=== PATIENT | female | born 1960 | race Caucasian/White ===

== ENCOUNTER 2020-07-27 07:37 | Outpatient (REF) | payer OTHER, MEDICAID, SELFPAY ==
[2020-07-27 08:50] LABS: MANUAL DIFF FLAG NO
[2020-07-27 08:51] LABS: Basophils Percent Auto 0.8 % (0-2); Eosinophils Absolute Auto 0.1 X10*3/uL (0.0-0.4); Eosinophils Percent Auto 1.8 % (0-4); Hematocrit 42.6 % (37-47); Hemoglobin 14.7 g/dl (12.0-16.0); Lymphocytes Absolute Auto 1.8 X10*3/uL (1.2-4.9); Lymphocytes Percent Auto 47.3 % (20-40); Mean Corpuscular HGB Conc 34.5 g/dl (31.0-35.0); Mean Corpuscular Hemoglobin 31.5 pg (27.0-33.0); Mean Corpuscular Volume 91.4 fL (80-98); Mean Platelet Volume 10.4 fL (9.4-12.3); Monocytes Absolute Auto 0.3 X10*3/uL (0.1-1.2); Monocytes Percent Auto 7.8 % (2-11); Neutrophils Absolute Auto 1.6 X10*3/uL (2.0-8.3); Neutrophils Percent Auto 42.3 % (45-73); Platelet Count 195 X10*3/uL (160-400); Red Blood Count 4.66 X10*6/uL (4.20-5.50); Red Cell Distribution Width 11.6 % (11.0-16.0); White Blood Count 3.9 X10*3/uL (4.8-10.8)
[2020-07-27 08:59] LABS: Estimated Average Glucose 105 mg/dL; Hemoglobin A1c % 5.3 %
[2020-07-27 09:18] LABS: Alanine Aminotransferase 17 U/L (0-31); Albumin Level 4.3 g/dL (3.5-5.0); Alkaline Phosphatase 66 U/L (39-117); Anion Gap 14 (12-20); Aspartate Amino Transferase 16 U/L (5-31); Bilirubin Total 1.5 mg/dL (0.0-1.0); Blood Urea Nitrogen 12 mg/dL (9-16); Calcium 9.1 mg/dL (8.4-10.2); Carbon Dioxide 25 mmol/L (22-29); Chloride 107 mmol/L (96-108); Cholesterol 147 mg/dL; Estimated Glomerular Filt Rate > 60; Glucose Fasting 101 mg/dL (60-99); HDL Cholesterol 67 mg/dL; LDL Cholesterol Calculated 61 mg/dl; Potassium 4.2 mmol/l (3.3-5.1); Sodium 142 mmol/L (135-145); Total Protein 6.7 g/dL (6.5-8.0); Triglycerides 97 mg/dL
[2020-07-27 09:21] LABS: Glucose Urine UA NEG (NEG); Leukocyte Esterase Urine NEG (NEG); Nitrite Urine NEG (NEG); Specific Gravity - Urine 1.015 (1.005-1.025); Urine Blood NEG (NEG); Urine Ketones NEG (NEG); Urine Protein NEG (NEG-TRACE)
[2020-07-27 09:23] LABS: Color Urine YELLOW
[2020-07-27 09:24] LABS: Appearance Urine HAZY
[2020-07-27 09:41] LABS: TSH reflex Free T4 2.38 mIU/mL (0.32-4.0)
== END 2020-07-27 07:38 | disposition home or self-care (01) ==
LOC: HO.LAB 07:37
PROVIDERS: PCP Internal Medicine; Visit Provider Internal Medicine
DX: E78.5 Hyperlipidemia, unspecified (principal); I10 Essential (primary) hypertension; R73.01 Impaired fasting glucose; I48.0 Paroxysmal atrial fibrillation; I49.5 Sick sinus syndrome; J30.9 Allergic rhinitis, unspecified; E66.3 Overweight
CPT/HCPCS: 36415; 80053; 80061; 81003; 83036; 84443; 85025

== ENCOUNTER → 2020-08-01 14:37 | Outpatient (BNVA) | payer MEDICARE, MEDICAID, SELFPAY | PROVIDERS: PCP Internal Medicine; Referring Provider Internal Medicine; Visit Provider Internal Medicine | DX: Z45.018 Encounter for adjustment and management of other part of cardiac pacemaker (principal); I48.0 Paroxysmal atrial fibrillation; I49.5 Sick sinus syndrome; Z51.81 Encounter for therapeutic drug level monitoring; Z79.899 Other long term (current) drug therapy; Z79.01 Long term (current) use of anticoagulants | CPT/HCPCS: 93005; 99212 ==

== ENCOUNTER → 2020-08-09 10:01 | Outpatient (BNVA) | payer MEDICARE, MEDICAID, SELFPAY | PROVIDERS: PCP Internal Medicine; Visit Provider Surgery | DX: R21 Rash and other nonspecific skin eruption (principal); Z80.3 Family history of malignant neoplasm of breast; Z80.41 Family history of malignant neoplasm of ovary; Z80.0 Family history of malignant neoplasm of digestive organs; Z91.89 Other specified personal risk factors, not elsewhere classified | CPT/HCPCS: 99212 ==

== ENCOUNTER 2020-08-21 19:08 | Emergency (ER) | payer MEDICARE, MEDICAID, SELFPAY ==
[2020-08-21 19:49] VITALS: BP 145/77; PULSE 68; RESP 16; TEMP 37.1; O2SAT 100; BMI 26.9
--- NOTE | 2020-08-21 20:12 | ED_ITS ---
HPI - Skin/Abscess/Foreign Bdy General Chief complaint: Skin/Abscess/Foreign Body Stated complaint: ?insect bite on neck Time Seen by Provider: 08/21/20 20:10 History of Present Illness HPI narrative: Patient complains of inflamed red area on the right side of her neck, mildly uncomfortable, no fever no chills no difficulty breathing or swallowing Related Data Home Medications Medication Instructions Recorded Confirmed apixaban 5 mg tablet 5 mg PO BID 08/01/20 08/09/20 ascorbate calcium (vitamin C) 500 500 mg PO DAILY 08/01/20 08/09/20 mg tablet atorvastatin 10 mg tablet 10 mg PO DAILY 08/01/20 08/09/20 flaxseed oil 1,000 mg capsule 1,000 mg PO DAILY 08/01/20 08/09/20 flecainide 50 mg tablet 50 mg PO Q12H 08/01/20 08/09/20 fluticasone propionate 50 1 spray INTRANASAL DAILY 08/01/20 08/09/20 mcg/actuation nasal spray,suspension menthol 0.44 %-zinc oxide 20.6 % 1 appl TOPICAL QID PRN 08/01/20 08/09/20 topical ointment metoprolol succinate 25 mg 25 mg PO DAILY 08/01/20 08/09/20 tablet,extended release 24 hr omega-3 fatty acids 1,000 mg 1,000 mg PO DAILY 08/01/20 08/09/20 capsule tizanidine 4 mg tablet 4 mg PO Q8H PRN 08/01/20 08/09/20 Previous Rx's Medication Instructions Recorded cephalexin [Keflex] 500 mg PO QID 7 Days #28 cap 08/21/20 doxycycline hyclate 100 mg PO BID 7 Days #14 cap 08/21/20 mupirocin 1 appl TOPICAL TID 5 Days #15 g 08/21/20 Allergies Allergy/AdvReac Type Severity Reaction Status Date / Time codeine [CODEINE] Allergy Unknown JITTERY Verified 08/09/20 10:08 Sulfa (Sulfonamide Allergy Unknown RASH,HIVES, Verified 08/09/20 10:08 Antibiotics) rash [SULFA (SULFONAMIDE ANTIBIOTICS)] Review of Systems Review of Systems: Positive for red mildly painful area on right side of neck Review of systems no fever no chills no dizziness no weakness no difficulty breathing nose difficulty swallowing no sore throat, no other red or painful areas on the body no other rashes, no numbness tingling or weakness PMFSH Past Medical History Source: nursing notes reviewed Medical History (Updated 08/21/20 @ 20:25 by LONNIE Graham) Allergic rhinitis At high risk for breast cancer Benign essential hypertension 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 Family history of breast cancer Impaired fasting glucose Normally functioning cardiac pacemaker present Overweight (BMI 25.0-29.9) PAF (paroxysmal atrial fibrillation) Pure hypercholesterolemia Sick sinus syndrome Surgical History History of pacemaker History of tonsillectomy Family History Family History Father Hypertension Diabetes Arthritis Colon cancer Iron deficiency Mother Hypertension Maternal Grandmother Arthritis Diabetes Blockage of coronary artery of heart Maternal Grandfather Arthritis Paternal Grandfather Arthritis Pancreatic cancer Social History Social History Alcohol intake: never Smoking Status: Former smoker Smoked in Last 30 Days: No Use of substances other than those prescribed or required for medical reasons: No Advance Directives: No Advance Directives Information Provided: No Physical Exam Vital Signs: Vital Signs: Last Vital Signs Temp 98.7 F 08/21/20 19:49 Pulse 68 08/21/20 19:49 Resp 16 08/21/20 19:49 BP 145/77 H 08/21/20 19:49 Pulse Ox 100 08/21/20 19:49 Body Mass Index 26.9 General appearance is no acute distress comfortable relax and cooperative exam head is normocephalic atraumatic, The pharynx is normal with no redness or swelling, no impairment of breathing or swallowing The neck is supple There is a 1.5cm x 1.5 cm round indurated area of redness that is very mildly tender, it is mobile on the right side of the neck, there is no surrounding erythema, there is no fluctuance or discharge there is no opening or wound Respiratory is no acute distress, lung sounds are clear to auscultation, full and symmetrical Stream it ease is no rashes, full range of motion x4 neuro was no focal deficit Course Course Course Narrative: Patient with small indurated area on right side of the neck with no abscess nothing to drain no systemic symptoms no fever is treated for cellulitis Discharge Plan Discharge Clinical Impression: Cellulitis Qualifiers: Site of cellulitis: neck Qualified Code(s): L03.221 - Cellulitis of neck Patient Disposition: Home, Self-Care Additional Instructions: We are treating for a skin infection of the neck Follow with primary doctor or return to ER if no improvement in 2-3 days for recheck Return to ER any time for spreading redness, worse pain and swelling, fever, difficulty breathing or swallowing, any worse condition or any concerns Prescriptions: New cephalexin [Keflex] 500 mg capsule 500 mg PO QID 7 Days Qty: 28 RF: 0 doxycycline hyclate 100 mg capsule 100 mg PO BID 7 Days Qty: 14 RF: 0 mupirocin 2 % ointment 1 appl topical TID 5 Days Qty: 15 RF: 0 No Action fluticasone propionate 50 mcg/actuation spray,suspension 1 spray intranasal DAILY RF: 0 flecainide 50 mg tablet 50 mg PO Q12H RF: 0 Eliquis 5 mg tablet 5 mg PO BID RF: 0 ascorbate calcium (vitamin C) 500 mg tablet 500 mg PO DAILY RF: 0 flaxseed oil 1,000 mg capsule 1,000 mg PO DAILY RF: 0 Calmoseptine 0.44-20.6 % ointment 1 appl topical QID PRNRF: 0 atorvastatin 10 mg tablet 10 mg PO DAILY RF: 0 omega-3 fatty acids [Fish Oil Concentrate] 1,000 mg capsule 1,000 mg PO DAILY RF: 0 metoprolol succinate 25 mg tablet extended release 24 hr 25 mg PO DAILY RF: 0 tizanidine 4 mg tablet 4 mg PO Q8H PRNRF: 0 Interventions: ED Discharge Assessment Last Done: 08/21/20 20:43 Discharge Date/Time: 08/21/20 20:46
[2020-08-21] MEDS: cephALEXin 500 MG CAPSULE PO (20:41)
== END 2020-08-21 20:46 | disposition home or self-care (01) ==
PROVIDERS: Emergency Provider Internal Medicine; PCP Internal Medicine
DX: L03.221 Cellulitis of neck (principal); Z87.891 Personal history of nicotine dependence; Z79.01 Long term (current) use of anticoagulants; Z79.899 Other long term (current) drug therapy
CPT/HCPCS: 99283; 99284

== ENCOUNTER 2020-08-26 15:02 | Outpatient (REF) | payer MEDICARE, SELFPAY ==
--- NOTE | ~2020-08-26 | US_ITS ---
EXAMINATION: US BREAST, right CLINICAL INFORMATION: Follow up complex cyst COMPARISON: October 13, 2019 and studies dating back to March 02, 2016 MAMMOGRAPHY: Previous mammogram dated August 21, 2019 was reviewed on a diagnostic monitor. TECHNIQUE: High-resolution grayscale sonography of the breasts was performed by a technologist with a high-frequency linear transducer following a standardized protocol. All 4 quadrants were examined. The retroareolar region was examined. FINDINGS: On the images submitted for review, there is again noted to be a complex cyst without change at the 9:00 position measuring approximately 5 x 4 x 6 mm in size. It has smooth miles and no internal vascularity. US/US breast LT complete IMPRESSION: Stable appearance of right breast complex cyst 9:00 position. ASSESSMENT: Right breast: BI-RADS 2, benign. RECOMMENDATIONS: Continue mammographic screening. This patient?s information was entered in to a reminder system with a target due date for their next mammogram.
--- NOTE | ~2020-08-26 | US_ITS ---
EXAMINATION: US BREAST, left CLINICAL INFORMATION: Right breast cystic lesion, left breast screening. COMPARISON: Ultrasound studies dating back to March 02, 2016 MAMMOGRAPHY: Previous mammogram dated August 21, 2019 was reviewed on a nondiagnostic monitor. TECHNIQUE: High-resolution grayscale sonography of the breasts was performed by a technologist with a high-frequency linear transducer following a standardized protocol. All 4 quadrants examined. The retroareolar region was examined. FINDINGS: On the images submitted for review, no suspicious mass, area of architectural distortion, complex cyst or other sonographically suspicious lesion is identified in the left breast. US/US breast RT complete IMPRESSION: No sonographic evidence of malignancy in the left breast. ASSESSMENT: Left breast: BI-RADS 1 - negative. RECOMMENDATIONS: Continue mammographic screening. This patient?s information was entered in to a reminder system with a target due date for their next mammogram.
== END 2020-08-26 15:03 | disposition home or self-care (01) ==
LOC: HO.MAMMO 15:02
PROVIDERS: PCP Internal Medicine; Visit Provider Internal Medicine
DX: N60.01 Solitary cyst of right breast (principal); Z80.3 Family history of malignant neoplasm of breast
CPT/HCPCS: 76641

== ENCOUNTER 2020-08-30 10:05 | Outpatient (REF) | payer MEDICARE, MEDICAID, SELFPAY ==
--- NOTE | ~2020-08-30 | MM_ITS ---
EXAMINATION: MM SCREENING DIGITAL BREAST TOMOSYNTHESIS, BILATERAL CLINICAL INFORMATION: Screening. Asymptomatic. The lifetime risk of breast cancer based on the Tyrer-Cuzick Model is 13%. COMPARISON: Mammography: 08/21/2019, 07/25/2018, 07/23/2017; targeted right breast ultrasound 07/25/2018, 01/23/2019, 07/29/2019, 10/13/2019, and bilateral breast ultrasound 08/26/2020. TECHNIQUE: Digital breast tomosynthesis is performed in both the craniocaudal and mediolateral oblique views along with computer-aided detection (CAD). Synthesized 2D images are generated from the tomosynthesis. FINDINGS: There are scattered areas of fibroglandular density (ACR BI-RADS breast composition Category b). Parenchymal pattern is similar to prior studies. There is no significant mass or architectural abnormality or abnormal calcifications. Circumscribed nodule mid outer right breast is slightly decreased from prior study. There is stable right retroareolar duct ectasia. The axilla and skin contours are unremarkable. MM/MM tomosynthesis screening BI IMPRESSION: No significant changes from prior exams. ASSESSMENT: BI-RADS 2: Benign RECOMMENDATION: Routine annual mammography screening. This patient's information was entered into a reminder system with a target due date for their next mammogram.
== END 2020-08-30 10:06 | disposition home or self-care (01) ==
LOC: HO.MAMMO 10:05
PROVIDERS: PCP Internal Medicine; Visit Provider Internal Medicine
DX: Z12.31 Encounter for screening mammogram for malignant neoplasm of breast (principal)
CPT/HCPCS: 77063; 77067

== ENCOUNTER 2020-11-25 06:50 | Outpatient (REF) | payer MEDICARE, MEDICAID, SELFPAY ==
[2020-11-25 07:46] LABS: MANUAL DIFF FLAG NO
[2020-11-25 07:50] LABS: Basophils Percent Auto 0.7 % (0-2); Eosinophils Absolute Auto 0.1 X10*3/uL (0.0-0.4); Eosinophils Percent Auto 1.7 % (0-4); Hematocrit 43.8 % (37-47); Hemoglobin 15.1 g/dl (12.0-16.0); Imm Gran Abs Auto 0.01 X10*3/uL (0.00-0.03); Imm Gran Pct Auto 0.2 % (0.0-0.4); Lymphocytes Absolute Auto 2.2 X10*3/uL (1.2-4.9); Lymphocytes Percent Auto 51.6 % (20-40); Mean Corpuscular HGB Conc 34.5 g/dl (31.0-35.0); Mean Corpuscular Hemoglobin 31.7 pg (27.0-33.0); Mean Corpuscular Volume 91.8 fL (80-98); Mean Platelet Volume 10.4 fL (9.4-12.3); Monocytes Absolute Auto 0.3 X10*3/uL (0.1-1.2); Monocytes Percent Auto 7.4 % (2-11); Neutrophils Absolute Auto 1.6 X10*3/uL (2.0-8.3); Neutrophils Percent Auto 38.4 % (45-73); Platelet Count 174 X10*3/uL (160-400); Red Blood Count 4.77 X10*6/uL (4.20-5.50); Red Cell Distribution Width 11.8 % (11.0-16.0); White Blood Count 4.2 X10*3/uL (4.8-10.8)
[2020-11-25 08:20] LABS: Alanine Aminotransferase 17 U/L (0-31); Albumin Level 4.5 g/dL (3.5-5.0); Alkaline Phosphatase 69 U/L (39-117); Anion Gap 12 (12-20); Aspartate Amino Transferase 14 U/L (5-31); Bilirubin Total 1.3 mg/dL (0.0-1.0); Blood Urea Nitrogen 15 mg/dL (9-16); Calcium 9.5 mg/dL (8.4-10.2); Carbon Dioxide 27 mmol/L (22-29); Chloride 107 mmol/L (96-108); Cholesterol 161 mg/dL; Estimated Glomerular Filt Rate > 60; Glucose Fasting 92 mg/dL (60-99); HDL Cholesterol 68 mg/dL; LDL Cholesterol Calculated 73 mg/dl; Potassium 3.8 mmol/L (3.3-5.1); Sodium 142 mmol/L (135-145); Triglycerides 101 mg/dL
[2020-11-25 08:30] LABS: Glucose Urine UA NEG (NEG); Leukocyte Esterase Urine NEG (NEG); Nitrite Urine NEG (NEG); Urine Blood 1+ (NEG); Urine Ketones NEG (NEG); Urine Protein NEG (NEG-TRACE)
[2020-11-25 08:32] LABS: Color Urine YELLOW
[2020-11-25 08:33] LABS: Appearance Urine CLEAR
[2020-11-25 08:42] LABS: TSH reflex Free T4 3.47 uIU/mL (0.32-4.0)
[2020-11-25 08:55] LABS: Squamous Epithelial Cell Urine 1+ /LPF; WBC Urine 0-2 /HPF (0-4)
== END 2020-11-25 06:51 | disposition home or self-care (01) ==
LOC: HO.LAB 06:50
PROVIDERS: Visit Provider Internal Medicine
DX: I10 Essential (primary) hypertension (principal); J30.9 Allergic rhinitis, unspecified; R73.01 Impaired fasting glucose; E78.00 Pure hypercholesterolemia, unspecified; E66.3 Overweight; I48.0 Paroxysmal atrial fibrillation; I49.5 Sick sinus syndrome
CPT/HCPCS: 36415; 80053; 80061; 81001; 84443; 85025

== ENCOUNTER → 2021-02-01 14:18 | Outpatient (BNVA) | payer MEDICARE, MEDICAID, SELFPAY | PROVIDERS: PCP Internal Medicine; Referring Provider Internal Medicine; Visit Provider Internal Medicine | DX: I48.0 Paroxysmal atrial fibrillation (principal); I49.5 Sick sinus syndrome; Z51.81 Encounter for therapeutic drug level monitoring; Z79.899 Other long term (current) drug therapy; Z95.0 Presence of cardiac pacemaker | CPT/HCPCS: 93005; 99212 ==

== ENCOUNTER → 2021-03-15 09:51 | Outpatient (BNVA) | payer MEDICARE, MEDICAID, SELFPAY | PROVIDERS: PCP Internal Medicine; Referring Provider Internal Medicine; Visit Provider Surgery | DX: N60.02 Solitary cyst of left breast (principal); N60.01 Solitary cyst of right breast; I48.0 Paroxysmal atrial fibrillation; I10 Essential (primary) hypertension; E78.00 Pure hypercholesterolemia, unspecified; Z80.3 Family history of malignant neoplasm of breast; Z80.41 Family history of malignant neoplasm of ovary; Z87.891 Personal history of nicotine dependence; Z95.0 Presence of cardiac pacemaker | CPT/HCPCS: 99212 ==

== ENCOUNTER 2021-05-25 08:07 | Outpatient (REF) | payer MEDICARE, MEDICAID, SELFPAY ==
[2021-05-25 08:40] LABS: Eosinophils Absolute Auto 0.1 X10*3/uL (0.0-0.4); Eosinophils Percent Auto 2.2 % (0-4); Hematocrit 40.1 % (37.0-47.0); Imm Gran Abs Auto 0.01 X10*3/uL (0.00-0.03); Imm Gran Pct Auto 0.3 % (0.0-0.4); Lymphocytes Absolute Auto 1.4 X10*3/uL (1.2-4.9); Lymphocytes Percent Auto 45.7 % (20-40); MANUAL DIFF FLAG NO; Mean Corpuscular HGB Conc 34.9 g/dl (31.0-35.0); Mean Corpuscular Hemoglobin 31.8 pg (27.0-33.0); Mean Corpuscular Volume 91.1 fL (80.0-98.0); Monocytes Absolute Auto 0.3 X10*3/uL (0.1-1.2); Monocytes Percent Auto 8.6 % (2-11); Neutrophils Absolute Auto 1.33 x10*3/uL (2.0-8.3); Neutrophils Percent Auto 42.2 % (45-73); Platelet Count 171 X10*3/uL (160-400); Red Cell Distribution Width 11.8 % (11.0-16.0); White Blood Count 3.2 X10*3/uL (4.8-10.8)
[2021-05-25 09:22] LABS: Alanine Aminotransferase 18 U/L (0-31); Albumin Level 4.1 g/dL (3.5-5.0); Alkaline Phosphatase 60 U/L (39-117); Anion Gap 10 (12-20); Aspartate Amino Transferase 17 U/L (5-31); Bilirubin Total 2.5 mg/dL (0.0-1.0); Blood Urea Nitrogen 13 mg/dL (9-16); Calcium 9.1 mg/dL (8.4-10.2); Carbon Dioxide 27 mmol/L (22-29); Chloride 107 mmol/L (96-108); Cholesterol 138 mg/dL; Estimated Glomerular Filt Rate > 60; Glucose Fasting 104 mg/dL (60-99); HDL Cholesterol 61 mg/dL; LDL Cholesterol Calculated 61 mg/dl; Potassium 3.9 mmol/L (3.3-5.1); Sodium 140 mmol/L (135-145); Total Protein 6.3 g/dL (6.5-8.0); Triglycerides 82 mg/dL
[2021-05-25 09:27] LABS: Appearance Urine CLEAR; Color Urine YELLOW; Glucose Urine UA NEG (NEG); Leukocyte Esterase Urine NEG (NEG); Nitrite Urine NEG (NEG); PH 6.5 (5.0-8.0); Specific Gravity - Urine <= 1.005 (1.005-1.025); Urine Blood NEG (NEG); Urine Ketones NEG (NEG); Urine Protein NEG (NEG-TRACE)
[2021-05-25 09:42] LABS: TSH reflex Free T4 2.34 uIU/mL (0.32-4.0); Vitamin D 25-OH Total 42.5 ng/mL (>30)
== END 2021-05-25 08:08 | disposition home or self-care (01) ==
LOC: HO.LAB 08:07
PROVIDERS: Visit Provider Internal Medicine
DX: I10 Essential (primary) hypertension (principal); E55.9 Vitamin D deficiency, unspecified; E78.00 Pure hypercholesterolemia, unspecified
CPT/HCPCS: 36415; 80053; 80061; 81003; 82306; 84443; 85025

== ENCOUNTER 2021-07-24 07:41 | Outpatient (REF) | payer MEDICARE, MEDICAID, SELFPAY | END 2021-07-24 07:42 | disposition home or self-care (01) | LOC: HO.LAB 07:41 | PROVIDERS: PCP Internal Medicine; Visit Provider Internal Medicine | DX: Z13.89 Encounter for screening for other disorder (principal) ==

== ENCOUNTER 2021-07-24 08:56 | Outpatient (REF) | payer MEDICARE, MEDICAID, SELFPAY ==
[2021-07-24 09:29] LABS: MANUAL DIFF FLAG NO
[2021-07-24 10:03] LABS: Eosinophils Percent Auto 1.3 % (0-4); Hematocrit 41.8 % (37.0-47.0); Hemoglobin 14.4 g/dl (12.0-16.0); Imm Gran Abs Auto 0.01 X10*3/uL (0.00-0.03); Imm Gran Pct Auto 0.3 % (0.0-0.4); Lymphocytes Absolute Auto 1.3 X10*3/uL (1.2-4.9); Lymphocytes Percent Auto 42.4 % (20-40); Mean Corpuscular HGB Conc 34.4 g/dl (31.0-35.0); Mean Corpuscular Hemoglobin 31.7 pg (27.0-33.0); Mean Corpuscular Volume 92.1 fL (80.0-98.0); Mean Platelet Volume 10.3 fL (9.4-12.3); Monocytes Absolute Auto 0.3 X10*3/uL (0.1-1.2); Monocytes Percent Auto 8.4 % (2-11); Neutrophils Absolute Auto 1.4 x10*3/uL (2.0-8.3); Neutrophils Percent Auto 46.6 % (45-73); Platelet Count 166 X10*3/uL (160-400); Red Blood Count 4.54 X10*6/uL (4.20-5.50); Red Cell Distribution Width 11.9 % (11.0-16.0); White Blood Count 3.1 X10*3/uL (4.8-10.8)
[2021-07-24 10:36] LABS: Appearance Urine CLEAR; Color Urine STRAW; Glucose Urine UA NEG (NEG); Leukocyte Esterase Urine NEG (NEG); Nitrite Urine NEG (NEG); Specific Gravity - Urine <= 1.005 (1.005-1.025); Urine Blood NEG (NEG); Urine Ketones NEG (NEG); Urine Protein NEG (NEG-TRACE)
[2021-07-24 10:42] LABS: Alanine Aminotransferase 18 U/L (0-31); Albumin Level 4.2 g/dL (3.5-5.0); Alkaline Phosphatase 62 U/L (39-117); Anion Gap 9 (12-20); Aspartate Amino Transferase 14 U/L (5-31); Bilirubin Total 1.9 mg/dL (0.0-1.0); Blood Urea Nitrogen 15 mg/dL (9-16); Calcium 9.5 mg/dL (8.4-10.2); Carbon Dioxide 31 mmol/L (22-29); Chloride 107 mmol/L (96-108); Cholesterol 150 mg/dL; Estimated Glomerular Filt Rate > 60; Glucose Fasting 101 mg/dL (60-99); HDL Cholesterol 65 mg/dL; LDL Cholesterol Calculated 68 mg/dl; Potassium 4.5 mmol/L (3.3-5.1); Sodium 142 mmol/L (135-145); Total Protein 6.8 g/dL (6.5-8.0); Triglycerides 88 mg/dL
[2021-07-24 11:05] LABS: TSH reflex Free T4 1.71 uIU/mL (0.32-4.0); Vitamin D 25-OH Total 45.9 ng/mL (>30)
== END 2021-07-24 08:57 | disposition home or self-care (01) ==
LOC: HO.LAB 08:56
PROVIDERS: PCP Internal Medicine; Visit Provider Internal Medicine
DX: E78.00 Pure hypercholesterolemia, unspecified (principal); E55.9 Vitamin D deficiency, unspecified; I10 Essential (primary) hypertension
CPT/HCPCS: 36415; 80053; 80061; 81003; 82306; 84443; 85025

== ENCOUNTER → 2021-07-31 12:56 | Outpatient (BNVA) | payer MEDICARE, MEDICAID, SELFPAY | PROVIDERS: PCP Internal Medicine; Referring Provider Internal Medicine; Visit Provider Internal Medicine | DX: Z45.018 Encounter for adjustment and management of other part of cardiac pacemaker (principal); I48.0 Paroxysmal atrial fibrillation; I49.5 Sick sinus syndrome; Z51.81 Encounter for therapeutic drug level monitoring; Z79.899 Other long term (current) drug therapy | CPT/HCPCS: 93005; 99212 ==

== ENCOUNTER 2021-08-30 11:04 | Outpatient (REF) | payer MEDICARE, MEDICAID, SELFPAY ==
--- NOTE | ~2021-08-30 | XR_ITS ---
EXAMINATION: XR HAND, LEFT CLINICAL INFORMATION: Left hand and fourth finger pain COMPARISON: None TECHNIQUE: PA, lateral, and oblique views of the left hand. FINDINGS: Bone alignment is normal. No fracture or dislocation is seen there is mild arthritis at the DIP joint of the second and third fingers. Joint spaces are otherwise normal. Soft tissues are normal. XR/XR hand LT min 3V IMPRESSION: Mild degenerative changes.
== END 2021-08-30 11:05 | disposition home or self-care (01) ==
LOC: HO.XRAY 11:04
PROVIDERS: PCP Internal Medicine; Visit Provider Internal Medicine
DX: M79.645 Pain in left finger(s) (principal)
CPT/HCPCS: 73130

== ENCOUNTER 2021-09-04 13:19 | Outpatient (REF) | payer MEDICARE, MEDICAID, SELFPAY ==
--- NOTE | ~2021-09-04 | MM_ITS ---
EXAMINATION: MM SCREENING DIGITAL BREAST TOMOSYNTHESIS, BILATERAL CLINICAL INFORMATION: Screening. Asymptomatic. The lifetime risk of breast cancer based on the Tyrer-Cuzick Model is 12%. COMPARISON: Mammography: 08/30/2020, 08/21/2019, 07/25/2018 TECHNIQUE: Digital breast tomosynthesis is performed in both the craniocaudal and mediolateral oblique views along with computer-aided detection (CAD). Synthesized 2D images are generated from the tomosynthesis. FINDINGS: There are scattered areas of fibroglandular density (ACR BI-RADS breast composition Category b). Parenchymal pattern is similar to prior exams. There is no interval mass or architectural abnormality or abnormal calcifications. There is stable right retroareolar duct ectasia and a small circumscribed nodule again seen right breast upper outer quadrant mid depth. The skin contours are smooth. Pacemaker generator partially overlies the posterior left axilla. No significant change. MM/MM tomosynthesis screening BI IMPRESSION: No mammographic evidence of malignancy. ASSESSMENT: BI-RADS 2: Benign RECOMMENDATION: Routine annual mammography screening. This patient's information was entered into a reminder system with a target due date for their next mammogram.
== END 2021-09-04 13:20 | disposition home or self-care (01) ==
LOC: HO.MAMMO 13:19
PROVIDERS: Visit Provider Obstetrics & Gynecology
DX: Z12.31 Encounter for screening mammogram for malignant neoplasm of breast (principal)
CPT/HCPCS: 77063; 77067

== ENCOUNTER → 2021-09-06 09:53 | Outpatient (BNVA) | payer MEDICARE, MEDICAID, SELFPAY | PROVIDERS: PCP Internal Medicine; Referring Provider Internal Medicine; Visit Provider Surgery | DX: Z91.89 Other specified personal risk factors, not elsewhere classified (principal); Z80.3 Family history of malignant neoplasm of breast | CPT/HCPCS: 99212 ==

== ENCOUNTER 2021-10-18 14:02 | Emergency (ER) | payer MEDICARE, MEDICAID, SELFPAY ==
--- NOTE | 2021-10-18 | ECG_ITS ---
Test Reason : SOB Blood Pressure : / mmHG Vent. Rate : 070 BPM Atrial Rate : 070 BPM P-R Int : 218 ms QRS Dur : 090 ms QT Int : 378 ms P-R-T Axes : 022 027 019 degrees QTc Int : 408 ms Atrial-paced rhythm with prolonged AV conduction Abnormal ECG When compared with ECG of 25-OCT-2015 06:58, Electronic atrial pacemaker has replaced Sinus rhythm Vent. rate has increased BY 24 BPM Referred By: Generic ED Physician Electronically Signed By:KATIE OMALLEY
--- NOTE | ~2021-10-18 | XR_ITS ---
EXAMINATION: XR CHEST CLINICAL INFORMATION: Shortness of breath. COMPARISON: 08/07/2017 chest radiographs. TECHNIQUE: 2 views of the chest were obtained. FINDINGS: Support devices: Left-sided pacemaker device appears in good position. The lungs are clear. There are no pleural effusions. The heart and mediastinal structures are unremarkable. XR/XR chest 2V IMPRESSION: No acute cardiopulmonary process.
[2021-10-18 14:09] VITALS: BP 183/92; PULSE 93; RESP 18; TEMP 36.6; O2SAT 99; BMI 26.1
[2021-10-18 14:34] LABS: MANUAL DIFF FLAG NO
[2021-10-18 14:35] LABS: Basophils Percent Auto 0.7 % (0-2); Eosinophils Percent Auto 0.5 % (0-4); Hematocrit 42.3 % (37.0-47.0); Hemoglobin 14.3 g/dl (12.0-16.0); Imm Gran Abs Auto 0.01 X10*3/uL (0.00-0.03); Imm Gran Pct Auto 0.2 % (0.0-0.4); Lymphocytes Absolute Auto 1.5 X10*3/uL (1.2-4.9); Lymphocytes Percent Auto 35.4 % (20-40); Mean Corpuscular HGB Conc 33.8 g/dl (31.0-35.0); Mean Corpuscular Hemoglobin 30.8 pg (27.0-33.0); Mean Corpuscular Volume 91.2 fL (80.0-98.0); Monocytes Absolute Auto 0.3 X10*3/uL (0.1-1.2); Monocytes Percent Auto 7.3 % (2-11); Neutrophils Absolute Auto 2.3 x10*3/uL (2.0-8.3); Neutrophils Percent Auto 55.9 % (45-73); Platelet Count 174 X10*3/uL (160-400); Red Blood Count 4.64 X10*6/uL (4.20-5.50); Red Cell Distribution Width 11.7 % (11.0-16.0); White Blood Count 4.1 X10*3/uL (4.8-10.8)
[2021-10-18 14:57] LABS: Alanine Aminotransferase 19 U/L (0-31); Albumin Level 4.2 g/dL (3.5-5.0); Alkaline Phosphatase 65 U/L (39-117); Anion Gap 8 (12-20); Aspartate Amino Transferase 17 U/L (5-31); Bilirubin Total 2.3 mg/dL (0.0-1.0); Blood Urea Nitrogen 13 mg/dL (9-16); Calcium 9.6 mg/dL (8.4-10.2); Carbon Dioxide 31 mmol/L (22-29); Chloride 103 mmol/L (96-108); Creatinine Clr Calc Pharmacy 52.2; Estimated Glomerular Filt Rate 52; Glucose Random 115 mg/dL (60-115); Potassium 4.4 mmol/L (3.3-5.1); Sodium 138 mmol/L (135-145); Total Protein 6.7 g/dL (6.5-8.0)
[2021-10-18 15:00] LABS: Troponin-I High Sensitivity < 3.5 ng/L (<3.5-17.0)
[2021-10-18 16:23] VITALS: BP 150/79; PULSE 63; RESP 14; O2SAT 99
--- NOTE | 2021-10-18 16:31 | ED_ITS ---
HPI - General Adult General Chief complaint: General Medical Stated complaint: stroke? fatigue, weak, has pacemaker Time Seen by Provider: 10/18/21 16:31 Source: patient Mode of arrival: ambulatory Limitations: no limitations History of Present Illness HPI narrative: Patient is 60 years old with history of paroxysmal atrial fibrillation sick sinus syndrome status post pacemaker placed in 2017 on Eliquis, hypertension with increased anxiety and depression under increased stress lately her brother and [id number] were fighting last night today she woke up felt nonspecific dizzy denies any chest pain or palpitation dizziness got better at this time denies any complain patient denies any shortness of breath Related Data Home Medications Medication Instructions Recorded Confirmed ascorbate calcium (vitamin C) 500 500 mg PO DAILY 08/01/20 09/06/21 mg tablet flaxseed oil 1,000 mg capsule 1,000 mg PO DAILY 08/01/20 09/06/21 fluticasone propionate 50 1 spray INTRANASAL DAILY 08/01/20 09/06/21 mcg/actuation nasal spray,suspension menthol 0.44 %-zinc oxide 20.6 % 1 appl TOPICAL QID PRN 08/01/20 09/06/21 topical ointment (Calmoseptine) omega-3 fatty acids 1,000 mg 1,000 mg PO DAILY 08/01/20 09/06/21 capsule (Fish Oil Concentrate) Previous Rx's Medication Instructions Recorded mupirocin 2 % topical ointment 1 appl TOPICAL TID 5 Days #15 g 08/21/20 atorvastatin 10 mg tablet 10 mg PO DAILY #90 tab 12/22/20 flecainide 100 mg tablet 100 mg PO Q12H #180 tab 02/01/21 calcium carbonate 600 mg-vitamin 1 tab PO DAILY 90 Days #90 tab 02/20/21 D3 5 mcg (200 unit) tablet apixaban 5 mg tablet (Eliquis) 5 mg PO BID 90 Days #180 tab 07/28/21 metoprolol succinate 50 mg 50 mg PO DAILY #90 tab 07/31/21 tablet,extended release 24 hr (Toprol XL) tizanidine 4 mg tablet 4 mg PO Q8H PRN #270 tab 09/04/21 nystatin 100,000 unit/gram topical 1 appl TOPICAL BID #15 g 09/06/21 cream lorazepam 0.5 mg tablet (Ativan) 0.5 mg PO BEDTIME PRN #7 tab 10/18/21 Allergies Allergy/AdvReac Type Severity Reaction Status Date / Time codeine [CODEINE] Allergy Unknown JITTERY Verified 09/06/21 10:08 Sulfa (Sulfonamide Allergy Unknown RASH,HIVES, Verified 09/06/21 10:08 Antibiotics) rash [SULFA (SULFONAMIDE ANTIBIOTICS)] Review of Systems Review of Systems: Yes all other systems are reviewed and are negative [facility] Past Medical History Medical History Allergic rhinitis At high risk for breast cancer 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 essential hypertension 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 Family history of breast cancer Impaired fasting glucose Normally functioning cardiac pacemaker present Overweight (BMI 25.0-29.9) PAF (paroxysmal atrial fibrillation) Pure hypercholesterolemia Sick sinus syndrome Surgical History History of pacemaker History of tonsillectomy Family History Family History Father Hypertension Diabetes Arthritis Colon cancer Iron deficiency Mother Hypertension Maternal Grandmother Arthritis Diabetes Blockage of coronary artery of heart Maternal Grandfather Arthritis Paternal Grandfather Arthritis Pancreatic cancer Social History Social History Housing: House Alcohol intake: never Patient Tobacco Use Status: Former Tobacco user Second Hand Smoke Exposure: Yes Advance Directives: No Advance Directives Information Provided: Yes service: No Current occupational status: disabled Physical Exam ED Vital Signs: Vital Signs - 24 hr 10/18/21 14:09 10/18/21 16:23 10/18/21 17:23 Temperature 97.8 F Pulse Rate 93 63 66 Respiratory Rate 18 14 Blood Pressure 183/92 H 150/79 H 128/68 Pulse Oximetry 99 99 10/18/21 17:24 10/18/21 17:26 Temperature Pulse Rate 68 65 Respiratory Rate Blood Pressure 153/79 H 147/73 H Pulse Oximetry BMI result Body Mass Index 26.1 Appearance: Alert. Oriented X3. No acute distress. Eyes: PERRLA, No Nystagmus ENT: Pharynx normal. Oral Mucosa moist Neck: Normal inspection. Neck supple. CVS: Normal heart rate and rhythm. Pulses normal. Respiratory: No respiratory distress. Equal air entry bilateral, no wheezing/rales/rhonchi Abdomen: Soft and nontender. Bowel sounds are present, no mass palpable, no CVA tenderness Skin: Skin warm and dry. Normal skin color. Normal skin turgor. Extremities:1+ L lower extremity edema. No calf tenderness Neuro: Oriented X 3. No motor deficit. No sensory deficit.No cerebellar signs , cranial nerves II-XII intact Medical Decision Making MDM Narrative Medical decision making narrative: Patient with nonspecific symptoms with increased anxiety secondary to stress at home normal orthostatics while labs are stable vitals are stable. Patient has normal orthostatics will give her Ativan to relax at home for sleep and anxiety Lab Data Result diagrams: 10/18/21 14:29 10/18/21 14:29 Labs: Lab Results 10/18/21 10/18/21 10/18/21 Range/Units 14:29 14:29 14:29 WBC 4.1 L (4.8-10.8) X10*3/uL RBC 4.64 (4.20-5.50) X10*6/uL Hgb 14.3 (12.0-16.0) g/dl Hct 42.3 (37.0-47.0) % MCV 91.2 (80.0-98.0) fL MCH 30.8 (27.0-33.0) pg MCHC 33.8 (31.0-35.0) g/dl RDW 11.7 (11.0-16.0) % Plt Count 174 (160-400) X10*3/uL MPV 10.0 (9.4-12.3) fL Immature Gran % (Auto) 0.2 (0.0-0.4) % Neut % (Auto) 55.9 (45-73) % Lymph % (Auto) 35.4 (20-40) % [place] % (Auto) 7.3 (2-11) % Eos % (Auto) 0.5 (0-4) % Baso % (Auto) 0.7 (0-2) % Lymph # (Auto) 1.5 (1.2-4.9) X10*3/uL [place] # (Auto) 0.3 (0.1-1.2) X10*3/uL Eos # (Auto) 0.0 (0.0-0.4) X10*3/uL Baso # (Auto) 0.0 (0.0-0.2) X10*3/uL Abs Immat Gran (auto) 0.01 (0.00-0.03) X10*3/uL Absolute Neuts (auto) 2.3 (2.0-8.3) x10*3/uL Absolute Nucleated RBC 0.000 (0.0-0.012) X10*3/uL Nucleated RBC % (auto) 0.0 (0.0-0.2) /100WBC Sodium 138 (135-145) mmol/L Potassium 4.4 (3.3-5.1) mmol/L Chloride 103 (96-108) mmol/L Carbon Dioxide 31 H (22-29) mmol/L Anion Gap 8 L (12-20) BUN 13 (9-16) mg/dL Creatinine 1.08 (0.5-1.4) mg/dL Estim Creat Clear Calc 52.2 Estimated GFR 52 Random Glucose 115 (60-115) mg/dL Calcium 9.6 (8.4-10.2) mg/dL Total Bilirubin 2.3 H (0.0-1.0) mg/dL AST 17 (5-31) U/L ALT 19 (0-31) U/L Alkaline Phosphatase 65 (39-117) U/L Troponin I High Sens < 3.5 (<3.5-17.0) ng/L Total Protein 6.7 (6.5-8.0) g/dL Albumin 4.2 (3.5-5.0) g/dL ECG Data Interpretation: Pacemaker beats ventricular rate 70 beats per minute no acute STT wave changes no acute ischemia Discharge Plan Discharge Clinical Impression: Anxiety Patient Disposition: Home, Self-Care Instructions: Anxiety (ED) Additional Instructions: Rest at home Take medication for anxiety/sleep and the nighttime as needed Follow with PCP Prescriptions: New lorazepam [Ativan] 0.5 mg tablet 0.5 mg PO BEDTIME PRN (Reason: sleep) Qty: 7 0RF No Action atorvastatin 10 mg tablet 10 mg PO DAILY Qty: 90 3RF tizanidine 4 mg tablet 4 mg PO Q8H PRN (Reason: muscle spasticity) Qty: 270 2RF mupirocin 2 % ointment 1 appl topical TID 5 Days Qty: 15 0RF fluticasone propionate 50 mcg/actuation spray,suspension 1 spray intranasal DAILY 0RF Rx Instructions: administer into each nostril ascorbate calcium (vitamin C) 500 mg tablet 500 mg PO DAILY 0RF flaxseed oil 1,000 mg capsule 1,000 mg PO DAILY 0RF Rx Instructions: administer with a meal Calmoseptine 0.44-20.6 % ointment 1 appl topical QID PRN0RF omega-3 fatty acids [Fish Oil Concentrate] 1,000 mg capsule 1,000 mg PO DAILY 0RF calcium carbonate-vitamin D3 600 mg(1,500mg) -200 unit tablet 1 tab PO DAILY 90 Days Qty: 90 3RF Eliquis 5 mg tablet 5 mg PO BID 90 Days Qty: 180 3RF flecainide 100 mg tablet 100 mg PO Q12H Qty: 180 4RF nystatin 100,000 unit/gram cream 1 appl topical BID Qty: 15 0RF metoprolol succinate [Toprol XL] 50 mg tablet extended release 24 hr 50 mg PO DAILY Qty: 90 3RF
[2021-10-18 17:23] VITALS: BP 128/68; PULSE 66
[2021-10-18 17:24] VITALS: BP 153/79; PULSE 68
[2021-10-18 17:26] VITALS: BP 147/73; PULSE 65
== END 2021-10-18 17:43 | disposition home or self-care (01) ==
PROVIDERS: Emergency Provider Internal Medicine; PCP Internal Medicine
DX: F41.9 Anxiety disorder, unspecified (principal); I48.0 Paroxysmal atrial fibrillation; I10 Essential (primary) hypertension; E78.00 Pure hypercholesterolemia, unspecified; F32.A Depression, unspecified; Z95.0 Presence of cardiac pacemaker; Z79.01 Long term (current) use of anticoagulants; Z79.02 Long term (current) use of antithrombotics/antiplatelets; R60.0 Localized edema; Z72.89 Other problems related to lifestyle; Z63.79 Other stressful life events affecting family and household
CPT/HCPCS: 36415; 71046; 80053; 84484; 85025; 93005; 99283; 99284

== ENCOUNTER 2021-10-23 08:11 | Outpatient (REF) | payer MEDICARE, MEDICAID, SELFPAY ==
[2021-10-23 08:27] LABS: MANUAL DIFF FLAG NO
[2021-10-23 08:55] LABS: Eosinophils Absolute Auto 0.1 X10*3/uL (0.0-0.4); Eosinophils Percent Auto 1.3 % (0-4); Hemoglobin 14.9 g/dl (12.0-16.0); Imm Gran Abs Auto 0.01 X10*3/uL (0.00-0.03); Imm Gran Pct Auto 0.3 % (0.0-0.4); Lymphocytes Absolute Auto 1.9 X10*3/uL (1.2-4.9); Lymphocytes Percent Auto 47.7 % (20-40); Mean Corpuscular HGB Conc 34.7 g/dl (31.0-35.0); Mean Corpuscular Hemoglobin 31.8 pg (27.0-33.0); Mean Corpuscular Volume 91.9 fL (80.0-98.0); Mean Platelet Volume 10.5 fL (9.4-12.3); Monocytes Absolute Auto 0.3 X10*3/uL (0.1-1.2); Monocytes Percent Auto 7.9 % (2-11); Neutrophils Absolute Auto 1.7 x10*3/uL (2.0-8.3); Neutrophils Percent Auto 41.8 % (45-73); Platelet Count 155 X10*3/uL (160-400); Red Blood Count 4.68 X10*6/uL (4.20-5.50); Red Cell Distribution Width 11.9 % (11.0-16.0); White Blood Count 3.9 X10*3/uL (4.8-10.8)
[2021-10-23 09:07] LABS: Appearance Urine CLEAR; Color Urine YELLOW; Glucose Urine UA NEG (NEG); Leukocyte Esterase Urine NEG (NEG); Nitrite Urine NEG (NEG); PH 6.5 (5.0-8.0); UACC Culture Trigger NO; Urine Blood 2+ (NEG); Urine Ketones NEG (NEG); Urine Protein NEG (NEG-TRACE)
[2021-10-23 09:10] LABS: Estimated Average Glucose 105 mg/dL; Hemoglobin A1c % 5.3 %
[2021-10-23 09:23] LABS: Alanine Aminotransferase 16 U/L (0-31); Albumin Level 4.2 g/dL (3.5-5.0); Alkaline Phosphatase 63 U/L (39-117); Anion Gap 9 (12-20); Aspartate Amino Transferase 14 U/L (5-31); Bilirubin Total 2.1 mg/dL (0.0-1.0); Blood Urea Nitrogen 14 mg/dL (9-16); Calcium 9.8 mg/dL (8.4-10.2); Carbon Dioxide 30 mmol/L (22-29); Chloride 104 mmol/L (96-108); Cholesterol 143 mg/dL; Estimated Glomerular Filt Rate > 60; Glucose Fasting 99 mg/dL (60-99); HDL Cholesterol 68 mg/dL; LDL Cholesterol Calculated 60 mg/dl; Potassium 4.1 mmol/L (3.3-5.1); Sodium 139 mmol/L (135-145); Total Protein 6.7 g/dL (6.5-8.0); Triglycerides 78 mg/dL
[2021-10-23 09:31] LABS: Squamous Epithelial Cell Urine 1+ /LPF; WBC Urine 0 /HPF (0-4)
[2021-10-23 09:32] LABS: Renal Epithelial Cells Urine 1+ /LPF
[2021-10-23 09:42] LABS: TSH reflex Free T4 3.22 uIU/mL (0.32-4.0); Vitamin D 25-OH Total 46.2 ng/mL (>30)
== END 2021-10-23 08:12 | disposition home or self-care (01) ==
LOC: HO.LAB 08:11
PROVIDERS: PCP Internal Medicine; Visit Provider Internal Medicine
DX: I10 Essential (primary) hypertension (principal); R73.01 Impaired fasting glucose; E78.00 Pure hypercholesterolemia, unspecified; E55.9 Vitamin D deficiency, unspecified
CPT/HCPCS: 36415; 80053; 80061; 81001; 81003; 82306; 83036; 84443; 85025

== ENCOUNTER 2021-10-29 09:31 | Emergency (ER) | payer MEDICARE, MEDICAID, SELFPAY ==
--- NOTE | ~2021-10-29 | CT_ITS ---
EXAMINATION: CT ABDOMEN AND PELVIS WITHOUT AND WITH CONTRAST CLINICAL INFORMATION: black stools, rectal bleeding, on eliquis COMPARISON: 03/19/2008 CT scan TECHNIQUE: Multidetector volumetric imaging was performed from the superior aspect of the liver through the pubic symphysis initially before contrast and then following administration of 100 mL Omnipaque 300 intravenous contrast. Sagittal and coronal reformatted images were obtained on the technologist workstation. Arterial phase and delayed phase imaging performed postcontrast. This CT examination was performed using dose optimization techniques as appropriate, variously including the following: *Automated exposure control *Adjustment of mA and/or kV according to patient size (this includes techniques or standardized protocols for targeted exams where dose is matched to indication/reason for exam; i.e. extremities or head) *Use of iterative reconstruction technique DLP: 1307 mGy-cm FINDINGS: LUNG BASES: Minimal dependent atelectasis. Pacemaker leads partially seen LIVER, GALLBLADDER, AND BILIARY TREE: The liver is normal in size, shape, and attenuation. No focal hepatic lesion or biliary ductal dilatation is present. The gallbladder is unremarkable with no evidence of radiopaque gallstones, gallbladder wall thickening, or obvious pericholecystic inflammatory changes. PANCREAS: Unremarkable. SPLEEN: Unremarkable. ADRENAL GLANDS: Unremarkable. KIDNEYS AND URETERS: The kidneys are normal in size, shape, and attenuation. No hydronephrosis or hydroureter. Nonobstructing 1.2 cm calcification in the lower pole collecting system on the left. No perinephric stranding. BLADDER: Unremarkable. GASTROINTESTINAL TRACT: Stool seen throughout colon to the rectum. I do not appreciate any significant diverticular disease. Rectum is relatively decompressed. There is no evidence for active GI bleed on the arterial phase imaging nor is there any pooling of contrast on later phases. The sigmoid colon is redundant but otherwise unremarkable. Normal-appearing retrocecal appendix. Visualized small bowel unremarkable ABDOMINAL WALL: No significant hernia is appreciated. LYMPHOVASCULAR STRUCTURES: No lymphadenopathy. The aorta is unremarkable. Incidental left pelvic varicosities and left gonadal vein reflux noted. PELVIC VISCERA: Unremarkable. OSSEOUS STRUCTURES: Degenerative changes in the lower lumbar spine more so at L5/S1 CT/CT gi bleed abd pel wo/w con IMPRESSION: No evidence for active GI bleed. No pooling of contrast on later delayed phases imaging. No acute abnormality seen with chronic appearing changes as described above
[2021-10-29 09:57] VITALS: BP 142/78; PULSE 66; RESP 16; TEMP 36.6; O2SAT 99; BMI 26.2
[2021-10-29 11:11] LABS: Basophils Percent Auto 0.9 % (0-2); Eosinophils Absolute Auto 0.1 X10*3/uL (0.0-0.4); Eosinophils Percent Auto 1.2 % (0-4); Hematocrit 43.6 % (37.0-47.0); Imm Gran Abs Auto 0.01 X10*3/uL (0.00-0.03); Imm Gran Pct Auto 0.2 % (0.0-0.4); Lymphocytes Absolute Auto 1.4 X10*3/uL (1.2-4.9); Lymphocytes Percent Auto 33.7 % (20-40); MANUAL DIFF FLAG NO; Mean Corpuscular HGB Conc 34.4 g/dl (31.0-35.0); Mean Corpuscular Hemoglobin 31.3 pg (27.0-33.0); Mean Platelet Volume 10.3 fL (9.4-12.3); Monocytes Absolute Auto 0.4 X10*3/uL (0.1-1.2); Neutrophils Absolute Auto 2.3 x10*3/uL (2.0-8.3); Platelet Count 158 X10*3/uL (160-400); Red Blood Count 4.79 X10*6/uL (4.20-5.50); Red Cell Distribution Width 11.7 % (11.0-16.0); White Blood Count 4.2 X10*3/uL (4.8-10.8)
--- NOTE | 2021-10-29 11:22 | ED_ITS ---
HPI - General Adult General Chief complaint: General Medical Stated complaint: Rectal bleed Time Seen by Provider: 10/29/21 10:02 Source: patient Mode of arrival: ambulatory Limitations: no limitations History of Present Illness HPI narrative: Patient presents emergency room for evaluation of 1 week of black stools, hard and formed, intermittent constipation, and dark red blood on sanitary napkin. She reports history of constipation but denies ever having issues with bleeding. She is on anticoagulation with Eliquis. Denies any other sources of bleeding. Denies dizziness/lightheadedness, falls, vision changes, chest pain, palpitations, shortness of breath, dyspnea on exertion, nausea, vomiting, abdominal pain, generalized weakness. Related Data Home Medications Medication Instructions Recorded Confirmed ascorbate calcium (vitamin C) 500 500 mg PO DAILY 08/01/20 10/27/21 mg tablet flaxseed oil 1,000 mg capsule 1,000 mg PO DAILY 08/01/20 10/27/21 fluticasone propionate 50 1 spray INTRANASAL DAILY 08/01/20 10/27/21 mcg/actuation nasal spray,suspension menthol 0.44 %-zinc oxide 20.6 % 1 appl TOPICAL QID PRN 08/01/20 10/27/21 topical ointment (Calmoseptine) omega-3 fatty acids 1,000 mg 1,000 mg PO DAILY 08/01/20 10/27/21 capsule (Fish Oil Concentrate) Previous Rx's Medication Instructions Recorded mupirocin 2 % topical ointment 1 appl TOPICAL TID 5 Days #15 g 08/21/20 atorvastatin 10 mg tablet 10 mg PO DAILY #90 tab 12/22/20 flecainide 100 mg tablet 100 mg PO Q12H #180 tab 02/01/21 calcium carbonate 600 mg-vitamin 1 tab PO DAILY 90 Days #90 tab 02/20/21 D3 5 mcg (200 unit) tablet apixaban 5 mg tablet (Eliquis) 5 mg PO BID 90 Days #180 tab 07/28/21 metoprolol succinate 50 mg 50 mg PO DAILY #90 tab 07/31/21 tablet,extended release 24 hr (Toprol XL) tizanidine 4 mg tablet 4 mg PO Q8H PRN #270 tab 09/04/21 nystatin 100,000 unit/gram topical 1 appl TOPICAL BID #15 g 09/06/21 cream lorazepam 0.5 mg tablet (Ativan) 0.5 mg PO BEDTIME PRN #7 tab 10/18/21 Allergies Allergy/AdvReac Type Severity Reaction Status Date / Time codeine [CODEINE] Allergy Unknown JITTERY Verified 10/27/21 14:44 Sulfa (Sulfonamide Allergy Unknown RASH,HIVES, Verified 10/27/21 14:44 Antibiotics) rash [SULFA (SULFONAMIDE ANTIBIOTICS)] Review of Systems Review of Systems: Constitutional : No Weight loss, No Fever, No Chills ENT/Mouth :? No sore throat, No Rhinorrhea Eyes: No Swelling, No Redness Cardiovascular : No Chest Pain, No SOB, No Edema Respiratory : No Cough, No Sputum, No Wheezing Gastrointestinal : No Nausea, no Vomiting, no Diarrhea, no abdominal pain, positive Hematochezia, positive Melena Genitourinary : No Dysuria, No Urinary Frequency, No Hematuria, No Urgency? Musculoskeletal : No joint pain, No Myalgias, No Joint Swelling Skin : No Skin Lesions, No rash Neuro : No Weakness, No Numbness, No Dizziness, No Headache Psych : No Anxiety/Panic, No Depression Heme/Lymph: No Bruising, No Lymphadenopathy Endocrine : No Polyuria, No Polydipsia Yes all other systems are reviewed and are negative [facility] Past Medical History Attestation statement: The following information was validated with the patient. 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 Family history of breast cancer Impaired fasting glucose Normally functioning cardiac pacemaker present Overweight (BMI 25.0-29.9) PAF (paroxysmal atrial fibrillation) Pure hypercholesterolemia Sick sinus syndrome Surgical History History of pacemaker History of tonsillectomy Family History Family History Father Hypertension Diabetes Arthritis Colon cancer Iron deficiency Mother Hypertension Maternal Grandmother Arthritis Diabetes Blockage of coronary artery of heart Maternal Grandfather Arthritis Paternal Grandfather Arthritis Pancreatic cancer Social History Social History Housing: House Alcohol intake: never Patient Tobacco Use Status: Former Tobacco user Second Hand Smoke Exposure: Yes Use of substances other than those prescribed or required for medical reasons: No Advance Directives: No Advance Directives Information Provided: No service: No Current occupational status: disabled Cognitive needs: No Hearing needs: No Vision needs: Yes (wear glasses) Physical Exam ED Vital Signs: Vital Signs - 24 hr 10/29/21 09:57 10/29/21 13:13 Temperature 97.8 F 98.1 F Pulse Rate 66 63 Respiratory Rate 16 16 Blood Pressure 142/78 H 135/73 Pulse Oximetry 99 98 BMI result Body Mass Index 26.2 Vital signs have been reviewed and appeared to be correct. Blood pressure mildly elevated 142/78 Heart rate normal.? Respiration rate normal. Temperature normal.? Oxygen saturation normal. Appearance: Alert.?Oriented to person, place and time. No acute distress.?Normal affect. Eyes: Pupils equal, round and reactive to light.? ENT: Pharynx normal.?? Neck: Normal inspection.? Neck supple.?? CVS: Heart sounds normal. Normal heart rate and rhythm.? Pulses normal.?? Respiratory: No respiratory distress.? Lung sounds clear to auscultation bilaterally?? Abdomen: Soft and non-tender. Normoactive bowel sounds. No pulsatile mass. 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 Normal skin color.? Extremities: No lower extremity edema.? Neuro: Moves all extremities spontaneously. Sensation intact bilaterally. CN II- XII intact. No focal neuro deficits. Ambulates with normal steady gait. Course Course Course Narrative: Patient is a 60-year-old female with a past medical history of osteoarthritis, paroxysmal atrial fibrillation, sick sinus syndrome, status post pacemaker implantation in 2017, on long-term anticoagulation with Eliquis, impaired fasti ng glucose, hypertension, hypercholesterolemia. She presents emergency department for evaluation of black stools and dark red blood per rectum which is occurring even during moments without straining for bowel movements. On physical exam there is no hemorrhoids or fissures to appreciate, no active bleeding, unable to obtain specimen for occult stool testing during digital rectal exam. She is overall well appearing, hemodynamically stable. However she is on anticoagulation appropriate obtain CBC to exclude anemia, CMP to evaluate for abnormal electrolytes are normal renal function, CT of the abdomen with GI bleeding protocol. She reports that she had a colonoscopy 6 years ago which was normal. Disposition pending results. Reevaluation(s) Reevaluation #1: CBC overall unremarkable mild leukopenia WBC 4.8, H&H stable, CMP overall unremarkable. Urinalysis unremarkable for signs of infection or microscopic hematuria. No active bleeding while in the emergency department, and no anemia. Patient is well-appearing, no apparent distress, hemodynamically stable. CT ABD/pelvis reveals no evidence for active GI bleed no acute abnormalities, normal appendix, no significant diverticular disease. Reviewed these findings with patient she is requesting to be discharged at this time follow-up with primary care provider outpatient. Spoke with ED Attending Dr. Rogers, we both agree with this plan of care for discharge home, with outpatient follow-up with PCP in 1-3 days. Discussed possibility of internal hemorrhoids that may be causing bleeding secondary to straining with constipation. She states that she does have medication at home for constipation but is not always consistent with them. Discussed reasons to return back to emergency department. Time: 13:41 Medical Decision Making Medical Records Medical records reviewed: Yes I reviewed the patient's medical records. Lab Data Lab results reviewed: Yes I reviewed the patient's lab results. Result diagrams: 10/29/21 11:07 10/29/21 11:07 Labs: Lab Results 10/29/21 10/29/21 10/29/21 Range/Units 11:07 11:07 11:07 WBC 4.2 L (4.8-10.8) X10*3/uL RBC 4.79 (4.20-5.50) X10*6/uL Hgb 15.0 (12.0-16.0) g/dl Hct 43.6 (37.0-47.0) % MCV 91.0 (80.0-98.0) fL MCH 31.3 (27.0-33.0) pg MCHC 34.4 (31.0-35.0) g/dl RDW 11.7 (11.0-16.0) % Plt Count 158 L (160-400) X10*3/uL MPV 10.3 (9.4-12.3) fL Immature Gran % (Auto) 0.2 (0.0-0.4) % Neut % (Auto) 55.0 (45-73) % Lymph % (Auto) 33.7 (20-40) % Summers % (Auto) 9.0 (2-11) % Eos % (Auto) 1.2 (0-4) % Baso % (Auto) 0.9 (0-2) % Lymph # (Auto) 1.4 (1.2-4.9) X10*3/uL Summers # (Auto) 0.4 (0.1-1.2) X10*3/uL Eos # (Auto) 0.1 (0.0-0.4) X10*3/uL Baso # (Auto) 0.0 (0.0-0.2) X10*3/uL Abs Immat Gran (auto) 0.01 (0.00-0.03) X10*3/uL Absolute Neuts (auto) 2.3 (2.0-8.3) x10*3/uL Absolute Nucleated RBC 0.000 (0.0-0.012) X10*3/uL Nucleated RBC % (auto) 0.0 (0.0-0.2) /100WBC Sodium 143 (135-145) mmol/L Potassium 4.4 (3.3-5.1) mmol/L Chloride 106 (96-108) mmol/L Carbon Dioxide 30 H (22-29) mmol/L Anion Gap 11 L (12-20) BUN 15 (9-16) mg/dL Creatinine 0.73 (0.5-1.4) mg/dL Estim Creat Clear Calc 71.5 Estimated GFR > 60 Random Glucose 104 (60-115) mg/dL Calcium 10.3 H (8.4-10.2) mg/dL Magnesium 2.4 (1.6-2.6) mg/dL Total Bilirubin 2.5 H (0.0-1.0) mg/dL AST 18 (5-31) U/L ALT 18 (0-31) U/L Alkaline Phosphatase 68 (39-117) U/L Total Protein 7.1 (6.5-8.0) g/dL Albumin 4.5 (3.5-5.0) g/dL Urine Color Urine Appearance Urine pH (5.0-8.0) Ur Specific [place] (1.005-1.025) Urine Protein (NEG-TRACE) MG/DL Urine Glucose (UA) (NEG) MG/DL Urine Ketones (NEG) MG/DL Urine Blood (NEG) Urine Nitrite (NEG) Ur Leukocyte Esterase (NEG) COVID-19 ([place]) Negative (Negative) COVID-19 Clin Com See Note 10/29/21 Range/Units 12:36 WBC (4.8-10.8) X10*3/uL RBC (4.20-5.50) X10*6/uL Hgb (12.0-16.0) g/dl Hct (37.0-47.0) % MCV (80.0-98.0) fL MCH (27.0-33.0) pg MCHC (31.0-35.0) g/dl RDW (11.0-16.0) % Plt Count (160-400) X10*3/uL MPV (9.4-12.3) fL Immature Gran % (Auto) (0.0-0.4) % Neut % (Auto) (45-73) % Lymph % (Auto) (20-40) % Summers % (Auto) (2-11) % Eos % (Auto) (0-4) % Baso % (Auto) (0-2) % Lymph # (Auto) (1.2-4.9) X10*3/uL [place] # (Auto) (0.1-1.2) X10*3/uL Eos # (Auto) (0.0-0.4) X10*3/uL Baso # (Auto) (0.0-0.2) X10*3/uL Abs Immat Gran (auto) (0.00-0.03) X10*3/uL Absolute Neuts (auto) (2.0-8.3) x10*3/uL Absolute Nucleated RBC (0.0-0.012) X10*3/uL Nucleated RBC % (auto) (0.0-0.2) /100WBC Sodium (135-145) mmol/L Potassium (3.3-5.1) mmol/L Chloride (96-108) mmol/L Carbon Dioxide (22-29) mmol/L Anion Gap (12-20) BUN (9-16) mg/dL Creatinine (0.5-1.4) mg/dL Estim Creat Clear Calc Estimated GFR Random Glucose (60-115) mg/dL Calcium (8.4-10.2) mg/dL Magnesium (1.6-2.6) mg/dL Total Bilirubin (0.0-1.0) mg/dL AST (5-31) U/L ALT (0-31) U/L Alkaline Phosphatase (39-117) U/L Total Protein (6.5-8.0) g/dL Albumin (3.5-5.0) g/dL Urine Color YELLOW Urine Appearance CLEAR Urine pH 7.0 (5.0-8.0) Ur Specific [place] <= 1.005 (1.005-1.025) Urine Protein NEG (NEG-TRACE) MG/DL Urine Glucose (UA) NEG (NEG) MG/DL Urine Ketones NEG (NEG) MG/DL Urine Blood NEG (NEG) Urine Nitrite NEG (NEG) Ur Leukocyte Esterase NEG (NEG) COVID-19 ([facility]) (Negative) COVID-19 Clin Com Discharge Plan Discharge Clinical Impression: Bleeding per rectum Patient Disposition: Home, Self-Care Instructions: Rectal Bleeding (ED) Additional Instructions: Please contact your primary care provider to schedule follow-up visit within 1-3 days. You may return to the emergency department with any new or worsening symptoms or concerns Prescriptions: No Action atorvastatin 10 mg tablet 10 mg PO DAILY Qty: 90 3RF tizanidine 4 mg tablet 4 mg PO Q8H PRN (Reason: muscle spasticity) Qty: 270 2RF mupirocin 2 % ointment 1 appl topical TID 5 Days Qty: 15 0RF lorazepam [Ativan] 0.5 mg tablet 0.5 mg PO BEDTIME PRN (Reason: sleep) Qty: 7 0RF fluticasone propionate 50 mcg/actuation spray,suspension 1 spray intranasal DAILY 0RF Rx Instructions: administer into each nostril ascorbate calcium (vitamin C) 500 mg tablet 500 mg PO DAILY 0RF flaxseed oil 1,000 mg capsule 1,000 mg PO DAILY 0RF Rx Instructions: administer with a meal Calmoseptine 0.44-20.6 % ointment 1 appl topical QID PRN0RF omega-3 fatty acids [Fish Oil Concentrate] 1,000 mg capsule 1,000 mg PO DAILY 0RF calcium carbonate-vitamin D3 600 mg(1,500mg) -200 unit tablet 1 tab PO DAILY 90 Days Qty: 90 3RF Eliquis 5 mg tablet 5 mg PO BID 90 Days Qty: 180 3RF flecainide 100 mg tablet 100 mg PO Q12H Qty: 180 4RF nystatin 100,000 unit/gram cream 1 appl topical BID Qty: 15 0RF metoprolol succinate [Toprol XL] 50 mg tablet extended release 24 hr 50 mg PO DAILY Qty: 90 3RF Referrals: Rudy Buckley MD [Primary Care Provider] - 3 days Interventions: ED Discharge Assessment Last Done: 10/29/21 14:14 Discharge Date/Time: 10/29/21 14:15
[2021-10-29 11:31] LABS: COVID-19 Test Negative (Negative); IDNOW Serial# 16C4AD1C
[2021-10-29 11:39] LABS: Alanine Aminotransferase 18 U/L (0-31); Albumin Level 4.5 g/dL (3.5-5.0); Alkaline Phosphatase 68 U/L (39-117); Anion Gap 11 (12-20); Aspartate Amino Transferase 18 U/L (5-31); Bilirubin Total 2.5 mg/dL (0.0-1.0); Blood Urea Nitrogen 15 mg/dL (9-16); Calcium 10.3 mg/dL (8.4-10.2); Carbon Dioxide 30 mmol/L (22-29); Chloride 106 mmol/L (96-108); Creatinine Clr Calc Pharmacy 71.5; Estimated Glomerular Filt Rate > 60; Glucose Random 104 mg/dL (60-115); Magnesium 2.4 mg/dL (1.6-2.6); Potassium 4.4 mmol/L (3.3-5.1); Sodium 143 mmol/L (135-145); Total Protein 7.1 g/dL (6.5-8.0)
[2021-10-29] MEDS: iohexoL 350 MG/ML 100 ML INFUS..BTL IV (12:13)
[2021-10-29 12:48] LABS: Appearance Urine CLEAR; Color Urine YELLOW; Glucose Urine UA NEG (NEG); Leukocyte Esterase Urine NEG (NEG); Nitrite Urine NEG (NEG); Specific Gravity - Urine <= 1.005 (1.005-1.025); Urine Blood NEG (NEG); Urine Ketones NEG (NEG); Urine Protein NEG (NEG-TRACE)
[2021-10-29 13:13] VITALS: BP 135/73; PULSE 63; RESP 16; TEMP 36.7; O2SAT 98
--- NOTE | 2021-10-29 13:26 | PC.NURSE ---
pt has been resting quietly. no distress, no grimace. steady on feet to BR and CT. skin pWD. abd is soft non tender. moist mm.
== END 2021-10-29 14:15 | disposition home or self-care (01) ==
PROVIDERS: Nurse Practitioner Family; Emergency Provider Emergency Medicine; PCP Internal Medicine
DX: K62.5 Hemorrhage of anus and rectum (principal); K59.00 Constipation, unspecified; Z87.891 Personal history of nicotine dependence; Z79.899 Other long term (current) drug therapy; Z20.822 Contact with and (suspected) exposure to COVID-19
CPT/HCPCS: 74178; 80053; 81003; 83735; 85025; 87635; 99284; Q9967

== ENCOUNTER → 2021-12-28 13:29 | Outpatient (BNVA) | payer MEDICARE, MEDICAID, SELFPAY | PROVIDERS: PCP Internal Medicine; Referring Provider Internal Medicine; Visit Provider Nurse Practitioner | DX: Z01.818 Encounter for other preprocedural examination (principal); Z80.0 Family history of malignant neoplasm of digestive organs | CPT/HCPCS: 99202 ==

== ENCOUNTER 2022-03-16 07:09 | Outpatient (REF) | payer MEDICARE, MEDICAID, SELFPAY ==
[2022-03-16 07:26] LABS: MANUAL DIFF FLAG NO
[2022-03-16 07:33] LABS: Basophils Absolute Auto 0.1 X10*3/uL (0.0-0.2); Basophils Percent Auto 1.1 % (0-2); Eosinophils Absolute Auto 0.1 X10*3/uL (0.0-0.4); Eosinophils Percent Auto 1.6 % (0-4); Hemoglobin 14.4 g/dl (12.0-16.0); Imm Gran Abs Auto 0.01 X10*3/uL (0.00-0.03); Imm Gran Pct Auto 0.2 % (0.0-0.4); Lymphocytes Absolute Auto 2.3 X10*3/uL (1.2-4.9); Lymphocytes Percent Auto 52.5 % (20-40); Mean Corpuscular HGB Conc 34.3 g/dl (31.0-35.0); Mean Corpuscular Hemoglobin 31.3 pg (27.0-33.0); Mean Corpuscular Volume 91.3 fL (80.0-98.0); Mean Platelet Volume 10.1 fL (9.4-12.3); Monocytes Absolute Auto 0.3 X10*3/uL (0.1-1.2); Monocytes Percent Auto 7.4 % (2-11); Neutrophils Absolute Auto 1.7 x10*3/uL (2.0-8.3); Neutrophils Percent Auto 37.2 % (45-73); Platelet Count 167 X10*3/uL (160-400); Red Cell Distribution Width 11.9 % (11.0-16.0); White Blood Count 4.4 X10*3/uL (4.8-10.8)
[2022-03-16 07:48] LABS: Estimated Average Glucose 103 mg/dL; Hemoglobin A1c % 5.2 %
[2022-03-16 08:07] LABS: Alanine Aminotransferase 14 U/L (0-31); Albumin Level 4.1 g/dL (3.5-5.0); Alkaline Phosphatase 64 U/L (39-117); Anion Gap 16 (12-20); Aspartate Amino Transferase 15 U/L (5-31); Blood Urea Nitrogen 17 mg/dL (9-16); Calcium 9.2 mg/dL (8.4-10.2); Carbon Dioxide 22 mmol/L (22-29); Chloride 108 mmol/L (96-108); Cholesterol 155 mg/dL; Estimated Glomerular Filt Rate > 60; Glucose Fasting 92 mg/dL (60-99); HDL Cholesterol 66 mg/dL; LDL Cholesterol Calculated 68 mg/dl; Potassium 3.9 mmol/L (3.3-5.1); Sodium 142 mmol/L (135-145); Total Protein 6.5 g/dL (6.5-8.0); Triglycerides 106 mg/dL
[2022-03-16 08:20] LABS: Appearance Urine Clear; Color Urine Yellow; Glucose Urine UA Negative (Negative); Leukocyte Esterase Urine Trace (Negative); Nitrite Urine Negative (Negative); PH 6.5 (5.0-8.0); Specific Gravity - Urine 1.015 (1.005-1.025); Urine Blood Negative (Negative); Urine Ketones Negative (Negative); Urine Protein Negative (Neg-Trace)
[2022-03-16 08:26] LABS: Bacteria Urine None Seen (None Seen); Hyaline Casts Urine 0-2 /LPF (0-2); Squamous Epithelial Cell Urine 0-2 /HPF (0-2); WBC Urine 0-5 /HPF (0-5)
[2022-03-16 08:27] LABS: TSH reflex Free T4 1.91 uIU/mL (0.32-4.0); Vitamin D 25-OH Total 46.7 ng/mL (>30)
== END 2022-03-16 07:10 | disposition home or self-care (01) ==
LOC: HO.LAB 07:09
PROVIDERS: PCP Internal Medicine; Visit Provider Internal Medicine
DX: R73.01 Impaired fasting glucose (principal); E55.9 Vitamin D deficiency, unspecified; I10 Essential (primary) hypertension; E78.00 Pure hypercholesterolemia, unspecified
CPT/HCPCS: 36415; 80053; 80061; 81001; 82306; 83036; 84443; 85025

== ENCOUNTER → 2022-04-02 13:41 | Outpatient (BNVA) | payer MEDICARE, MEDICAID, SELFPAY | PROVIDERS: PCP Internal Medicine; Referring Provider Internal Medicine; Visit Provider Internal Medicine | DX: I48.0 Paroxysmal atrial fibrillation (principal); Z79.01 Long term (current) use of anticoagulants; Z45.018 Encounter for adjustment and management of other part of cardiac pacemaker | CPT/HCPCS: 93005; 93280; 99212 ==

== ENCOUNTER → 2022-04-04 13:30 | Outpatient (BNVA) | payer MEDICARE, MEDICAID, SELFPAY | PROVIDERS: PCP Internal Medicine; Visit Provider Surgery | DX: Z91.89 Other specified personal risk factors, not elsewhere classified (principal) | CPT/HCPCS: 99212 ==

== ENCOUNTER 2022-04-26 15:44 | Emergency (ER) | payer MEDICARE, MEDICAID, SELFPAY ==
--- NOTE | ~2022-04-26 | XR_ITS ---
EXAMINATION: XR CHEST CLINICAL INFORMATION: Shortness of breath COMPARISON: 04/26/2022 TECHNIQUE: Frontal view of the chest was obtained. FINDINGS: Left-sided pacemaker lead tips overlie the right atrium and right ventricle. The lungs are clear with no focal consolidation. Redemonstrated linear atelectasis versus scarring in the left base. No evidence of pneumothorax, pulmonary edema, or pleural effusions. The cardiomediastinal silhouette is unremarkable. No acute osseous findings. XR/XR chest 1V IMPRESSION: No acute cardiopulmonary findings.
--- NOTE | ~2022-04-26 | XR_ITS ---
EXAMINATION: XR CHEST CLINICAL INFORMATION: Palpitations COMPARISON: Chest x-ray 10/18/2021 TECHNIQUE: 2 views of the chest were obtained. FINDINGS: Unchanged linear scarring in the lingula. No airspace consolidation. No pleural effusion or pneumothorax. Normal cardiomediastinal silhouette and pulmonary vascularity. Left-sided pacer with lead tips project over the right atrium and right ventricle as on prior. No acute osseous injury. Mild multilevel degenerative disc disease. XR/XR chest 2V IMPRESSION: No acute pulmonary process.
[2022-04-26 16:58] VITALS: BP 135/79; PULSE 69; RESP 18; TEMP 36.6; O2SAT 98; BMI 28.7
[2022-04-26 17:41] LABS: MANUAL DIFF FLAG NO
[2022-04-26 17:51] LABS: Basophils Percent Auto 1.2 % (0-2); Eosinophils Percent Auto 1.2 % (0-4); Hematocrit 42.9 % (37.0-47.0); Hemoglobin 14.5 g/dl (12.0-16.0); Imm Gran Abs Auto 0.01 X10*3/uL (0.00-0.03); Imm Gran Pct Auto 0.3 % (0.0-0.4); Lymphocytes Absolute Auto 1.4 X10*3/uL (1.2-4.9); Lymphocytes Percent Auto 42.1 % (20-40); Mean Corpuscular HGB Conc 33.8 g/dl (31.0-35.0); Mean Corpuscular Hemoglobin 31.7 pg (27.0-33.0); Mean Corpuscular Volume 93.9 fL (80.0-98.0); Mean Platelet Volume 10.4 fL (9.4-12.3); Monocytes Absolute Auto 0.4 X10*3/uL (0.1-1.2); Monocytes Percent Auto 11.3 % (2-11); Neutrophils Absolute Auto 1.5 x10*3/uL (2.0-8.3); Neutrophils Percent Auto 43.9 % (45-73); Platelet Count 153 X10*3/uL (160-400); Red Blood Count 4.57 X10*6/uL (4.20-5.50); Red Cell Distribution Width 11.9 % (11.0-16.0); White Blood Count 3.4 X10*3/uL (4.8-10.8)
[2022-04-26 17:59] LABS: COVID-19 Test Negative (Negative); IDNOW Serial# 16C4AD1C
[2022-04-26 18:08] LABS: Alanine Aminotransferase 19 U/L (0-31); Albumin Level 4.1 g/dL (3.5-5.0); Alkaline Phosphatase 66 U/L (39-117); Anion Gap 16 (12-20); Aspartate Amino Transferase 20 U/L (5-31); Bilirubin Direct 0.6 mg/dL (0.0-0.5); Bilirubin Total 1.7 mg/dL (0.0-1.0); Blood Urea Nitrogen 15 mg/dL (9-16); Calcium 8.9 mg/dL (8.4-10.2); Carbon Dioxide 23 mmol/L (22-29); Chloride 106 mmol/L (96-108); Creatinine Clr Calc Pharmacy 73.8; Estimated Glomerular Filt Rate > 60; Glucose Random 134 mg/dL (60-115); Lipase 26 U/L (8-78); Potassium 4.2 mmol/L (3.3-5.1); Sodium 141 mmol/L (135-145); Total Protein 6.5 g/dL (6.5-8.0)
[2022-04-26 18:14] LABS: Troponin-I High Sensitivity < 3.5 ng/L (<3.5-17.0)
[2022-04-27 07:43] VITALS: BP 124/69; PULSE 63; RESP 13; TEMP 36.7; O2SAT 98
--- NOTE | 2022-04-27 07:59 | ED.GENADULT ---
HPI - General Adult General Chief complaint: Dyspnea Stated complaint: SOB Time Seen by Provider: 04/27/22 07:58 Source: patient Mode of arrival: ambulatory Limitations: no limitations History of Present Illness HPI narrative: Patient is a 61 year old female presenting to the emergency department today with after an episode of palpitations. Patient states that she has a history of a-fib for which she is on anti-coagulant and rate control medications. Patient states that yesterday, she had an episode of feeling like she was back in atrial fibrillation. Patient states that since being here for over 12 hours, the episode has resolved and she feels fine now. Patient denies any dizziness, lightheadedness, abdominal pain, nausea, vomiting, fever, chills, blurry vision, double vision, loss of vision, chest pain, difficulty breathing, shortness of breath, back pain, night sweats, pain with urination, increased urinary frequency, increased urinary urgency, blood in her urine or stool, syncope or a near syncopal episode, recent trauma or falls, bowel incontinence, bladder incontinence, bowel retention, bladder retention, or any other complaints at this time. Onset (ago): day(s) (1) Severity: mild Severity scale (1-10): 2 Pain Consistency: now resolved Relieving factors: none Exacerbating factors: none Associated symptoms: denies other symptoms Treatments prior to arrival: none Related Data Home Medications Medication Instructions Recorded Confirmed ascorbate calcium (vitamin C) 500 500 mg PO DAILY 08/01/20 04/05/22 mg tablet flaxseed oil 1,000 mg capsule 1,000 mg PO DAILY 08/01/20 04/05/22 fluticasone propionate 50 1 spray intranasal DAILY 08/01/20 04/05/22 mcg/actuation nasal spray,suspension menthol 0.44 %-zinc oxide 20.6 % 1 appl topical QID PRN 08/01/20 04/05/22 topical ointment (Calmoseptine) omega-3 fatty acids 1,000 mg 1,000 mg PO DAILY 08/01/20 04/05/22 capsule (Fish Oil Concentrate) Previous Rx's Medication Instructions Recorded mupirocin 2 % topical ointment 1 appl topical TID 5 days #15 grams 08/21/20 tizanidine 4 mg tablet 4 mg PO Q8H PRN muscle spasticity 09/04/21 #270 tabs nystatin 100,000 unit/gram topical 1 appl topical BID #15 grams 09/06/21 cream lorazepam 0.5 mg tablet (Ativan) 0.5 mg PO BEDTIME PRN sleep #7 tabs 10/18/21 calcium carbonate 600 mg-vitamin 1 tab PO DAILY 90 days #90 tabs 11/01/21 D3 5 mcg (200 unit) tablet docusate sodium 100 mg capsule 100 mg PO .DAILY WITH FOOD 30 days 12/28/21 (Colace) #30 caps peg 3350-electrolytes 236 240 ml PO Q10M 1 day #4,000 mL 12/28/21 gram-22.74 gram-6.74 gram-5.86 gram solution (Golytely) apixaban 5 mg tablet (Eliquis) 5 mg PO BID 90 days #180 tabs 04/02/22 flecainide 100 mg tablet 100 mg PO Q12H #180 tabs 04/02/22 metoprolol succinate 50 mg 50 mg PO DAILY #90 tabs 04/02/22 tablet,extended release 24 hr (Toprol XL) atorvastatin 10 mg tablet 10 mg PO DAILY #90 tabs 04/05/22 Allergies Allergy/AdvReac Type Severity Reaction Status Date / Time codeine [CODEINE] Allergy Unknown JITTERY Verified 04/05/22 13:25 Sulfa (Sulfonamide Allergy Unknown RASH,HIVES, Verified 04/05/22 13:25 Antibiotics) rash [SULFA (SULFONAMIDE ANTIBIOTICS)] Review of Systems Constitutional: Constitutional: Reports no additional constitutional complaints, Denies chills, Denies fever(s) and Denies night sweats Eyes: Eyes: Reports no additional eye complaints, Denies blurry vision, Denies change in vision, Denies diplopia, Denies eye discharge, Denies loss of vision and Denies eye pain ENT: Denies dizziness Cardiovascular: Cardiovascular: Reports no additional cardiovascular complaints, Denies chest pain, Denies lightheadedness, Denies Loss of Consciousness and Denies dyspnea Respiratory: Respiratory: Reports no additional respiratory complaints and Denies dyspnea Gastrointestinal: Gastrointestinal: Reports no additional gastrointestinal complaints, Denies abdominal pain, Denies melena, Denies hematochezia, Denies change in bowel habits and Denies change in stool character Genitourinary: Genitourinary: Denies hematuria, Denies urinary frequency, Denies dysuria, Denies urinary incontinence, Denies urinary hesitancy and Denies urinary urgency Musculoskeletal: Musculoskeletal: Reports no additional musculoskeletal complaints, Denies numbness and Denies tingling Neurologic: Denies dizziness, Denies loss of vision, Denies numbness and Denies tingling Psychiatric: Psychiatric: Reports no additional psychiatric complaints Endocrine: Endocrine: Reports no additional endocrine complaints Hematologic/Lymphatic: Hematologic/Lymphatic: Reports no additional hematologic/lymphatic complaints Allergic/Immunologic: Allergic/Immunologic: Reports no additional allergic/immunologic complaints PMFSH Past Medical History Attestation statement: The following information was validated with the patient. 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 Family history of breast cancer Impaired fasting glucose Normally functioning cardiac pacemaker present Overweight (BMI 25.0-29.9) PAF (paroxysmal atrial fibrillation) Pure hypercholesterolemia Sick sinus syndrome Surgical History History of pacemaker History of tonsillectomy Family History Family History Father Hypertension Diabetes Arthritis Colon cancer Iron deficiency Mother Hypertension Maternal Grandmother Arthritis Diabetes Blockage of coronary artery of heart Maternal Grandfather Arthritis Paternal Grandfather Arthritis Pancreatic cancer Social History Social History Housing: House Alcohol intake: never Patient Tobacco Use Status: Former Tobacco user Second Hand Smoke Exposure: Yes Advance Directives: No Advance Directives Information Provided: Yes service: No Current occupational status: disabled Cognitive needs: No Hearing needs: Yes Vision needs: Yes (wear glasses) Physical Exam ED Vital Signs: Vital Signs - 24 hr 04/26/22 16:58 04/27/22 07:43 Temperature 97.9 F 98.0 F Pulse Rate 69 63 Respiratory Rate 18 13 Blood Pressure 135/79 124/69 Pulse Oximetry 98 98 Oxygen Delivery Method Room Air Room Air BMI result Body Mass Index 28.7 Const General: cooperative, no acute distress, alert and awake Nutritional Appearance: well nourished Orientation/consciousness: patient oriented x3 Limitations: no limitations HENMT Head: Yes normal to inspection and Yes atraumatic Ears: hearing grossly normal bilaterally and external ears normal General nose exam: Normal external nose present, no nasal discharge noted and no epistaxis Face and sinus: Yes normal facial exam, No abrasion and No laceration Mouth: Normal oral and palatal mucosa present, no drooling and no muffled voice Eyes General: appearance normal, both eyes and all related structures Periorbital: periorbital findings normal Eyelids: Yes eyelids normal Conjunctivae: conjunctivae normal Pupils: Equal, round and reactive pupils present EOM: EOMs intact bilaterally Neck Neck: Yes normal visual inspection, Yes full ROM and Yes no lymphadenopathy Chest Chest palpation & inspection: normal inspection of the chest Resp Effort & Inspection: normal respiratory effort and able to speak in complete sentences Auscultation: clear to auscultation bilaterally Cardio Rate: regular rate Rhythm: regular rhythm GI Inspection: Yes normal to inspection Neuro General: patient oriented x3 and moves all extremities Cranial nerves: Yes Equal, round and reactive pupils present Cognition (Neuro): normal cognition Motor exam (neuro): 5/5 motor strength present throughout Sensory Exam: Normal double simultaneous stimulation for sensation Coordination: [id number] test normal Extrem General: Yes normal to inspection, Yes full ROM and Yes capillary refill normal Psych Appearance: grossly normal Mental Status: mental status grossly normal Affect: normal affect Attitude: cooperative Thought process: Normal thought process present Thought content: Normal thought content present Insight: Good insight present (Psych) Medical Decision Making MDM Narrative Medical decision making narrative: Patient is a 61 year old female presenting to the emergency department today after an episode of palpitations. Patient's physical exam was unremarkable. Patient's blood work was unremarkable. Patient's urine showed no acute process. Patient's EKG was unremarkable. Patient's chest x-ray showed no acute process. I explained my physical exam findings as well as all test results to the patient. I answered all questions asked by the patient. I stressed the importance of the patient taking her medication as prescribed. I stressed the importance of the patient following up with her primary care provider and order puller. I stressed the importance of the patient returning to the emergency department immediately if her symptoms were to worsen or if she were to develop any dizziness, shortness of breath, difficulty breathing, chest pain, blurry vision, loss of vision, nausea, vomiting, abdominal pain, fever, chills, back pain, or any other complaints. Patient verbalized agreement and understanding with this treatment plan and discharge. Medical Records Medical records reviewed: Yes I reviewed the patient's medical records. Lab Data Lab results reviewed: Yes I reviewed the patient's lab results. Result diagrams: 04/26/22 17:32 04/26/22 17:32 Labs: Lab Results 04/26/22 04/26/22 04/26/22 Range/Units 17:32 17:32 17:32 WBC 3.4 L (4.8-10.8) X10*3/uL RBC 4.57 (4.20-5.50) X10*6/uL Hgb 14.5 (12.0-16.0) g/dl Hct 42.9 (37.0-47.0) % MCV 93.9 (80.0-98.0) fL MCH 31.7 (27.0-33.0) pg MCHC 33.8 (31.0-35.0) g/dl RDW 11.9 (11.0-16.0) % Plt Count 153 L (160-400) X10*3/uL MPV 10.4 (9.4-12.3) fL Immature Gran % (Auto) 0.3 (0.0-0.4) % Neut % (Auto) 43.9 L (45-73) % Lymph % (Auto) 42.1 H (20-40) % Shelby % (Auto) 11.3 H (2-11) % Eos % (Auto) 1.2 (0-4) % Baso % (Auto) 1.2 (0-2) % Lymph # (Auto) 1.4 (1.2-4.9) X10*3/uL Shelby # (Auto) 0.4 (0.1-1.2) X10*3/uL Eos # (Auto) 0.0 (0.0-0.4) X10*3/uL Baso # (Auto) 0.0 (0.0-0.2) X10*3/uL Abs Immat Gran (auto) 0.01 (0.00-0.03) X10*3/uL Absolute Neuts (auto) 1.5 L (2.0-8.3) x10*3/uL Absolute Nucleated RBC 0.000 (0.0-0.012) X10*3/uL Nucleated RBC % (auto) 0.0 (0.0-0.2) /100WBC Sodium 141 (135-145) mmol/L Potassium 4.2 (3.3-5.1) mmol/L Chloride 106 (96-108) mmol/L Carbon Dioxide 23 (22-29) mmol/L Anion Gap 16 (12-20) BUN 15 (9-16) mg/dL Creatinine 0.73 (0.5-1.4) mg/dL Estim Creat Clear Calc 73.8 Estimated GFR > 60 Random Glucose 134 H (60-115) mg/dL Calcium 8.9 (8.4-10.2) mg/dL Total Bilirubin 1.7 H (0.0-1.0) mg/dL Direct Bilirubin 0.6 H (0.0-0.5) mg/dL AST 20 (5-31) U/L ALT 19 (0-31) U/L Alkaline Phosphatase 66 (39-117) U/L Troponin I High Sens < 3.5 (<3.5-17.0) ng/L Total Protein 6.5 (6.5-8.0) g/dL Albumin 4.1 (3.5-5.0) g/dL Lipase 26 (8-78) U/L Urine Color Urine Appearance Urine pH (5.0-9.0) Ur Specific [place] (1.005-1.025) Urine Protein (Neg-Trace) mg/dL Urine Glucose (UA) (Negative) mg/dL Urine Ketones (Negative) mg/dL Urine Blood (Negative) Urine Nitrite (Negative) Ur Leukocyte Esterase (Negative) Urine RBC (0-2) /HPF Urine WBC (0-5) /HPF Ur Squamous Epith Cells (0-2) /HPF Urine Bacteria (None Seen) Hyaline Casts (0-2) /LPF COVID-19 ([facility]) (Negative) COVID-19 Clin Com 04/26/22 04/27/22 Range/Units 17:35 08:59 WBC (4.8-10.8) X10*3/uL RBC (4.20-5.50) X10*6/uL Hgb (12.0-16.0) g/dl Hct (37.0-47.0) % MCV (80.0-98.0) fL MCH (27.0-33.0) pg MCHC (31.0-35.0) g/dl RDW (11.0-16.0) % Plt Count (160-400) X10*3/uL MPV (9.4-12.3) fL Immature Gran % (Auto) (0.0-0.4) % Neut % (Auto) (45-73) % Lymph % (Auto) (20-40) % Shelby % (Auto) (2-11) % Eos % (Auto) (0-4) % Baso % (Auto) (0-2) % Lymph # (Auto) (1.2-4.9) X10*3/uL [place] # (Auto) (0.1-1.2) X10*3/uL Eos # (Auto) (0.0-0.4) X10*3/uL Baso # (Auto) (0.0-0.2) X10*3/uL Abs Immat Gran (auto) (0.00-0.03) X10*3/uL Absolute Neuts (auto) (2.0-8.3) x10*3/uL Absolute Nucleated RBC (0.0-0.012) X10*3/uL Nucleated RBC % (auto) (0.0-0.2) /100WBC Sodium (135-145) mmol/L Potassium (3.3-5.1) mmol/L Chloride (96-108) mmol/L Carbon Dioxide (22-29) mmol/L Anion Gap (12-20) BUN (9-16) mg/dL Creatinine (0.5-1.4) mg/dL Estim Creat Clear Calc Estimated GFR Random Glucose (60-115) mg/dL Calcium (8.4-10.2) mg/dL Total Bilirubin (0.0-1.0) mg/dL Direct Bilirubin (0.0-0.5) mg/dL AST (5-31) U/L ALT (0-31) U/L Alkaline Phosphatase (39-117) U/L Troponin I High Sens (<3.5-17.0) ng/L Total Protein (6.5-8.0) g/dL Albumin (3.5-5.0) g/dL Lipase (8-78) U/L Urine Color Yellow Urine Appearance Clear Urine pH 6.5 (5.0-9.0) Ur Specific [place] 1.010 (1.005-1.025) Urine Protein Negative (Neg-Trace) mg/dL Urine Glucose (UA) Negative (Negative) mg/dL Urine Ketones Negative (Negative) mg/dL Urine Blood Negative (Negative) Urine Nitrite Negative (Negative) Ur Leukocyte Esterase Trace H (Negative) Urine RBC 3-5 H (0-2) /HPF Urine WBC 0-5 (0-5) /HPF Ur Squamous Epith Cells 0-2 (0-2) /HPF Urine Bacteria None Seen (None Seen) Hyaline Casts 0-2 (0-2) /LPF COVID-19 ([facility]) Negative (Negative) COVID-19 Clin Com See Note Imaging Data Chest x-ray: Attestation: I personally reviewed and interpreted this imaging study as follows: My impression: No acute process. Radiologist's impression: EXAMINATION: XR CHEST CLINICAL INFORMATION: Shortness of breath COMPARISON: 04/26/2022 TECHNIQUE: Frontal view of the chest was obtained. FINDINGS: Left-sided pacemaker lead tips overlie the right atrium and right ventricle. The lungs are clear with no focal consolidation. Redemonstrated linear atelectasis versus scarring in the left base. No evidence of pneumothorax, pulmonary edema, or pleural effusions. The cardiomediastinal silhouette is unremarkable. No acute osseous findings. XR/XR chest 1V IMPRESSION: No acute cardiopulmonary findings. ? Dictated By: Estevan Becerril MD Signed By: Electronically signed by Estevan Becerril MD 04/27/22 0664 ECG Data Attestation: I personally reviewed and interpreted this ECG as follows: Prior ECG tracings: available for review Interpretation: Vent. Rate: 067 BPM ? ? Atrial Rate: 067 BPM P-R Int: 194 ms? QRS Dur: 080 ms QT Int: 408 ms ? ? ? P-R-T Axes: 011 010 008 degrees QTc Int: 431 ms ? Atrial-paced rhythm Abnormal ECG When compared with ECG of 27-APR-2022 08:06, No significant change was found DD/ [id number] Discharge Plan Discharge Clinical Impression: Paroxysmal A-fib Patient Disposition: Home, Self-Care Instructions: A-fib (Atrial Fibrillation) (DC) Additional Instructions: Follow up with your primary care provider and a order puller. Return to the emergency department immediately if your symptoms worsen or if you develop any dizziness, shortness of breath, difficulty breathing, chest pain, blurry vision, loss of vision, nausea, vomiting, abdominal pain, fever, chills, back pain, or any other complaints. Prescriptions: No Action tizanidine 4 mg tablet 4 mg PO Q8H PRN (Reason: muscle spasticity) Qty: 270 2RF mupirocin 2 % ointment 1 appl topical TID 5 Days Qty: 15 0RF lorazepam [Ativan] 0.5 mg tablet 0.5 mg PO BEDTIME PRN (Reason: sleep) Qty: 7 0RF fluticasone propionate 50 mcg/actuation spray,suspension 1 spray intranasal DAILY Rx Instructions: administer into each nostril ascorbate calcium (vitamin C) 500 mg tablet 500 mg PO DAILY flaxseed oil 1,000 mg capsule 1,000 mg PO DAILY Rx Instructions: administer with a meal Calmoseptine 0.44-20.6 % ointment 1 appl topical QID PRN omega-3 fatty acids [Fish Oil Concentrate] 1,000 mg capsule 1,000 mg PO DAILY calcium carbonate-vitamin D3 600 mg-5 mcg (200 unit) tablet 1 tab PO DAILY 90 Days Qty: 90 3RF atorvastatin 10 mg tablet 10 mg PO DAILY Qty: 90 3RF nystatin 100,000 unit/gram cream 1 appl topical BID Qty: 15 0RF metoprolol succinate [Toprol XL] 50 mg tablet extended release 24 hr 50 mg PO DAILY Qty: 90 3RF flecainide 100 mg tablet 100 mg PO Q12H Qty: 180 3RF Eliquis 5 mg tablet 5 mg PO BID 90 Days Qty: 180 3RF peg 3350-electrolytes [Golytely] 236-22.74-6.74 -5.86 gram recon soln 240 ml PO Q10M 1 Days Qty: 4000 0RF Rx Instructions: until fecal effluent is clear; do not exceed a total volume of 2,000 mL docusate sodium [Colace] 100 mg capsule 100 mg PO .DAILY WITH FOOD 30 Days Qty: 30 6RF Referrals: Rudy Buckley MD [Primary Care Provider] - Interventions: ED Discharge Assessment Last Done: 04/27/22 09:24 Discharge Date/Time: 04/27/22 09:28 Print Language: Turkish
--- NOTE | 2022-04-27 08:02 | ECG_ITS ---
Test Reason : FLUTTERING FEELING Blood Pressure : / mmHG Vent. Rate : 067 BPM Atrial Rate : 067 BPM P-R Int : 194 ms QRS Dur : 080 ms QT Int : 408 ms P-R-T Axes : 011 010 008 degrees QTc Int : 431 ms Atrial-paced rhythm Abnormal ECG When compared with ECG of 27-APR-2022 08:06, No significant change was found Referred By: Gela Arteaga Electronically Signed By:LILY RIVAS
[2022-04-27 09:15] LABS: Appearance Urine Clear; Color Urine Yellow; Glucose Urine UA Negative (Negative); Leukocyte Esterase Urine Trace (Negative); Nitrite Urine Negative (Negative); PH 6.5 (5.0-9.0); UMIC TRIGGER UACC YES; Urine Blood Negative (Negative); Urine Ketones Negative (Negative); Urine Protein Negative (Neg-Trace)
[2022-04-27 09:19] LABS: Bacteria Urine None Seen (None Seen); Hyaline Casts Urine 0-2 /LPF (0-2); Squamous Epithelial Cell Urine 0-2 /HPF (0-2); WBC Urine 0-5 /HPF (0-5)
== END 2022-04-27 09:28 | disposition home or self-care (01) ==
PROVIDERS: Emergency Provider Emergency Medicine Emergency Medical Services; PCP Internal Medicine
DX: I48.0 Paroxysmal atrial fibrillation (principal); R06.02 Shortness of breath; Z20.822 Contact with and (suspected) exposure to COVID-19; Z79.899 Other long term (current) drug therapy
CPT/HCPCS: 36415; 71045; 71046; 80048; 80076; 81001; 83690; 84484; 85025; 87635; 93005; 99284

== ENCOUNTER 2022-05-14 07:36 | Day surgery (SDC) | payer MEDICARE, MEDICAID, SELFPAY ==
[2022-05-08 14:29] VITALS: BMI 27.4
--- NOTE | 2022-05-11 09:31 | HO.ANESPROP2 ---
Documented by User: Effie Lala NP 05/11/22 13:36 HPI - Anesthesia Eval Consult details Narrative: 61yo F for Colonoscopy Optimized per cardiology ([facility] [place] for palps - EKG/trops negative and reviewed by cardiology) Eliquis for afib Pacemaker in situ PMFSH Active Problems Active Problems: All Active Problems (Updated 04/28/22 @ 00:02 by Background Daemon) Contusion of buttock (Acute) Encounter for monitoring anti-arrhythmic therapy (Acute) Cyst of right breast (Acute) Pain in finger of left hand (Acute) Osteoarthritis of hand, left (Acute) Rectal bleeding (Acute) Colon cancer screening (Acute) Family history of colon cancer in father (Acute) Hearing impairment (Acute) At high risk for breast cancer (Acute) Family history of breast cancer (Acute) 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 (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) Normally functioning cardiac pacemaker present (Acute) Overweight (BMI 25.0-29.9) (Acute) Allergic rhinitis (Acute) Impaired fasting glucose (Acute) Benign essential hypertension (Acute) Sick sinus syndrome (Acute) Pure hypercholesterolemia (Acute) PAF (paroxysmal atrial fibrillation) (Acute) Past Medical History Medical History (Updated 04/28/22 @ 00:02 by Background Daemon) Allergic rhinitis At high risk for breast cancer Benign essential hypertension Current use of shelter anticoagulation Family history of breast cancer Impaired fasting glucose Normally functioning cardiac pacemaker present Overweight (BMI 25.0-29.9) PAF (paroxysmal atrial fibrillation) Pure hypercholesterolemia Sick sinus syndrome Family History Family History Father Hypertension Diabetes Arthritis Colon cancer Iron deficiency Mother Hypertension Maternal Grandmother Arthritis Diabetes Blockage of coronary artery of heart Maternal Grandfather Arthritis Paternal Grandfather Arthritis Pancreatic cancer Surgical History Surgical History (Updated 05/08/22 @ 14:03 by Shannon Crews RN) H/O colonoscopy History of pacemaker History of tonsillectomy Social History Social History Housing: House Alcohol intake: never Patient Tobacco Use Status: Former Tobacco user Second Hand Smoke Exposure: Yes Are you DNR?: No Advance Directives: No Advance Directives Information Provided: Yes Recently lost weight without trying: No Nutrition Risks: No Nutritional Risk service: No Current occupational status: disabled Cognitive needs: No Hearing needs: Yes Vision needs: Yes (wear glasses) Meds Allergies Allergy/AdvReac Type Severity Reaction Status Date / Time codeine [CODEINE] Allergy Unknown JITTERY Verified 04/05/22 13:25 Sulfa (Sulfonamide Allergy Unknown RASH,HIVES, Verified 04/05/22 13:25 Antibiotics) rash [SULFA (SULFONAMIDE ANTIBIOTICS)] Home Medications Medication Instructions Recorded Confirmed Last Taken Type ascorbate calcium (vitamin C) 500 500 mg PO DAILY 08/01/20 05/14/22 05/13/22 History mg tablet flaxseed oil 1,000 mg capsule 1,000 mg PO DAILY 08/01/20 05/14/22 05/11/22 History fluticasone propionate 50 1 spray intranasal DAILY 08/01/20 05/14/22 05/13/22 History mcg/actuation nasal spray,suspension omega-3 fatty acids 1,000 mg 1,000 mg PO DAILY 08/01/20 05/14/22 05/11/22 History capsule (Fish Oil Concentrate) Exam Exam Date and Time: May 11, 2022930 Height,Weight and Vital Signs: Height 5 ft 2 in Weight 68.039 kg Pertinent Lab Results Pertinent Lab Results: Laboratory Tests 04/26/22 04/26/22 17:32 17:32 WBC 3.4 L Hgb 14.5 Hct 42.9 Plt Count 153 L Sodium 141 Potassium 4.2 Chloride 106 Carbon Dioxide 23 BUN 15 Creatinine 0.73 Narrative Narrative: EKG 04/2022 Vent. Rate : 067 BPM ? ? Atrial Rate : 067 BPM ?? P-R Int : 194 ms? QRS Dur : 080 ms ? ? QT Int : 408 ms ? ? ? P-R-T Axes : 011 010 008 degrees ?? QTc Int : 431 ms ? Atrial-paced rhythm Abnormal ECG When compared with ECG of 27-APR-2022 08:06, No significant change was found Cardiac Device Check 03/2022 Details: Pacemaker interrogated today.? Dual-chamber device, programmed in [id number]DD[employer].? Battery status 4.5 years.? Normal lead parameters.? Atrial pacing 99.3%.? No significant ventricular pacing.? There are short bursts of atrial fibrillation.? Overall burden about 1%.? Overall, normal device function. [id number] Cardiac Device Check, pacemaker dual lead Assessment and Plan Assessment Anesthesia Assessment: Chart Reviewed Documented by User: Carmen Holloway MD 05/14/22 08:20 [facility] Past Medical History Medical History (Updated 04/28/22 @ 00:02 by Ciera Love) Allergic rhinitis At high risk for breast cancer Benign essential hypertension Current use of shelter anticoagulation Family history of breast cancer Impaired fasting glucose Normally functioning cardiac pacemaker present Overweight (BMI 25.0-29.9) PAF (paroxysmal atrial fibrillation) Pure hypercholesterolemia Sick sinus syndrome Family History Family History Father Hypertension Diabetes Arthritis Colon cancer Iron deficiency Mother Hypertension Maternal Grandmother Arthritis Diabetes Blockage of coronary artery of heart Maternal Grandfather Arthritis Paternal Grandfather Arthritis Pancreatic cancer Family history of problems with anesthesia: No Surgical History Surgical History (Updated 05/08/22 @ 14:03 by Shannon Crews RN) H/O colonoscopy History of pacemaker History of tonsillectomy History of Problems with Anesthesia: No Social History Social History Housing: House Alcohol intake: never Patient Tobacco Use Status: Former Tobacco user Second Hand Smoke Exposure: Yes Are you DNR?: No Advance Directives: No Advance Directives Information Provided: Yes Recently lost weight without trying: No Nutrition Risks: No Nutritional Risk service: No Current occupational status: disabled Cognitive needs: No Hearing needs: Yes Vision needs: Yes (wear glasses) Meds Allergies Allergy/AdvReac Type Severity Reaction Status Date / Time codeine [CODEINE] Allergy Unknown JITTERY Verified 04/05/22 13:25 Sulfa (Sulfonamide Allergy Unknown RASH,HIVES, Verified 04/05/22 13:25 Antibiotics) rash [SULFA (SULFONAMIDE ANTIBIOTICS)] Home Medications Medication Instructions Recorded Confirmed Last Taken Type ascorbate calcium (vitamin C) 500 500 mg PO DAILY 08/01/20 05/14/22 05/13/22 History mg tablet flaxseed oil 1,000 mg capsule 1,000 mg PO DAILY 08/01/20 05/14/22 05/11/22 History fluticasone propionate 50 1 spray intranasal DAILY 08/01/20 05/14/22 05/13/22 History mcg/actuation nasal spray,suspension omega-3 fatty acids 1,000 mg 1,000 mg PO DAILY 08/01/20 05/14/22 05/11/22 History capsule (Fish Oil Concentrate) Exam Airway Mallampati Class: II (Caps, top front, bottom side) TM Dist: >3cm Neck ROM: Full Heart: rrr Lungs: cta Assessment and Plan Assessment Anesthesia Assessment: Anesthesia Plan Discussed Final Anesthetic Review Family History of Problems with Anesthesia: No History of Problems with Anesthesia: No NPO: Yes ASA Class: III Final Preanesthetic Review: No Changes in Pt Med Stat, Meds/Allgs Chart Reviewed and Consent Obtained/Reviewed Patient Risk: Intermediate Procedure Risk: Intermediate Anesthetic Plan Anesthetic Plan: MAC: Disposition: Standard PACU
[2022-05-14 07:39] VITALS: BP 132/80; PULSE 70; RESP 20; TEMP 36; O2SAT 97
--- NOTE | 2022-05-14 07:48 | MHC.SHP ---
Pre-Procedural Eval Section A Date of Service: 05/14/22 The patient is an INPATIENT: No The History & Physical has been completed within 30 days and I have reviewed it.: No Section B Chief Complaint: screening Details of Present Illness: Colon cancer screening, family history of colon cancer Relevant Family History (Specify if Yes): Yes Relevant Social History: Tobacco Use (Former smoker) Present Medications: see Short Stay Collaborative assessment Medical History: Significant History (Allergic rhinitis At high risk for breast cancer Benign essential hypertension Current use of senior living anticoagulation Family history of breast cancer Impaired fasting glucose Normally functioning cardiac pacemaker present Overweight (BMI 25.0-29.9) PAF (paroxysmal atrial fibrillation) Pure hyperch) History of Previous Operations: Relevant previous surgery/procedure and date(s) (History of pacemaker History of tonsillectomy) Allergies: Allergies Allergy/AdvReac Type Severity Reaction Status Date / Time codeine [CODEINE] Allergy Unknown JITTERY Verified 04/05/22 13:25 Sulfa (Sulfonamide Allergy Unknown RASH,HIVES, Verified 04/05/22 13:25 Antibiotics) rash [SULFA (SULFONAMIDE ANTIBIOTICS)] Review of Systems Sugical H&P ROS: Negative: Constitution, Cardiovascular, Respiratory and Gastrointestinal Exam Surgical H&P Exam: Normal: Heart, Normal: Lungs, Normal: Extremities and Normal: Abdomen Plan Diagnosis/Plan: Unchanged I have reviewed the history and physical and performed a pertinent physical examination on my patient. No changes have occurred unless specified.
--- NOTE | 2022-05-14 07:49 | P.BOP_ITS ---
Brief Operative Note Date of Service: 05/14/22 Pre-op diagnosis: Colon cancer screening, family history of colon cancer (dad at age 67 yrs and at age 69 yrs) Post-op diagnosis: other ( diverticulosis) Procedure: COLONOSCOPY TILL CECUM Consent: Indications for the procedure and potential complications of bleeding, perforation, reaction to medications and missed diagnosis were discussed with the patient and informed consent was obtained. Instrument: Olympus PCF H 190 L variable stiffness pediatric colonoscope Monitoring: Vital signs and clinical assessment, intermittent blood pressure monitoring, continuous EKG monitoring, Pulse oximetry and Carbon Dioxide monitoring were done throughout the procedure. Colon withdrawl time was 16 minutes. Procedure: The patient was placed in the left lateral decubitis position and pre-procedure medications were administered. After a digital rectal examination of the ano-rectum, the video colonoscope was inserted into the rectum and advanced through the colon to the cecum. The colonoscope was slowly withdrawn in a retrograde panoramic fashion and the colon mucosa was carefully examined including a retroflexed view of the rectum. Findings and interventions are described below. Procedure Difficulty: colon was long and tortuous and there was some loop formation. LLQ pressure applied to intubate the ascending colon Findings: Terminal Ileum: Not evaluated Cecum: Normal Ascending Colon: Normal Transverse Colon: Normal Descending Colon: Normal Sigmoid Colon: Moderate diverticulosis Rectum: Normal Ano-rectum: Normal Colon preparation: Good Impression and Post Procedure Diagnosis: Colonoscopy Findings: No polyps were detected. Moderate diverticulosis seen in the sigmoid colon Plan: Patient has an appointment on 05/29/22 in the GI Clinic with Mica Lopez NP. Repeat Colonoscopy in 9 to 10 years (adult colonoscope for future colonoscopies). Above findings were reviewed with the patient and diverticulosis handout was given in the discharge area Surgeon: Clau Allen MD Anesthesia: MAC (Dr Perry) Was an Coal Pulverizing Operator used for this Procedure?: Yes Coal Pulverizing Operator: Finesse Brunson Estimated blood loss (mL): 0 Pathology: none sent Condition: stable Disposition: PACU
[2022-05-14] MEDS: Lactated Ringers 1,000 ML 100 ML IVCONT (08:01)
[2022-05-14 09:06] VITALS: BP 107/58; PULSE 64; RESP 16; TEMP 36.4; O2SAT 97
--- NOTE | 2022-05-14 09:17 | W.PM.OPN ---
Operative Note Operative Note Date of Service: 05/14/22 Narrative: Pre-op diagnosis: Colon cancer screening, family history of colon cancer (dad at age 67 yrs and at age 69 yrs) Post-op diagnosis:?other ( diverticulosis) Procedure: COLONOSCOPY TILL CECUM Consent: Indications for the procedure and potential complications of bleeding, perforation, reaction to medications and missed diagnosis were discussed with the patient and informed consent was obtained. Instrument: Olympus PCF H 190 L variable stiffness pediatric colonoscope Monitoring: Vital signs and clinical assessment, intermittent blood pressure monitoring, continuous EKG monitoring, Pulse oximetry and Carbon Dioxide monitoring were done throughout the procedure. Colon withdrawl time was 16 minutes. Procedure: The patient was placed in the left lateral decubitis position and pre-procedure medications were administered. After a digital rectal examination of the ano-rectum, the video colonoscope was inserted into the rectum and advanced through the colon to the cecum. The colonoscope was slowly withdrawn in a retrograde panoramic fashion and the colon mucosa was carefully examined including a retroflexed view of the rectum. Findings and interventions are described below. Procedure Difficulty: ? colon was long and tortuous and there was some loop formation.? LLQ pressure applied to intubate the? ascending colon Findings: Terminal Ileum: Not evaluated Cecum:? Normal Ascending Colon:? Normal Transverse Colon:? Normal Descending Colon:? Normal Sigmoid Colon:? Moderate diverticulosis Rectum:? Normal Ano-rectum:? Normal Colon preparation:? Good? Impression and Post Procedure Diagnosis: Colonoscopy Findings: No polyps were detected. Moderate diverticulosis seen in the sigmoid colon Plan: Patient has an appointment on 05/29/22 in the GI Clinic with? Mica Lopez NP. Repeat Colonoscopy in 9 to 10? years (adult colonoscope for future colonoscopies). Above findings were reviewed with the patient and? diverticulosis handout was given in the discharge area Surgeon: Clau Allen MD Anesthesia:?MAC (Dr Perry) Was an Haunted History Tour Guide used for this Procedure?:?Yes Haunted History Tour Guide:?Finesse Brunson Estimated blood loss (mL):?0 Pathology:?none sent Condition:?stable Disposition:?PACU
[2022-05-14 09:21] VITALS: BP 116/64; PULSE 60; RESP 18; TEMP 36.1; O2SAT 99
== END 2022-05-14 09:53 | disposition home or self-care (01) ==
PROVIDERS: PCP Internal Medicine; Visit Provider Internal Medicine Gastroenterology
PROC: 0DJD8ZZ Inspection of Lower Intestinal Tract, Via Natural or Artificial Opening Endoscopic (ICD-10-PCS; CPT 45378; principal; 2022-05-14 08:30)
DX: Z12.11 Encounter for screening for malignant neoplasm of colon (principal); Z80.0 Family history of malignant neoplasm of digestive organs; K57.30 Diverticulosis of large intestine without perforation or abscess without bleeding; K59.00 Constipation, unspecified; I10 Essential (primary) hypertension; I48.0 Paroxysmal atrial fibrillation; E78.00 Pure hypercholesterolemia, unspecified; J30.9 Allergic rhinitis, unspecified; R73.01 Impaired fasting glucose; E66.3 Overweight; Z68.27 Body mass index [BMI] 27.0-27.9, adult; I49.5 Sick sinus syndrome; Z95.0 Presence of cardiac pacemaker; Z79.01 Long term (current) use of anticoagulants; Z88.2 Allergy status to sulfonamides; Z88.8 Allergy status to other drugs, medicaments and biological substances; Z80.3 Family history of malignant neoplasm of breast; Z87.891 Personal history of nicotine dependence
CPT/HCPCS: G0105

== ENCOUNTER 2022-05-24 07:38 | Outpatient (REF) | payer MEDICARE, MEDICAID, SELFPAY ==
[2022-05-24 07:43] LABS: MANUAL DIFF FLAG NO
[2022-05-24 08:14] LABS: Basophils Absolute Auto 0.1 X10*3/uL (0.0-0.2); Basophils Percent Auto 1.4 % (0-2); Eosinophils Absolute Auto 0.1 X10*3/uL (0.0-0.4); Eosinophils Percent Auto 1.8 % (0-4); Hematocrit 43.9 % (37.0-47.0); Hemoglobin 15.1 g/dl (12.0-16.0); Imm Gran Abs Auto 0.01 X10*3/uL (0.00-0.03); Imm Gran Pct Auto 0.2 % (0.0-0.4); Lymphocytes Absolute Auto 2.3 X10*3/uL (1.2-4.9); Lymphocytes Percent Auto 52.7 % (20-40); Mean Corpuscular HGB Conc 34.4 g/dl (31.0-35.0); Mean Corpuscular Hemoglobin 31.7 pg (27.0-33.0); Mean Platelet Volume 10.3 fL (9.4-12.3); Monocytes Absolute Auto 0.3 X10*3/uL (0.1-1.2); Monocytes Percent Auto 7.3 % (2-11); Neutrophils Absolute Auto 1.6 x10*3/uL (2.0-8.3); Neutrophils Percent Auto 36.6 % (45-73); Platelet Count 156 X10*3/uL (160-400); Red Blood Count 4.77 X10*6/uL (4.20-5.50); Red Cell Distribution Width 11.7 % (11.0-16.0); White Blood Count 4.4 X10*3/uL (4.8-10.8)
[2022-05-24 08:39] LABS: Appearance Urine Clear; Color Urine Yellow; Glucose Urine UA Negative (Negative); Leukocyte Esterase Urine Trace (Negative); Nitrite Urine Negative (Negative); PH 6.5 (5.0-9.0); Specific Gravity - Urine 1.015 (1.005-1.025); UMIC TRIGGER UACC YES; Urine Blood Negative (Negative); Urine Ketones Negative (Negative); Urine Protein Negative (Neg-Trace)
[2022-05-24 08:44] LABS: Alanine Aminotransferase 15 U/L (0-31); Albumin Level 4.3 g/dL (3.5-5.0); Alkaline Phosphatase 67 U/L (39-117); Anion Gap 15 (12-20); Aspartate Amino Transferase 16 U/L (5-31); Bilirubin Total 1.9 mg/dL (0.0-1.0); Blood Urea Nitrogen 14 mg/dL (9-16); Calcium 9.4 mg/dL (8.4-10.2); Carbon Dioxide 25 mmol/L (22-29); Chloride 105 mmol/L (96-108); Cholesterol 155 mg/dL; Estimated Glomerular Filt Rate > 60; Glucose Fasting 95 mg/dL (60-99); HDL Cholesterol 71 mg/dL; LDL Cholesterol Calculated 62 mg/dl; Potassium 4.1 mmol/L (3.3-5.1); Sodium 141 mmol/L (135-145); Total Protein 6.7 g/dL (6.5-8.0); Triglycerides 111 mg/dL
[2022-05-24 08:47] LABS: Bacteria Urine None Seen (None Seen); Hyaline Casts Urine 0-2 /LPF (0-2); Squamous Epithelial Cell Urine 0-2 /HPF (0-2); WBC Urine 0-5 /HPF (0-5)
[2022-05-24 09:05] LABS: TSH reflex Free T4 2.87 uIU/mL (0.32-4.0)
== END 2022-05-24 07:39 | disposition home or self-care (01) ==
LOC: HO.LAB 07:38
PROVIDERS: PCP Internal Medicine; Visit Provider Internal Medicine
DX: E78.00 Pure hypercholesterolemia, unspecified (principal); I10 Essential (primary) hypertension
CPT/HCPCS: 36415; 80053; 80061; 81001; 84443; 85025

== ENCOUNTER → 2022-05-29 15:10 | Outpatient (BNVA) | payer MEDICARE, MEDICAID, SELFPAY | PROVIDERS: PCP Internal Medicine; Visit Provider Nurse Practitioner | DX: K57.30 Diverticulosis of large intestine without perforation or abscess without bleeding (principal); K59.00 Constipation, unspecified; Z80.0 Family history of malignant neoplasm of digestive organs; Z98.890 Other specified postprocedural states | CPT/HCPCS: 99212 ==

== ENCOUNTER → 2022-07-10 13:24 | Outpatient (BNVA) | payer MEDICARE, MEDICAID, SELFPAY | PROVIDERS: PCP Internal Medicine; Referring Provider Internal Medicine; Visit Provider Nurse Practitioner Family | DX: I48.0 Paroxysmal atrial fibrillation (principal); I10 Essential (primary) hypertension; I49.5 Sick sinus syndrome; Z95.0 Presence of cardiac pacemaker; Z79.01 Long term (current) use of anticoagulants | CPT/HCPCS: 99212 ==

== ENCOUNTER 2022-07-31 08:42 | Emergency (ER) | payer MEDICARE, MEDICAID, SELFPAY ==
--- NOTE | ~2022-07-31 | XR_ITS ---
EXAMINATION: XR CHEST CLINICAL INFORMATION: Cough. COMPARISON: April 27, 2022. TECHNIQUE: Portable AP view of the chest was obtained. XR/XR chest 1V FINDINGS/IMPRESSION: The study is somewhat limited by portable technique and low lung volumes. There has been no gross significant radiographic change compared with April 27, 2022. Linear density at the left base suggest fibrotic change and/atelectasis, similar compared with prior. No acute infiltrate, effusion, pneumothorax is seen. The heart size is poorly evaluated. The tips of left subclavian pulse generator device leads project over the right atrium and right ventricle. There are mild degenerative changes of the spine.
--- NOTE | 2022-07-31 08:45 | ECG_ITS ---
Test Reason : RAPID HEART RATE Blood Pressure : / mmHG Vent. Rate : 089 BPM Atrial Rate : 000 BPM P-R Int : 000 ms QRS Dur : 092 ms QT Int : 344 ms P-R-T Axes : 000 167 175 degrees QTc Int : 418 ms Atrial flutter vs atrial tachycardia with variable block Limb lead reversal Abnormal ECG When compared with ECG of 31-JUL-2022 08:49, Vent. rate has decreased BY 12 BPM limb leads are reversed. Referred By: Magaly Buchanan Electronically Signed By:Westley Cobb
[2022-07-31 08:46] VITALS: BP 137/87; PULSE 100; RESP 19; TEMP 36.6; O2SAT 98; BMI 26.9
--- NOTE | 2022-07-31 08:46 | ECG_ITS ---
Test Reason : rapid heart rate Blood Pressure : / mmHG Vent. Rate : 101 BPM Atrial Rate : 197 BPM P-R Int : 000 ms QRS Dur : 088 ms QT Int : 340 ms P-R-T Axes : 000 031 009 degrees QTc Int : 440 ms Atrial flutter with variable A-V block with occasional ventricular-paced complexes Abnormal ECG When compared with ECG of 27-APR-2022 08:44, Electronic ventricular pacemaker has replaced Electronic atrial pacemaker Vent. rate has increased BY 34 BPM Referred By: Magaly Buchanan Electronically Signed By:Westley Cobb
[2022-07-31 08:57] VITALS: BP 129/87; PULSE 98; RESP 16; TEMP 36.7; O2SAT 98
--- NOTE | 2022-07-31 08:58 | ED.ARRPALP ---
HPI - Arrhythmia/Palpitations General Chief Complaint: Arrhythmia/Palpitations Stated Complaint: Rapid heart beat/Difficulty breathing Time Seen by Provider: 07/31/22 08:44 Source: patient Mode of arrival: ambulatory History of Present Illness HPI narrative: This is a 61-year-old female who presents with a history of paroxysmal atrial fibrillation, on Eliquis, and has a pacemaker and states that this morning she woke up and ?did not feel right? so, was short of breath and denies any use of diuretics at this time, she did not take her rate control medication until 0820 this morning. Patient states she has noticed some mild increased swelling in bilateral lower extremities but otherwise denies any constitutional symptoms such as fever, cough, sore throat, GI or symptoms. Patient did report some chills last night but it attributed it to the weather. Patient states that she felt her ?heart was racing? switch prompted her to come in and get evaluated. Related Data Home Medications Medication Instructions Recorded Confirmed ascorbate calcium (vitamin C) 500 500 mg PO DAILY 08/01/20 05/29/22 mg tablet flaxseed oil 1,000 mg capsule 1,000 mg PO DAILY 08/01/20 05/29/22 omega-3 fatty acids 1,000 mg 1,000 mg PO DAILY 08/01/20 05/29/22 capsule (Fish Oil Concentrate) Previous Rx's Medication Instructions Recorded calcium carbonate 600 mg-vitamin 1 tab PO DAILY 90 days #90 tabs 11/01/21 D3 5 mcg (200 unit) tablet docusate sodium 100 mg capsule 100 mg PO .DAILY WITH FOOD 30 days 12/28/21 (Colace) #30 caps apixaban 5 mg tablet (Eliquis) 5 mg PO BID 90 days #180 tabs 04/02/22 flecainide 100 mg tablet 100 mg PO Q12H #180 tabs 04/02/22 metoprolol succinate 50 mg 50 mg PO DAILY #90 tabs 04/02/22 tablet,extended release 24 hr (Toprol XL) atorvastatin 10 mg tablet 10 mg PO DAILY #90 tabs 04/05/22 tizanidine 4 mg tablet 4 mg PO Q8H PRN muscle spasticity 05/28/22 #270 tabs Allergies Allergy/AdvReac Type Severity Reaction Status Date / Time codeine [CODEINE] Allergy Unknown JITTERY Verified 07/10/22 13:32 Sulfa (Sulfonamide Allergy Unknown RASH,HIVES, Verified 07/10/22 13:32 Antibiotics) rash [SULFA (SULFONAMIDE ANTIBIOTICS)] Review of Systems Review of Systems: Pertinent positives and negatives as stated in [facility] Past Medical History Source: nursing notes reviewed Medical History Allergic rhinitis At high risk for breast cancer Benign essential hypertension Current use of custodial anticoagulation Family history of breast cancer Impaired fasting glucose Normally functioning cardiac pacemaker present Overweight (BMI 25.0-29.9) PAF (paroxysmal atrial fibrillation) Pure hypercholesterolemia Sick sinus syndrome Surgical History H/O colonoscopy History of pacemaker History of tonsillectomy Family History Family History Father Hypertension Diabetes Arthritis Colon cancer Iron deficiency Mother Hypertension Maternal Grandmother Arthritis Diabetes Blockage of coronary artery of heart Maternal Grandfather Arthritis Paternal Grandfather Arthritis Pancreatic cancer Social History Social History Housing: House Alcohol intake: former Patient Tobacco Use Status: Former Tobacco user Smoked in Last 30 Days: No Second Hand Smoke Exposure: Yes Advance Directives: No Advance Directives Information Provided: Yes Patient : No service: No Current occupational status: disabled Cognitive needs: No Hearing needs: Yes Vision needs: Yes (wear glasses) Physical Exam Vital Signs: Vital Signs: Last Vital Signs Temp 98.0 F 07/31/22 08:57 Pulse 59 07/31/22 10:11 Resp 11 L 07/31/22 10:11 BP 134/71 07/31/22 10:11 Pulse Ox 96 07/31/22 10:11 O2 Del Method 07/31/22 10:11 BMI result Body Mass Index 26.9 VITAL SIGNS: Reviewed. GENERAL: Well developed, well nourished, in no acute distress. HEAD: Normocephalic/atraumatic EYES: PERRLA, EOMI EARS: Ext canals without abnormality OROPHARYNX: no oral lesions noted, posterior pharynx clear LUNGS: Normal breath sounds, no wheeze/rhonchi/rales appreciated and no tachypnea noted. SpO2<98> CARDIOVASCULAR: Tachycardia rate and irregularly irregular rhythm without noted murmurs, no JVD but mild lower extremity edema ABDOMEN: Soft, non-tender, non-distended with bowel sounds. MUSCULOSKELETAL: No tenderness, deformities, or effusions noted on gross inspection. EXTREMITIES: No cyanosis, clubbing or edema. SKIN: Inspection of the skin reveals no rashes NEUROLOGIC: Alert and oriented x 4. Strength and sensation to light touch were grossly intact x 4. Medications Administered Discontinued Medications Generic Name Dose Route Start Last Admin Trade Name Bassam PRN Reason Stop Dose Admin Metoprolol Tartrate 2.5 mg 07/31/22 09:02 07/31/22 09:39 Metoprolol Tartrate 5 Mg/5 Ml Vial IVPUSH 07/31/22 09:03 Not Given ONCE ONE Medical Decision Making Medical Decision Making [facility] Narrative: 61-year-old female with shortness of breath and atrial fibrillation with RVR but hemodynamically stable and appears well at this time. Labs, EKG, chest x-ray and viral testing is pending. 1100: My review and interpretation of entire workup is that patient has very mild CHF exacerbation and will give patient 20 mg of IV Lasix and discharge home with strict return precautions as well as instructions to follow-up with her primary care provider. There is no evidence of infection, anemia, electrolyte or renal dysfunction, BNP-171. All results and findings discussed with the patient at bedside. Differential Diagnosis Differential Diagnoses: The differential diagnosis associated with the presentation includes Please see discussion above Consult Healthcare Provider Management of the patient was discussed with: Senior Reservoir Engineer Cardiology at 0933: Discussed rhythm in the lateral leads and Dr. Cobb feels this may be attributable to artifact and patient is not having chest pain at this time. Lab Data [facility] Lab Attestation statement: I reviewed the patient's lab results. Please see the discussion above 07/31/22 09:27 07/31/22 09:27 Labs: Lab Results 07/31/22 07/31/22 07/31/22 Range/Units 09:26 09:26 09:26 WBC (4.8-10.8) X10*3/uL RBC (4.20-5.50) X10*6/uL Hgb (12.0-16.0) g/dl Hct (37.0-47.0) % MCV (80.0-98.0) fL MCH (27.0-33.0) pg MCHC (31.0-35.0) g/dl RDW (11.0-16.0) % Plt Count (160-400) X10*3/uL MPV (9.4-12.3) fL Immature Gran % (Auto) (0.0-0.4) % Neut % (Auto) (45-73) % Lymph % (Auto) (20-40) % [place] % (Auto) (2-11) % Eos % (Auto) (0-4) % Baso % (Auto) (0-2) % Lymph # (Auto) (1.2-4.9) X10*3/uL [place] # (Auto) (0.1-1.2) X10*3/uL Eos # (Auto) (0.0-0.4) X10*3/uL Baso # (Auto) (0.0-0.2) X10*3/uL Abs Immat Gran (auto) (0.00-0.03) X10*3/uL Absolute Neuts (auto) (2.0-8.3) x10*3/uL Absolute Nucleated RBC (0.0-0.012) X10*3/uL Nucleated RBC % (auto) (0.0-0.2) /100WBC PT (10.0-13.1) SEC INR (0.9-1.1) Sodium (135-145) mmol/L Potassium (3.3-5.1) mmol/L Chloride (96-108) mmol/L Carbon Dioxide (22-29) mmol/L Anion Gap (12-20) BUN (9-16) mg/dL Creatinine (0.5-1.4) mg/dL Estim Creat Clear Calc Estimated GFR Random Glucose (60-115) mg/dL Calcium (8.4-10.2) mg/dL Total Bilirubin (0.0-1.0) mg/dL AST (5-31) U/L ALT (0-31) U/L Alkaline Phosphatase (39-117) U/L Troponin I High Sens < 3.5 (<3.5-17.0) ng/L B-Natriuretic Peptide (<100) pg/mL Total Protein (6.5-8.0) g/dL Albumin (3.5-5.0) g/dL COVID-19 ([place]) Negative (Negative) COVID-19 Clin Com See Note Influenza Type A (GENE) Negative (Negative) Influenza Type B (GENE) Negative (Negative) Influenza A & B Note See Note 07/31/22 07/31/22 07/31/22 Range/Units 09:27 09:27 09:27 WBC 3.8 L (4.8-10.8) X10*3/uL RBC 4.87 (4.20-5.50) X10*6/uL Hgb 15.5 (12.0-16.0) g/dl Hct 43.9 (37.0-47.0) % MCV 90.1 (80.0-98.0) fL MCH 31.8 (27.0-33.0) pg MCHC 35.3 H (31.0-35.0) g/dl RDW 11.5 (11.0-16.0) % Plt Count 178 (160-400) X10*3/uL MPV 10.3 (9.4-12.3) fL Immature Gran % (Auto) 0.0 (0.0-0.4) % Neut % (Auto) 42.6 L (45-73) % Lymph % (Auto) 46.4 H (20-40) % [place] % (Auto) 8.3 (2-11) % Eos % (Auto) 1.6 (0-4) % Baso % (Auto) 1.1 (0-2) % Lymph # (Auto) 1.7 (1.2-4.9) X10*3/uL [place] # (Auto) 0.3 (0.1-1.2) X10*3/uL Eos # (Auto) 0.1 (0.0-0.4) X10*3/uL Baso # (Auto) 0.0 (0.0-0.2) X10*3/uL Abs Immat Gran (auto) 0.00 (0.00-0.03) X10*3/uL Absolute Neuts (auto) 1.6 L (2.0-8.3) x10*3/uL Absolute Nucleated RBC 0.000 (0.0-0.012) X10*3/uL Nucleated RBC % (auto) 0.0 (0.0-0.2) /100WBC PT 14.0 H (10.0-13.1) SEC INR 1.2 H (0.9-1.1) Sodium 144 (135-145) mmol/L Potassium 4.2 (3.3-5.1) mmol/L Chloride 109 H (96-108) mmol/L Carbon Dioxide 26 (22-29) mmol/L Anion Gap 13 (12-20) BUN 11 (9-16) mg/dL Creatinine 0.69 (0.5-1.4) mg/dL Estim Creat Clear Calc 75.7 Estimated GFR > 60 Random Glucose 100 (60-115) mg/dL Calcium 9.8 (8.4-10.2) mg/dL Total Bilirubin 2.4 H (0.0-1.0) mg/dL AST 20 (5-31) U/L ALT 15 (0-31) U/L Alkaline Phosphatase 63 (39-117) U/L Troponin I High Sens (<3.5-17.0) ng/L B-Natriuretic Peptide (<100) pg/mL Total Protein 6.7 (6.5-8.0) g/dL Albumin 4.2 (3.5-5.0) g/dL COVID-19 ([place]) (Negative) COVID-19 Clin Com Influenza Type A (GENE) (Negative) Influenza Type B (GENE) (Negative) Influenza A & B Note 07/31/22 Range/Units 09:27 WBC (4.8-10.8) X10*3/uL RBC (4.20-5.50) X10*6/uL Hgb (12.0-16.0) g/dl Hct (37.0-47.0) % MCV (80.0-98.0) fL MCH (27.0-33.0) pg MCHC (31.0-35.0) g/dl RDW (11.0-16.0) % Plt Count (160-400) X10*3/uL MPV (9.4-12.3) fL Immature Gran % (Auto) (0.0-0.4) % Neut % (Auto) (45-73) % Lymph % (Auto) (20-40) % [place] % (Auto) (2-11) % Eos % (Auto) (0-4) % Baso % (Auto) (0-2) % Lymph # (Auto) (1.2-4.9) X10*3/uL [place] # (Auto) (0.1-1.2) X10*3/uL Eos # (Auto) (0.0-0.4) X10*3/uL Baso # (Auto) (0.0-0.2) X10*3/uL Abs Immat Gran (auto) (0.00-0.03) X10*3/uL Absolute Neuts (auto) (2.0-8.3) x10*3/uL Absolute Nucleated RBC (0.0-0.012) X10*3/uL Nucleated RBC % (auto) (0.0-0.2) /100WBC PT (10.0-13.1) SEC INR (0.9-1.1) Sodium (135-145) mmol/L Potassium (3.3-5.1) mmol/L Chloride (96-108) mmol/L Carbon Dioxide (22-29) mmol/L Anion Gap (12-20) BUN (9-16) mg/dL Creatinine (0.5-1.4) mg/dL Estim Creat Clear Calc Estimated GFR Random Glucose (60-115) mg/dL Calcium (8.4-10.2) mg/dL Total Bilirubin (0.0-1.0) mg/dL AST (5-31) U/L ALT (0-31) U/L Alkaline Phosphatase (39-117) U/L Troponin I High Sens (<3.5-17.0) ng/L B-Natriuretic Peptide 171 H (<100) pg/mL Total Protein (6.5-8.0) g/dL Albumin (3.5-5.0) g/dL COVID-19 ([place]) (Negative) COVID-19 Clin Com Influenza Type A (GENE) (Negative) Influenza Type B (GENE) (Negative) Influenza A & B Note Independent Interpretation I performed an independent interpretation of an: EKG Interpretation: 0849: Atrial fibrillation, HR-101, no STEMI but ST abnormality noted in the lateral leads which is different from comparison from 04/2022, QRS and QTC are within normal limits. 0908: Atrial fibrillation, HR-89, suspect limb lead reversal, QRS/QTC is within normal limits. 0929: Atrial paced rhythm, HR -61, no STEMI, IA -212, QRS and QTC are within normal limits. Radiology Impression Radiologist Impression: My interpretation is in agreement with radiology's impression of the imaging study. External Record Review External record reviewed: Outpatient record and Prior outpatient labs Chronic Conditions Patient?s care impacted by: Hypertension Critical Care Time Critical Care Time Critical Care Time: Yes Total Critical Care Time: 45 Attestation: I personally attest to this time spent taking care of the patient. Discharge Plan Discharge Clinical Impression: PAF (paroxysmal atrial fibrillation), CHF exacerbation Patient Disposition: Home, Self-Care Instructions: Heart Failure (ED), A-fib (Atrial Fibrillation) (ED), Blood Thinners (ED) Additional Instructions: 1. Resume all home medications as prescribed. 2. You received a 1 time dose of diuretics, this is a medication that makes you pee more frequently because it was found that you had additional fluid which is likely the reason for the swelling that she noticed in bilateral lower legs. You have not been given a prescription for this medication and you are strongly encouraged to follow-up with your primary care provider for re-evaluation and further outpatient management. Return to the ER for any worsening or recurrence of symptoms. Prescriptions: No Action tizanidine 4 mg tablet 4 mg PO Q8H PRN (Reason: muscle spasticity) Qty: 270 2RF ascorbate calcium (vitamin C) 500 mg tablet 500 mg PO DAILY flaxseed oil 1,000 mg capsule 1,000 mg PO DAILY Rx Instructions: administer with a meal omega-3 fatty acids [Fish Oil Concentrate] 1,000 mg capsule 1,000 mg PO DAILY calcium carbonate-vitamin D3 600 mg-5 mcg (200 unit) tablet 1 tab PO DAILY 90 Days Qty: 90 3RF atorvastatin 10 mg tablet 10 mg PO DAILY Qty: 90 3RF metoprolol succinate [Toprol XL] 50 mg tablet extended release 24 hr 50 mg PO DAILY Qty: 90 3RF flecainide 100 mg tablet 100 mg PO Q12H Qty: 180 3RF Eliquis 5 mg tablet 5 mg PO BID 90 Days Qty: 180 3RF docusate sodium [Colace] 100 mg capsule 100 mg PO .DAILY WITH FOOD 30 Days Qty: 30 6RF Referrals: Rudy Buckley MD [Primary Care Provider] -
--- NOTE | 2022-07-31 09:07 | ECG_ITS ---
Test Reason : a-fib Blood Pressure : / mmHG Vent. Rate : 061 BPM Atrial Rate : 061 BPM P-R Int : 212 ms QRS Dur : 090 ms QT Int : 402 ms P-R-T Axes : 070 025 017 degrees QTc Int : 404 ms Atrial-paced rhythm with prolonged AV conduction Abnormal ECG When compared with ECG of 31-JUL-2022 09:08, Electronic atrial pacemaker has replaced Electronic ventricular pacemaker Referred By: Magaly Buchanan Electronically Signed By:Westley Cobb
--- NOTE | 2022-07-31 09:15 | PC.NURSE ---
patient a/ox4 . pearrla , with glasses on . heart rate irregular at 104-112 beats per minute , patient reports having history of Affib and taking her medication this AM prior to coming to ED . She is reporting feeling palpitations . breathing is even and unlabored . lungs clear throughout . skin pink warm and dry . non-pitting mild edema noted in ankles . abdomen soft . positive bowel sounds in all four quadrants . EKG done at bedside , patient placed on java technical manager . Bedside portable Xray done . Iv placed in left wrist , labs sent . patient aware of plan o care .
--- NOTE | 2022-07-31 09:25 | PC.NURSE ---
Patient currently in regular cardiac rhythm on monitor at 60 beats per minute . provider Dr. Buchanan made aware . EKG obtained . patient made aware of plan of care .
[2022-07-31 09:34] LABS: MANUAL DIFF FLAG NO
[2022-07-31 09:37] LABS: Basophils Percent Auto 1.1 % (0-2); Eosinophils Absolute Auto 0.1 X10*3/uL (0.0-0.4); Eosinophils Percent Auto 1.6 % (0-4); Hematocrit 43.9 % (37.0-47.0); Hemoglobin 15.5 g/dl (12.0-16.0); Lymphocytes Absolute Auto 1.7 X10*3/uL (1.2-4.9); Lymphocytes Percent Auto 46.4 % (20-40); Mean Corpuscular HGB Conc 35.3 g/dl (31.0-35.0); Mean Corpuscular Hemoglobin 31.8 pg (27.0-33.0); Mean Corpuscular Volume 90.1 fL (80.0-98.0); Mean Platelet Volume 10.3 fL (9.4-12.3); Monocytes Absolute Auto 0.3 X10*3/uL (0.1-1.2); Monocytes Percent Auto 8.3 % (2-11); Neutrophils Absolute Auto 1.6 x10*3/uL (2.0-8.3); Neutrophils Percent Auto 42.6 % (45-73); Platelet Count 178 X10*3/uL (160-400); Red Blood Count 4.87 X10*6/uL (4.20-5.50); Red Cell Distribution Width 11.5 % (11.0-16.0); White Blood Count 3.8 X10*3/uL (4.8-10.8)
[2022-07-31 09:50] LABS: INTERNATIONAL NORM RATIO 1.2 (0.9-1.1)
[2022-07-31 09:51] LABS: COVID-19 Test Negative (Negative); IDNOW Serial# 16C4AD1C; IDNOW Serial# BCCEAD1C; Influenza A Negative (Negative); Influenza B2 Negative (Negative)
[2022-07-31 09:53] LABS: Alanine Aminotransferase 15 U/L (0-31); Albumin Level 4.2 g/dL (3.5-5.0); Alkaline Phosphatase 63 U/L (39-117); Anion Gap 13 (12-20); Aspartate Amino Transferase 20 U/L (5-31); Bilirubin Total 2.4 mg/dL (0.0-1.0); Blood Urea Nitrogen 11 mg/dL (9-16); Calcium 9.8 mg/dL (8.4-10.2); Carbon Dioxide 26 mmol/L (22-29); Chloride 109 mmol/L (96-108); Creatinine Clr Calc Pharmacy 75.7; Estimated Glomerular Filt Rate > 60; Glucose Random 100 mg/dL (60-115); Potassium 4.2 mmol/L (3.3-5.1); Sodium 144 mmol/L (135-145); Total Protein 6.7 g/dL (6.5-8.0)
[2022-07-31 10:00] LABS: B Type Natriuretic Peptide 171 pg/mL (<100)
[2022-07-31 10:00] LABS: Troponin-I High Sensitivity < 3.5 ng/L (<3.5-17.0)
[2022-07-31 10:11] VITALS: BP 134/71; PULSE 59; RESP 11; O2SAT 96
[2022-07-31] MEDS: Furosemide 20 MG/2 ML VIAL IVPUSH (11:16)
--- NOTE | 2022-07-31 11:29 | PC.NURSE ---
patient a/ox4 . VSS . went over discharge instructions as ordered by provider . patient to follow up with primary care . patient to return to Ed if symptoms worsen . No questions at this itme.
== END 2022-07-31 11:31 | disposition home or self-care (01) ==
PROVIDERS: Emergency Provider Student in an Organized Health Care Education/Training Program; PCP Internal Medicine
DX: I48.0 Paroxysmal atrial fibrillation (principal); I11.0 Hypertensive heart disease with heart failure; I50.9 Heart failure, unspecified; R06.02 Shortness of breath; Z20.822 Contact with and (suspected) exposure to COVID-19; E78.00 Pure hypercholesterolemia, unspecified; Z95.0 Presence of cardiac pacemaker; Z87.891 Personal history of nicotine dependence; Z79.01 Long term (current) use of anticoagulants; Z79.02 Long term (current) use of antithrombotics/antiplatelets; Z79.899 Other long term (current) drug therapy
CPT/HCPCS: 71045; 80053; 83880; 84484; 85025; 85610; 87502; 87635; 93005; 96374; 99284; J1940

== ENCOUNTER 2022-08-11 08:28 | Outpatient (REF) | payer MEDICARE, MEDICAID, SELFPAY ==
[2022-08-11 08:52] LABS: MANUAL DIFF FLAG NO
[2022-08-11 09:19] LABS: Basophils Absolute Auto 0.1 X10*3/uL (0.0-0.2); Basophils Percent Auto 1.4 % (0-2); Eosinophils Absolute Auto 0.1 X10*3/uL (0.0-0.4); Hematocrit 40.7 % (37.0-47.0); Hemoglobin 14.1 g/dl (12.0-16.0); Imm Gran Abs Auto 0.01 X10*3/uL (0.00-0.03); Imm Gran Pct Auto 0.3 % (0.0-0.4); Lymphocytes Absolute Auto 1.5 X10*3/uL (1.2-4.9); Lymphocytes Percent Auto 42.6 % (20-40); Mean Corpuscular HGB Conc 34.6 g/dl (31.0-35.0); Mean Corpuscular Hemoglobin 30.9 pg (27.0-33.0); Mean Corpuscular Volume 89.3 fL (80.0-98.0); Mean Platelet Volume 9.9 fL (9.4-12.3); Monocytes Absolute Auto 0.3 X10*3/uL (0.1-1.2); Monocytes Percent Auto 7.2 % (2-11); Neutrophils Absolute Auto 1.6 x10*3/uL (2.0-8.3); Neutrophils Percent Auto 46.5 % (45-73); Platelet Count 194 X10*3/uL (160-400); Red Blood Count 4.56 X10*6/uL (4.20-5.50); Red Cell Distribution Width 11.9 % (11.0-16.0); White Blood Count 3.5 X10*3/uL (4.8-10.8)
[2022-08-11 09:29] LABS: Estimated Average Glucose 103 mg/dL; Hemoglobin A1c % 5.2 %
[2022-08-11 10:07] LABS: Alanine Aminotransferase 19 U/L (0-31); Albumin Level 3.9 g/dL (3.5-5.0); Alkaline Phosphatase 60 U/L (39-117); Anion Gap 12 (12-20); Aspartate Amino Transferase 17 U/L (5-31); Bilirubin Total 1.7 mg/dL (0.0-1.0); Blood Urea Nitrogen 11 mg/dL (9-16); Calcium 9.3 mg/dL (8.4-10.2); Carbon Dioxide 26 mmol/L (22-29); Chloride 107 mmol/L (96-108); Cholesterol 166 mg/dL; Estimated Glomerular Filt Rate > 60; Glucose Fasting 98 mg/dL (60-99); HDL Cholesterol 69 mg/dL; LDL Cholesterol Calculated 82 mg/dl; Potassium 3.8 mmol/L (3.3-5.1); Sodium 141 mmol/L (135-145); Total Protein 6.1 g/dL (6.5-8.0); Triglycerides 79 mg/dL
[2022-08-11 10:11] LABS: TSH reflex Free T4 2.06 uIU/mL (0.32-4.0); Vitamin D 25-OH Total 37.4 ng/mL (>30)
[2022-08-11 11:16] LABS: Appearance Urine Clear; Color Urine Yellow; Glucose Urine UA Negative (Negative); Leukocyte Esterase Urine Trace (Negative); Nitrite Urine Negative (Negative); UMIC TRIGGER UACC YES; Urine Blood Negative (Negative); Urine Ketones Negative (Negative); Urine Protein Negative (Neg-Trace)
[2022-08-11 11:22] LABS: Bacteria Urine None Seen (None Seen); Hyaline Casts Urine 0-2 /LPF (0-2); RBC Urine 0-2 /HPF (0-2); Squamous Epithelial Cell Urine 0-2 /HPF (0-2); WBC Urine 0-5 /HPF (0-5)
== END 2022-08-11 08:29 | disposition home or self-care (01) ==
LOC: HO.LAB 08:28
PROVIDERS: PCP Internal Medicine; Visit Provider Internal Medicine
DX: E78.00 Pure hypercholesterolemia, unspecified (principal); I10 Essential (primary) hypertension; E55.9 Vitamin D deficiency, unspecified; R73.01 Impaired fasting glucose
CPT/HCPCS: 36415; 80053; 80061; 81001; 82306; 83036; 84443; 85025

== ENCOUNTER 2022-09-11 11:24 | Outpatient (REF) | payer MEDICARE, MEDICAID, SELFPAY ==
--- NOTE | ~2022-09-11 | MM_ITS ---
EXAMINATION: MM SCREENING DIGITAL BREAST TOMOSYNTHESIS, BILATERAL CLINICAL INFORMATION: Screening. Asymptomatic. The lifetime risk of breast cancer based on the Tyrer-Cuzick Model is 12.8%. COMPARISON: Mammography: September 04, 2021 and studies dating back to July 21, 2015 TECHNIQUE: Digital breast tomosynthesis is performed in both the craniocaudal and mediolateral oblique views along with computer-aided detection (CAD). Synthesized 2D images are generated from the tomosynthesis. FINDINGS: There are scattered areas of fibroglandular density (ACR BI-RADS breast composition Category b). There are no new significant masses, abnormal calcifications, or other abnormalities. Circumscribed densities again seen bilaterally. Pacemaker in place within the left axilla. MM/MM tomosynthesis screening BI IMPRESSION: No significant changes from prior exam. ASSESSMENT: BI-RADS 2: Benign RECOMMENDATION: Routine annual mammography screening. This patient's information was entered into a reminder system with a target due date for their next mammogram.
== END 2022-09-11 11:25 | disposition home or self-care (01) ==
LOC: HO.MAMMO 11:24
PROVIDERS: PCP Internal Medicine; Visit Provider Internal Medicine
DX: Z12.31 Encounter for screening mammogram for malignant neoplasm of breast (principal)
CPT/HCPCS: 77063; 77067

== ENCOUNTER → 2022-09-17 10:32 | Outpatient (REF) | payer MEDICARE, MEDICAID, SELFPAY ==
--- NOTE | 2022-09-17 10:37 | CA_ITS ---
Transthoracic Echocardiogram Patient (Last, First, Middle): Farhana Deutsch A Gender: Female Date of : 1960 Age: 61 Procedure Date: 09/17/2022 Procedure Type: Transthoracic Echocardiogram Location: OP Height: 157.48 cm Weight: 66.23 kg BSA: 1.67 m2 Heart Rate: 70 bpm BP: 120 / 76 mmHg Web Communications Specialist: MITZY Referring MD: Paul Westbrook MD Certified Wellness Program Manager: Rohith Swift MD Symptoms: I48.0 - Paroxysmal atrial fibrillation Study Quality: Adequate ECG Rhythm: Sinus Conclusions: - 1. Normal LV systolic function with normal diastolic filling pattern 2. Normal cardiac valvular Doppler 3. Normal RV systolic pressure 4. No pericardial effusion Findings Left Ventricle Normal left ventricular size, thickness, and systolic function. The visually estimated ejection fraction is between 55-60%. Spectral Doppler is indicative of a normal filling pattern. Peak GLS is -14.9%, which is reduced. Right Ventricle Normal right ventricular cavity size and systolic function. There is a pacemaker wire seen in the right ventricle. Atria The left atrium is normal in size. Interatrial shunt cannot be excluded. The right atrium is normal in size. A pacemaker wire is identified in the right atrium. Aortic Valve The aortic valve structure and function is likely normal. There is no aortic valve stenosis. There is no aortic valve regurgitation. Mitral Valve There is mild anterior and posterior mitral leaflet thickening. There is trace mitral valve regurgitation. There is no mitral valve stenosis. Pulmonic Valve The pulmonic valve was not well visualized. Tricuspid Valve Likely normal tricuspid valve structure and function. There is trace tricuspid valve regurgitation. The right ventricular systolic pressure is normal. The right ventricular systolic pressure is 26 mmHg. Normal right atrial pressure. There is no evidence of pulmonary hypertension. Great Vessels All visible segments of the aorta are normal in size. The pulmonary artery was not well visualized. Venous The inferior vena cava is normal in size and collapses greater than 50% with inspiration. Pericardium/Pleural There is no evidence of pericardial effusion. Measurements 2D Linear Measurements IVSd: 0.82 0.6-0.9/0.6-1.0 cm LVIDd: 4.43 3.9-5.3/4.2-5.9 cm LVIDd Index: 2.65 2.4-3.2/2.2-3.1 cm/m2 LVIDs: 3.02 2.0-3.6 cm LVPWd: 0.77 0.7-1.1 cm LA Diam: 3.30 2.7-3.8/3.0-4.0 cm LAIDs Index: 1.98 1.5-2.3 cm/m2 LV Mass: 136.14 67-162/88-224 g LV Mass Index: 81.52 43-95/49-115 g/m2 LVOT Diam: 2.00 3.0+(-)1.3 cm 2D Systolic Function EF 4C: 52.50 >55% EF 2C: 57.50 >55% EF BiP: 54.60 >55% Mitral Valve MV Pk E: 0.97 MV PK A: 0.78 MV Decel Time: 168.00 E/A: 1.20 E'Lateral: 8.85 E'Medial: 5.40 E/E' Med: 17.90 E/E' Lat: 10.90 PHT: 49.00 MVA PHT: 4.49 Decel [place]: 5.77 Aortic Valve AoV Pk Blake: 1.23 AoV Pk Grad: 6.00 MCKINLEY: 2.21 LVOT LVOT Pk Blake: 0.91 LVOT Mn Blake: 0.60 LVOT VTI: 0.20 LVOT Pk Grad: 3.00 LVOT Mn Grad: 2.00 LVOT Diam: 2.00 LVOT Area: 3.14 Diastolic Function MV Pk E: 0.97 MV Pk A: 0.78 E/A: 1.20 E'Medial: 5.40 E/E' Med: 17.90 E' Laterial: 8.85 E/E' Lat: 10.90 Right Ventricle TAPSE (mm): 19.40 TVS' Blake: 10.90 Tricuspid Valve TR Pk Blake: 2.41 TR Pk Grad: 23.00 RA Press: 3.00 RVSP: 26.00 Great Vessels Aorta Sinus of Valsalva: 2.60 2.0-3.5 cm Ao Asc: 3.40 2.1-3.4 cm Pulmonary Veins Pulm Vein S/D 1.40 Pulmonary Valve PV Pk Blake: 0.75 Peak PV Grad: 2.00 Updated in Other Vendor System with Status of Final Rohith Swift MD electronically signed on 09/18/2022 1:46:08 PM with status of Final
== END ==
LOC: HO.CARD 10:32
PROVIDERS: PCP Internal Medicine; Visit Provider Internal Medicine
DX: I48.0 Paroxysmal atrial fibrillation (principal)
CPT/HCPCS: 93306; 93356

== ENCOUNTER 2022-09-21 08:31 | Outpatient (REF) | payer MEDICARE, MEDICAID, SELFPAY ==
[2022-09-21 08:47] LABS: MANUAL DIFF FLAG NO
[2022-09-21 09:56] LABS: Appearance Urine Clear; Color Urine Yellow; Glucose Urine UA Negative (Negative); Leukocyte Esterase Urine Trace (Negative); Nitrite Urine Negative (Negative); Specific Gravity - Urine <= 1.005 (1.005-1.025); UMIC TRIGGER UACC YES; Urine Blood Trace (Negative); Urine Ketones Negative (Negative); Urine Protein Negative (Neg-Trace)
[2022-09-21 09:57] LABS: Basophils Absolute Auto 0.1 X10*3/uL (0.0-0.2); Basophils Percent Auto 1.4 % (0-2); Eosinophils Absolute Auto 0.1 X10*3/uL (0.0-0.4); Eosinophils Percent Auto 1.6 % (0-4); Hematocrit 43.6 % (37.0-47.0); Imm Gran Abs Auto 0.01 X10*3/uL (0.00-0.03); Imm Gran Pct Auto 0.3 % (0.0-0.4); Lymphocytes Absolute Auto 1.7 X10*3/uL (1.2-4.9); Lymphocytes Percent Auto 46.3 % (20-40); Mean Corpuscular HGB Conc 34.4 g/dl (31.0-35.0); Mean Corpuscular Hemoglobin 31.8 pg (27.0-33.0); Mean Corpuscular Volume 92.4 fL (80.0-98.0); Mean Platelet Volume 10.7 fL (9.4-12.3); Monocytes Absolute Auto 0.3 X10*3/uL (0.1-1.2); Monocytes Percent Auto 7.4 % (2-11); Neutrophils Absolute Auto 1.6 x10*3/uL (2.0-8.3); Platelet Count 185 X10*3/uL (160-400); Red Blood Count 4.72 X10*6/uL (4.20-5.50); Red Cell Distribution Width 11.9 % (11.0-16.0); White Blood Count 3.7 X10*3/uL (4.8-10.8)
[2022-09-21 10:02] LABS: Bacteria Urine None Seen (None Seen); Hyaline Casts Urine 0-2 /LPF (0-2); RBC Urine 0-2 /HPF (0-2); Squamous Epithelial Cell Urine 0-2 /HPF (0-2); WBC Urine 0-5 /HPF (0-5)
[2022-09-21 10:43] LABS: Alanine Aminotransferase 14 U/L (0-31); Albumin Level 4.2 g/dL (3.5-5.0); Alkaline Phosphatase 73 U/L (39-117); Anion Gap 15 (12-20); Aspartate Amino Transferase 16 U/L (5-31); Bilirubin Total 2.3 mg/dL (0.0-1.0); Blood Urea Nitrogen 11 mg/dL (9-16); Calcium 9.1 mg/dL (8.4-10.2); Carbon Dioxide 23 mmol/L (22-29); Chloride 109 mmol/L (96-108); Cholesterol 152 mg/dL; Estimated Glomerular Filt Rate > 60; Glucose Fasting 92 mg/dL (60-99); HDL Cholesterol 73 mg/dL; LDL Cholesterol Calculated 63 mg/dl; Potassium 4.1 mmol/L (3.3-5.1); Sodium 143 mmol/L (135-145); Total Protein 6.4 g/dL (6.5-8.0); Triglycerides 80 mg/dL
[2022-09-21 10:51] LABS: Free T4 (Free Thyroxine) 1.03 ng/dL (0.71-1.85); Thyroid Stimulating Hormone 2.16 uIU/mL (0.32-4.0); Vitamin D 25-OH Total 41.7 ng/mL (>30)
== END 2022-09-21 08:32 | disposition home or self-care (01) ==
LOC: HO.LAB 08:31
PROVIDERS: PCP Internal Medicine; Visit Provider Internal Medicine
DX: R30.0 Dysuria (principal); E55.9 Vitamin D deficiency, unspecified; E03.9 Hypothyroidism, unspecified; E78.00 Pure hypercholesterolemia, unspecified; I10 Essential (primary) hypertension
CPT/HCPCS: 36415; 80053; 80061; 81001; 82306; 84439; 84443; 85025

== ENCOUNTER → 2022-10-01 12:42 | Outpatient (BNVA) | payer MEDICARE, MEDICAID, SELFPAY | PROVIDERS: PCP Internal Medicine; Referring Provider Internal Medicine; Visit Provider Internal Medicine | DX: I48.0 Paroxysmal atrial fibrillation (principal); Z86.79 Personal history of other diseases of the circulatory system; Z45.018 Encounter for adjustment and management of other part of cardiac pacemaker; Z79.01 Long term (current) use of anticoagulants; Z79.899 Other long term (current) drug therapy | CPT/HCPCS: 93005; 93280; 99212 ==

== ENCOUNTER → 2022-10-08 11:21 | Outpatient (BNVA) | payer MEDICARE, MEDICAID, SELFPAY | PROVIDERS: PCP Internal Medicine; Referring Provider Internal Medicine; Visit Provider Surgery | DX: Z91.89 Other specified personal risk factors, not elsewhere classified (principal); Z80.3 Family history of malignant neoplasm of breast | CPT/HCPCS: 99212 ==

== ENCOUNTER 2022-12-11 08:22 | Outpatient (REF) | payer MEDICARE, MEDICAID, SELFPAY ==
[2022-12-11 09:44] LABS: Appearance Urine Clear; Color Urine Yellow; Glucose Urine UA Negative (Negative); Leukocyte Esterase Urine Small (1+) (Negative); Nitrite Urine Negative (Negative); PH 6.5 (5.0-9.0); Specific Gravity - Urine 1.015 (1.005-1.025); UMIC TRIGGER UACC YES; Urine Blood Trace (Negative); Urine Ketones Negative (Negative); Urine Protein Negative (Neg-Trace)
[2022-12-11 10:29] LABS: Bacteria Urine None Seen (None Seen); Hyaline Casts Urine 0-2 /LPF (0-2); UACC Culture Trigger YES; WBC Urine 0-5 /HPF (0-5)
== END 2022-12-11 08:23 | disposition home or self-care (01) ==
LOC: HO.LAB 08:22
PROVIDERS: PCP Internal Medicine; Visit Provider Internal Medicine
DX: R82.90 Unspecified abnormal findings in urine (principal)
CPT/HCPCS: 81001; 87086

== ENCOUNTER 2022-12-14 14:52 | Outpatient (REF) | payer MEDICARE, MEDICAID, SELFPAY ==
[2022-12-14 15:06] LABS: MANUAL DIFF FLAG NO
[2022-12-14 15:55] LABS: Hematocrit 43.3 % (37.0-47.0); Hemoglobin 14.8 g/dl (12.0-16.0); Imm Gran Abs Auto 0.01 X10*3/uL (0.00-0.03); Imm Gran Pct Auto 0.3 % (0.0-0.4); Lymphocytes Absolute Auto 1.6 X10*3/uL (1.2-4.9); Lymphocytes Percent Auto 40.8 % (20-40); Mean Corpuscular HGB Conc 34.2 g/dl (31.0-35.0); Mean Corpuscular Hemoglobin 31.2 pg (27.0-33.0); Mean Corpuscular Volume 91.4 fL (80.0-98.0); Mean Platelet Volume 10.7 fL (9.4-12.3); Monocytes Absolute Auto 0.3 X10*3/uL (0.1-1.2); Monocytes Percent Auto 7.9 % (2-11); Neutrophils Absolute Auto 1.9 x10*3/uL (2.0-8.3); Platelet Count 171 X10*3/uL (160-400); Red Blood Count 4.74 X10*6/uL (4.20-5.50); Red Cell Distribution Width 11.7 % (11.0-16.0); White Blood Count 3.8 X10*3/uL (4.8-10.8)
[2022-12-14 16:34] LABS: Alanine Aminotransferase 14 U/L (0-31); Albumin Level 4.3 g/dL (3.5-5.0); Alkaline Phosphatase 74 U/L (39-117); Anion Gap 13 (12-20); Aspartate Amino Transferase 15 U/L (5-31); Bilirubin Total 1.8 mg/dL (0.0-1.0); Blood Urea Nitrogen 14 mg/dL (9-16); Carbon Dioxide 25 mmol/L (22-29); Chloride 108 mmol/L (96-108); Estimated Glomerular Filt Rate > 60; Glucose Random 112 mg/dL (60-115); Potassium 4.2 mmol/L (3.3-5.1); Sodium 142 mmol/L (135-145); Total Protein 6.7 g/dL (6.5-8.0)
[2022-12-14 16:51] LABS: Erythrocyte Sedimentation Rate 2 MM/HR (0-20)
[2022-12-14 17:00] LABS: Appearance Urine Clear; Color Urine Yellow; Glucose Urine UA Negative (Negative); Leukocyte Esterase Urine Negative (Negative); Nitrite Urine Negative (Negative); Specific Gravity - Urine <= 1.005 (1.005-1.025); Urine Blood Negative (Negative); Urine Ketones Negative (Negative); Urine Protein Negative (Neg-Trace)
== END 2022-12-14 14:53 | disposition home or self-care (01) ==
LOC: HO.LAB 14:52
PROVIDERS: PCP Internal Medicine; Visit Provider Internal Medicine
DX: R10.32 Left lower quadrant pain (principal); I10 Essential (primary) hypertension; M79.7 Fibromyalgia; R30.0 Dysuria
CPT/HCPCS: 36415; 80053; 81003; 85025; 85652

== ENCOUNTER 2023-02-11 08:12 | Outpatient (REF) | payer MEDICARE, MEDICAID, SELFPAY ==
[2023-02-11 08:23] LABS: MANUAL DIFF FLAG NO
[2023-02-11 08:59] LABS: Basophils Absolute Auto 0.1 X10*3/uL (0.0-0.2); Basophils Percent Auto 1.6 % (0-2); Eosinophils Absolute Auto 0.2 X10*3/uL (0.0-0.4); Eosinophils Percent Auto 4.9 % (0-4); Hematocrit 39.2 % (37.0-47.0); Hemoglobin 12.8 g/dl (12.0-16.0); Imm Gran Abs Auto 0.02 X10*3/uL (0.00-0.03); Imm Gran Pct Auto 0.5 % (0.0-0.4); Lymphocytes Absolute Auto 1.7 X10*3/uL (1.2-4.9); Lymphocytes Percent Auto 38.8 % (20-40); Mean Corpuscular HGB Conc 32.7 g/dl (31.0-35.0); Mean Platelet Volume 9.9 fL (9.4-12.3); Monocytes Absolute Auto 0.3 X10*3/uL (0.1-1.2); Monocytes Percent Auto 6.5 % (2-11); Neutrophils Absolute Auto 2.1 x10*3/uL (2.0-8.3); Neutrophils Percent Auto 47.7 % (45-73); Platelet Count 343 X10*3/uL (160-400); Red Blood Count 4.26 X10*6/uL (4.20-5.50); Red Cell Distribution Width 12.2 % (11.0-16.0); White Blood Count 4.3 X10*3/uL (4.8-10.8)
[2023-02-11 09:05] LABS: Appearance Urine Cloudy; Color Urine Yellow; Glucose Urine UA Negative (Negative); Leukocyte Esterase Urine Trace (Negative); Nitrite Urine Negative (Negative); PH 7.5 (5.0-9.0); Specific Gravity - Urine 1.015 (1.005-1.025); UMIC TRIGGER UACC YES; Urine Blood Negative (Negative); Urine Ketones Negative (Negative); Urine Protein Negative (Neg-Trace)
[2023-02-11 09:16] LABS: Bacteria Urine None Seen (None Seen); Hyaline Casts Urine 0-2 /LPF (0-2); WBC Urine 0-5 /HPF (0-5)
[2023-02-11 09:32] LABS: Alanine Aminotransferase 50 U/L (0-31); Albumin Level 3.5 g/dL (3.5-5.0); Alkaline Phosphatase 88 U/L (39-117); Anion Gap 11 (12-20); Aspartate Amino Transferase 24 U/L (5-31); Bilirubin Total 0.5 mg/dL (0.0-1.0); Blood Urea Nitrogen 12 mg/dL (9-16); Calcium 9.6 mg/dL (8.4-10.2); Carbon Dioxide 27 mmol/L (22-29); Chloride 109 mmol/L (96-108); Cholesterol 91 mg/dL; Estimated Glomerular Filt Rate > 60; Glucose Fasting 93 mg/dL (60-99); HDL Cholesterol 31 mg/dL; LDL Cholesterol Calculated 49 mg/dl; Potassium 4.2 mmol/L (3.3-5.1); Sodium 143 mmol/L (135-145); Total Protein 6.7 g/dL (6.5-8.0); Triglycerides 59 mg/dL
[2023-02-11 09:49] LABS: Vitamin D 25-OH Total 56.3 ng/mL (>30)
== END 2023-02-11 08:13 | disposition home or self-care (01) ==
LOC: HO.LAB 08:12
PROVIDERS: PCP Internal Medicine; Visit Provider Internal Medicine
DX: E78.00 Pure hypercholesterolemia, unspecified (principal); I10 Essential (primary) hypertension; E55.9 Vitamin D deficiency, unspecified
CPT/HCPCS: 36415; 80053; 80061; 81001; 81003; 82306; 84443; 85025

== ENCOUNTER 2023-02-15 13:50 | Outpatient (AMB) | payer MEDICARE, MEDICAID, SELFPAY ==
[2023-02-15 13:54] VITALS: BP 120/78; PULSE 72; O2SAT 97; BMI 26.2
--- NOTE | 2023-02-15 13:54 | MHC.PC.OV ---
Vital Signs 02/15/23 13:54 Height 5 ft 2 in Weight 143 lb 6 oz BMI 26.2 BP 120/78 Blood Pressure Location Lt brachial Position Sitting Pulse 72 Pulse Source Pulse Oximeter Pulse Oximetry (%) 97 Oxygen Delivery Method Room Air Intake Visit Reasons: 3mth f/u Hha Required: No Accompanied by: Self / Same As Patient Allergies codeine [CODEINE] Allergy (Unknown, Verified 02/15/23 14:26) JITTERY Sulfa (Sulfonamide Antibiotics) [SULFA (SULFONAMIDE ANTIBIOTICS)] Allergy (Unknown, Verified 02/15/23 14:26) RASH,HIVES, rash Medication List - Last Reconciled 02/15/23 by Rudy Buckley MD apixaban (Eliquis) 5 mg PO BID 90 days ascorbate calcium (vitamin C) 500 mg PO DAILY atorvastatin 10 mg PO DAILY calcium carbonate-vitamin D3 600 mg-5 mcg (200 unit) 1 tab PO DAILY 90 days docusate sodium (Colace) 100 mg PO BID docusate sodium (Colace) 100 mg PO .DAILY WITH FOOD 30 days flaxseed oil 1,000 mg PO DAILY flecainide 100 mg PO Q12H metoprolol succinate ER (Toprol XL) 50 mg PO DAILY omega-3 fatty acids (Fish Oil Concentrate) 1,000 mg PO DAILY tizanidine 4 mg PO Q8H PRN Tobacco use date assessed: 02/15/23 Dental Screening Dental Screen Date: 02/15/23 Did you have a dental visit in the last 12 months?: No Did you have a dental problem in the last 6 months where you did not have access to dental care?: No Was dental information given to patient?: No HPI 3mth f/u HPI Details Patient comes in today for her follow up visit States that she feels okay She denies any headaches or dizziness Denies any chest pains, no SOB No nausea/vomiting, no abdominal pain No change in bowel habits noted Had her follow up labs done a few days ago - to discuss her results [facility] Medical History Allergic rhinitis At high risk for breast cancer Benign essential hypertension Current use of snf anticoagulation Family history of breast cancer Impaired fasting glucose Normally functioning cardiac pacemaker present Overweight (BMI 25.0-29.9) PAF (paroxysmal atrial fibrillation) Pure hypercholesterolemia Sick sinus syndrome Surgical History H/O colonoscopy History of pacemaker History of tonsillectomy Family History Father Hypertension Diabetes Arthritis Colon cancer Iron deficiency Mother Hypertension Maternal Grandmother Arthritis Diabetes Blockage of coronary artery of heart Maternal Grandfather Arthritis Paternal Grandfather Arthritis Pancreatic cancer Social History Housing: House Alcohol intake: former Patient Tobacco Use Status: Former Tobacco user e-Cigarette/Vaping Use: Never Used Second Hand Smoke Exposure: Yes service: No Current occupational status: disabled Cognitive needs: No Hearing needs: Yes Vision needs: Yes (wear glasses) Questionnaire PHQ-9 Over the last 2 weeks, how often have you been bothered by any of the following problems? 1. Little interest or pleasure in doing things: not at all 2. Feeling down, depressed, or hopeless: not at all 3. Trouble falling or staying asleep, or sleeping too much: not at all 4. Feeling tired or having little energy: not at all 5. Poor appetite or overeating: not at all 6. Feeling bad about yourself - or that you are a failure or have let yourself or your family down: not at all 7. Trouble concentrating on things, such as reading the newspaper or watching television: not at all 8. Moving or speaking so slowly that other people could have noticed. Or the opposite - being so fidgety or restless that you have been moving around a lot more than usual: not at all 9. Thoughts that you would be better off or of hurting yourself in some way: not at all Total score: 0 Depression Screening Interpretation: Negative 11604 - PHQ-9 Billing: Yes Source: Developed by Drs. Fan Valerio, Anuradha Corado, Zan Vogt and colleagues, with an educational cecil from [employer]. Thrive Questionnaire Date Thrive assessed: 02/15/23 I am a: Patient What is your living situation today?: I have a steady place to live Within the past 12 months, did the food you bought not last and you didn't have the money to get more?: Never true Within the past 12 months, did you worry whether your food would run out before you got money to buy more?: Never true Do you have trouble paying for medicines?: No Do you have trouble getting transportation to medical appointments?: No Do you have trouble paying your heating and electricity bill?: No Do you have trouble taking care of your child, family member or friend?: No Do you have trouble with day-to-day activities such as bathing, preparing meals, shopping, managing finances, etc.?: No Are you currently unemployed and looking for a job?: No Are you interested in more education?: No Currently or been in a relationship where the following occur: no concerns reported AUDIT C Alcohol Use Questionnaire (AUDIT-C) 1. How often do you have a drink containing alcohol?: Never 3. How often do you have six or more drinks on one occasion?: Never Total Score: 0 Score Reviewed/Action Taken: Yes AISHA-7 AMB Questionnaire AISHA-7 Date AISHA - 7 assessed: 02/15/23 Feeling nervous, anxious, or on edge: 0 = Not at all Not being able to stop or control worryin = Not at all Worrying too much about different things: 0 = Not at all Trouble relaxin = Not at all Being so restless that it is hard to sit still: 0 = Not at all Becoming easily annoyed or irritable: 0 = Not at all Feeling afraid as if something awful might happen: 0 = Not at all Total AISHA-7 score (0-4 normal; 5-9 mild; 10-14 moderate; 15-21 severe): 0 Source: Developed by Drs. Fan Valerio, Anuradha Corado, Zan Vogt and colleagues, with an educational cecil from [employer]. Review of Systems Const Denies chills, Denies fatigue, Denies fever(s) and Denies headache(s) ENT Denies dysphagia, Denies dizziness, Denies otalgia, Denies headache(s), Denies odynophagia and Denies sore throat Card Denies chest pain, Denies palpitations and Denies dyspnea Resp Denies cough and Denies dyspnea GI Denies abdominal pain, Denies hematochezia, Denies constipation, Denies dysphagia, Denies heartburn, Denies diarrhea, Denies nausea, Denies odynophagia and Denies vomiting Denies difficulty voiding, Denies nocturia and Denies dysuria Neuro Denies dizziness and Denies headache(s) Endo Denies fatigue and Denies palpitations Physical exam (Primary Care) Vital Signs: Last Vital Signs Pulse 72 02/15/23 13:54 BP 120/78 02/15/23 13:54 Pulse Ox 97 02/15/23 13:54 Oxygen Delivery Method Room Air 02/15/23 13:54 BMI result Body Mass Index 26.2 Tobacco/Smoking Status: Tobacco use Status Tobacco use date assessed 02/15/23 02/15/23 14:02 Patient Tobacco Use Status Former Tobacco user 02/15/23 14:02 e-Cigarette/Vaping Use Never Used 02/15/23 14:02 PHQ-9: PHQ-9 Score PHQ-9: Total score 0 02/15/23 14:02 Depression Screening Interpretation: Negative Thrive Assessment: Date of Thrive Assessment Date Thrive assessed 02/15/23 02/15/23 14:02 Currently or been in a relationship where the following occur: no concerns reported Const General: no acute distress and alert HENMT Ears: TM's normal bilaterally and EAC's normal Throat: Yes posterior oropharynx normal and Yes tonsils normal Neck Neck: Yes no lymphadenopathy and Yes supple Resp Auscultation: clear to auscultation bilaterally, no rales and no wheezes Cardio Rate: regular rate Rhythm: regular rhythm Heart sounds: no murmurs GI Palpation (GI): Soft to palpation and nontender Auscultation: normal bowel sounds Skin Rashes: no rashes Extrem General: Yes no clubbing, cyanosis or edema Results Reviewed Results Reviewed: Laboratory Tests 02/11/23 02/11/23 02/11/23 08:20 08:21 08:21 WBC 4.3 L Hgb 12.8 Hct 39.2 Plt Count 343 D Sodium 143 Potassium 4.2 Creatinine 0.67 Estimated GFR > 60 Fasting Glucose 93 Calcium 9.6 AST 24 ALT 50 H Triglycerides 59 Cholesterol 91 LDL Cholesterol, Calc 49 HDL Cholesterol 31 25-OH Vitamin D Total 56.3 TSH 2.20 Ur Specific [place] 1.015 Urine Protein Negative Urine Glucose (UA) Negative Urine Blood Negative Assessment and Plan Assessment & Plan (1) PAF (paroxysmal atrial fibrillation): Code(s): I48.0 - Paroxysmal atrial fibrillation Plan: Patient currently remains in sinus rhythm Continue Metoprolol ER 50 mg QD and and Fleicanide 50 mg 2 tablets every 12 hours Continue Eliquis 5 mg BID for thromboembolism prophylaxis Was advised option of ablation if she continues to experience frequent bursts of AF - patient would like to hold off but is aware to call cardiology if her symptoms increase Follow up with cardiology as scheduled (2) Sick sinus syndrome: Code(s): I49.5 - Sick sinus syndrome Plan: Improved with pacemaker insertion (3) Pure hypercholesterolemia: Code(s): E78.00 - Pure hypercholesterolemia, unspecified Plan: Results of her labs done a few days reviewed and discussed with patient Reinforced low cholesterol diet Continue Atorvastatin 10 mg QD and Fish Oil 1000 mg TID Will recheck labs in 4 months for follow up (4) Benign essential hypertension: Code(s): I10 - Essential (primary) hypertension Plan: Is on Metoprolol ER 50 mg QD Reinforced low sodium diet - goal is systolic BP of at least 130 mm or less (5) Impaired fasting glucose: Code(s): R73.01 - Impaired fasting glucose Plan: HgbA1c was normal at 5.2% when last checked a few months ago; was also normal at 5.2% and 5.3% when previously checked Reinforced low calorie diet/exercise as tolerated (6) Allergic rhinitis: Code(s): J30.9 - Allergic rhinitis, unspecified Qualifiers: Allergic rhinitis trigger: unspecified Allergic rhinitis seasonality: unspecified Qualified Code(s): J30.9 - Allergic rhinitis, unspecified Plan: Continue Fluticasone nasal spray 50 mcg 1 spray into each nostril QD (7) Osteoarthritis of hand, left: Code(s): M19.042 - Primary osteoarthritis, left hand Plan: X-rays of the left hand done months ago revealed (+) OA changes in the left hand Instructed to continue with hand exercises that she can do regularly to help manage her hand pain / symptoms (8) Overweight (BMI 25.0-29.9): Code(s): E66.3 - Overweight Plan: Reinforced diet/exercise as tolerated/lose weight Plan Follow up in 4 months Orders: Orders Complete Blood Count Auto Diff 4 Months I10 - Essential (primary) hypertension Comprehensive [place]. Panel Fast 4 Months E78.00 - Pure hypercholesterolemia, unspecified UA CC w/rflx Micro + Cult 4 Months R30.0 - Dysuria TSH reflex Free T4 4 Months E78.00 - Pure hypercholesterolemia, unspecified Hemoglobin A1c 4 Months R73.01 - Impaired fasting glucose Lipid Panel 4 Months E78.00 - Pure hypercholesterolemia, unspecified Vitamin D 25-OH Total 4 Months E55.9 - Vitamin D deficiency, unspecified Coding Level of Care Code Est Pt Level 4 (89149) Diagnoses PAF (paroxysmal atrial fibrillation) I48.0 Sick sinus syndrome I49.5 Pure hypercholesterolemia E78.00 Benign essential hypertension I10 Impaired fasting glucose R73.01 Allergic rhinitis J30.9 Allergic rhinitis trigger: unspecified Allergic rhinitis seasonality: unspecified Osteoarthritis of hand, left M19.042 Overweight (BMI 25.0-29.9) E66.3
== END 2023-02-15 14:44 | disposition home or self-care (01) ==
PROVIDERS: Visit Provider Internal Medicine
DX: I48.0 Paroxysmal atrial fibrillation (principal); I49.5 Sick sinus syndrome; E78.00 Pure hypercholesterolemia, unspecified; I10 Essential (primary) hypertension; R73.01 Impaired fasting glucose; J30.9 Allergic rhinitis, unspecified; M19.042 Primary osteoarthritis, left hand; E66.3 Overweight
CPT/HCPCS: 99214

== ENCOUNTER 2023-03-26 12:57 | Outpatient (AMB) | payer MEDICARE, MEDICAID, SELFPAY ==
[2023-03-26 13:01] VITALS: BP 120/74; PULSE 71; BMI 26.2
--- NOTE | 2023-03-26 13:01 | MHC.OFFVIS ---
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 Accompanied by: Self / Same As Patient Allergies codeine [CODEINE] Allergy (Unknown, Verified 03/26/23 13:04) JITTERY Sulfa (Sulfonamide Antibiotics) [SULFA (SULFONAMIDE ANTIBIOTICS)] Allergy (Unknown, Verified 03/26/23 13:04) RASH,HIVES, rash Medication List - Last Reconciled 03/26/23 by Paul Westbrook MD apixaban (Eliquis) 5 mg PO BID 90 days ascorbate calcium (vitamin C) 500 mg PO DAILY atorvastatin 10 mg PO DAILY calcium carbonate-vitamin D3 600 mg-5 mcg (200 unit) 1 tab PO DAILY 90 days docusate sodium (Colace) 100 mg PO BID docusate sodium (Colace) 100 mg PO .DAILY WITH FOOD 30 days flaxseed oil 1,000 mg PO DAILY flecainide 100 mg PO Q12H metoprolol succinate ER (Toprol XL) 50 mg PO DAILY omega-3 fatty acids (Fish Oil Concentrate) 1,000 mg PO DAILY tizanidine 4 mg PO Q8H PRN HPI HPI Comments History of Present Illness Details Farhana returns for follow-up regarding paroxysmal atrial fibrillation and sick sinus syndrome. Overall, she states she is doing fine. No specific complaints like angina or shortness of breath or palpitations or in fact anything cardiac stenting at all. Seems to be getting along okay. No activity limitations according to her. [facility] Medical History Allergic rhinitis At high risk for breast cancer Benign essential hypertension Current use of fdc anticoagulation Family history of breast cancer Impaired fasting glucose Normally functioning cardiac pacemaker present Overweight (BMI 25.0-29.9) PAF (paroxysmal atrial fibrillation) Pure hypercholesterolemia Sick sinus syndrome Surgical History H/O colonoscopy History of pacemaker History of tonsillectomy Family History Father Hypertension Diabetes Arthritis Colon cancer Iron deficiency Mother Hypertension Maternal Grandmother Arthritis Diabetes Blockage of coronary artery of heart Maternal Grandfather Arthritis Paternal Grandfather Arthritis Pancreatic cancer Social History Housing: House Alcohol intake: former Patient Tobacco Use Status: Former Tobacco user e-Cigarette/Vaping Use: Never Used Second Hand Smoke Exposure: Yes service: No Current occupational status: disabled Cognitive needs: No Hearing needs: Yes Vision needs: Yes (wear glasses) Review of Systems Const Denies weakness ENT Denies dizziness Card Denies chest pain, Denies chest pain with activity, Denies syncope, Denies rapid heart rate, Denies pedal edema, Denies edema, Denies leg edema, Denies lightheadedness, Denies palpitations, Denies dyspnea, Denies dyspnea on exertion and Denies orthopnea Resp Denies cough, Denies dyspnea and Denies dyspnea on exertion GI Denies hematochezia and Denies change in stool character Musc Denies abnormal gait, Denies muscle cramps, Denies muscle weakness, Denies numbness, Denies radiating pain into limb and Denies tingling Neuro Denies abnormal gait, Denies dizziness, Denies syncope, Denies numbness, Denies tingling and Denies weakness Endo Denies palpitations Physical Exam Vital Signs: Last Vital Signs Pulse 71 03/26/23 13:01 BP 120/74 03/26/23 13:01 BMI result Body Mass Index 26.2 Const General: comfortable and no acute distress Orientation/consciousness: patient oriented x3 HEENT Other: Unremarkable Head: Yes normal to inspection Neck Neck: Yes normal visual inspection Chest Chest palpation & inspection: normal inspection of the chest Resp Auscultation: clear to auscultation bilaterally Cardio Palpation: normal PMI Heart sounds: S1 normal heart sound present, S2 normal heart sound present, no gallops, no murmurs and no rubs GI Palpation (GI): Soft to palpation Back/Spine/Pelvis Other: unremarkable Skin General skin exam: no rashes or lesions noted Neuro General: patient oriented x3 Extrem General: Yes normal to inspection Psych Mental Status: mental status grossly normal Office Procedures EKG Details: EKG with atrial paced rhythm at 71/Min. SD interval 218 milliseconds. [id number], Complete Assessment & Plan Assessment & Plan (1) PAF (paroxysmal atrial fibrillation): Code(s): I48.0 - Paroxysmal atrial fibrillation Plan: Based on remote pacemaker data, atrial fibrillation burden is about 2%. EGMs reviewed. Clinically, she states she feels no palpitations or in fact any cardiac symptoms at all. In this setting as there is relatively low burden as well as in the absence of symptoms, can keep on current medications including flecainide and metoprolol. Continue anticoagulation. If there is an increasing burden or more symptoms, then consideration for ablation. Previously, she was not interested. (2) Encounter for monitoring anti-arrhythmic therapy: Code(s): Z51.81 - Encounter for therapeutic drug level monitoring; Z79.899 - Other fdc (current) drug therapy Plan: On flecainide. Myocardial perfusion imaging study from 2019 shows likely normal perfusion. She does not have any symptoms of coronary disease or cardiomyopathy. (3) Sick sinus syndrome: Code(s): I49.5 - Sick sinus syndrome Plan: Status post pacemaker. Plan Total time spent including review of data, counseling, documentation coordination of care-32 minutes. Coding Level of Care Code Est Pt Level 4 (49062) Diagnoses PAF (paroxysmal atrial fibrillation) I48.0 Encounter for monitoring anti-arrhythmic therapy Z51.81; Z79.899 Sick sinus syndrome I49.5 CPT Codes EKG - CPT: 50058-[id number], Complete ([id number])
== END 2023-03-26 13:20 | disposition home or self-care (01) ==
PROVIDERS: PCP Internal Medicine; Referring Provider Internal Medicine; Visit Provider Internal Medicine
DX: I48.0 Paroxysmal atrial fibrillation (principal); Z51.81 Encounter for therapeutic drug level monitoring; Z79.899 Other long term (current) drug therapy; I49.5 Sick sinus syndrome
CPT/HCPCS: 93010; 99214

== ENCOUNTER → 2023-03-26 12:57 | Outpatient (BNVA) | payer MEDICARE, MEDICAID, SELFPAY | PROVIDERS: PCP Internal Medicine; Referring Provider Internal Medicine; Visit Provider Internal Medicine | DX: I48.0 Paroxysmal atrial fibrillation (principal); I49.5 Sick sinus syndrome; Z79.01 Long term (current) use of anticoagulants; Z79.899 Other long term (current) drug therapy; Z95.0 Presence of cardiac pacemaker | CPT/HCPCS: 93005; 99212 ==

== ENCOUNTER 2023-04-10 13:01 | Outpatient (AMB) | payer MEDICARE, MEDICAID, SELFPAY ==
[2023-04-10 13:02] VITALS: BP 166/87; PULSE 94; BMI 25.4
--- NOTE | 2023-04-10 13:02 | A.OFFVIS_ITS ---
Intake Vital Signs 04/10/23 13:02 Height 5 ft 2 in Weight 139 lb BMI 25.4 BP 166/87 H Blood Pressure Location Rt brachial Position Sitting Pulse 94 Intake Visit Reasons: 6 month Breast exam follow up Intake Note: This patient presents for a six month follow-up breast examination assessment. Patient c/o; denies breast complaints at this time. Experience Specialist Required: No Accompanied by: Self / Same As Patient Allergies codeine [CODEINE] Allergy (Unknown, Verified 04/10/23 13:11) JITTERY Sulfa (Sulfonamide Antibiotics) [SULFA (SULFONAMIDE ANTIBIOTICS)] Allergy (Unknown, Verified 04/10/23 13:11) RASH,HIVES, rash HPI 6 month Breast exam follow up HPI0 Details She is here for a breast exam. I had last seen her her e in the office in August 2021. S he considered at h igh risk for breas t cancer as she jimenez s a strong family history of breast and ovarian cancer . She denies any palpable breast ma sses or any skin o r nipple changes. She says she is d oing well. She jimenez d a mammogram last 08/2022 and this w as unremarkable. 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 Normally functioning cardiac pacemaker present Overweight (BMI 25.0-29.9) Allergic rhinitis Impaired fasting glucose Benign essential hypertension Sick sinus syndrome Pure hypercholesterolemia PAF (paroxysmal atrial fibrillation) Surgical History H/O colonoscopy History of pacemaker History of tonsillectomy Family History Father Hypertension Diabetes Arthritis Colon cancer Iron deficiency Mother Hypertension Maternal Grandmother Arthritis Diabetes Blockage of coronary artery of heart Maternal Grandfather Arthritis Paternal Grandfather Arthritis Pancreatic cancer Social History Housing: House Alcohol intake: former Patient Tobacco Use Status: Former Tobacco user e-Cigarette/Vaping Use: Never Used Second Hand Smoke Exposure: Yes service: No Current occupational status: disabled Cognitive needs: No Hearing needs: Yes Vision needs: Yes (wear glasses) Review of Systems Const Denies chills and Denies fever(s) Card Denies chest pain, Denies dyspnea and Denies dyspnea on exertion Resp Denies cough, Denies dyspnea and Denies dyspnea on exertion GI Denies hematochezia and Denies change in bowel habits Denies hematuria Musc Denies back pain and Denies limited range of motion Neuro Denies focal weakness and Denies convulsions Psych Denies depression and Denies mood swings Physical Exam Const General: comfortable and no acute distress Orientation/consciousness: patient oriented x3 Neck Neck: Yes no lymphadenopathy Chest Other: No palpable breast masses, no nipple or skin changes, no axillary lymphadenopathy Resp Auscultation: clear to auscultation bilaterally Cardio Rhythm: regular rhythm GI Palpation (GI): Soft to palpation, nontender and no guarding Neuro General: patient oriented x3 Assessment & Plan Assessment & Plan (1) Family history of breast cancer: Code(s): Z80.3 - Family history of malignant neoplasm of breast Plan: Her current breast exam does not reveal any palpable mass or any changes her last visit. I remind her that she is due for her next mammogram in August,. She did mention that her sister was diagnosed breast cancer in her 30s. I explained to her the option of proceeding with genetic testing and counseling. I explained to her the implications of this test to her and her family. She wants to proceed. This will be scheduled here in the office. Coding Level of Care Code Est Pt Level 3 (66580) Diagnoses Family history of breast cancer Z80.3
== END 2023-04-10 13:43 | disposition home or self-care (01) ==
PROVIDERS: PCP Internal Medicine; Visit Provider Surgery
DX: Z80.3 Family history of malignant neoplasm of breast (principal)
CPT/HCPCS: 99213

== ENCOUNTER → 2023-04-10 13:01 | Outpatient (BNVA) | payer MEDICARE, MEDICAID, SELFPAY | PROVIDERS: PCP Internal Medicine; Visit Provider Surgery | DX: Z91.89 Other specified personal risk factors, not elsewhere classified (principal); Z80.3 Family history of malignant neoplasm of breast | CPT/HCPCS: 99212 ==

== ENCOUNTER 2023-05-22 12:59 | Outpatient (AMB) | payer MEDICARE, MEDICAID, SELFPAY ==
--- NOTE | 2023-05-22 13:00 | A.OFFVIS_ITS ---
Intake Intake Visit Reasons: genetic test results *HERE* Intake Note: This patient presents for an assessment for genetic test results. Patient c/o; reports no changes. Microarray Analyst Required: No Accompanied by: Self / Same As Patient Allergies codeine [CODEINE] Allergy (Unknown, Verified 05/22/23 13:00) JITTERY Sulfa (Sulfonamide Antibiotics) [SULFA (SULFONAMIDE ANTIBIOTICS)] Allergy (Unknown, Verified 05/22/23 13:00) RASH,HIVES, rash Medication List - Last Reconciled 05/22/23 by Benedict Kerns MD apixaban (Eliquis) 5 mg PO BID 90 days ascorbate calcium (vitamin C) 500 mg PO DAILY atorvastatin 10 mg PO DAILY calcium carbonate-vitamin D3 600 mg-5 mcg (200 unit) 1 tab PO DAILY 90 days docusate sodium (Colace) 100 mg PO BID docusate sodium (Colace) 100 mg PO .DAILY WITH FOOD 30 days flaxseed oil 1,000 mg PO DAILY flecainide 100 mg PO Q12H metoprolol succinate ER (Toprol XL) 50 mg PO DAILY omega-3 fatty acids (Fish Oil Concentrate) 1,000 mg PO DAILY tizanidine 4 mg PO Q8H PRN HPI genetic test results *HERE* HPI Details I had sent her for a genetic test because of her sister having breast cancer at an early age. She currently denies any significant complaints. She is here to discuss the results of her genetic testing. [facility] Medical History At high risk for breast cancer Family history of breast cancer Current use of medical terminologist anticoagulation Normally functioning cardiac pacemaker present Overweight (BMI 25.0-29.9) Allergic rhinitis Impaired fasting glucose Benign essential hypertension Sick sinus syndrome Pure hypercholesterolemia PAF (paroxysmal atrial fibrillation) Surgical History H/O colonoscopy History of pacemaker History of tonsillectomy Family History Father Hypertension Diabetes Arthritis Colon cancer Iron deficiency Mother Hypertension Maternal Grandmother Arthritis Diabetes Blockage of coronary artery of heart Maternal Grandfather Arthritis Paternal Grandfather Arthritis Pancreatic cancer Social History Housing: House Alcohol intake: former Patient Tobacco Use Status: Former Tobacco user e-Cigarette/Vaping Use: Never Used Second Hand Smoke Exposure: Yes service: No Current occupational status: disabled Cognitive needs: No Hearing needs: Yes Vision needs: Yes (wear glasses) Review of Systems Const Denies chills and Denies fever(s) Card Denies chest pain, Denies dyspnea and Denies dyspnea on exertion Resp Denies cough, Denies dyspnea and Denies dyspnea on exertion GI Denies hematochezia and Denies change in bowel habits Denies hematuria Musc Denies back pain and Denies limited range of motion Neuro Denies focal weakness and Denies convulsions Psych Denies depression and Denies mood swings Physical Exam Const General: comfortable and no acute distress Resp Effort & Inspection: normal respiratory effort Cardio Rate: regular rate GI Palpation (GI): Soft to palpation, not firm and nontender Assessment & Plan Assessment & Plan (1) Family history of breast cancer: Code(s): Z80.3 - Family history of malignant neoplasm of breast Plan: Fortunately, her [employer] genetic test did not reveal any significant mutations. I explained this report to her. I did remind her that she still needs to continue with regular being mammograms every year. She her father had colon cancer as well so she undergoes screening colonoscopy every 5 years. Coding Level of Care Code Est Pt Level 2 (27004) Diagnoses Family history of breast cancer Z80.3
== END 2023-05-22 13:10 | disposition home or self-care (01) ==
PROVIDERS: PCP Internal Medicine; Visit Provider Surgery
DX: Z80.3 Family history of malignant neoplasm of breast (principal)
CPT/HCPCS: 99212

== ENCOUNTER → 2023-05-22 12:59 | Outpatient (BNVA) | payer MEDICARE, MEDICAID, SELFPAY | PROVIDERS: PCP Internal Medicine; Visit Provider Surgery | DX: Z91.89 Other specified personal risk factors, not elsewhere classified (principal); Z80.3 Family history of malignant neoplasm of breast | CPT/HCPCS: 99212 ==

== ENCOUNTER 2023-06-15 08:43 | Outpatient (REF) | payer MEDICARE, SELFPAY ==
[2023-06-15 08:59] LABS: MANUAL DIFF FLAG NO
[2023-06-15 09:07] LABS: Eosinophils Absolute Auto 0.1 X10*3/uL (0.0-0.4); Eosinophils Percent Auto 1.8 % (0-4); Hematocrit 40.7 % (37.0-47.0); Hemoglobin 13.9 g/dl (12.0-16.0); Imm Gran Abs Auto 0.01 X10*3/uL (0.00-0.03); Imm Gran Pct Auto 0.3 % (0.0-0.4); Lymphocytes Absolute Auto 1.8 X10*3/uL (1.2-4.9); Lymphocytes Percent Auto 45.9 % (20-40); Mean Corpuscular HGB Conc 34.2 g/dl (31.0-35.0); Mean Corpuscular Hemoglobin 31.1 pg (27.0-33.0); Mean Corpuscular Volume 91.1 fL (80.0-98.0); Mean Platelet Volume 9.5 fL (9.4-12.3); Monocytes Absolute Auto 0.3 X10*3/uL (0.1-1.2); Monocytes Percent Auto 7.6 % (2-11); Neutrophils Absolute Auto 1.7 x10*3/uL (2.0-8.3); Neutrophils Percent Auto 43.4 % (45-73); Platelet Count 217 X10*3/uL (160-400); Red Blood Count 4.47 X10*6/uL (4.20-5.50); Red Cell Distribution Width 11.8 % (11.0-16.0); White Blood Count 3.9 X10*3/uL (4.8-10.8)
[2023-06-15 09:33] LABS: Estimated Average Glucose 108 mg/dL; Hemoglobin A1c % 5.4 % (<6.0)
[2023-06-15 09:44] LABS: Alanine Aminotransferase 12 U/L (0-31); Albumin Level 3.9 g/dL (3.5-5.0); Alkaline Phosphatase 66 U/L (39-117); Anion Gap 12 (12-20); Aspartate Amino Transferase 15 U/L (5-31); Bilirubin Total 0.7 mg/dL (0.0-1.0); Blood Urea Nitrogen 9 mg/dL (9-16); Calcium 9.5 mg/dL (8.4-10.2); Carbon Dioxide 25 mmol/L (22-29); Chloride 108 mmol/L (96-108); Cholesterol 144 mg/dL (<200); Estimated Glomerular Filt Rate > 60; Glucose Fasting 106 mg/dL (60-99); HDL Cholesterol 62 mg/dL (>40); LDL Cholesterol Calculated 63 mg/dL (<100); Potassium 4.3 mmol/L (3.3-5.1); Sodium 141 mmol/L (135-145); Total Protein 6.8 g/dL (6.5-8.0); Triglycerides 99 mg/dL (<150)
[2023-06-15 09:51] LABS: TSH reflex Free T4 1.85 uIU/mL (0.32-4.0); Vitamin D 25-OH Total 48.9 ng/mL (>30)
[2023-06-15 10:10] LABS: Appearance Urine Clear; Color Urine Yellow; Glucose Urine UA Negative (Negative); Leukocyte Esterase Urine Trace (Negative); Nitrite Urine Negative (Negative); UMIC TRIGGER UACC YES; Urine Blood Negative (Negative); Urine Ketones Negative (Negative); Urine Protein Negative (Neg-Trace)
[2023-06-15 10:21] LABS: Bacteria Urine None Seen (None Seen); Hyaline Casts Urine 0-2 /LPF (0-2); RBC Urine 0-2 /HPF (0-2); Squamous Epithelial Cell Urine 0-2 /HPF (0-2); WBC Urine 0-5 /HPF (0-5)
== END 2023-06-15 08:44 | disposition home or self-care (01) ==
LOC: HO.LAB 08:43
PROVIDERS: PCP Internal Medicine; Visit Provider Internal Medicine
DX: I10 Essential (primary) hypertension (principal); R73.01 Impaired fasting glucose; E78.00 Pure hypercholesterolemia, unspecified; E55.9 Vitamin D deficiency, unspecified
CPT/HCPCS: 36415; 80053; 80061; 81001; 81003; 82306; 83036; 84443; 85025

== ENCOUNTER 2023-06-18 15:20 | Outpatient (AMB) | payer MEDICARE, MEDICAID, SELFPAY ==
[2023-06-18 15:21] VITALS: BP 118/82; PULSE 68; O2SAT 99; BMI 26.0
--- NOTE | 2023-06-18 15:21 | A.OFFPC_ITS ---
Vital Signs 06/18/23 15:21 Height 5 ft 2 in Weight 142 lb BMI 26.0 BP 118/82 Blood Pressure Location Lt brachial Position Sitting Pulse 68 Pulse Source Pulse Oximeter Pulse Oximetry (%) 99 Oxygen Delivery Method Room Air Intake Visit Reasons: PAF, hyperlipidemia, HTN Heater [employer] [place] Required: No Accompanied by: Self / Same As Patient Allergies codeine [CODEINE] Allergy (Unknown, Verified 06/18/23 16:17) JITTERY Sulfa (Sulfonamide Antibiotics) [SULFA (SULFONAMIDE ANTIBIOTICS)] Allergy (Unknown, Verified 06/18/23 16:17) RASH,HIVES, rash Medication List - Last Reconciled 06/18/23 by Rudy Buckley MD apixaban (Eliquis) 5 mg PO BID 90 days ascorbate calcium (vitamin C) 500 mg PO DAILY atorvastatin 10 mg PO DAILY calcium carbonate-vitamin D3 600 mg-5 mcg (200 unit) 1 tab PO DAILY 90 days docusate sodium (Colace) 100 mg PO BID docusate sodium (Colace) 100 mg PO .DAILY WITH FOOD 30 days flaxseed oil 1,000 mg PO DAILY flecainide 100 mg PO Q12H ibuprofen 600 mg PO Q8H PRN 5 days metoprolol succinate ER (Toprol XL) 50 mg PO DAILY omega-3 fatty acids (Fish Oil Concentrate) 1,000 mg PO DAILY tizanidine 4 mg PO Q8H PRN Tobacco use date assessed: 06/18/23 Dental Screening Dental Screen Date: 06/18/23 Did you have a dental visit in the last 12 months?: No Did you have a dental problem in the last 6 months where you did not have access to dental care?: No Was dental information given to patient?: Patient has dentist HPI PAF, hyperlipidemia, HTN HPI Details Patient comes in today for her follow up visit States that she feels okay She denies any headaches or dizziness Denies any chest pains, no SOB No nausea/vomiting, no abdominal pain No change in bowel habits noted Had her follow up labs done a few days ago - to discuss her results [facility] Medical History At high risk for breast cancer Family history of breast cancer Current use of long term care pharmacist anticoagulation Normally functioning cardiac pacemaker present Overweight (BMI 25.0-29.9) Allergic rhinitis Impaired fasting glucose Benign essential hypertension Sick sinus syndrome Pure hypercholesterolemia PAF (paroxysmal atrial fibrillation) Surgical History H/O colonoscopy History of pacemaker History of tonsillectomy Family History Father Hypertension Diabetes Arthritis Colon cancer Iron deficiency Mother Hypertension Maternal Grandmother Arthritis Diabetes Blockage of coronary artery of heart Maternal Grandfather Arthritis Paternal Grandfather Arthritis Pancreatic cancer Social History Housing: House Alcohol intake: former Patient Tobacco Use Status: Former Tobacco user e-Cigarette/Vaping Use: Never Used Second Hand Smoke Exposure: Yes service: No Current occupational status: disabled Cognitive needs: No Hearing needs: Yes Vision needs: Yes (wear glasses) Questionnaire PHQ-9 Over the last 2 weeks, how often have you been bothered by any of the following problems? 1. Little interest or pleasure in doing things: not at all 2. Feeling down, depressed, or hopeless: not at all 3. Trouble falling or staying asleep, or sleeping too much: not at all 4. Feeling tired or having little energy: not at all 5. Poor appetite or overeating: not at all 6. Feeling bad about yourself - or that you are a failure or have let yourself or your family down: not at all 7. Trouble concentrating on things, such as reading the newspaper or watching television: not at all 8. Moving or speaking so slowly that other people could have noticed. Or the opposite - being so fidgety or restless that you have been moving around a lot more than usual: not at all 9. Thoughts that you would be better off or of hurting yourself in some way: not at all Total score: 0 Depression Screening Interpretation: Negative Depression Screening Done: Yes 77790 - PHQ-9 Billing: Yes Source: Developed by Drs. Fan Valerio, Anuradha Corado, Zan Vogt and colleagues, with an educational cecil from [employer] [place]. Thrive Questionnaire Date Thrive assessed: 06/18/23 I am a: Patient What is your living situation today?: I have a steady place to live Within the past 12 months, did the food you bought not last and you didn't have the money to get more?: Never true Within the past 12 months, did you worry whether your food would run out before you got money to buy more?: Never true Do you have trouble paying for medicines?: No Do you have trouble getting transportation to medical appointments?: No Do you have trouble paying your heating and electricity bill?: No Do you have trouble taking care of your child, family member or friend?: No Do you have trouble with day-to-day activities such as bathing, preparing meals, shopping, managing finances, etc.?: No Are you currently unemployed and looking for a job?: No Are you interested in more education?: No Please select the resources that you would like help with: None Currently or been in a relationship where the following occur: no concerns reported AUDIT C Alcohol Use Questionnaire (AUDIT-C) 1. How often do you have a drink containing alcohol?: Never 3. How often do you have six or more drinks on one occasion?: Never Total Score: 0 Score Reviewed/Action Taken: Yes AISHA-7 AMB Questionnaire AISHA-7 Date AISHA - 7 assessed: 06/18/23 Feeling nervous, anxious, or on edge: 0 = Not at all Not being able to stop or control worryin = Not at all Worrying too much about different things: 0 = Not at all Trouble relaxin = Not at all Being so restless that it is hard to sit still: 0 = Not at all Becoming easily annoyed or irritable: 0 = Not at all Feeling afraid as if something awful might happen: 0 = Not at all Total AISHA-7 score (0-4 normal; 5-9 mild; 10-14 moderate; 15-21 severe): 0 Source: Developed by Drs. Fan Valerio, Anuradha Corado, Zan Vogt and colleagues, with an educational cecil from [employer] [place]. Review of Systems Const Denies fatigue, Denies fever(s) and Denies headache(s) ENT Denies dysphagia, Denies dizziness, Denies otalgia, Denies headache(s), Denies neck pain, Denies odynophagia and Denies sore throat Card Denies chest pain, Denies palpitations and Denies dyspnea Resp Denies cough and Denies dyspnea GI Denies abdominal pain, Denies hematochezia, Denies constipation, Denies dysphagia, Denies heartburn, Denies diarrhea, Denies nausea, Denies odynophagia and Denies vomiting Denies difficulty voiding, Denies nocturia, Denies dysuria and Denies urinary urgency Musc Denies back pain and Denies neck pain Skin/Breast Denies rash Neuro Denies dizziness and Denies headache(s) Endo Denies fatigue and Denies palpitations Physical exam (Primary Care) Vital Signs: Last Vital Signs Pulse 68 06/18/23 15:21 BP 118/82 06/18/23 15:21 Pulse Ox 99 06/18/23 15:21 Oxygen Delivery Method Room Air 06/18/23 15:21 BMI result Body Mass Index 26.0 Tobacco/Smoking Status: Tobacco use Status Tobacco use date assessed 06/18/23 06/18/23 15:23 Patient Tobacco Use Status Former Tobacco user 06/18/23 15:23 e-Cigarette/Vaping Use Never Used 06/18/23 15:23 PHQ-9: PHQ-9 Score PHQ-9: Total score 0 06/18/23 15:32 Depression Screening Interpretation: Negative Thrive Assessment: Date of Thrive Assessment Date Thrive assessed 06/18/23 06/18/23 15:23 Currently or been in a relationship where the following occur: no concerns re ported Const General: no acute distress and alert HENMT Ears: TM's normal bilaterally and EAC's normal Throat: Yes posterior oropharynx normal and Yes tonsils normal Neck Neck: Yes no lymphadenopathy and Yes supple Resp Auscultation: clear to auscultation bilaterally, no rales and no wheezes Cardio Rate: regular rate Rhythm: regular rhythm Heart sounds: no murmurs GI Palpation (GI): Soft to palpation and nontender Auscultation: normal bowel sounds Skin Rashes: no rashes Extrem General: Yes no clubbing, cyanosis or edema Results Reviewed Results Reviewed: Laboratory Tests 06/15/23 08:58 WBC 3.9 L Hgb 13.9 Hct 40.7 Plt Count 217 D Sodium 141 Potassium 4.3 Creatinine 0.74 Estimated GFR > 60 Fasting Glucose 106 H Hemoglobin A1c % 5.4 Calcium 9.5 AST 15 ALT 12 Triglycerides 99 Cholesterol 144 LDL Cholesterol, Calc 63 HDL Cholesterol 62 25-OH Vitamin D Total 48.9 TSH 1.85 Ur Specific [place] 1.010 Urine Protein Negative Urine Glucose (UA) Negative Urine Blood Negative Assessment and Plan Assessment & Plan (1) PAF (paroxysmal atrial fibrillation): Code(s): I48.0 - Paroxysmal atrial fibrillation Plan: Patient currently remains in sinus rhythm Continue Metoprolol ER 50 mg QD and and Fleicanide 50 mg 2 tablets every 12 hours Continue Eliquis 5 mg BID for thromboembolism prophylaxis Was advised option of ablation if she continues to experience frequent bursts of AF - patient would like to hold off but is aware to call cardiology if her symptoms increase Follow up with cardiology as scheduled (2) Sick sinus syndrome: Code(s): I49.5 - Sick sinus syndrome Plan: Improved with pacemaker insertion (3) Pure hypercholesterolemia: Code(s): E78.00 - Pure hypercholesterolemia, unspecified Plan: Results of her labs done a few days reviewed and discussed with patient Reinforced low cholesterol diet Continue Atorvastatin 10 mg QD and Fish Oil 1000 mg TID Will recheck her labs and fasting lipids in 4 months for follow up (4) Benign essential hypertension: Code(s): I10 - Essential (primary) hypertension Plan: Is on Metoprolol ER 50 mg QD Reinforced low sodium diet - goal is systolic BP of at least 130 mm or less (5) Impaired fasting glucose: Code(s): R73.01 - Impaired fasting glucose Plan: HgbA1c was normal at 5.4% when last checked a few months ago; was also normal at 5.2% when previously checked Reinforced low calorie diet/exercise as tolerated (6) Allergic rhinitis: Code(s): J30.9 - Allergic rhinitis, unspecified Qualifiers: Allergic rhinitis trigger: unspecified Allergic rhinitis seasonality: unspecified Qualified Code(s): J30.9 - Allergic rhinitis, unspecified Plan: Continue Fluticasone nasal spray 50 mcg 1 spray into each nostril QD (7) Osteoarthritis of hand, left: Code(s): M19.042 - Primary osteoarthritis, left hand Qualifiers: Osteoarthritis type: primary Qualified Code(s): M19.042 - Primary osteoarthritis, left hand Plan: X-rays of the left hand done months ago revealed (+) OA changes in the left hand Instructed to continue with hand exercises that she can do regularly to help manage her hand pain / symptoms (8) Overweight (BMI 25.0-29.9): Code(s): E66.3 - Overweight Plan: Reinforced diet/exercise as tolerated/lose weight Plan Follow up in 4 months Orders: Orders Complete Blood Count Auto Diff 4 Months I10 - Essential (primary) hypertension Comprehensive [place]. Panel Fast 4 Months E78.00 - Pure hypercholesterolemia, unspecified UA CC w/rflx Micro + Cult 4 Months R30.0 - Dysuria Vitamin D 25-OH Total 4 Months E55.9 - Vitamin D deficiency, unspecified Hemoglobin A1c 4 Months R73.01 - Impaired fasting glucose Lipid Panel 4 Months E78.00 - Pure hypercholesterolemia, unspecified TSH reflex Free T4 4 Months E78.00 - Pure hypercholesterolemia, unspecified Coding Level of Care Code Est Pt Level 4 (85190) Diagnoses PAF (paroxysmal atrial fibrillation) I48.0 Sick sinus syndrome I49.5 Pure hypercholesterolemia E78.00 Benign essential hypertension I10 Impaired fasting glucose R73.01 Allergic rhinitis, unspecified seasonality, unspecified trigger J30.9 Allergic rhinitis trigger: unspecified Allergic rhinitis seasonality: unspecified Primary osteoarthritis of left hand M19.042 Osteoarthritis type: primary Overweight (BMI 25.0-29.9) E66.3
== END 2023-06-18 16:29 | disposition home or self-care (01) ==
PROVIDERS: PCP Internal Medicine; Visit Provider Internal Medicine
DX: I48.0 Paroxysmal atrial fibrillation (principal); I49.5 Sick sinus syndrome; E78.00 Pure hypercholesterolemia, unspecified; I10 Essential (primary) hypertension; R73.01 Impaired fasting glucose; J30.9 Allergic rhinitis, unspecified; M19.042 Primary osteoarthritis, left hand; E66.3 Overweight
CPT/HCPCS: 99214

== ENCOUNTER 2023-08-09 16:34 | Emergency (ER) | payer MEDICARE, SELFPAY ==
--- NOTE | ~2023-08-09 | XR_ITS ---
EXAMINATION: XR FOOT, RIGHT CLINICAL INFORMATION: Heel pain COMPARISON: None available. TECHNIQUE: AP, lateral, and oblique views of the right foot. FINDINGS: There is small calcaneal heel and retrocalcaneal enthesophyte. There is mild dorsal intertarsal spurring. No visible acute fracture, dislocation or subluxation seen. The ankle mortise and subtalar joints are normal. The soft tissues are normal. XR/XR foot RT 2V IMPRESSION: Small calcaneal heel and retrocalcaneal enthesophytes. No visible acute fracture, dislocation or subluxation seen.
[2023-08-09 17:23] VITALS: BP 143/69; PULSE 75; RESP 18; TEMP 36.8; O2SAT 98; BMI 24.7
--- NOTE | 2023-08-09 19:44 | ED_ITS ---
HPI - General Adult General Chief complaint: Extremity Injury, Lower Stated complaint: R heel pain Time Seen by Provider: 08/09/23 19:17 History of Present Illness HPI narrative: 62 y/o F patient; PMH paroxysmal atrial fibrillation on Eliquis, PPM; presents from home with report of right heel pain. The patient states today she was running to eve the bus when she developed right heel pain. She was still able to walk but had significant discomfort despite icing the region. She has occa sionally had a similar pain but not typically as severe as today. She is pending a repeat follow up with podiatry. She otherwise denies: known trauma, numbness/tingling/weakness. Related Data Home Medications Medication Instructions Recorded Confirmed ascorbate calcium (vitamin C) 500 500 mg PO DAILY 08/01/20 06/18/23 mg tablet flaxseed oil 1,000 mg capsule 1,000 mg PO DAILY 08/01/20 06/18/23 omega-3 fatty acids 1,000 mg 1,000 mg PO DAILY 08/01/20 06/18/23 capsule (Fish Oil Concentrate) Previous Rx's Medication Instructions Recorded calcium carbonate 600 mg-vitamin 1 tab PO DAILY 90 days #90 tabs 10/15/22 D3 5 mcg (200 unit) tablet docusate sodium 100 mg capsule 100 mg PO .DAILY WITH FOOD 30 days 11/21/22 (Colace) #30 caps flecainide 100 mg tablet 100 mg PO Q12H #180 tabs 01/15/23 metoprolol succinate 50 mg 50 mg PO DAILY #90 tabs 01/15/23 tablet,extended release 24 hr (Toprol XL) apixaban 5 mg tablet (Eliquis) 5 mg PO BID 90 days #180 tabs 04/02/23 atorvastatin 10 mg tablet 10 mg PO DAILY #90 tabs 04/02/23 tizanidine 4 mg tablet 4 mg PO Q8H PRN muscle spasticity 04/15/23 #270 tabs docusate sodium 100 mg capsule 100 mg PO BID #60 caps 05/29/23 (Colace) ibuprofen 600 mg tablet 600 mg PO Q8H PRN pain 5 days #15 06/11/23 tabs Allergies Allergy/AdvReac Type Severity Reaction Status Date / Time codeine [CODEINE] Allergy Unknown JITTERY Verified 08/09/23 17:26 Sulfa (Sulfonamide Allergy Unknown RASH,HIVES, Verified 08/09/23 17:26 Antibiotics) rash [SULFA (SULFONAMIDE ANTIBIOTICS)] Review of Systems Review of Systems: Yes all other systems are reviewed and are negative [facility] Past Medical History Attestation statement: The following information was validated with the patient. Source: old records reviewed Onset Date is defined in the Problem List Problems that require an onset date and time if occurred within 24 hrs of arrival to the ED Aortic Dissection and Rupture; Neurologic impairment; Cardiopulmonary Arrest; Endotracheal Intubation; Insertion or Replacement of Mechanical Circulatory Assist Device Medical History At high risk for breast cancer Family history of breast cancer Current use of buttermaker anticoagulation Normally functioning cardiac pacemaker present Overweight (BMI 25.0-29.9) Allergic rhinitis Impaired fasting glucose Benign essential hypertension Sick sinus syndrome Pure hypercholesterolemia PAF (paroxysmal atrial fibrillation) Surgical History H/O colonoscopy History of pacemaker History of tonsillectomy Family History Family History Father Hypertension Diabetes Arthritis Colon cancer Iron deficiency Mother Hypertension Maternal Grandmother Arthritis Diabetes Blockage of coronary artery of heart Maternal Grandfather Arthritis Paternal Grandfather Arthritis Pancreatic cancer Social History Social History Housing: House Alcohol intake: former Patient Tobacco Use Status: Former Tobacco user e-Cigarette/Vaping Use: Never Used Second Hand Smoke Exposure: Yes Advance Directives: No Advance Directives Information Provided: No service: No Current occupational status: disabled Cognitive needs: No Hearing needs: Yes Vision needs: Yes (wear glasses) Physical Exam ED Vital Signs: Vital Signs - 24 hr 08/09/23 17:23 Temperature 98.2 F Pulse Rate 75 Respiratory Rate 18 Blood Pressure 143/69 H Pulse Oximetry 98 Oxygen Delivery Method Room Air BMI result Body Mass Index 24.7 Patient is afebrile and hemodynamically stable Const General: cooperative and no acute distress HENMT Head: Yes atraumatic Eyes General: appearance normal, both eyes and all related structures Neck Neck: Yes full ROM, Yes supple and No tender Resp Effort & Inspection: normal respiratory effort, able to speak in complete sentences and no audible wheezes Auscultation: clear to auscultation bilaterally Cardio Rate: regular rate Rhythm: regular rhythm Peripheral pulses: Peripheral pulses 2+ throughout GI Inspection: No Abdominal wall edema and No distended Palpation (GI): Soft to palpation, not firm, nontender, no guarding and not rigid Auscultation: normal bowel sounds Extrem Other: Right foot/ankle: No tenderness to medial or lateral malleoli, no tenderness to navicular bone, no tenderness to base of 5th MT. Minimal reproducible discomfort to heel. FROM. NVI. Soft compartments. Course Course Course Narrative: Patient is afebrile and hemodynamically stable. Reviewed triage XR Right Foot. Evidence of small calcaneal heel and retrocalcaneal enthesophytes. Discussed with patient who reports she currently follows with podiatry. She will plan to follow up in their office. Discussed symptom control with well fitted shoes, well padded socks, tylenol/ibuprofen, ice, rolling tennis ball. Patient voiced understanding. Plan: Discharge to home with PCP and podiatry follow up Return precautions given Medical Decision Making Radiology Impression Discussion of test interpretation with radiology: I have reviewed the radiologist's reading. Radiologist Impression: EXAMINATION: XR FOOT, RIGHT CLINICAL INFORMATION: Heel pain COMPARISON: None available. TECHNIQUE: AP, lateral, and oblique views of the right foot. FINDINGS: There is small calcaneal heel and retrocalcaneal enthesophyte. There is mild dorsal intertarsal spurring. No visible acute fracture, dislocation or subluxation seen. The ankle mortise and subtalar joints are normal. The soft tissues are normal. XR/XR foot RT 2V IMPRESSION: Small calcaneal heel and retrocalcaneal enthesophytes. No visible acute fracture, dislocation or subluxation seen. Discharge Plan Discharge Clinical Impression: Heel spur Patient Disposition: Home, Self-Care Instructions: Heel Spur (ED) Additional Instructions: As we discussed, you were seen for right sided heel pain. Your XR showed a heel spur which is the likely cause of your pain. Recommend you follow up with your obiee obia solution architect within the next 1 week to discuss your recent ED visit. You can use Ibuprofen 400mg every 6 hours, Tylenol 1g every 6 hours, ice every 20min on and off, and stretches as needed for pain control. EXAMINATION: XR FOOT, RIGHT CLINICAL INFORMATION: Heel pain COMPARISON: None available. TECHNIQUE: AP, lateral, and oblique views of the right foot. FINDINGS: There is small calcaneal heel and retrocalcaneal enthesophyte. There is mild dorsal intertarsal spurring. No visible acute fracture, dislocation or subluxation seen. The ankle mortise and subtalar joints are normal. The soft tissues are normal. XR/XR foot RT 2V IMPRESSION: Small calcaneal heel and retrocalcaneal enthesophytes. No visible acute fracture, dislocation or subluxation seen. Prescriptions: No Action calcium carbonate-vitamin D3 600 mg-5 mcg (200 unit) tablet 1 tab PO DAILY 90 Days Qty: 90 3RF docusate sodium [Colace] 100 mg capsule 100 mg PO .DAILY WITH FOOD 30 Days Qty: 30 6RF flecainide 100 mg tablet 100 mg PO Q12H Qty: 180 3RF metoprolol succinate [Toprol XL] 50 mg tablet extended release 24 hr 50 mg PO DAILY Qty: 90 3RF atorvastatin 10 mg tablet 10 mg PO DAILY Qty: 90 3RF Eliquis 5 mg tablet 5 mg PO BID 90 Days Qty: 180 3RF tizanidine 4 mg tablet 4 mg PO Q8H PRN (Reason: muscle spasticity) Qty: 270 2RF docusate sodium [Colace] 100 mg capsule 100 mg PO BID Qty: 60 3RF ibuprofen 600 mg tablet 600 mg PO Q8H PRN (Reason: pain) 5 Days Qty: 15 0RF Rx Instructions: Take with food and only as needed ascorbate calcium (vitamin C) 500 mg tablet 500 mg PO DAILY flaxseed oil 1,000 mg capsule 1,000 mg PO DAILY Rx Instructions: administer with a meal omega-3 fatty acids [Fish Oil Concentrate] 1,000 mg capsule 1,000 mg PO DAILY
== END 2023-08-09 20:13 | disposition home or self-care (01) ==
PROVIDERS: Emergency Provider Emergency Medicine; PCP Internal Medicine
DX: M77.31 Calcaneal spur, right foot (principal); E78.00 Pure hypercholesterolemia, unspecified; I48.0 Paroxysmal atrial fibrillation; Z79.01 Long term (current) use of anticoagulants; Z79.02 Long term (current) use of antithrombotics/antiplatelets; Z79.899 Other long term (current) drug therapy
CPT/HCPCS: 73620; 99282; 99283

== ENCOUNTER 2023-08-14 09:52 | Outpatient (AMB) | payer MEDICARE, SELFPAY ==
[2023-08-14 09:57] VITALS: BP 126/82; PULSE 85; O2SAT 96; BMI 24.7
--- NOTE | 2023-08-14 09:57 | MHC.PC.OV ---
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: No Accompanied by: Self / Same As Patient Allergies codeine [CODEINE] Allergy (Unknown, Verified 08/14/23 12:12) JITTERY Sulfa (Sulfonamide Antibiotics) [SULFA (SULFONAMIDE ANTIBIOTICS)] Allergy (Unknown, Verified 08/14/23 12:12) RASH,HIVES, rash Medication List - Last Reconciled 08/14/23 by Rudy Buckley MD apixaban (Eliquis) 5 mg PO BID 90 days ascorbate calcium (vitamin C) 500 mg PO DAILY atorvastatin 10 mg PO DAILY calcium carbonate-vitamin D3 600 mg-5 mcg (200 unit) 1 tab PO DAILY 90 days docusate sodium (Colace) 100 mg PO BID docusate sodium (Colace) 100 mg PO .DAILY WITH FOOD 30 days flaxseed oil 1,000 mg PO DAILY flecainide 100 mg PO Q12H ibuprofen 600 mg PO Q8H PRN 5 days metoprolol succinate ER (Toprol XL) 50 mg PO DAILY omega-3 fatty acids (Fish Oil Concentrate) 1,000 mg PO DAILY tizanidine 4 mg PO Q8H PRN Tobacco use date assessed: 08/14/23 Dental Screening Dental Screen Date: 08/14/23 Did you have a dental visit in the last 12 months?: No Did you have a dental problem in the last 6 months where you did not have access to dental care?: No Was dental information given to patient?: No HPI ED F/U HPI Details Patient comes in today for her HDF follow up visit She went to the ER a few days ago for right heel pain, which she incurred apparently while trying to run to catch up to a bus at the bus stop that day as she suddenly felt a sharp pain over her right heel while running X-rays of the foot done at the ER revealed (+) small calcaneal heel and retrocalcaneal enthesophytes with no visible fractures, dislocations or injuries seen States that she has been doing some physical therapy on her heel on her own for the past few days with some improvement of her heel pain She has seen podiatry (Dr. 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 Normally functioning cardiac pacemaker present Overweight (BMI 25.0-29.9) Allergic rhinitis Impaired fasting glucose Benign essential hypertension Sick sinus syndrome Pure hypercholesterolemia PAF (paroxysmal atrial fibrillation) Surgical History H/O colonoscopy History of pacemaker History of tonsillectomy Family History Father Hypertension Diabetes Arthritis Colon cancer Iron deficiency Mother Hypertension Maternal Grandmother Arthritis Diabetes Blockage of coronary artery of heart Maternal Grandfather Arthritis Paternal Grandfather Arthritis Pancreatic cancer Social History Housing: House Alcohol intake: former Patient Tobacco Use Status: Former Tobacco user e-Cigarette/Vaping Use: Never Used Second Hand Smoke Exposure: Yes service: No Current occupational status: disabled Cognitive needs: No Hearing needs: Yes Vision needs: Yes (wear glasses) Questionnaire PHQ-9 Over the last 2 weeks, how often have you been bothered by any of the following problems? 1. Little interest or pleasure in doing things: not at all 2. Feeling down, depressed, or hopeless: not at all 3. Trouble falling or staying asleep, or sleeping too much: not at all 4. Feeling tired or having little energy: not at all 5. Poor appetite or overeating: not at all 6. Feeling bad about yourself - or that you are a failure or have let yourself or your family down: not at all 7. Trouble concentrating on things, such as reading the newspaper or watching television: not at all 8. Moving or speaking so slowly that other people could have noticed. Or the opposite - being so fidgety or restless that you have been moving around a lot more than usual: not at all 9. Thoughts that you would be better off or of hurting yourself in some way: not at all Total score: 0 Depression Screening Interpretation: Negative Depression Screening Done: Yes 25118 - PHQ-9 Billing: Yes Source: Developed by Drs. Fan Valerio, Anuradha Corado, Zan Vogt and colleagues, with an educational cecil from [employer]. Thrive Questionnaire Date Thrive assessed: 08/14/23 I am a: Patient What is your living situation today?: I have a steady place to live Within the past 12 months, did the food you bought not last and you didn't have the money to get more?: Never true Within the past 12 months, did you worry whether your food would run out before you got money to buy more?: Never true Do you have trouble paying for medicines?: No Do you have trouble getting transportation to medical appointments?: No Do you have trouble paying your heating and electricity bill?: No Do you have trouble taking care of your child, family member or friend?: No Do you have trouble with day-to-day activities such as bathing, preparing meals, shopping, managing finances, etc.?: No Are you currently unemployed and looking for a job?: No Are you interested in more education?: No Please select the resources that you would like help with: None Currently or been in a relationship where the following occur: no concerns reported THRIVE Score: 0 AUDIT C Alcohol Use Questionnaire (AUDIT-C) 1. How often do you have a drink containing alcohol?: Never 3. How often do you have six or more drinks on one occasion?: Never Total Score: 0 Score Reviewed/Action Taken: Yes AISHA-7 AMB Questionnaire AISHA-7 Date AISHA - 7 assessed: 08/14/23 Feeling nervous, anxious, or on edge: 0 = Not at all Not being able to stop or control worryin = Not at all Worrying too much about different things: 0 = Not at all Trouble relaxin = Not at all Being so restless that it is hard to sit still: 0 = Not at all Becoming easily annoyed or irritable: 0 = Not at all Feeling afraid as if something awful might happen: 0 = Not at all Total AISHA-7 score (0-4 normal; 5-9 mild; 10-14 moderate; 15-21 severe): 0 Source: Developed by Drs. Fan Valerio, Anuradha Corado, Zan Vogt and colleagues, with an educational cecil from [employer]. Review of Systems Const Denies fatigue, Denies fever(s) and Denies headache(s) ENT Denies dysphagia, Denies dizziness, Denies headache(s) and Denies sore throat Card Denies chest pain, Denies palpitations and Denies dyspnea Resp Denies cough and Denies dyspnea GI Denies abdominal pain, Denies constipation, Denies dysphagia, Denies diarrhea, Denies nausea and Denies vomiting Denies difficulty voiding, Denies nocturia, Denies dysuria and Denies urinary urgency Musc Details: (+) pain over the right heel area Neuro Denies dizziness and Denies headache(s) Endo Denies fatigue and Denies palpitations Physical exam (Primary Care) Vital Signs: Last Vital Signs Pulse 85 08/14/23 09:57 BP 126/82 08/14/23 09:57 Pulse Ox 96 08/14/23 09:57 Oxygen Delivery Method Room Air 08/14/23 09:57 BMI result Body Mass Index 24.7 Tobacco/Smoking Status: Tobacco use Status Tobacco use date assessed 08/14/23 08/14/23 10:02 Patient Tobacco Use Status Former Tobacco user 08/14/23 10:02 e-Cigarette/Vaping Use Never Used 08/14/23 10:02 PHQ-9: PHQ-9 Score PHQ-9: Total score 0 08/14/23 12:15 Depression Screening Interpretation: Negative Thrive Assessment: Date of Thrive Assessment Date Thrive assessed 08/14/23 08/14/23 10:02 Currently or been in a relationship where the following occur: no concerns reported Const General: no acute distress and alert Neck Neck: Yes no lymphadenopathy and Yes supple Resp Auscultation: clear to auscultation bilaterally, no rales and no wheezes Cardio Rate: regular rate Rhythm: regular rhythm Heart sounds: no murmurs GI Palpation (GI): Soft to palpation and nontender Auscultation: normal bowel sounds Extrem General: Yes no clubbing, cyanosis or edema Right lower extremity: foot Details: tenderness Location: of the calcaneus Details: point tenderness Assessment and Plan Assessment & Plan (1) Calcaneal spur, right foot: Code(s): M77.31 - Calcaneal spur, right foot Plan: Will refer patient to podiatry for further evaluation and management Plan Follow up as scheduled in September 2023 Orders: Referrals Podiatry Referral M77.31 - Calcaneal spur, right foot Coding Level of Care Code Est Pt Level 3 (68565) Diagnoses Calcaneal spur, right foot M77.31
== END 2023-08-14 10:44 | disposition home or self-care (01) ==
PROVIDERS: PCP Internal Medicine; Visit Provider Internal Medicine
DX: M77.31 Calcaneal spur, right foot (principal)
CPT/HCPCS: 99213

== ENCOUNTER → 2023-09-03 23:59 | Outpatient (BNV) | payer MEDICARE, SELFPAY ==
--- NOTE | 2023-09-04 11:52 | A.OFFVIS_ITS ---
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 Normally functioning cardiac pacemaker present Overweight (BMI 25.0-29.9) Allergic rhinitis Impaired fasting glucose Benign essential hypertension Sick sinus syndrome Pure hypercholesterolemia PAF (paroxysmal atrial fibrillation) Surgical History H/O colonoscopy History of pacemaker History of tonsillectomy Family History Father Hypertension Diabetes Arthritis Colon cancer Iron deficiency Mother Hypertension Maternal Grandmother Arthritis Diabetes Blockage of coronary artery of heart Maternal Grandfather Arthritis Paternal Grandfather Arthritis Pancreatic cancer Social History Housing: House Alcohol intake: former Patient Tobacco Use Status: Former Tobacco user e-Cigarette/Vaping Use: Never Used Second Hand Smoke Exposure: Yes service: No Current occupational status: disabled Cognitive needs: No Hearing needs: Yes Vision needs: Yes (wear glasses) Office Procedures Cardiac Device Check Cardiac Device Check Details: Date of service- 09/03/2023 ; Battery life >3 years; normal lead parameters; AP >99%; FIELD COURT RESEARCHER <0.1%; AT/AF burden <0.1%, but in the trends, no major episodes recently. Overall normal device function. [id number] Cardiac Device Interrogation, pacemaker Procedure code (CPT) selection complete Assessment & Plan Assessment & Plan (1) PAF (paroxysmal atrial fibrillation): Code(s): I48.0 - Paroxysmal atrial fibrillation Plan x Coding Level of Care Code Procedure Only Diagnoses PAF (paroxysmal atrial fibrillation) I48.0 CPT Codes Cardiac Device Check - Cardiac Device 12: [id number] Cardiac Device Interrogation, pacemaker ([id number])
== END ==
PROVIDERS: PCP Internal Medicine; Visit Provider Internal Medicine
DX: I48.0 Paroxysmal atrial fibrillation (principal); Z95.0 Presence of cardiac pacemaker
CPT/HCPCS: 93294

== ENCOUNTER 2023-09-17 11:22 | Outpatient (REF) | payer MEDICARE, SELFPAY | END 2023-09-17 11:23 | disposition home or self-care (01) | LOC: HO.MAMMO 11:22 | PROVIDERS: PCP Internal Medicine; Visit Provider Internal Medicine | DX: Z12.31 Encounter for screening mammogram for malignant neoplasm of breast (principal) | CPT/HCPCS: 77063; 77067 ==

== ENCOUNTER → 2023-09-17 11:30 | Outpatient (BNV) | payer MEDICARE, SELFPAY | PROVIDERS: PCP Internal Medicine; Visit Provider Radiology Diagnostic Radiology | DX: Z12.31 Encounter for screening mammogram for malignant neoplasm of breast (principal) | CPT/HCPCS: 77063; 77067 ==

== ENCOUNTER 2023-09-30 13:33 | Outpatient (AMB) | payer MEDICARE, MEDICAID, SELFPAY ==
[2023-09-30 13:45] VITALS: BP 114/72; PULSE 68; BMI 24.3
--- NOTE | 2023-09-30 13:45 | A.OFFVIS_ITS ---
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: No Allergies codeine [CODEINE] Allergy (Unknown, Verified 09/30/23 13:58) JITTERY Sulfa (Sulfonamide Antibiotics) [SULFA (SULFONAMIDE ANTIBIOTICS)] Allergy (Unknown, Verified 09/30/23 13:58) RASH,HIVES, rash Medication List - Last Reconciled 09/30/23 by Angelina Lopez NP-C apixaban (Eliquis) 5 mg PO BID 90 days ascorbate calcium (vitamin C) 500 mg PO DAILY atorvastatin 10 mg PO DAILY calcium carbonate-vitamin D3 600 mg-5 mcg (200 unit) 1 tab PO DAILY 90 days docusate sodium (Colace) 100 mg PO BID docusate sodium (Colace) 100 mg PO .DAILY WITH FOOD 30 days flaxseed oil 1,000 mg PO DAILY flecainide 100 mg PO Q12H ibuprofen 600 mg PO Q8H PRN 5 days metoprolol succinate ER (Toprol XL) 50 mg PO DAILY omega-3 fatty acids (Fish Oil Concentrate) 1,000 mg PO DAILY tizanidine 4 mg PO Q8H PRN HPI 6 MON IN OFFICE CHK PER HS HPI Details Farhana is a 62-year-old female with past medical history of hypertension, hyperlipidemia, impaired fasting glucose, paroxysmal atrial fibrillation, sick sinus syndrome, pacemaker placed who presents for follow-up. Today she reports that she has been feeling well recently with no concerning symptoms. She denies chest discomfort, shortness of breath, palpitations, lightheadedness, presyncope, syncope, PND, orthopnea or edema. She reports activity tolerance. Taking all meds as directed. 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 Normally functioning cardiac pacemaker present Overweight (BMI 25.0-29.9) Allergic rhinitis Impaired fasting glucose Benign essential hypertension Sick sinus syndrome Pure hypercholesterolemia PAF (paroxysmal atrial fibrillation) Surgical History H/O colonoscopy History of pacemaker History of tonsillectomy Family History Father Hypertension Diabetes Arthritis Colon cancer Iron deficiency Mother Hypertension Maternal Grandmother Arthritis Diabetes Blockage of coronary artery of heart Maternal Grandfather Arthritis Paternal Grandfather Arthritis Pancreatic cancer Social History Housing: House Alcohol intake: former Patient Tobacco Use Status: Former Tobacco user e-Cigarette/Vaping Use: Never Used Second Hand Smoke Exposure: Yes service: No Current occupational status: disabled Cognitive needs: No Hearing needs: Yes Vision needs: Yes (wear glasses) Review of Systems Const All systems reviewed & are unremarkable except as noted in HPI and below ENT Denies dizziness Card Denies chest pain, Denies chest pain at rest, Denies chest pain with activity, Denies rapid heart rate, Denies pedal edema, Denies edema, Denies leg edema, Denies lightheadedness, Denies palpitations, Denies dyspnea, Denies dyspnea on exertion and Denies orthopnea Resp Denies cough, Denies dyspnea and Denies dyspnea on exertion GI Denies hematochezia and Denies change in stool character Musc Denies abnormal gait, Denies limited range of motion, Denies muscle cramps, Denies muscle weakness, Denies numbness, Denies radiating pain into limb, Denies stiffness and Denies tingling Neuro Denies abnormal gait, Denies dizziness, Denies numbness and Denies tingling Endo Denies palpitations Physical Exam Vital Signs: Last Vital Signs Pulse 68 09/30/23 13:45 BP 114/72 09/30/23 13:45 BMI result Body Mass Index 24.3 Const General: cooperative, healthy appearing, comfortable and no acute distress Orientation/consciousness: patient oriented x3 Neck Neck: Yes normal visual inspection and Yes no JVD Resp Effort & Inspection: normal respiratory effort Auscultation: clear to auscultation bilaterally, no crackles, no rales, no rhonchi and no wheezes Cardio Jugular venous distension: no JVD Rate: regular rate Rhythm: regular rhythm Heart sounds: S1 normal heart sound present, S2 normal heart sound present, no murmurs and no rubs Neuro General: patient oriented x3 Extrem General: Yes normal to inspection, No no pedal edema and No calf tenderness Psych Appearance: grossly normal Mental Status: mental status grossly normal Speech and movement: Normal speech and movement present Office Procedures Cardiac Device Check Cardiac Device Check Details: Medtronic dual-chamber pacemaker interrogation today. AAIR mode low rate 60, battery 3.5 years, RA threshold 0.75 volts at 0.4 milliseconds, RV threshold 1.0 volts at 0.4 milliseconds, AT/AF 1.3% no changes [id number] Cardiac Device Check, pacemaker dual lead Procedure code (CPT) selection complete EKG Details: Today, read by me, atrial paced rhythm, ventricular sensed, can not exclude prior anterior infarct, rate 68, QTC 406 milliseconds [id number], Complete Assessment & Plan Assessment & Plan (1) PAF (paroxysmal atrial fibrillation): Code(s): I48.0 - Paroxysmal atrial fibrillation Plan: History of paroxysmal atrial fibrillation. Currently suppressed with flecainide and metoprolol. She denies any recent heart palpitations. EKG done today shows atrial paced, ventricular sensed rhythm, rate 68. She is on Eliquis for anticoagulation. Labs done 06/15/2023 showed creatinine 0.74. No bleeding issues reported. Continue current management. (2) Sick sinus syndrome: Code(s): I49.5 - Sick sinus syndrome Plan: See below (3) Pacemaker: Code(s): Z95.0 - Presence of cardiac pacemaker Plan: History of sick sinus syndrome. Has dual-chamber pacemaker in place. Functioning normally on interrogation today. Next office interrogation due in 6 months. Remote monitoring in use. (4) Benign essential hypertension: Code(s): I10 - Essential (primary) hypertension Plan: Well controlled at this time. No medication changes made. Continue metoprolol. Plan Time spent on chart review, documentation, interview and assessment. Coding Level of Care Code Est Pt Level 4 (10310) Diagnoses PAF (paroxysmal atrial fibrillation) I48.0 Sick sinus syndrome I49.5 Pacemaker Z95.0 Benign essential hypertension I10 CPT Codes Cardiac Device Check - Cardiac Device 2: [id number] Cardiac Device Check, pacemaker dual lead ([id number]) EKG - CPT: 06854-[id number], Complete ([id number]) Time Spent (min) 28
== END 2023-09-30 14:22 | disposition home or self-care (01) ==
PROVIDERS: PCP Internal Medicine; Visit Provider Nurse Practitioner Family
DX: I48.0 Paroxysmal atrial fibrillation (principal); I49.5 Sick sinus syndrome; Z95.0 Presence of cardiac pacemaker; I10 Essential (primary) hypertension
CPT/HCPCS: 93280; 99214

== ENCOUNTER → 2023-09-30 13:33 | Outpatient (BNVA) | payer MEDICARE, MEDICAID, SELFPAY | PROVIDERS: PCP Internal Medicine; Visit Provider Nurse Practitioner Family | DX: Z45.018 Encounter for adjustment and management of other part of cardiac pacemaker (principal); I48.0 Paroxysmal atrial fibrillation; I49.5 Sick sinus syndrome; I10 Essential (primary) hypertension | CPT/HCPCS: 93005; 93280; 99212 ==

== ENCOUNTER 2023-10-09 13:29 | Outpatient (AMB) | payer MEDICARE, MEDICAID, SELFPAY ==
--- NOTE | 2023-10-09 13:36 | A.OFFVIS_ITS ---
Intake Vital Signs 10/09/23 13:43 Height 5 ft 2 in Weight 132 lb 4.438 oz BMI 24.2 BP 161/75 H Blood Pressure Location Lt brachial Position Sitting Pulse 89 Intake Visit Reasons: 6 month breast check Intake Note: Patient here for 6 month follow up visit, breast exam. 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 Tubing Required: No Accompanied by: Self / Same As Patient Allergies codeine [CODEINE] Allergy (Unknown, Verified 10/09/23 13:44) JITTERY Sulfa (Sulfonamide Antibiotics) [SULFA (SULFONAMIDE ANTIBIOTICS)] Allergy (Unknown, Verified 10/09/23 13:44) RASH,HIVES, rash Medication List - Last Reconciled 10/09/23 by Benedict Kerns MD apixaban (Eliquis) 5 mg PO BID 90 days ascorbate calcium (vitamin C) 500 mg PO DAILY atorvastatin 10 mg PO DAILY calcium carbonate-vitamin D3 600 mg-5 mcg (200 unit) 1 tab PO DAILY 90 days docusate sodium (Colace) 100 mg PO BID docusate sodium (Colace) 100 mg PO .DAILY WITH FOOD 30 days flaxseed oil 1,000 mg PO DAILY flecainide 100 mg PO Q12H ibuprofen 600 mg PO Q8H PRN 5 days metoprolol succinate ER (Toprol XL) 50 mg PO DAILY omega-3 fatty acids (Fish Oil Concentrate) 1,000 mg PO DAILY tizanidine 4 mg PO Q8H PRN HPI 6 month breast check HPI Details She is here for a follow-up breast exam. She is considered at high risk for breast cancer in view of a strong family history of breast. Her sister was diagnosed to have breast cancer in her 50s. Her father was diagnosed to have colon cancer in his 60s. She otherwise denies any palpable breast masses or any nipple or skin changes. She feels well overall. Her last mammogram was last month and this was unremarkable. [facility] Medical History At high risk for breast cancer Family history of breast cancer Current use of group home anticoagulation Normally functioning cardiac pacemaker present Overweight (BMI 25.0-29.9) Allergic rhinitis Impaired fasting glucose Benign essential hypertension Sick sinus syndrome Pure hypercholesterolemia PAF (paroxysmal atrial fibrillation) Surgical History H/O colonoscopy History of pacemaker History of tonsillectomy Family History Father Hypertension Diabetes Arthritis Colon cancer Iron deficiency Mother Hypertension Maternal Grandmother Arthritis Diabetes Blockage of coronary artery of heart Maternal Grandfather Arthritis Paternal Grandfather Arthritis Pancreatic cancer Social History Housing: House Alcohol intake: former Patient Tobacco Use Status: Former Tobacco user e-Cigarette/Vaping Use: Never Used Second Hand Smoke Exposure: Yes service: No Current occupational status: disabled Cognitive needs: No Hearing needs: Yes Vision needs: Yes (wear glasses) Review of Systems Const Denies chills and Denies fever(s) Card Denies chest pain, Denies dyspnea and Denies dyspnea on exertion Resp Denies cough, Denies dyspnea and Denies dyspnea on exertion GI Denies hematochezia and Denies change in bowel habits Denies hematuria Musc Denies back pain and Denies limited range of motion Neuro Denies focal weakness and Denies convulsions Psych Denies depression and Denies mood swings Physical Exam Const General: comfortable and no acute distress Orientation/consciousness: patient oriented x3 Neck Neck: Yes no lymphadenopathy Chest Other: No palpable breast masses, no nipple or skin changes, no axillary lymphadenopathy Resp Auscultation: clear to auscultation bilaterally Cardio Rhythm: regular rhythm GI Palpation (GI): Soft to palpation, nontender and no guarding Neuro General: patient oriented x3 Assessment & Plan Assessment & Plan (1) At high risk for breast cancer: Code(s): Z91.89 - Other specified personal risk factors, not elsewhere classified Plan: Current exam is unremarkable. There has no suggestion of any mass in the breast nor any axillary lymphadenopathy. Her mammogram weeks ago was unremarkable She is to continue with regular screening mammograms. She is to come to the office for breast exams every 6 months. She also has a family history of colon cancer with her father being diagnosed in his early 60s. She undergoes colonoscopy every 5 years. Coding Level of Care Code Est Pt Level 3 (08528) Diagnoses At high risk for breast cancer Z91.89
[2023-10-09 13:43] VITALS: BP 161/75; PULSE 89; BMI 24.2
== END 2023-10-09 14:00 | disposition home or self-care (01) ==
PROVIDERS: PCP Internal Medicine; Visit Provider Surgery
DX: Z91.89 Other specified personal risk factors, not elsewhere classified (principal)
CPT/HCPCS: 99213

== ENCOUNTER → 2023-10-09 13:29 | Outpatient (BNVA) | payer MEDICARE, MEDICAID, SELFPAY | PROVIDERS: PCP Internal Medicine; Visit Provider Surgery | DX: Z91.89 Other specified personal risk factors, not elsewhere classified (principal) | CPT/HCPCS: 99212 ==

== ENCOUNTER 2023-10-14 08:09 | Outpatient (REF) | payer MEDICARE, SELFPAY ==
[2023-10-14 08:28] LABS: MANUAL DIFF FLAG NO
[2023-10-14 09:22] LABS: Basophils Absolute Auto 0.1 X10*3/uL (0.0-0.2); Basophils Percent Auto 1.5 % (0-2); Eosinophils Absolute Auto 0.1 X10*3/uL (0.0-0.4); Eosinophils Percent Auto 1.8 % (0-4); Hematocrit 44.5 % (37.0-47.0); Hemoglobin 15.1 g/dl (12.0-16.0); Imm Gran Abs Auto 0.01 X10*3/uL (0.00-0.03); Imm Gran Pct Auto 0.3 % (0.0-0.4); Lymphocytes Absolute Auto 1.6 X10*3/uL (1.2-4.9); Lymphocytes Percent Auto 47.2 % (20-40); Mean Corpuscular HGB Conc 33.9 g/dl (31.0-35.0); Mean Corpuscular Hemoglobin 31.2 pg (27.0-33.0); Mean Corpuscular Volume 91.9 fL (80.0-98.0); Mean Platelet Volume 10.7 fL (9.4-12.3); Monocytes Absolute Auto 0.3 X10*3/uL (0.1-1.2); Monocytes Percent Auto 8.8 % (2-11); Neutrophils Absolute Auto 1.4 x10*3/uL (2.0-8.3); Neutrophils Percent Auto 40.4 % (45-73); Platelet Count 150 X10*3/uL (160-400); Red Blood Count 4.84 X10*6/uL (4.20-5.50); Red Cell Distribution Width 11.9 % (11.0-16.0); White Blood Count 3.4 X10*3/uL (4.8-10.8)
[2023-10-14 09:38] LABS: Appearance Urine Clear; Color Urine Yellow; Glucose Urine UA Negative (Negative); Leukocyte Esterase Urine Trace (Negative); Nitrite Urine Negative (Negative); UMIC TRIGGER UACC YES; Urine Blood Trace (Negative); Urine Ketones Negative (Negative); Urine Protein Negative (Neg-Trace)
[2023-10-14 09:44] LABS: Bacteria Urine None Seen (None Seen); Hyaline Casts Urine 0-2 /LPF (0-2); Squamous Epithelial Cell Urine 0-2 /HPF (0-2); WBC Urine 0-5 /HPF (0-5)
[2023-10-14 09:52] LABS: Estimated Average Glucose 103 mg/dL; Hemoglobin A1c % 5.2 % (<6.0)
[2023-10-14 10:13] LABS: Alanine Aminotransferase 16 U/L (0-31); Albumin Level 4.2 g/dL (3.5-5.0); Alkaline Phosphatase 67 U/L (39-117); Anion Gap 11 (12-20); Aspartate Amino Transferase 18 U/L (5-31); Bilirubin Total 1.7 mg/dL (0.0-1.0); Blood Urea Nitrogen 11 mg/dL (9-16); Calcium 9.6 mg/dL (8.4-10.2); Carbon Dioxide 27 mmol/L (22-29); Chloride 107 mmol/L (96-108); Cholesterol 157 mg/dL (<200); Estimated Glomerular Filt Rate > 60; Glucose Fasting 94 mg/dL (60-99); HDL Cholesterol 81 mg/dL (>40); LDL Cholesterol Calculated 59 mg/dL (<100); Sodium 141 mmol/L (135-145); Triglycerides 88 mg/dL (<150)
[2023-10-14 10:18] LABS: TSH reflex Free T4 2.23 uIU/mL (0.32-4.0); Vitamin D 25-OH Total 52.1 ng/mL (>30)
== END 2023-10-14 08:10 | disposition home or self-care (01) ==
LOC: HO.LAB 08:09
PROVIDERS: PCP Internal Medicine; Visit Provider Internal Medicine
DX: I10 Essential (primary) hypertension (principal); E78.00 Pure hypercholesterolemia, unspecified; R73.01 Impaired fasting glucose; E55.9 Vitamin D deficiency, unspecified
CPT/HCPCS: 36415; 80053; 80061; 81001; 82306; 83036; 84443; 85025

== ENCOUNTER 2023-10-18 15:23 | Outpatient (AMB) | payer MEDICARE, SELFPAY ==
--- NOTE | 2023-10-18 15:25 | MHC.PC.OV ---
Vital Signs 10/18/23 15:27 Height 5 ft 2 in Weight 141 lb 4 oz BMI 25.8 BP 120/72 Blood Pressure Location Lt brachial Position Sitting Pulse 85 Pulse Source Pulse Oximeter Pulse Oximetry (%) 97 Oxygen Delivery Method Room Air Intake Visit Reasons: hyperlipidemia, HTN, PAF, IFG Intake Note: Patient is here to follow up on Hyperlipidemia, HTN, PAF, IFG. [employer] Supervisor Required: No Insurance Producer: Not Required per policy Accompanied by: Self / Same As Patient Allergies codeine [CODEINE] Allergy (Unknown, Verified 10/18/23 15:49) JITTERY Sulfa (Sulfonamide Antibiotics) [SULFA (SULFONAMIDE ANTIBIOTICS)] Allergy (Unknown, Verified 10/18/23 15:49) RASH,HIVES, rash Medication List - Last Reconciled 10/18/23 by Rudy Buckley MD apixaban (Eliquis) 5 mg PO BID 90 days ascorbate calcium (vitamin C) 500 mg PO DAILY atorvastatin 10 mg PO DAILY calcium carbonate-vitamin D3 600 mg-5 mcg (200 unit) 1 tab PO DAILY 90 days docusate sodium (Colace) 100 mg PO BID docusate sodium (Colace) 100 mg PO .DAILY WITH FOOD 30 days flaxseed oil 1,000 mg PO DAILY flecainide 100 mg PO Q12H ibuprofen 600 mg PO Q8H PRN 5 days metoprolol succinate ER (Toprol XL) 50 mg PO DAILY omega-3 fatty acids (Fish Oil Concentrate) 1,000 mg PO DAILY tizanidine 4 mg PO Q8H PRN Tobacco use date assessed: 10/18/23 Dental Screening Dental Screen Date: 08/14/23 Did you have a dental visit in the last 12 months?: No Did you have a dental problem in the last 6 months where you did not have access to dental care?: No Was dental information given to patient?: No HPI hyperlipidemia, HTN, PAF, IFG HPI Details Patient comes in today for her follow up visit States that she feels okay She denies any headaches or dizziness Denies any chest pains, no SOB No nausea/vomiting, no abdominal pain No change in bowel habits noted Had her follow up labs done a few days ago - to discuss her results [facility] Medical History At high risk for breast cancer Family history of breast cancer 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 Normally functioning cardiac pacemaker present Overweight (BMI 25.0-29.9) Allergic rhinitis Impaired fasting glucose Benign essential hypertension Sick sinus syndrome Pure hypercholesterolemia PAF (paroxysmal atrial fibrillation) Surgical History H/O colonoscopy History of pacemaker History of tonsillectomy Family History Father Hypertension Diabetes Arthritis Colon cancer Iron deficiency Mother Hypertension Maternal Grandmother Arthritis Diabetes Blockage of coronary artery of heart Maternal Grandfather Arthritis Paternal Grandfather Arthritis Pancreatic cancer Social History Housing: House Alcohol intake: former Patient Tobacco Use Status: Former Tobacco user e-Cigarette/Vaping Use: Never Used Second Hand Smoke Exposure: Yes service: No Current occupational status: disabled Cognitive needs: No Hearing needs: Yes (Hearing aide) Vision needs: Yes (wear glasses) Questionnaire PHQ-9 Over the last 2 weeks, how often have you been bothered by any of the following problems? Depression Screening Interpretation: Negative Depression Screening Done: Yes Source: Developed by Drs. Fan Valerio, Anuradha Corado, Zan Vogt and colleagues, with an educational cecil from [employer]. Thrive Questionnaire Date Thrive assessed: 08/14/23 Currently or been in a relationship where the following occur: no concerns reported THRIVE Score: 0 AISHA-7 AMB Questionnaire AISHA-7 Date AISHA - 7 assessed: 08/14/23 Source: Developed by Drs. Fan Valerio, Zan Fragoso and colleagues, with an educational cecil from [employer]. Review of Systems Const Denies chills, Denies fatigue, Denies fever(s) and Denies headache(s) ENT Denies dysphagia, Denies dizziness, Denies otalgia, Denies headache(s), Denies neck pain, Denies odynophagia and Denies sore throat Card Denies chest pain, Denies palpitations and Denies dyspnea Resp Denies cough, Denies dyspnea and Denies wheezing GI Denies abdominal pain, Denies hematochezia, Denies constipation, Denies dysphagia, Denies heartburn, Denies diarrhea, Denies nausea, Denies odynophagia and Denies vomiting Denies difficulty voiding, Denies nocturia, Denies dysuria and Denies urinary urgency Musc Denies back pain and Denies neck pain Skin/Breast Denies rash Neuro Denies dizziness and Denies headache(s) Endo Denies fatigue and Denies palpitations Aller/Immun Denies wheezing Physical exam (Primary Care) Vital Signs: Last Vital Signs Pulse 85 10/18/23 15:27 BP 120/72 10/18/23 15:27 Pulse Ox 97 10/18/23 15:27 Oxygen Delivery Method Room Air 10/18/23 15:27 BMI result Body Mass Index 25.8 Tobacco/Smoking Status: Tobacco use Status Tobacco use date assessed 10/18/23 10/18/23 15:32 Patient Tobacco Use Status Former Tobacco user 10/18/23 15:32 e-Cigarette/Vaping Use Never Used 10/18/23 15:32 Depression Screening Interpretation: Negative Thrive Assessment: Date of Thrive Assessment Date Thrive assessed 08/14/23 10/18/23 15:32 Currently or been in a relationship where the following occur: no concerns reported Const General: no acute distress and alert HENMT Ears: TM's normal bilaterally and EAC's normal Throat: Yes posterior oropharynx normal and Yes tonsils normal Neck Neck: Yes no lymphadenopathy and Yes supple Resp Auscultation: clear to auscultation bilaterally, no rales and no wheezes Cardio Rate: regular rate Rhythm: regular rhythm Heart sounds: no murmurs GI Palpation (GI): Soft to palpation and nontender Auscultation: normal bowel sounds Skin Rashes: no rashes Extrem General: Yes no clubbing, cyanosis or edema Results Reviewed Results Reviewed: Laboratory Tests 10/14/23 10/14/23 08:21 08:27 WBC 3.4 L Hgb 15.1 Hct 44.5 Plt Count 150 L D Sodium 141 Potassium 4.0 Creatinine 0.74 Estimated GFR > 60 Fasting Glucose 94 Hemoglobin A1c % 5.2 Calcium 9.6 AST 18 ALT 16 Triglycerides 88 Cholesterol 157 LDL Cholesterol, Calc 59 HDL Cholesterol 81 25-OH Vitamin D Total 52.1 TSH 2.23 Ur Specific [place] 1.010 Urine Protein Negative Urine Glucose (UA) Negative Urine Blood Trace H Urine Nitrite Negative Ur Leukocyte Esterase Trace H Assessment and Plan Assessment & Plan (1) PAF (paroxysmal atrial fibrillation): Code(s): I48.0 - Paroxysmal atrial fibrillation Plan: Patient currently remains in sinus rhythm Continue Metoprolol ER 50 mg QD and and Fleicanide 50 mg 2 tablets every 12 hours Continue Eliquis 5 mg BID for thromboembolism prophylaxis Was advised option of ablation if she continues to experience frequent bursts of AF - patient asked to hold off but is aware to call cardiology if her symptoms increase Follow up with cardiology as scheduled (2) Sick sinus syndrome: Code(s): I49.5 - Sick sinus syndrome Plan: Improved/resolved with pacemaker insertion (3) Pure hypercholesterolemia: Code(s): E78.00 - Pure hypercholesterolemia, unspecified Plan: Results of her labs done a few days reviewed and discussed with patient Reinforced low cholesterol diet Continue Atorvastatin 10 mg QD and Fish Oil 1000 mg TID Will recheck her labs and fasting lipids in 4 months for follow up (4) Benign essential hypertension: Code(s): I10 - Essential (primary) hypertension Plan: Is on Metoprolol ER 50 mg QD Reinforced low sodium diet - goal is systolic BP of at least 130 mm or less (5) Impaired fasting glucose: Code(s): R73.01 - Impaired fasting glucose Plan: HgbA1c was normal at 5.2% on her labs done a few days ago; was at 5.4% and 5.2% when previously checked Reinforced low calorie diet/exercise as tolerated (6) Allergic rhinitis: Code(s): J30.9 - Allergic rhinitis, unspecified Qualifiers: Allergic rhinitis trigger: unspecified Allergic rhinitis seasonality: unspecified Qualified Code(s): J30.9 - Allergic rhinitis, unspecified Plan: Continue Fluticasone nasal spray 50 mcg 1 spray into each nostril QD (7) Osteoarthritis of hand, left: Code(s): M19.042 - Primary osteoarthritis, left hand Qualifiers: Osteoarthritis type: primary Qualified Code(s): M19.042 - Primary osteoarthritis, left hand Plan: X-rays of the left hand done months ago revealed (+) OA changes in the left hand She is again instructed to continue with hand exercises that she can do regularly to help manage her hand pain / symptoms (8) Overweight (BMI 25.0-29.9): Code(s): E66.3 - Overweight Plan: Reinforced diet/exercise as tolerated/lose weight Plan Follow up in 4 months Orders: Orders Complete Blood Count Auto Diff 4 Months D64.9 - Anemia, unspecified Comprehensive [place]. Panel Fast 4 Months E78.00 - Pure hypercholesterolemia, unspecified Lipid Panel 4 Months E78.00 - Pure hypercholesterolemia, unspecified Hemoglobin A1c 4 Months R73.01 - Impaired fasting glucose UA CC w/rflx Micro + Cult 4 Months R30.0 - Dysuria Vitamin D 25-OH Total 4 Months E55.9 - Vitamin D deficiency, unspecified TSH reflex Free T4 4 Months E78.00 - Pure hypercholesterolemia, unspecified Coding Level of Care Code Est Pt Level 4 (02695) Diagnoses PAF (paroxysmal atrial fibrillation) I48.0 Sick sinus syndrome I49.5 Pure hypercholesterolemia E78.00 Benign essential hypertension I10 Impaired fasting glucose R73.01 Allergic rhinitis, unspecified seasonality, unspecified trigger J30.9 Allergic rhinitis trigger: unspecified Allergic rhinitis seasonality: unspecified Primary osteoarthritis of left hand M19.042 Osteoarthritis type: primary Overweight (BMI 25.0-29.9) E66.3
[2023-10-18 15:27] VITALS: BP 120/72; PULSE 85; O2SAT 97; BMI 25.8
== END 2023-10-18 15:56 | disposition home or self-care (01) ==
PROVIDERS: PCP Internal Medicine; Visit Provider Internal Medicine
DX: I48.0 Paroxysmal atrial fibrillation (principal); I49.5 Sick sinus syndrome; E78.00 Pure hypercholesterolemia, unspecified; I10 Essential (primary) hypertension; R73.01 Impaired fasting glucose; J30.9 Allergic rhinitis, unspecified; M19.042 Primary osteoarthritis, left hand; E66.3 Overweight
CPT/HCPCS: 99214

== ENCOUNTER 2024-02-05 06:49 | Outpatient (REF) | payer MEDICARE, SELFPAY ==
[2024-02-05 07:05] LABS: MANUAL DIFF FLAG NO
[2024-02-05 08:59] LABS: Basophils Absolute Auto 0.1 X10*3/uL (0.0-0.2); Basophils Percent Auto 1.4 % (0-2); Eosinophils Absolute Auto 0.1 X10*3/uL (0.0-0.4); Eosinophils Percent Auto 1.6 % (0-4); Hematocrit 41.4 % (37.0-47.0); Hemoglobin 14.3 g/dl (12.0-16.0); Imm Gran Abs Auto 0.01 X10*3/uL (0.00-0.03); Imm Gran Pct Auto 0.3 % (0.0-0.4); Lymphocytes Absolute Auto 2.1 X10*3/uL (1.2-4.9); Mean Corpuscular HGB Conc 34.5 g/dl (31.0-35.0); Mean Corpuscular Hemoglobin 31.6 pg (27.0-33.0); Mean Corpuscular Volume 91.6 fL (80.0-98.0); Mean Platelet Volume 10.8 fL (9.4-12.3); Monocytes Absolute Auto 0.3 X10*3/uL (0.1-1.2); Monocytes Percent Auto 7.9 % (2-11); Neutrophils Absolute Auto 1.1 x10*3/uL (2.0-8.3); Neutrophils Percent Auto 30.8 % (45-73); Platelet Count 165 X10*3/uL (160-400); Red Blood Count 4.52 X10*6/uL (4.20-5.50); Red Cell Distribution Width 11.9 % (11.0-16.0); White Blood Count 3.7 X10*3/uL (4.8-10.8)
[2024-02-05 09:41] LABS: Alanine Aminotransferase 13 U/L (0-31); Albumin Level 4.2 g/dL (3.5-5.0); Alkaline Phosphatase 65 U/L (39-117); Anion Gap 12 (12-20); Aspartate Amino Transferase 15 U/L (5-31); Bilirubin Total 1.5 mg/dL (0.0-1.0); Blood Urea Nitrogen 11 mg/dL (9-16); Calcium 9.6 mg/dL (8.4-10.2); Carbon Dioxide 26 mmol/L (22-29); Chloride 108 mmol/L (96-108); Cholesterol 146 mg/dL (<200); Estimated Glomerular Filt Rate > 60; Glucose Fasting 89 mg/dL (60-99); HDL Cholesterol 77 mg/dL (>40); LDL Cholesterol Calculated 54 mg/dL (<100); Potassium 4.3 mmol/L (3.3-5.1); Sodium 142 mmol/L (135-145); TSH reflex Free T4 2.89 uIU/mL (0.32-4.0); Total Protein 6.7 g/dL (6.5-8.0); Triglycerides 75 mg/dL (<150); Vitamin D 25-OH Total 59.1 ng/mL (>30)
[2024-02-05 10:38] LABS: Appearance Urine Clear; Color Urine Yellow; Glucose Urine UA Negative (Negative); Leukocyte Esterase Urine Trace (Negative); Nitrite Urine Negative (Negative); UMIC TRIGGER UACC YES; Urine Blood Negative (Negative); Urine Ketones Negative (Negative); Urine Protein Negative (Neg-Trace)
[2024-02-05 11:29] LABS: Bacteria Urine None Seen (None Seen); Hyaline Casts Urine 0-2 /LPF (0-2); RBC Urine 0-2 /HPF (0-2); Squamous Epithelial Cell Urine 0-2 /HPF (0-2); WBC Urine 0-5 /HPF (0-5)
[2024-02-05 12:32] LABS: Estimated Average Glucose 103 mg/dL; Hemoglobin A1c % 5.2 % (<6.0)
== END 2024-02-05 06:50 | disposition home or self-care (01) ==
LOC: HO.LAB 06:49
PROVIDERS: Visit Provider Internal Medicine
DX: D64.9 Anemia, unspecified (principal); R73.01 Impaired fasting glucose; E78.00 Pure hypercholesterolemia, unspecified; E55.9 Vitamin D deficiency, unspecified
CPT/HCPCS: 36415; 80053; 80061; 81001; 81003; 82306; 83036; 84443; 85025

== ENCOUNTER 2024-02-10 15:21 | Outpatient (AMB) | payer MEDICARE, SELFPAY ==
--- NOTE | 2024-02-10 15:24 | MHC.PC.OV ---
Vital Signs 02/10/24 15:26 Height 5 ft 2 in Weight 135 lb 4 oz BMI 24.7 BP 124/60 Blood Pressure Location Lt brachial Position Sitting Pulse 76 Pulse Source Pulse Oximeter Pulse Oximetry (%) 97 Oxygen Delivery Method Room Air Intake Visit Reasons: 3 month f/u Intake Note: Patient is here to follow up on PAF, HTN, Hypercholesterolemia. 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 Accompanied by: Self / Same As Patient Allergies codeine [CODEINE] Allergy (Unknown, Verified 02/10/24 15:54) JITTERY Sulfa (Sulfonamide Antibiotics) [SULFA (SULFONAMIDE ANTIBIOTICS)] Allergy (Unknown, Verified 02/10/24 15:54) RASH,HIVES, rash Medication List - Last Reconciled 02/10/24 by Rudy Buckley MD apixaban (Eliquis) 5 mg PO BID 90 days ascorbate calcium (vitamin C) 500 mg PO DAILY atorvastatin 10 mg PO DAILY calcium carbonate-vitamin D3 600 mg-5 mcg (200 unit) 1 tab PO DAILY 90 days docusate sodium (Colace) 100 mg PO .DAILY WITH FOOD 30 days flaxseed oil 1,000 mg PO DAILY flecainide 100 mg PO Q12H ibuprofen 600 mg PO Q8H PRN 5 days metoprolol succinate ER (Toprol XL) 50 mg PO DAILY omega-3 fatty acids (Fish Oil Concentrate) 1,000 mg PO DAILY tizanidine 4 mg PO Q8H PRN Tobacco use date assessed: 02/10/24 Fall risk assessment: No Falls in past year Last assessed Fall Risk: 02/10/24 Dental Screening Dental Screen Date: 08/14/23 HPI 3 month f/u HPI Details Patient comes in today for her follow up visit States that she feels okay She denies any headaches or dizziness Denies any chest pains, no SOB No nausea/vomiting, no abdominal pain No change in bowel habits noted Needs her Calcium Rx refilled Had her follow up labs done a few days ago - to discuss her results [facility] Medical History At high risk for breast cancer Family history of breast cancer 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 Normally functioning cardiac pacemaker present Overweight (BMI 25.0-29.9) Allergic rhinitis Impaired fasting glucose Benign essential hypertension Sick sinus syndrome Pure hypercholesterolemia PAF (paroxysmal atrial fibrillation) Surgical History H/O colonoscopy History of pacemaker History of tonsillectomy Family History Father Hypertension Diabetes Arthritis Colon cancer Iron deficiency Mother Hypertension Maternal Grandmother Arthritis Diabetes Blockage of coronary artery of heart Maternal Grandfather Arthritis Paternal Grandfather Arthritis Pancreatic cancer Social History Housing: House Alcohol intake: former Patient Tobacco Use Status: Former Tobacco user e-Cigarette/Vaping Use: Never Used Second Hand Smoke Exposure: Yes service: No Current occupational status: disabled Cognitive needs: No Hearing needs: Yes (Hearing aide) Vision needs: Yes (wear glasses) Questionnaire Thrive Questionnaire Date Thrive assessed: 08/14/23 AISHA-7 AMB Questionnaire AISHA-7 Date AISHA - 7 assessed: 08/14/23 Source: Developed by Drs. Fan Valerio, Anuradha Corado, Zan Vogt and colleagues, with an educational cceil from [email or web address]. Review of Systems Const Denies chills, Denies fatigue, Denies fever(s) and Denies headache(s) ENT Denies dysphagia, Denies dizziness, Denies otalgia, Denies headache(s), Denies neck pain, Denies odynophagia and Denies sore throat Card Denies chest pain, Denies palpitations and Denies dyspnea Resp Denies cough, Denies dyspnea and Denies wheezing GI Denies abdominal pain, Denies hematochezia, Denies constipation, Denies dysphagia, Denies heartburn, Denies diarrhea, Denies nausea, Denies odynophagia and Denies vomiting Denies difficulty voiding, Denies nocturia, Denies dysuria and Denies urinary urgency Musc Denies back pain and Denies neck pain Skin/Breast Denies rash Neuro Denies dizziness and Denies headache(s) Endo Denies fatigue and Denies palpitations Aller/Immun Denies wheezing Physical exam (Primary Care) Vital Signs: Last Vital Signs Pulse 76 02/10/24 15:26 BP 124/60 02/10/24 15:26 Pulse Ox 97 02/10/24 15:26 Oxygen Delivery Method Room Air 02/10/24 15:26 BMI result Body Mass Index 24.7 Tobacco/Smoking Status: Tobacco use Status Tobacco use date assessed 02/10/24 02/10/24 15:30 Patient Tobacco Use Status Former Tobacco user 02/10/24 15:30 e-Cigarette/Vaping Use Never Used 02/10/24 15:30 Thrive Assessment: Date of Thrive Assessment Date Thrive assessed 08/14/23 02/10/24 15:30 Const General: no acute distress and alert HENMT Ears: TM's normal bilaterally and EAC's normal Throat: Yes posterior oropharynx normal and Yes tonsils normal Neck Neck: Yes no lymphadenopathy and Yes supple Thyroid: Thyroid normal Resp Auscultation: clear to auscultation bilaterally, no rales and no wheezes Cardio Rate: regular rate Rhythm: regular rhythm Heart sounds: no murmurs GI Palpation (GI): Soft to palpation and nontender Auscultation: normal bowel sounds General: Yes no CVA tenderness Back/Spine/Pelvis Back: no CVA tenderness Thoracic/Lumbar Spine: No lumbar spinal tenderness Skin Rashes: no rashes Extrem General: Yes no clubbing, cyanosis or edema Results Reviewed Results Reviewed: Laboratory Tests 02/05/24 02/05/24 07:03 07:16 WBC 3.7 L Hgb 14.3 Hct 41.4 MCHC 34.5 Sodium 142 Potassium 4.3 Creatinine 0.70 Estimated GFR > 60 Fasting Glucose 89 Hemoglobin A1c % 5.2 Calcium 9.6 AST 15 ALT 13 Triglycerides 75 Cholesterol 146 LDL Cholesterol, Calc 54 HDL Cholesterol 77 25-OH Vitamin D Total 59.1 TSH 2.89 Ur Specific [place] 1.010 Urine Protein Negative Urine Glucose (UA) Negative Urine Blood Negative Urine Nitrite Negative Ur Leukocyte Esterase Trace H Assessment and Plan Assessment & Plan (1) PAF (paroxysmal atrial fibrillation): Code(s): I48.0 - Paroxysmal atrial fibrillation Plan: Patient currently remains in sinus rhythm Continue Metoprolol ER 50 mg QD and and Fleicanide 50 mg 2 tablets every 12 hours Continue Eliquis 5 mg BID for thromboembolism prophylaxis She was advised of option of ablation if she continues to experience frequent bursts of AF - patient asked to hold off but is aware to call cardiology if her symptoms increase or progress Follow up with cardiology as scheduled (2) Sick sinus syndrome: Code(s): I49.5 - Sick sinus syndrome Plan: Improved/resolved with pacemaker insertion (3) Pure hypercholesterolemia: Code(s): E78.00 - Pure hypercholesterolemia, unspecified Plan: Results of her labs done a few days reviewed and discussed with patient Reinforced low cholesterol diet Continue Atorvastatin 10 mg QD and Fish Oil 1000 mg TID Will recheck her labs and fasting lipids in 4 months for follow up (4) Benign essential hypertension: Code(s): I10 - Essential (primary) hypertension Plan: Is on Metoprolol ER 50 mg QD Reinforced low sodium diet - goal is systolic BP of at least 130 mm or less (5) Impaired fasting glucose: Code(s): R73.01 - Impaired fasting glucose Plan: HgbA1c was again normal at 5.2% on her labs done a few days ago; was also at 5.2% previously Reinforced low calorie diet/exercise as tolerated (6) Allergic rhinitis: Code(s): J30.9 - Allergic rhinitis, unspecified Qualifiers: Allergic rhinitis trigger: unspecified Allergic rhinitis seasonality: unspecified Qualified Code(s): J30.9 - Allergic rhinitis, unspecified Plan: Continue Fluticasone nasal spray 50 mcg 1 spray into each nostril QD (7) Osteoarthritis of hand, left: Code(s): M19.042 - Primary osteoarthritis, left hand Qualifiers: Osteoarthritis type: primary Qualified Code(s): M19.042 - Primary osteoarthritis, left hand Plan: X-rays of the left hand done last year revealed (+) OA changes in the left hand She is again instructed to continue with hand exercises that she can do regularly to help manage her hand pain / symptoms Plan Follow up in 4 months Orders: Orders Hemoglobin A1c 4 Months R73.01 - Impaired fasting glucose Lipid Panel 4 Months E78.00 - Pure hypercholesterolemia, unspecified Complete Blood Count Auto Diff 4 Months D64.9 - Anemia, unspecified Comprehensive [place]. Panel Fast 4 Months E78.00 - Pure hypercholesterolemia, unspecified TSH reflex Free T4 4 Months E78.00 - Pure hypercholesterolemia, unspecified UA CC w/rflx Micro + Cult 4 Months R30.0 - Dysuria Vitamin D 25-OH Total 4 Months E55.9 - Vitamin D deficiency, unspecified Medications: Refilled calcium carbonate-vitamin D3 600 mg-5 mcg (200 unit) 1 tab PO DAILY 90 days 90 tabs 3RF Coding Level of Care Code Est Pt Level 4 (40730) Complex EM visit Add On G2211 Diagnoses PAF (paroxysmal atrial fibrillation) I48.0 Sick sinus syndrome I49.5 Pure hypercholesterolemia E78.00 Benign essential hypertension I10 Impaired fasting glucose R73.01 Allergic rhinitis, unspecified seasonality, unspecified trigger J30.9 Allergic rhinitis trigger: unspecified Allergic rhinitis seasonality: unspecified Primary osteoarthritis of left hand M19.042 Osteoarthritis type: primary
[2024-02-10 15:26] VITALS: BP 124/60; PULSE 76; O2SAT 97; BMI 24.7
== END 2024-02-10 16:08 | disposition home or self-care (01) ==
PROVIDERS: PCP Internal Medicine; Visit Provider Internal Medicine
DX: I48.0 Paroxysmal atrial fibrillation (principal); I49.5 Sick sinus syndrome; E78.00 Pure hypercholesterolemia, unspecified; I10 Essential (primary) hypertension; R73.01 Impaired fasting glucose; J30.9 Allergic rhinitis, unspecified; M19.042 Primary osteoarthritis, left hand
CPT/HCPCS: 99214; G2211

== ENCOUNTER 2024-02-12 15:11 | Outpatient (AMB) | payer MEDICARE, SELFPAY ==
--- NOTE | 2024-02-12 15:17 | A.OFFVIS_ITS ---
Vital Signs 02/12/24 15:19 Height 5 ft 2 in Weight 134 lb 7.712 oz BMI 24.6 BP 116/62 Intake Visit Reasons: New patient Annual/DO NOT RS Intake Note: no concerns Glue Mixer Required: No Information Interpreted: non-clinical & clinical Equipment Services Associate: Equipment Services Associate Present (Kate BEE) Accompanied by: Self / Same As Patient Allergies codeine [CODEINE] Allergy (Unknown, Verified 02/12/24 15:22) JITTERY Sulfa (Sulfonamide Antibiotics) [SULFA (SULFONAMIDE ANTIBIOTICS)] Allergy (Unknown, Verified 02/12/24 15:22) RASH,HIVES, rash Post menopausal: Yes HPI Comments Details: Presenting for annual exam. No complaints. 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 Normally functioning cardiac pacemaker present Overweight (BMI 25.0-29.9) Allergic rhinitis Impaired fasting glucose Benign essential hypertension Sick sinus syndrome Pure hypercholesterolemia PAF (paroxysmal atrial fibrillation) Surgical History H/O colonoscopy History of pacemaker History of tonsillectomy Family History Father Hypertension Diabetes Arthritis Colon cancer Iron deficiency Mother Hypertension Maternal Grandmother Arthritis Diabetes Blockage of coronary artery of heart Maternal Grandfather Arthritis Paternal Grandfather Arthritis Pancreatic cancer Social History Housing: House Alcohol intake: former Patient Tobacco Use Status: Former Tobacco user e-Cigarette/Vaping Use: Never Used Second Hand Smoke Exposure: Yes service: No Current occupational status: disabled Cognitive needs: No Hearing needs: Yes (Hearing aide) Vision needs: Yes (wear glasses) Female Reproductive History Menstrual Menopause type: natural Total pregnancies: 2 Full term: 2 Number of Living Children: 2 Date of last pap smear: 12/28/20 Date of Mammogram: 09/17/23 Review of Systems Const All systems reviewed & are unremarkable except as noted in HPI and below Card Reports as per HPI Resp Reports as per HPI GI Reports as per HPI and Reports no additional complaints Reports as per HPI Physical Exam Vital Signs: BMI result Body Mass Index 24.6 Const General: cooperative, healthy appearing and comfortable Chest Chest palpation & inspection: normal inspection of the chest and normal palpation of entire chest wall Breast/axilla inspection: normal inspection of the breasts and normal inspection of the axillae Breast/axilla palpation: normal palpation of the breasts, normal palpation of the axillae and no axillary lymphadenopathy Resp Effort & Inspection: normal respiratory effort Auscultation: clear to auscultation bilaterally Percussion: percussion normal Cardio Palpation: normal PMI Rate: regular rate Rhythm: regular rhythm Heart sounds: no murmurs and no rubs Peripheral pulses: Peripheral pulses 2+ throughout GI Inspection: Yes normal to inspection Palpation (GI): Soft to palpation, nontender, no guarding, not rigid and No hepatosplenomegaly present Percussion: Yes normal to percussion Auscultation: normal bowel sounds Rectal Exam - Female: deferred General: Yes bladder normal to palpation External Female Exam: No lesion Speculum Exam - Vagina: normal appearance of the vagina, normal palpation, normal vaginal discharge and not erythematous Speculum Exam - Cervix: normal appearance of the cervix and normal palpation Bimanual exam- vagina & uterus: normal bimanual exam, normal palpation, uterine size normal, bladder normal to palpation, consistency normal and normal palpation Bimanual Exam- Adnexa, other: normal adnexae, no masses and no tenderness Assessment & Plan Assessment & Plan (1) Well woman exam: Code(s): Z01.419 - Encounter for gynecological examination (general) (routine) without abnormal findings Category: Medical Plan: Co testing not indicated this year. Counseled the patient about the recommended dietary allowance of 1200 mg of Calcium & 600 IU of vitamin D. Instructions given the patient to schedule next screening Mammogram in 09/15. The patient was instructed to perform monthly self-breast exams and schedule annual exam in a year. All questions answered and the patient verbalized understanding. Coding Level of Care Code New Pt Prev Care 40-64y(68400) Diagnoses Well woman exam Z01.419
[2024-02-12 15:19] VITALS: BP 116/62; BMI 24.6
== END 2024-02-12 16:19 | disposition home or self-care (01) ==
PROVIDERS: PCP Internal Medicine; Visit Provider Obstetrics & Gynecology
DX: Z01.419 Encounter for gynecological examination (general) (routine) without abnormal findings (principal)
CPT/HCPCS: 99386

== ENCOUNTER → 2024-02-12 15:11 | Outpatient (BNVA) | payer MEDICARE, SELFPAY | PROVIDERS: PCP Internal Medicine; Visit Provider Obstetrics & Gynecology ==

== ENCOUNTER 2024-03-02 12:28 | Outpatient (AMB) | payer MEDICARE, MEDICAID, SELFPAY ==
[2024-03-02 12:30] VITALS: BP 114/68; PULSE 71; BMI 24.9
--- NOTE | 2024-03-02 12:30 | MHC.OFFVIS ---
Vital Signs 03/02/24 12:30 Height 5 ft 2 in Weight 136 lb BMI 24.9 BP 114/68 Blood Pressure Location Lt brachial Position Sitting Pulse 71 Intake Visit Reasons: 4 mth f/up w/ med ck Quilter Fixer Required: No Accompanied by: Self / Same As Patient Allergies codeine [CODEINE] Allergy (Unknown, Verified 02/12/24 15:22) JITTERY Sulfa (Sulfonamide Antibiotics) [SULFA (SULFONAMIDE ANTIBIOTICS)] Allergy (Unknown, Verified 02/12/24 15:22) RASH,HIVES, rash Medication List - Last Reconciled 03/02/24 by Paul Westbrook MD apixaban (Eliquis) 5 mg PO BID 90 days ascorbate calcium (vitamin C) 500 mg PO DAILY atorvastatin 10 mg PO DAILY calcium carbonate-vitamin D3 600 mg-5 mcg (200 unit) 1 tab PO DAILY 90 days docusate sodium (Colace) 100 mg PO .DAILY WITH FOOD 30 days flaxseed oil 1,000 mg PO DAILY flecainide 100 mg PO Q12H ibuprofen 600 mg PO Q8H PRN 5 days metoprolol succinate ER (Toprol XL) 50 mg PO DAILY omega-3 fatty acids (Fish Oil Concentrate) 1,000 mg PO DAILY tizanidine 4 mg PO Q8H PRN HPI Comments Details: Farhana returns for follow-up regarding paroxysmal atrial fibrillation and sick sinus syndrome. Occasionally, she gets some palpitations but otherwise, she is doing okay. No angina or shortness of breath or anything along those lines. [facility] Medical History At high risk for breast cancer Family history of breast cancer Current use of detention anticoagulation Normally functioning cardiac pacemaker present Overweight (BMI 25.0-29.9) Allergic rhinitis Impaired fasting glucose Benign essential hypertension Sick sinus syndrome Pure hypercholesterolemia PAF (paroxysmal atrial fibrillation) Surgical History H/O colonoscopy History of pacemaker History of tonsillectomy Family History Father Hypertension Diabetes Arthritis Colon cancer Iron deficiency Mother Hypertension Maternal Grandmother Arthritis Diabetes Blockage of coronary artery of heart Maternal Grandfather Arthritis Paternal Grandfather Arthritis Pancreatic cancer Social History Housing: House Alcohol intake: former Patient Tobacco Use Status: Former Tobacco user e-Cigarette/Vaping Use: Never Used Second Hand Smoke Exposure: Yes service: No Current occupational status: disabled Cognitive needs: No Hearing needs: Yes (Hearing aide) Vision needs: Yes (wear glasses) Review of Systems Const Denies chills, Denies fatigue, Denies fever(s), Denies weight gain and Denies weight loss ENT Denies dizziness Card Denies chest pain, Denies leg edema, Denies lightheadedness, Denies palpitations, Denies dyspnea on exertion, Denies orthopnea and Denies other Resp Denies cough and Denies dyspnea on exertion GI Denies hematochezia and Denies change in stool character Musc Denies abnormal gait, Denies muscle weakness, Denies numbness, Denies radiating pain into limb and Denies tingling Neuro Denies abnormal gait, Denies dizziness, Denies numbness and Denies tingling Endo Denies fatigue and Denies palpitations Physical Exam Vital Signs: Last Vital Signs Pulse 71 03/02/24 12:30 BP 114/68 03/02/24 12:30 BMI result Body Mass Index 24.9 Const General: comfortable and no acute distress Orientation/consciousness: patient oriented x3 HEENT Other: Unremarkable Head: Yes normal to inspection Neck Neck: Yes normal visual inspection Chest Chest palpation & inspection: normal inspection of the chest Resp Auscultation: clear to auscultation bilaterally Cardio Palpation: normal PMI Heart sounds: S1 normal heart sound present, S2 normal heart sound present, no gallops, no murmurs and no rubs GI Palpation (GI): Soft to palpation Back/Spine/Pelvis Other: unremarkable Skin General skin exam: no rashes or lesions noted Neuro General: patient oriented x3 Extrem General: Yes normal to inspection Psych Mental Status: mental status grossly normal Office Procedures Cardiac Device Check Cardiac Device Check Details: Pacemaker interrogated today. Dual-chamber device, programmed in AAIR-DDDR mode. Battery status 2.5 years. Normal lead parameters. Atrial pacing almost 99%. Minimal ventricular pacing. There are numerous episodes of atrial fibrillation but they are quite brief. Ventricular rates are slightly rapid during those times. Overall burden is 1.7%. [id number] Cardiac Device Check, pacemaker dual lead Procedure code (CPT) selection complete EKG Details: EKG with atrial paced rhythm at 71/Min; MN interval slightly prolonged at 234 millisecond; [place]. [id number], Complete Assessment & Plan Assessment & Plan (1) PAF (paroxysmal atrial fibrillation): Code(s): I48.0 - Paroxysmal atrial fibrillation Category: Medical Plan: She is reasonably stable on flecainide and metoprolol but she still has brief episodes of atrial fibrillation with rapid rate. We discussed about referral to EP and she is willing. Can be assess for atrial fibrillation ablation. Otherwise, continue anticoagulation (2) Encounter for monitoring anti-arrhythmic therapy: Code(s): Z51.81 - Encounter for therapeutic drug level monitoring; Z79.899 - Other detention (current) drug therapy Category: Medical Plan: On flecainide. Myocardial perfusion imaging study from 2019 shows likely normal perfusion. Last echocardiogram from 2022 with LVEF of 55-60% and no significant valvular issues. She does not have any symptoms of coronary disease or cardiomyopathy. (3) Sick sinus syndrome: Code(s): I49.5 - Sick sinus syndrome Category: Medical Plan: Status post pacemaker. Orders: Referrals Cardiac Electrophysiology Referral I48.0 - Paroxysmal atrial fibrillation Coding Level of Care Code Est Pt Level 4 (38801) Diagnoses PAF (paroxysmal atrial fibrillation) I48.0 Encounter for monitoring anti-arrhythmic therapy Z51.81; Z79.899 Sick sinus syndrome I49.5 CPT Codes Cardiac Device Check - Cardiac Device 2: [id number]-[id number] Cardiac Device Check, pacemaker dual lead ([id number]) EKG - CPT: 47390-[id number], Complete ([id number])
== END 2024-03-02 13:12 | disposition home or self-care (01) ==
PROVIDERS: PCP Internal Medicine; Visit Provider Internal Medicine
DX: I48.0 Paroxysmal atrial fibrillation (principal); Z51.81 Encounter for therapeutic drug level monitoring; Z79.899 Other long term (current) drug therapy; I49.5 Sick sinus syndrome; Z95.0 Presence of cardiac pacemaker
CPT/HCPCS: 93280; 99214

== ENCOUNTER → 2024-03-02 12:28 | Outpatient (BNVA) | payer MEDICARE, MEDICAID, SELFPAY | PROVIDERS: PCP Internal Medicine; Visit Provider Internal Medicine | DX: I48.0 Paroxysmal atrial fibrillation (principal); I49.5 Sick sinus syndrome; Z45.018 Encounter for adjustment and management of other part of cardiac pacemaker; Z79.01 Long term (current) use of anticoagulants; Z51.81 Encounter for therapeutic drug level monitoring | CPT/HCPCS: 93280; 99212 ==

== ENCOUNTER 2024-04-09 10:39 | Outpatient (AMB) | payer MEDICARE, MEDICAID, SELFPAY ==
--- NOTE | 2024-04-09 10:43 | MHC.OFFVIS ---
Vital Signs 04/09/24 10:47 Height 5 ft 2 in Weight 138 lb 8 oz BMI 25.3 Intake Visit Reasons: 6 month breast exam Intake Note: This patient presents for six month breast examination. Pt c/o; reports on 04/08/2024 she had one episode of LLQ sharp pain, reports this morning she ate fruit and felt queasy. 09/17/2023:MM Screening [employer]door [employer] Guides Required: No Accompanied by: Self / Same As Patient Allergies codeine [CODEINE] Allergy (Unknown, Verified 04/09/24 10:48) JITTERY Sulfa (Sulfonamide Antibiotics) [SULFA (SULFONAMIDE ANTIBIOTICS)] Allergy (Unknown, Verified 04/09/24 10:48) RASH,HIVES, rash Medication List - Last Reconciled 04/09/24 by Benedict Kerns MD apixaban (Eliquis) 5 mg PO BID 90 days ascorbate calcium (vitamin C) 500 mg PO DAILY atorvastatin 10 mg PO DAILY calcium carbonate-vitamin D3 600 mg-5 mcg (200 unit) 1 tab PO DAILY 90 days docusate sodium (Colace) 100 mg PO .DAILY WITH FOOD 30 days flaxseed oil 1,000 mg PO DAILY flecainide 100 mg PO Q12H ibuprofen 600 mg PO Q8H PRN 5 days metoprolol succinate ER (Toprol XL) 50 mg PO DAILY omega-3 fatty acids (Fish Oil Concentrate) 1,000 mg PO DAILY tizanidine 4 mg PO Q8H PRN HPI HPI 6 month breast exam: Details: She is here for a follow-up breast exam. She is considered at high risk for breast cancer in view of a strong family history of breast. Her sister was diagnosed to have breast cancer in her 50s. Her father was diagnosed to have colon cancer in his 60s. She otherwise denies any palpable breast masses or any nipple or skin changes. She feels well overall. Her last mammogram on record was in August,. This was unremarkable. She says she is doing well. 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 Normally functioning cardiac pacemaker present Overweight (BMI 25.0-29.9) Allergic rhinitis Impaired fasting glucose Benign essential hypertension Sick sinus syndrome Pure hypercholesterolemia PAF (paroxysmal atrial fibrillation) Surgical History H/O colonoscopy History of pacemaker History of tonsillectomy Family History Father Hypertension Diabetes Arthritis Colon cancer Iron deficiency Mother Hypertension Maternal Grandmother Arthritis Diabetes Blockage of coronary artery of heart Maternal Grandfather Arthritis Paternal Grandfather Arthritis Pancreatic cancer Social History Housing: House Alcohol intake: former Patient Tobacco Use Status: Former Tobacco user e-Cigarette/Vaping Use: Never Used Second Hand Smoke Exposure: Yes service: No Current occupational status: disabled Cognitive needs: No Hearing needs: Yes (Hearing aide) Vision needs: Yes (wear glasses) Review of Systems Const Denies chills and Denies fever(s) Card Denies chest pain, Denies dyspnea and Denies dyspnea on exertion Resp Denies cough, Denies dyspnea and Denies dyspnea on exertion GI Denies hematochezia and Denies change in bowel habits Denies hematuria Musc Denies back pain and Denies limited range of motion Neuro Denies focal weakness and Denies convulsions Psych Denies depression and Denies mood swings Physical Exam Vital Signs: BMI result Body Mass Index 25.3 Const General: comfortable and no acute distress Orientation/consciousness: patient oriented x3 Neck Neck: Yes no lymphadenopathy Chest Other: No palpable breast masses, no nipple or skin changes, no axillary lymphadenopathy Resp Auscultation: clear to auscultation bilaterally Cardio Rhythm: regular rhythm GI Palpation (GI): Soft to palpation, nontender and no guarding Neuro General: patient oriented x3 Assessment & Plan Assessment & Plan (1) At high risk for breast cancer: Code(s): Z91.89 - Other specified personal risk factors, not elsewhere classified Category: Medical Plan: She continues to do well. Current exam does not reveal any palpable breast mass or axillary lymphadenopathy. Her mammogram from August, was unremarkable I reminded her to continue with a regular screening mammograms She is also due for a colonoscopy next year in view of her family history of colon cancer. Coding Level of Care Code Est Pt Level 3 (26497) Diagnoses At high risk for breast cancer Z91.89
[2024-04-09 10:47] VITALS: BMI 25.3
== END 2024-04-09 11:02 | disposition home or self-care (01) ==
PROVIDERS: PCP Internal Medicine; Visit Provider Surgery
DX: Z91.89 Other specified personal risk factors, not elsewhere classified (principal)
CPT/HCPCS: 99213

== ENCOUNTER → 2024-04-09 10:39 | Outpatient (BNVA) | payer MEDICARE, MEDICAID, SELFPAY | PROVIDERS: PCP Internal Medicine; Visit Provider Surgery | DX: Z91.89 Other specified personal risk factors, not elsewhere classified (principal) | CPT/HCPCS: 99212 ==

== ENCOUNTER → 2024-06-02 23:59 | Outpatient (BNV) | payer MEDICARE, MEDICAID, SELFPAY ==
--- NOTE | 2024-06-09 13:27 | MHC.OFFVIS ---
Intake Visit Reasons: Remote device check- [employer] Allergies codeine [CODEINE] Allergy (Unknown, Verified 04/09/24 10:48) JITTERY Sulfa (Sulfonamide Antibiotics) [SULFA (SULFONAMIDE ANTIBIOTICS)] Allergy (Unknown, Verified 04/09/24 10:48) RASH,HIVES, rash PFSH Medical History At high risk for breast cancer Family history of breast cancer Current use of fci anticoagulation Normally functioning cardiac pacemaker present Overweight (BMI 25.0-29.9) Allergic rhinitis Impaired fasting glucose Benign essential hypertension Sick sinus syndrome Pure hypercholesterolemia PAF (paroxysmal atrial fibrillation) Surgical History H/O colonoscopy History of pacemaker History of tonsillectomy Family History Father Hypertension Diabetes Arthritis Colon cancer Iron deficiency Mother Hypertension Maternal Grandmother Arthritis Diabetes Blockage of coronary artery of heart Maternal Grandfather Arthritis Paternal Grandfather Arthritis Pancreatic cancer Social History Housing: House Alcohol intake: former Patient Tobacco Use Status: Former Tobacco user e-Cigarette/Vaping Use: Never Used Second Hand Smoke Exposure: Yes service: No Current occupational status: disabled Cognitive needs: No Hearing needs: Yes (Hearing aide) Vision needs: Yes (wear glasses) Office Procedures Cardiac Device Check Cardiac Device Check Details: Date of service- 06/02/2024 ; Battery life 3 years; normal lead parameters; AP 98%; PEDIATRIC RADIOLOGIST 0.7%; time in AT/AF 3.5%. Overall normal device function. [id number] Cardiac Device Interrogation, pacemaker Procedure code (CPT) selection complete Assessment & Plan Assessment & Plan (1) Pacemaker: Code(s): Z95.0 - Presence of cardiac pacemaker Category: Medical (2) PAF (paroxysmal atrial fibrillation): Code(s): I48.0 - Paroxysmal atrial fibrillation Category: Medical Plan x Coding Level of Care Code Procedure Only Diagnoses Pacemaker Z95.0 PAF (paroxysmal atrial fibrillation) I48.0 CPT Codes Cardiac Device Check - Cardiac Device 12: [id number] Cardiac Device Interrogation, pacemaker ([id number])
== END ==
PROVIDERS: PCP Internal Medicine; Visit Provider Internal Medicine
DX: I48.0 Paroxysmal atrial fibrillation (principal); Z95.0 Presence of cardiac pacemaker
CPT/HCPCS: 93294

== ENCOUNTER 2024-06-09 07:52 | Outpatient (REF) | payer MEDICARE, MEDICAID, SELFPAY ==
[2024-06-09 08:23] LABS: MANUAL DIFF FLAG NO
[2024-06-09 08:41] LABS: Appearance Urine Clear; Color Urine Yellow; Glucose Urine UA Negative (Negative); Leukocyte Esterase Urine Small (1+) (Negative); Nitrite Urine Negative (Negative); PH 6.5 (5.0-9.0); Specific Gravity - Urine 1.015 (1.005-1.025); UMIC TRIGGER UACC YES; Urine Blood Negative (Negative); Urine Ketones Negative (Negative); Urine Protein Negative (Neg-Trace)
[2024-06-09 08:52] LABS: Bacteria Urine None Seen (None Seen); Hyaline Casts Urine 0-2 /LPF (0-2); RBC Urine 0-2 /HPF (0-2); Squamous Epithelial Cell Urine 0-2 /HPF (0-2); UACC Culture Trigger YES; WBC Urine 0-5 /HPF (0-5)
[2024-06-09 08:53] LABS: Estimated Average Glucose 108 mg/dL; Hemoglobin A1C 128.9051 umol/L; Hemoglobin A1c % 5.4 % (<6.0); Total Hemoglobin (HGBA1C) 3676.7053 umol/L
[2024-06-09 09:04] LABS: Basophils Absolute Auto 0.1 X10*3/uL (0.0-0.2); Basophils Percent Auto 1.8 % (0-2); Eosinophils Absolute Auto 0.1 X10*3/uL (0.0-0.4); Eosinophils Percent Auto 2.4 % (0-4); Hematocrit 40.5 % (37.0-47.0); Lymphocytes Absolute Auto 1.6 X10*3/uL (1.2-4.9); Lymphocytes Percent Auto 47.4 % (20-40); Mean Corpuscular HGB Conc 34.6 g/dl (31.0-35.0); Mean Corpuscular Hemoglobin 31.5 pg (27.0-33.0); Mean Platelet Volume 10.2 fL (9.4-12.3); Monocytes Absolute Auto 0.3 X10*3/uL (0.1-1.2); Monocytes Percent Auto 7.6 % (2-11); Neutrophils Absolute Auto 1.3 x10*3/uL (2.0-8.3); Neutrophils Percent Auto 40.8 % (45-73); Platelet Count 184 X10*3/uL (160-400); Red Blood Count 4.45 X10*6/uL (4.20-5.50); Red Cell Distribution Width 11.9 % (11.0-16.0); White Blood Count 3.3 X10*3/uL (4.8-10.8)
[2024-06-09 09:15] LABS: Alanine Aminotransferase 15 U/L (0-31); Alkaline Phosphatase 76 U/L (39-117); Anion Gap 8 (12-20); Aspartate Amino Transferase 16 U/L (5-31); Bilirubin Total 0.9 mg/dL (0.0-1.0); Blood Urea Nitrogen 11 mg/dL (9-16); Calcium 9.4 mg/dL (8.4-10.2); Carbon Dioxide 26 mmol/L (22-29); Chloride 110 mmol/L (96-108); Cholesterol 143 mg/dL (<200); Estimated Glomerular Filt Rate > 60; Glucose Fasting 106 mg/dL (60-99); HDL Cholesterol 71 mg/dL (>40); LDL Cholesterol Calculated 61 mg/dL (<100); Potassium 3.9 mmol/L (3.3-5.1); Sodium 140 mmol/L (135-145); Total Protein 6.4 g/dL (6.5-8.0); Triglycerides 57 mg/dL (<150)
[2024-06-09 09:35] LABS: TSH reflex Free T4 2.82 uIU/mL (0.32-4.0); Vitamin D 25-OH Total 54.5 ng/mL (>30)
== END 2024-06-09 07:53 | disposition home or self-care (01) ==
LOC: HO.LAB 07:52
PROVIDERS: PCP Internal Medicine; Visit Provider Internal Medicine
DX: D64.9 Anemia, unspecified (principal); E78.00 Pure hypercholesterolemia, unspecified; R73.01 Impaired fasting glucose; E55.9 Vitamin D deficiency, unspecified; R30.0 Dysuria
CPT/HCPCS: 36415; 80053; 80061; 81001; 82306; 83036; 84443; 85025; 87086

== ENCOUNTER 2024-06-15 15:53 | Outpatient (AMB) | payer MEDICARE, SELFPAY ==
--- NOTE | 2024-06-15 16:13 | A.OFFPC_ITS ---
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 Accompanied by: Self / Same As Patient Allergies codeine [CODEINE] Allergy (Unknown, Verified 06/15/24 16:41) JITTERY Sulfa (Sulfonamide Antibiotics) [SULFA (SULFONAMIDE ANTIBIOTICS)] Allergy (Unknown, Verified 06/15/24 16:41) RASH,HIVES, rash Medication List - Last Reconciled 06/15/24 by Rudy Buckley MD apixaban (Eliquis) 5 mg PO BID ascorbate calcium (vitamin C) 500 mg PO DAILY atorvastatin 10 mg PO DAILY calcium carbonate-vitamin D3 600 mg-5 mcg (200 unit) 1 tab PO DAILY 90 days docusate sodium (Colace) 100 mg PO .DAILY WITH FOOD 30 days flaxseed oil 1,000 mg PO DAILY flecainide 100 mg PO Q12H ibuprofen 600 mg PO Q8H PRN 5 days metoprolol succinate ER (Toprol XL) 50 mg PO DAILY omega-3 fatty acids (Fish Oil Concentrate) 1,000 mg PO DAILY tizanidine 4 mg PO Q8H PRN Tobacco use date assessed: 06/15/24 Fall risk assessment: No Falls in past year Last assessed Fall Risk: 06/15/24 Dental Screening Dental Screen Date: 06/15/24 Did you have a dental visit in the last 12 months?: No Did you have a dental problem in the last 6 months where you did not have access to dental care?: No Was dental information given to patient?: No HPI PAF, hyperlipidemia, HTN, IFG HPI Details Patient comes in today for her follow up visit States that she feels okay She is currently scheduled for cardiac ablation at [facility] next week on 06/22/2024, as she continues to have brief episodes of atrial fibrillation with rapid rate seen on remote cardiac monitoring and was therefore recommended by cardiology to consult with EP and consider ablative therapy Patient states that she feels okay otherwise She has been advised to skip her dose of Eliquis on the morning of her ablation next week and is also inquiring if she can skip her vitamins and supplements the morning of her procedure She denies any headaches or dizziness Denies any chest pains, no increased SOB No nausea/vomiting, no abdominal pain No change in bowel habits noted She had her follow up labs done last week - to discuss her results [facility] Medical History At high risk for breast cancer Family history of breast cancer 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 Normally functioning cardiac pacemaker present Overweight (BMI 25.0-29.9) Allergic rhinitis Impaired fasting glucose Benign essential hypertension Sick sinus syndrome Pure hypercholesterolemia PAF (paroxysmal atrial fibrillation) Surgical History H/O colonoscopy History of pacemaker History of tonsillectomy Family History Father Hypertension Diabetes Arthritis Colon cancer Iron deficiency Mother Hypertension Maternal Grandmother Arthritis Diabetes Blockage of coronary artery of heart Maternal Grandfather Arthritis Paternal Grandfather Arthritis Pancreatic cancer Social History Housing: House Alcohol intake: former Patient Tobacco Use Status: Former Tobacco user e-Cigarette/Vaping Use: Never Used Second Hand Smoke Exposure: Yes service: No Current occupational status: disabled Cognitive needs: No Hearing needs: Yes (Hearing aide) Vision needs: Yes (wear glasses) Questionnaire PHQ-9 Over the last 2 weeks, how often have you been bothered by any of the following problems? 1. Little interest or pleasure in doing things: not at all 2. Feeling down, depressed, or hopeless: not at all 3. Trouble falling or staying asleep, or sleeping too much: not at all 4. Feeling tired or having little energy: not at all 5. Poor appetite or overeating: not at all 6. Feeling bad about yourself - or that you are a failure or have let yourself or your family down: not at all 7. Trouble concentrating on things, such as reading the newspaper or watching television: not at all 8. Moving or speaking so slowly that other people could have noticed. Or the opposite - being so fidgety or restless that you have been moving around a lot more than usual: not at all 9. Thoughts that you would be better off or of hurting yourself in some way: not at all Total score: 0 Depression Screening Interpretation: Negative Depression Screening Done: Yes 75264 - PHQ-9 Billing: Yes Source: Developed by Drs. Fan Valerio, Anuradha Corado, Zan Vogt and colleagues, with an educational cecil from [employer]. Thrive Questionnaire Date Thrive assessed: 06/15/24 I am a: Patient What is your living situation today?: I have a steady place to live Within the past 12 months, did the food you bought not last and you didn't have the money to get more?: Never true Within the past 12 months, did you worry whether your food would run out before you got money to buy more?: Never true Do you have trouble paying for medicines?: No Do you have trouble getting transportation to medical appointments?: No Do you have trouble paying your heating and electricity bill?: No Do you have trouble taking care of your child, family member or friend?: No Do you have trouble with day-to-day activities such as bathing, preparing meals, shopping, managing finances, etc.?: No Are you currently unemployed and looking for a job?: No Are you interested in more education?: No Please select the resources that you would like help with: None Currently or been in a relationship where the following occur: No concerns reported THRIVE Score: 0 AUDIT C Alcohol Use Questionnaire (AUDIT-C) 2. How many drinks containing alcohol do you have on a typical day when you are drinking?: 1 or 2 Total Score: 0 Score Reviewed/Action Taken: Yes AISHA-7 AMB Questionnaire AISHA-7 Date AISHA - 7 assessed: 06/15/24 Feeling nervous, anxious, or on edge: 0 = Not at all Not being able to stop or control worryin = Not at all Worrying too much about different things: 0 = Not at all Trouble relaxin = Not at all Being so restless that it is hard to sit still: 0 = Not at all Becoming easily annoyed or irritable: 0 = Not at all Feeling afraid as if something awful might happen: 0 = Not at all Total AISHA-7 score (0-4 normal; 5-9 mild; 10-14 moderate; 15-21 severe): 0 Source: Developed by Drs. Fan Valerio, Anuradha Corado, Zan Vogt and colleagues, with an educational cecil from [employer]. Review of Systems Const Denies chills, Denies fatigue, Denies fever(s) and Denies headache(s) ENT Denies dysphagia, Denies dizziness, Denies otalgia, Denies headache(s), Denies neck pain, Denies odynophagia and Denies sore throat Card Denies chest pain, Denies palpitations and Denies dyspnea Resp Denies cough, Denies dyspnea and Denies wheezing GI Denies abdominal pain, Denies hematochezia, Denies constipation, Denies dysphagia, Denies heartburn, Denies diarrhea, Denies nausea, Denies odynophagia and Denies vomiting Denies difficulty voiding, Denies nocturia, Denies dysuria and Denies urinary urgency Musc Denies back pain and Denies neck pain Skin/Breast Denies rash Neuro Denies dizziness and Denies headache(s) Endo Denies fatigue and Denies palpitations Aller/Immun Denies wheezing Physical exam (Primary Care) Vital Signs: Last Vital Signs Pulse 79 06/15/24 16:14 BP 120/82 06/15/24 16:14 Pulse Ox 99 06/15/24 16:14 Oxygen Delivery Method Room Air 06/15/24 16:14 BMI result Body Mass Index 25.1 Tobacco/Smoking Status: Tobacco use Status Tobacco use date assessed 06/15/24 06/15/24 16:18 Patient Tobacco Use Status Former Tobacco user 06/15/24 16:18 e-Cigarette/Vaping Use Never Used 06/15/24 16:18 PHQ-9: PHQ-9 Score PHQ-9: Total score 0 06/15/24 16:45 Depression Screening Interpretation: Negative Thrive Assessment: Date of Thrive Assessment Date Thrive assessed 06/15/24 06/15/24 16:18 Currently or been in a relationship where the following occur: No concerns reported Const General: no acute distress and alert HENMT Ears: TM's normal bilaterally and EAC's normal Throat: Yes posterior oropharynx normal and Yes tonsils normal Neck Neck: Yes no lymphadenopathy and Yes supple Thyroid: Thyroid normal Resp Auscultation: clear to auscultation bilaterally, no rales and no wheezes Cardio Rate: regular rate Rhythm: regular rhythm Heart sounds: no murmurs GI Palpation (GI): Soft to palpation and nontender Auscultation: normal bowel sounds General: Yes no CVA tenderness Back/Spine/Pelvis Back: no CVA tenderness Thoracic/Lumbar Spine: No lumbar spinal tenderness Skin Rashes: no rashes Extrem General: Yes no clubbing, cyanosis or edema Results Reviewed Results Reviewed: Laboratory Tests 06/09/24 06/09/24 08:20 08:21 WBC 3.3 L Hgb 14.0 Hct 40.5 Plt Count 184 Sodium 140 Potassium 3.9 Creatinine 0.70 Estimated GFR > 60 Fasting Glucose 106 H Hemoglobin A1c % 5.4 Calcium 9.4 AST 16 ALT 15 Triglycerides 57 Cholesterol 143 LDL Cholesterol, Calc 61 HDL Cholesterol 71 TSH 2.82 Urine pH 6.5 Ur Specific Reynolds 1.015 Urine Protein Negative Urine Glucose (UA) Negative Urine Blood Negative Urine Nitrite Negative Ur Leukocyte Esterase Small (1+) H Coding Level of Care Code Est Pt Level 4 (19474) Diagnoses PAF (paroxysmal atrial fibrillation) I48.0 Sick sinus syndrome I49.5 Pure hypercholesterolemia E78.00 Benign essential hypertension I10 Impaired fasting glucose R73.01 Allergic rhinitis, unspecified seasonality, unspecified trigger J30.9 Allergic rhinitis trigger: unspecified Allergic rhinitis seasonality: unspecified Primary osteoarthritis of left hand M19.042 Osteoarthritis type: primary Additional Codes PHQ-9 - 27908 - PHQ-9 Billing: Yes ([id number]) Assessment & Plan Assessment & Plan (1) PAF (paroxysmal atrial fibrillation): Code(s): I48.0 - Paroxysmal atrial fibrillation Category: Medical Plan: Patient currently remains in sinus rhythm Continue Metoprolol ER 50 mg QD and and Fleicanide 50 mg 2 tablets every 12 hours Continue Eliquis 5 mg BID for thromboembolism prophylaxis She wis now scheduled for cardiac ablation at [facility] next week Follow up with cardiology as scheduled (2) Sick sinus syndrome: Code(s): I49.5 - Sick sinus syndrome Category: Medical Plan: Improved/resolved with pacemaker insertion (3) Pure hypercholesterolemia: Code(s): E78.00 - Pure hypercholesterolemia, unspecified Category: Medical Plan: Results of her labs done last week reviewed and discussed with patient Reinforced low cholesterol diet Continue Atorvastatin 10 mg QD and Fish Oil 1000 mg TID Will recheck her labs and fasting lipids in 4 months for follow up (4) Benign essential hypertension: Code(s): I10 - Essential (primary) hypertension Category: Medical Plan: Continue Metoprolol ER 50 mg QD Reinforced low sodium diet - goal is systolic BP of at least 130 mm or less (5) Impaired fasting glucose: Code(s): R73.01 - Impaired fasting glucose Category: Medical Plan: Her HgbA1c was again normal at 5.4% on her labs done last week; FBS was at 106 mg/dl on her recent labs Reinforced low calorie diet/exercise as tolerated (6) Allergic rhinitis: Code(s): J30.9 - Allergic rhinitis, unspecified Category: Medical Qualifiers: Allergic rhinitis trigger: unspecified Allergic rhinitis seasonality: unspecified Qualified Code(s): J30.9 - Allergic rhinitis, unspecified Plan: Continue Fluticasone nasal spray 50 mcg 1 spray into each nostril QD (7) Osteoarthritis of hand, left: Code(s): M19.042 - Primary osteoarthritis, left hand Category: Medical Qualifiers: Osteoarthritis type: primary Qualified Code(s): M19.042 - Primary osteoarthritis, left hand Plan: X-rays of the left hand done last year revealed (+) OA changes in the left hand She is again instructed to continue with hand exercises that she can do regularly to help manage her hand pain / symptoms Plan Follow up in 4 months Orders: Orders Comprehensive [place]. Panel Fast 4 Months E78.00 - Pure hypercholesterolemia, unspecified TSH reflex Free T4 4 Months E78.00 - Pure hypercholesterolemia, unspecified Complete Blood Count Auto Diff 4 Months D64.9 - Anemia, unspecified Lipid Panel 4 Months E78.00 - Pure hypercholesterolemia, unspecified UA CC w/rflx Micro + Cult 4 Months R30.0 - Dysuria Vitamin D 25-OH Total 4 Months E55.9 - Vitamin D deficiency, unspecified
[2024-06-15 16:14] VITALS: BP 120/82; PULSE 79; O2SAT 99; BMI 25.1
== END 2024-06-15 16:53 | disposition home or self-care (01) ==
PROVIDERS: PCP Internal Medicine; Visit Provider Internal Medicine
DX: I48.0 Paroxysmal atrial fibrillation (principal); I49.5 Sick sinus syndrome; E78.00 Pure hypercholesterolemia, unspecified; I10 Essential (primary) hypertension; R73.01 Impaired fasting glucose; J30.9 Allergic rhinitis, unspecified; M19.042 Primary osteoarthritis, left hand

== ENCOUNTER → 2024-06-15 15:53 | Outpatient (BNVA) | payer MEDICARE, SELFPAY | PROVIDERS: PCP Internal Medicine; Visit Provider Internal Medicine | DX: I48.0 Paroxysmal atrial fibrillation (principal); I49.5 Sick sinus syndrome; E78.00 Pure hypercholesterolemia, unspecified; I10 Essential (primary) hypertension; R73.01 Impaired fasting glucose; J30.9 Allergic rhinitis, unspecified; M19.042 Primary osteoarthritis, left hand | CPT/HCPCS: 96127; 99212 ==

== ENCOUNTER 2024-09-01 12:44 | Outpatient (AMB) | payer MEDICARE, MEDICAID, SELFPAY ==
[2024-09-01 12:53] VITALS: BP 138/78; PULSE 85; BMI 25.8
--- NOTE | 2024-09-01 12:53 | MHC.OFFVIS ---
Vital Signs 09/01/24 12:53 Height 5 ft 2 in Weight 141 lb BMI 25.8 BP 138/78 Blood Pressure Location Lt brachial Position Sitting Pulse 85 Pulse Source Monitor Intake Visit Reasons: 6 mth f/up Dr Sainz Allergies codeine [CODEINE] Allergy (Unknown, Verified 06/15/24 16:41) JITTERY Sulfa (Sulfonamide Antibiotics) [SULFA (SULFONAMIDE ANTIBIOTICS)] Allergy (Unknown, Verified 06/15/24 16:41) RASH,HIVES, rash Medication List - Last Reconciled 09/01/24 by Paul Westbrook MD apixaban (Eliquis) 5 mg PO BID atorvastatin 10 mg PO DAILY calcium carbonate-vitamin D3 600 mg-5 mcg (200 unit) 1 tab PO DAILY 90 days docusate sodium (Colace) 100 mg PO .DAILY WITH FOOD 30 days metoprolol succinate ER (Toprol XL) 50 mg PO DAILY tizanidine 4 mg PO Q8H HPI Comments Details: Farhana returns for follow-up regarding paroxysmal atrial fibrillation and sick sinus syndrome/pacemaker. She was maintained on Flecainide, but was still having regarding atrial fibrillation. This led to EP consultation/ablation. Overall, since last seen, she states she is doing fine. No new concerns. No angina or palpitations or anything of cardiac type. 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 Normally functioning cardiac pacemaker present Overweight (BMI 25.0-29.9) Allergic rhinitis Impaired fasting glucose Benign essential hypertension Sick sinus syndrome Pure hypercholesterolemia PAF (paroxysmal atrial fibrillation) Surgical History H/O colonoscopy History of pacemaker History of tonsillectomy Family History Father Hypertension Diabetes Arthritis Colon cancer Iron deficiency Mother Hypertension Maternal Grandmother Arthritis Diabetes Blockage of coronary artery of heart Maternal Grandfather Arthritis Paternal Grandfather Arthritis Pancreatic cancer Social History Housing: House Alcohol intake: former Patient Tobacco Use Status: Former Tobacco user e-Cigarette/Vaping Use: Never Used Second Hand Smoke Exposure: Yes service: No Current occupational status: disabled Cognitive needs: No Hearing needs: Yes (Hearing aide) Vision needs: Yes (wear glasses) Review of Systems Const Denies weakness ENT Denies dizziness Card Denies chest pain, Denies chest pain with activity, Denies syncope, Denies rapid heart rate, Denies pedal edema, Denies edema, Denies leg edema, Denies lightheadedness, Denies palpitations, Denies dyspnea, Denies dyspnea on exertion and Denies orthopnea Resp Denies cough, Denies dyspnea and Denies dyspnea on exertion GI Denies hematochezia and Denies change in stool character Musc Denies abnormal gait, Denies muscle cramps, Denies muscle weakness, Denies numbness, Denies radiating pain into limb and Denies tingling Neuro Denies abnormal gait, Denies dizziness, Denies syncope, Denies numbness, Denies tingling and Denies weakness Endo Denies palpitations Physical Exam Vital Signs: Last Vital Signs Pulse 85 09/01/24 12:53 BP 138/78 09/01/24 12:53 BMI result Body Mass Index 25.8 Const General: comfortable and no acute distress Orientation/consciousness: patient oriented x3 HEENT Other: Unremarkable Head: Yes normal to inspection Neck Neck: Yes normal visual inspection Chest Chest palpation & inspection: normal inspection of the chest Resp Auscultation: clear to auscultation bilaterally Cardio Palpation: normal PMI Heart sounds: S1 normal heart sound present, S2 normal heart sound present, no gallops, no murmurs and no rubs GI Palpation (GI): Soft to palpation Back/Spine/Pelvis Other: unremarkable Skin General skin exam: no rashes or lesions noted Neuro General: patient oriented x3 Extrem General: Yes normal to inspection Psych Mental Status: mental status grossly normal Assessment & Plan Assessment & Plan (1) PAF (paroxysmal atrial fibrillation): Code(s): I48.0 - Paroxysmal atrial fibrillation Category: Medical Plan: Status post atrial fibrillation isolation-06/2024. Off flecainide. Continue Eliquis. Myocardial perfusion imaging study from 2019 shows likely normal perfusion. Echocardiogram from 2022 with LVEF of 55-60% and no significant valvular issues. (2) Sick sinus syndrome: Code(s): I49.5 - Sick sinus syndrome Category: Medical Plan: Status post pacemaker. Followed remotely. Plan Total time spent including review of data, counseling, documentation, coordination of care-31 minutes. Medications: Changed From tizanidine 4 mg PO Q8H PRN 270 tabs 2RF muscle spasticity To tizanidine 4 mg PO Q8H Coding Level of Care Code Est Pt Level 4 (94300) Diagnoses PAF (paroxysmal atrial fibrillation) I48.0 Sick sinus syndrome I49.5
== END 2024-09-01 13:19 | disposition home or self-care (01) ==
PROVIDERS: PCP Internal Medicine; Visit Provider Internal Medicine
DX: I48.0 Paroxysmal atrial fibrillation (principal); I49.5 Sick sinus syndrome
CPT/HCPCS: 93010; 99214

== ENCOUNTER → 2024-09-01 12:44 | Outpatient (BNVA) | payer MEDICARE, MEDICAID, SELFPAY | PROVIDERS: PCP Internal Medicine; Visit Provider Internal Medicine | DX: I48.0 Paroxysmal atrial fibrillation (principal); I49.5 Sick sinus syndrome; Z95.0 Presence of cardiac pacemaker | CPT/HCPCS: 93005; 99212 ==

== ENCOUNTER 2024-09-22 13:52 | Outpatient (REF) | payer MEDICARE, MEDICAID, SELFPAY ==
--- NOTE | ~2024-09-22 | MM_ITS ---
EXAMINATION: MM SCREENING DIGITAL BREAST TOMOSYNTHESIS, BILATERAL CLINICAL INFORMATION: Screening. Asymptomatic. COMPARISON: Mammography: Comparison is made with available priors TECHNIQUE: Digital breast mammography with tomosynthesis is performed in both the craniocaudal and mediolateral oblique views along with computer-aided detection (CAD). FINDINGS: There are scattered areas of fibroglandular density (ACR BI-RADS breast composition Category b). Right postsurgical changes are stable. There are no significant masses, abnormal calcifications, or other abnormalities. MM/MM tomosynthesis screening BI IMPRESSION: No mammographic evidence of malignancy. ASSESSMENT: BI-RADS BI-RADS 2 - Benign Findings RECOMMENDATION: Routine annual mammography screening. 1 year F/U This examination should not preclude the clinical evaluation of a suspicious palpable abnormality. This patient's information was entered into a reminder system with a target due date for their next mammogram. Electronically signed by: Chayo Grullon DO 09/24/2024 11:42 AM ANGELICA
--- OUTSIDE RECORDS SUMMARY | 2024-09-22 17:29 | XMS_ITS | Clinical Summary ---
Author Organization [address] [place] [address] [place] [phone] Phone Care Team Providers Care Platform Consultant Name Role Phone Rudy Buckley MD Primary Care Provider [phone] Allergies Active Allergy Reactions Criticality Noted Date Comments Codeine Other 05/15/2024 Jittery Sulfa (Sulfonamide Antibiotics) Hives,Rash 04/22 Medications apixaban (ELIQUIS) 5 mg tablet Take 1 tablet (5 mg total) by mouth 2 (two) times a day. Active polyethylene glycol-electrol ytes (MOVIPREP) solution Take 2,000 mL by mouth 1 (one) time. Active docusate sodium (COLACE) 100 mg capsule Take 1 capsule (100 mg total) by mouth 1 (one) time each day. Active flaxseed oiL 1,000 mg capsule Take 1 capsule (1,000 mg total) by mouth 1 (one) time each day. Active ibuprofen (ADVIL,MOTRIN) 600 mg tablet Take 1 tablet (600 mg total) by mouth every 8 (eight) hours if needed for mild pain. Active omega-3 acid ethyl esters (LOVAZA) 1 gram capsule Take 1 capsule (1 g total) by mouth 1 (one) time each day. Active tiZANidine (ZANAFLEX) 4 mg capsule Take 1 capsule (4 mg total) by mouth every 8 (eight) hours if needed for muscle spasms. Active atorvastatin (LIPITOR) 10 mg tablet Take 1 tablet (10 mg total) by mouth at bedtime. Active metoprolol succinate (TOPROL-XL) 50 mg 24 hr tablet Take 0.5 tablets (25 mg total) by mouth 1 (one) time each day. Do not crush or chew. 07/23/2024 Active Active Problems Problem Noted Date Diagnosed Date PAF (paroxysmal atrial fibrillation) 05/15/2024 Hypertension 05/15/2024 Hypercholesterolemia 05/15/2024 SSS (sick sinus syndrome) 05/15/2024 Impaired fasting glucose 05/15/2024 Encounters Date Type Department Care Team Description 07/23/2024 7:40 AM EST Office Visit [facility] Cardiology [facility] [address] [place] [id number] Lacie Pérez PA Atrial fibrillation, unspecified type (CMS/HCC) (Primary Dx); Primary hypertension; PAF (paroxysmal atrial fibrillation) (CMS/HCC); SSS (sick sinus syndrome) (CMS/HCC) 07/02/2024 Telephone [facility] Cardiology [facility] [address] [place] [id number] Rudy Buckley MD Medical Records 06/29/2024 2:00 PM EST Clinical Support [facility] - [address] [place] [id number] Encounter for adjustment or management of cardiac device 06/29/2024 Telephone [facility] - [address] [place] [phone] Anjum Braswell MD Lump from Last 3 Months Surgical History Surgery Date Site/Laterality Comments PACEMAKER IMPLANT TONSILLECTOMY ABLATION DONE ON 06/22/2024 AT [facility] [place] INDICATIONS:Atrial Fibrillation Family History Medical History Relation Name Comments Arthritis Father Cancer Father Colon Diabetes type II Father Hypertension Father Arthritis Maternal Grandfather Arthritis Maternal Grandmother Blockage of coronary artery of heart Maternal Grandmot her Diabetes type II Maternal Grandmother Hypertension Mother Arthritis Paternal Grandfather Cancer Paternal Grandfather pancrea tic Relation Name Status Comments Father Maternal Grandfather Maternal Grandmother Mother Paternal Grandfather Social History Tobacco Use Types Packs/Day Years Used Date Smoking Tobacco: Former Cigarettes Passive Smoke Exposure: Past Smokeless Tobacco: Never Tobacco Cessation:Counseling Given: Not Answered Alcohol Use Standard Drinks/Week Comments Not Currently 0 (1 standard drink = 0.6 oz pur e alcohol) Comments Unknown Sex and Gender Information Value Date Recorded Sex Assigned at Not on file Legal Sex Female 11:39 AM EDT Gender Identity Not on file Sexual Orientation Not on file Obstetrics History Last Filed Vital Signs Vital Sign Reading Time Taken Comments Blood Pressure 134/80 07/23/2024 8:08 AM EST Pulse 74 07/23/2024 7:45 AM EST Temperature - - Respiratory Rate - - Oxygen Saturation 95% 07/23/2024 7:45 AM EST Inhaled Oxygen Concentration - - Weight 64 kg (141 lb) 07/23/2024 7:45 AM EST Height 157.5 cm (5' 2 ) 07/23/2024 7:45 AM EST Body Mass Index 25.79 07/23/2024 7:45 AM EST Plan of Treatment Health Maintenance Due Date Last Done Comments Breast Cancer Screening 1960 Cervical Cancer Screening: Pap Smear 12/15/1980 Cholesterol Screening (Lipid Panel) 05/04/2024 Colorectal Cancer Screening: Colonoscopy 05/04/2024 Depression Screening 05/04/2024 HIV Screening 05/04/2024 Hepatitis C Screening 05/04/2024 Medicare Annual Wellness Visit 05/04/2024 Social Influencers of Health Screening 05/04/2024 Hypertension/CHF/CAD Annual BMP Blood Test 06/17/2025 06/17/2024 DTaP,Tdap,and Td Vaccines (2 - Td or Tdap) 08/08/2026 08/08/2016 Zoster Vaccines Completed 12/05/2020, 08/28/2020 RSV Immunization Patients 60+ Years Old Completed 01/09/2024 COVID-19 Vaccine Completed 04/15/2024, , 06/08/2022, Additional history exists Influenza Vaccine Completed 04/15/2024, , 05/29/2022, Additional history exists Pneumococcal Vaccine: 50+ Years Completed 05/16/2024, 05/03/2017 Pneumococcal Vaccine: Pediatrics (0 to 5 Years) and At-Risk Patients (6 to 64 Years) Aged Out 05/16/2024, 05/03/2017 No longer eligibl e based on patient's age to complete this topic HIB Vaccines Aged Out No longer eligi ble based on patient's age to complete this topic HPV Vaccines Aged Out No longer eligi ble based on patient's age to complete this topic Hepatitis A Vaccines Aged Out No long er eligible based on patient's age to complete this topic Hepatitis B Vaccines Aged Out No long er eligible based on patient's age to complete this topic IPV Vaccines Aged Out No longer eligi ble based on patient's age to complete this topic MMR Vaccines Aged Out No longer eligi ble based on patient's age to complete this topic Meningococcal ACWY Vaccine Aged Out N o longer eligible based on patient's age to complete this topic Meningococcal B Vacine Aged Out No lo nger eligible based on patient's age to complete this topic RSV Immunization Patients Under 20 months Aged Out No longer eligible based on patient's age to complete this topic Varicella Vaccines Aged Out No longer eligible based on patient's age to complete this topic Procedures Procedure Name Priority Date/Time Associated Diagnosis Comments ECG 12-LEAD Routine 07/23/2024 8:08 AM EST Atrial fibrillation, unspecified type (CMS/HCC) BASIC METABOLIC PANEL Routine 06/17/2024 9:51 AM EST from Last 3 Months or Most Recently Relevant to Health Maintenance Results * ECG 12 lead (07/23/2024 8:08 AM EST) Ventricular Rate ECG 74 BPM GEMUSE Atrial Rate 74 BPM GEMUSE P-R Interval 218 ms GEMUSE QRS Duration 86 ms GEMUSE Q-T Interval 386 ms GEMUSE QTc 428 ms GEMUSE P Wave Freeman 71 degrees GEMUSE R Freeman 62 degrees GEMUSE T Freeman 35 degrees GEMUSE ECG Interpretation Atrial-paced rhythm Abnormal ECG No previous ECGs available Confirmed by Claudia CATALAN JOHN ([id number]) on 07/28/2024 8:20:44 AM GEMUSE 07/23/2024 7:51 AM EST 07/28/2024 8:20 AM EST us Lacie FLEMING ECG ORDERABLES Edited Result - Final GEMUSE * (ABNORMAL) Basic metabolic panel (06/17/2024 9:51 AM EST) Glucose 101(H) 70 - 99 mg/dL [facility] Blood Urea Nitrogen (BUN) 9 8 - 27 mg/dL [facility] Creatinine 0.77 0.57 - 1.00 mg/dL [facility] 1 eGFR 86 >59 mL/min/1.7 3 [facility] 1 BUN/Creatinine Ratio 12 12 - 28 [facility] 1 Sodium 144 134 - 144 mmol/L [facility] 1 Potassium 3.9 3.5 - 5.2 mmol/L [facility] 1 Chloride 104 96 - 106 mmol/L [facility] 1 Carbon Dioxide 23 20 - 29 mmol/L [facility] 1 Calcium 10.1 8.7 - 10.3 mg/dL [facility] 1 06/17/2024 9:51 AM EST 06/17/2024 Narrative [facility] 1 - 06/18/2024 1:06 AM EST Performed at: ??01 - [facility] [address] ??[id number] Software Security Consultant: Elaina Quiroz MD, Phone: ??[phone] us Anjum Braswell MD LAB BLOOD ORDERABLES Final Result [facility] 1 from Last 3 Months or Most Recently Relevant to Health Maintenance Insurance [employer] MEDICARE Care Teams Platform Consultant Relationship Specialty Start Date End Date Rudy Buckley MD [address] [place] [address] [place] [address] PCP - General Internal Medicine 07/23/24
--- OUTSIDE RECORDS SUMMARY | 2024-09-22 17:29 | XMS_ITS | Patient Health Record ---
Author Organization [facility] Address [address] [place] [address] Care Team Providers Care Compugraph Operator Name Role Phone Marcio NEVES, Rudy Primary Care Provider Mackenzie Horn Unavailable [phone] Allergies Allergen (clinical drug ingredient) Drug/Non Drug Allergy documented on EMR Reaction Allergy Type Onset Date Status General Spinal (uncoded) Unknown Allergy Active aspirin Aspirin can't take Drug Allergy Active sulfamethoxazole / trimethoprim Bactrim rash Drug Allergy Active codeine Codeine shakes Drug Allergy Active Reason For Referral No Information Medications Medication SIG (Take, Route, Frequency, Duration) Notes Start Date End Date Status Nystatin 849680 UNIT/ML 4 mL Mouth/Throa t Four times a day for 14 day(s) Active Vitamin C Active Fish Oil 1000 MG 1 capsule Orally Thr ee times a day Active Flecainide Acetate 100 MG 0.5 tablet Ora lly every 12 hrs for 30 day(s) Active tiZANidine HCl 4 MG 1 tablet at bedtime as needed Orally Once a day for 30 day(s) Active Metoprolol Tartrate 50 MG 1 tablet with food Orally Twice a day for 30 day(s) Active Docusate Sodium 100 MG 1 capsule as need ed Orally Once a day for 30 day(s) Active Calcium 600 MG 1 tablet with meals Orally Twice a day for 30 day(s) Active Atorvastatin Calcium 10 MG 1 tablet Oral ly Once a day for 30 day(s) Active Eliquis 5 MG 1 tablet Orally Twic e a day for 30 day(s) Active Social History Tobacco Use: Social History Observation Description Date Details (start date - stop date) Former Smoker NA - NA Tobacco Use/Smoking Question Answer Notes Are you a: former smoker Additional Findings: Tobacco Non-User Current no n-smoker Alcohol Screen Question Answer Notes Did you have a drink containing alcohol in the p ast year? No Points 0 Interpretation Negative Tobacco use other than smoking: Question Answer Notes Are you an other tobacco user? No Problems Problem Type SNOMED Code ICD Code Onset Dates Problem Status W/U Status Risk Notes Problem Interstitial myositis (59279479) 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) Active confirmed Vital Signs Blood pressure diastolic 68 mm Hg 12/17/2023 Height 5 ft 2 in in 12/17/2023 Blood pressure systolic 115 mm Hg 12/17/2023 Weight 135 lbs lbs 12/17/2023 BMI 24.69 kg/m2 12/17/2023 Encounters Encounter Location Date Provider Diagnosis [facility] [place] [address] [place] [address] 12/17/2023 Mackenzie Perica Pain in right foot M79.671 ; Plantar fasciitis of right foot M72.2 ; Calcaneal spur, right foot M77.31 ; Interstitial myositis of right foot M60.171 and Bursitis of right foot M77.51 Assessments Encounter Date Diagnosis (ICD Code) Assessment Notes Treatment Notes Treatment Clinical Notes Section Notes 12/17/2023 Pain in right foot (ICD-10 - M79.671) 12/17/2023 Plantar fasciitis of right foot (ICD-10 - M72.2) Patient Educated with: HEEL CORD STRETCHES.pdf (HEEL CORD STRETCHES.pdf) Patient Educated with: RICE THERAPY.pdf (RICE THERAPY.pdf) 12/17/2023 Calcaneal spur, right foot (ICD-10 - M77.31) 12/17/2023 Interstitial myositis of right foot (ICD-10 - M60.171) 12/17/2023 Bursitis of right foot (ICD-10 - M77.51) Plan Of Treatment No Information Insurance Providers Payer Name Payer Address Payer Phone Subscriber Number Group Number Insured Name Patient Relationship to Insured Coverage Start Date Coverage End Date A[employer] Medicare Complete [address] [address] [place], [place] [id number] Farhana Deutsch Self - patient is the insured Medical (General) History Medical History History ICD Code Arthritis Back,Hip,and Knee pain Broken bones CAD (Cholesterol) Cataracts Degenerated disk of the spine Measles Mumps Chicken pox Diverticulosis Heart disease High blood pressure sinusitis Surgical History Surgery Date(Month/Year)
--- OUTSIDE RECORDS SUMMARY | 2024-09-22 17:30 | XMS_ITS ---
Author Organization [facility] Address [address] [facility], [place] [address] Care Team Providers Care Direct Support Staff Member Name Role Phone Tram Buckley MDh Primary Care Provider Mackenzie Horn Unavailable [phone] Allergies Allergen (clinical drug ingredient) Drug/Non Drug Allergy documented on EMR Reaction Allergy Type Onset Date Status General Spinal (uncoded) Unknown Allergy Active aspirin Aspirin can't take Drug Allergy Active sulfamethoxazole / trimethoprim Bactrim rash Drug Allergy Active codeine Codeine shakes Drug Allergy Active REASON FOR VISIT Pcp-10/12, Heel pain Medications Medication SIG (Take, Route, Frequency, Duration) Notes Start Date End Date Status Nystatin 972619 UNIT/ML 4 mL Mouth/Throa t Four times a day for 14 day(s) Active Flecainide Acetate 100 MG 0.5 tablet [...] Once a day for 30 day(s) Active Vitamin C Active Fish Oil 1000 MG 1 capsule Orally Thr ee times a day Active Calcium 600 MG 1 tablet with [...] W/U Status Risk Notes Problem Interstitial myositis (98275367) 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) Active confirmed Vital Signs Height 5 ft 2 in in 12/17/2023 Weight 135 lbs lbs 12/17/2023 BMI 24.69 kg/m2 12/17/2023 Blood pressure systolic 115 mm Hg 12/17/19 Blood pressure diastolic 68 mm Hg 024 Encounters Encounter Location Date Provider Diagnosis [facility] [address] [address] 12/17/2023 Mackenzie Pericrachel Pain in right foot M79.671 ; Plantar [...] foot (ICD-10 - M77.51) Plan Of Treatment Treatment Notes Assessment Notes Plantar fasciitis of right foot Patient Educated with: HEEL CORD STRETCHES.pdf (HEEL CORD STRETCHES.pdf) Patient Educated with: RICE THERAPY.pdf (RICE THERAPY.pdf) Next Appt Details Follow Up: prn, Reason: Progress Notes * Farhana DEUTSCH ADOB:[birth year] (63 yo F)Acc No.[id number]:12/17/2023 Progress Notes Patient:?Farhana Deutsch Provider:?Mackenzie Lanier DPM :1960???Age:63 Y???Sex:Female D ate:12/17/2023 Address: [address] , [facility] Pcp:Rudy Buckley MD Subjective: * Chief Complaints: * ???Pcp-03/24Heel pain * HPI: ???Heel pain:?Location:?Proximal plantar aspect of Heel, RIGHT.?Duration:?several months.?Onset/Cause:?gradual.?Course:?improved.?Aggrevated:?standing, walking, walking first thing in the morning/after rest.?Treatments:?rest/alter normal daily activity , change in shoes , stretching.? * ROS:?General/Constitutional:?Nausea?denies.?Vomiting?denies.?Hunger Thirst?denies.?Loss appetite?denies.?Chills?denies.?Fatigue?denies.?Fever?denies.?Night Sweats?denies.?Unexplained weight loss?denies.?Unexplained weight gain?denies.?HEENTM:?Dentures?denies.?Dizziness?denies.?Glasses/contacts?denies.?Retinopathy?de nies.?Blurred/double vision?denies.?TMJ?denies.?Discharge/drainage?denies.?Implants?denies.?Sore throat?denies.?Dental implants?denies.?Hard of hearing ?denies.?Difficulty chewing/swallowing/speaking?denies.?Nose bleeds?denies.?Sore mouth?denies.?Respiratory:?On Oxygen?denies.?Pneumonia/pleurisy?denies.?Bronchitis?denies.?Emphysema?denies.?C oughing?denies.?Cough blood?denies.?Shortness of breath?denies.?Wheezing?denies.?Cardiovascular:?Pacemaker?admits.?MVP?denies.?WPW?denies.?CHF?denies.?Heart attack?denies.?Septal defect?denies.?Rapid beat?denies.?Chest pain ?denies.?Atrial Fib.?admits.?Murmur/Palpitations?, admits.?Gastrointestinal:?Hemorrhoids?denies.?Stomach/Abdominal pain?denies.?Dark blood stool?denies.?Irritable bowel ?, admits.?Constipation?, admits.?Diarrhea?denies.?Hematology:?Swelling?, admits.?Clots?denies.?Varicose Veins?admits.?Bruising?, admits.?Bleeding problem?denies.?Genitourinary:?Blood urine?denies.?Frequent/Painfu/urination/bladder control?denies.?Kidney stones?denies.?Infection (UTI)?denies.?Nephropathy?denies.?sex trans dis (STD)?denies.?Prostate?denies.?Musculoskeletal:?Hammertoes?denies.?Bunions?denies.?Back Pain?admits.?Muscle Cramps/ Resting?denies.?Muscle cramps / walking?denies.?Generalized aches and pains?admits.?Weakness?denies.?Integ.:?Moran?denies.?Scars?denies.?Corns/calluses?denies.?Ingrown nails?denies.?Painful nails?denies.?Open Sores?denies.?Rashes?denies.?Neurologic:?Difficulty sleeping?denies.?Brain disorder?denies.?Numbness?denies.?Balance trouble?denies.?Confusion?denies.?Fainting/blackouts?denies.?Tingling?admits.?Tr emors?denies.? * Medical History:? * Surgical History:?Denies Pas t Surgical History * Hospitalization/Major Diagno stic Procedure:?Denies Past Hospitalization * Family History:?Mother: boom e, diagnosed with Family history of arthritis, Unspecified cerebral artery occlusion with cerebral infarction.?Father: , diagnosed with Family history of arthritis, Diabetic - NIDDM, Unspecified essential hypertension, Other malignant neoplasm of unspecified site.?Paternal Grand Mother: diagnosed with Unspecified essential hypertension, Unspecified cerebral artery occlusion with cerebral infarction, Other specified conditions influencing health status.?Siblings: diagnosed with Other malignant neoplasm of unspecified site.? Poor Circulation: Father. * Social History:?Tobacco Use:?Tobacco Use/Smoking?Are you a:?former smoker ?Additional Findings: Tobacco Non-User?Current non-smoker ?Tobacco use other than smoking?Are you an other tobacco user??No ???Drugs/Alcohol:?Drugs?Have you used drugs other than those for medical reasons in the past 12 months??No ?Alcohol Screen?Did you have a drink containing alcohol in the past year??No ?Points?0 ?Interpretation?Negative ???Miscellaneous:?Caffeine: yes, 1-2 cups per day. ?Children: yes, 2 Dughters. ?Exercise: yes, walking. ?Marital status: , . ?Occupation: On Disability 13 years. * Medications:?TakingFish Oil 1000 MG Capsule 1 capsule Orally Three times a dayVitamin C Nystatin 354221 UNIT/ML Suspension 4 mL Mouth/Throat Four times a dayDocusate Sodium 100 MG Capsule 1 capsule as needed Orally Once a dayMetoprolol Tartrate 50 MG Tablet 1 tablet with food Orally Twice a daytiZANidine HCl 4 MG Tablet 1 tablet at bedtime as needed Orally Once a dayFlecainide Acetate 100 MG Tablet 0.5 tablet Orally every 12 hrsEliquis 5 MG Tablet 1 tablet Orally Twice a dayAtorvastatin Calcium 10 MG Tablet 1 tablet Orally Once a dayCalcium 600 MG Tablet 1 tablet with meals Orally Twice a dayMedication List reviewed and reconciled with the patientTaking Fish Oil 1000 MG Capsule 1 capsule Orally Three times a dayTaking Vitamin C Taking Nystatin 629501 UNIT/ML Suspension 4 mL Mouth/Throat Four times a dayTaking Docusate Sodium 100 MG Capsule 1 capsule as needed Orally Once a dayTaking Metoprolol Tartrate 50 MG Tablet 1 tablet with food Orally Twice a dayTaking tiZANidine HCl 4 MG Tablet 1 tablet at bedtime as needed Orally Once a dayTaking Flecainide Acetate 100 MG Tablet 0.5 tablet Orally every 12 hrsTaking Eliquis 5 MG Tablet 1 tablet Orally Twice a dayTaking Atorvastatin Calcium 10 MG Tablet 1 tablet Orally Once a dayTaking Calcium 600 MG Tablet 1 tablet with meals Orally Twice a dayMedication List reviewed and reconciled with the patient * Allergies:?Aspirin: can't ta keBactrim: rashCodeine: shakesGeneral Spinalyes[Allergies Verified] Objective: * Vitals:?Ht: 5 ft 2 in, Wt:13 5 lbs, BMI:24.69, Shoe size: 6.5, BP:115/68 mm Hg, Ht-cm: 157.48 cm, Wt-k.23 kg. * Examination: ???General Examination: ?GENERAL APPEARANCE:?Reveals a pleasant, alert, well-nourished, well- developed, well hydrated individual, who demonstrates proper attention to hygiene/body habitus, and is in no acute distress, Pt serves as own?historian for office visit today.?ORIENTED:?person, place, and time.?Neurological: ?SENSORY:?Neurological exam reveals intact sensorium, pain sensation normal, vibration sensation intact, pinprick sensation is normal in the lower extremities, Pt denies, anesthesia, burning, paresthesia, tingling, B/L.?TINEL'S COMPRESSION:?Negative tarsal tunnel, harjinder pedis, and medial calcaneal nerves.?DEEP TENDON REFLEXES:?Achilles, 2/4, B/L.?Vascular: ?DP PULSES:?3/4, B/L.?PT PULSES:?3/4, B/L.?CAPILLARY FILL TIME:?immediate, all digits, B/L.?SKIN TEMPERTURE GRADIENT OF THE LOWER EXTERMITIES:?warm to cool, proximal to distal, B/L.?HAIR GROWTH/TEXTURE/ELASTICITY/TURGOR:?normal, B/L.?PIGMENTATION:?normal, B/L.?EDEMA:?absent, B/L.?Dermatologic: ?SKIN FINDINGS:?Skin exam reveals normal texture, elasticity, and turgor. There are no masses. The interspaces are clear.?Orthopedic: ?MUSCLE STRENGTH:?5/5 all groups in a symmetrical fashion , B/L.?Heel Pain: ?INSPECTION:?Minimal Pain on Palpation to Plantar Fascia med. and central bands, intrinsic musc., infra-calcaneal bursa, and med calc tubercle , RIGHT foot, No pain: posterior/superior heel, achilles bursa/tendon, sinus tarsi, peroneals, or with lateral heel compression; no limited STJ ROM, calor, or ecchymosis.?X-Rays - IMAGING REPORT: ?Clinical Indication(s):? Evaluate for Fracture, Evaluate Biomechanical Deformity.?Views:? 3 views of Foot, LAT, LO, MO, RIGHT, Are reviewed with the Pt.?Findings:? normal bone and soft tissue density consistent for patients age and sex, navicular/cuneiform plantar subluxation with anterior cyma line, positive infra-calcaneal exostosis.?Fracture:?Negative fractures identified.? Assessment: * Assessment: 1.?Pain in right foot - M79. 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 Plan: * Treatment: * Procedure Codes:? * Preventive Medicine:? ??Counseling:?Discussion:?-03: Office or other outpatient visit for the evaluation and management of a new patient, which required a medically appropriate history and/or examination and LOW level of DECISION MAKING for: 1 STABLE ACUTE UNCOMPLICATED PROBLEM, 2 OR MORE MINOR PROBLEMS, OR 1 STABLE CHRONIC PROBLEM, THAT POSE(S) A LOW RISK FOR MORBIDITY/MORTALITY. The visit on the day of the encounter encompassed interpreting the data and educating the patient as to the nature of their condition, treatment options available according to their individual PMH, meds, allergies, and overall health/living conditions, as well as any potential risks or complications that may occur from a failure to adhere to, and participate in, the recommended course of therapy. The discussion included a complete verbal, and/or written explanation of the examination results, any x-rays taken, the proposed diagnosis, and outline of the treatment plan. A schedule for future care needs was also explained. The patient verbalized an understanding of the instructions at this time and agreed to be an active participant in their treatment. If the patient should think of any questions or concerns after the visit, I have encouraged the patient to call the office.?Heel pain:?FASCIITIS: I explained to the patient the possible etiologies of Plantar Fasciitis including foot type/shoegear/activity level/exercise routine and the risks/benefits of all the different treatment options for heel pain including: No treatment at all, Rest, Ice, NSAIDs(only if well tolerated after meals), New/supportive Shoegear, Strappings and Tapings, Stretching exercises, Deep Tissue Massage, Heel cups/cushions, Arch support/shoe inserts, Custom orthoses, Topical analgesics including Aspercream/Voltaren gel, Night splint AFO for am stiffness, Cortisone injection therapy, Cast boot with crutches/cane/or walker for assisted ambulation, Physical Therapy, EPAT/ESWT, Interfil injection therapy, as well as surgical [place]/Endoscopic Fasciitomy surgical procedures if needed. Recommendations were made to limit barefoot walking, eliminate wearing nonsupportive shoegear (i.e. flip-flops or sandals, or a shoe with an easily bendable, foldable, or twistable sole) and wear shoegear with a good solid sole, a supportive arch, and plenty of room for an insert/orthotic if necessary. If wearing sandals was required by the patient, we recommended orthopedic sandals such as Orthoheel or Birkenstock even while in the home. If the patient wore heels in the past, we recommended they continue, but eliminate the use of flats. The advantages and disadvantages of each option were discussed and the patients questions re: types of shoegear, custom vs prefabricated inserts, activity level, PO vs Topical medications (and their respective potential complications/drug interactions/side effects), and consistency in home treatment regimens for optimal success were answered to their satisfaction. Literature detailing plantar fasciitis and the various treatment options were dispensed and reviewed.?P.R.I.C.E.:?The patient was counseled on the use of P.R.I.C.E. and NSAIDS (if well tolerated) to aid in the recovery from their painful condition.?Shoe Gear Counseling:?The patient and I reviewed the types of shoes they should be wearing. My recommendation included obtaining a well-fitted shoe with a good supportive, non-foldable nor twistable sole, plenty of toe/room for the forefoot, and proper arch support. Based on todays examination, I recommended the patient look for new shoes, by having their feet professionally measured. We discussed that generally the best time of the day for a shoe fitting is the afternoon. Different shoes types and brands to best match the patients occupation and vocation were discussed. Specific brand selection will be up to the patient, their individual foot condition/deformities, and fit. The patient and I reviewed the standard new shoe break in period by wearing them for a few hours a day while checking for redness or sores as wear time is increased. The patient verbally confirmed to understanding the information discussed.?Stretching Exercises:?Stretching and deep tissue massage exercises for the patients injury/diagnosis were discussed and demonstrated, handouts were dispensed.? * Follow Up:?prn * Images: * Sign off status: Completed true * Provider:?Mackenzie Lanier, DPM Date:? Generated for Rogelio estrada/Dustin/Robby on:?09/22/2024 05:29 PM EST History and Physical Notes * HPI (History of Present Illness) Category Sub-Category Detail Notes Category Not es Heel pain Duration: several months Location: Proximal plantar asp ect of Heel, RIGHT Onset/Cause: gradual Aggravated: standing, walking, w alking first thing in the morning/after rest Course: improved Treatments: rest/alter normal da julián activity , change in shoes , stretching Examination Category Sub-Category Detail Notes Category Not es Neurological SENSORY: Neurological exa m reveals intact sensorium, pain sensation normal, vibration sensation intact, pinprick sensation is normal in the lower extremities, Pt denies, anesthesia, burning, paresthesia, tingling, B/L TINEL'S COMPRESSION: Negative tarsal sara mony, harjinder pedis, and medial calcaneal nerves DEEP TENDON REFLEXES: Achilles, 2/4, B/L Dermatologic SKIN FINDINGS: Skin exam reveal s normal texture, elasticity, and turgor. There are no masses. The interspaces are clear Orthopedic MUSCLE STRENGTH: 5/5 all groups in a symm etrical fashion , B/L General Examination GENERAL APPEARANCE: Reveals a pleasant, alert, well- nourished, well-developed, well hydrated individual, who demonstrates proper attention to hygiene/body habitus, and is in no acute distress, Pt serves as own historian for office visit today ORIENTED: person, place, and t arleen Vascular DP PULSES (B): 3/4, B/L PT PULSES (B): 3/4, B/L CAPILLARY FILL TIME: immediate, all digi ts, B/L TEMPERTURE GRADIENT (C): warm to cool, p roximal to distal, B/L TROPHIC CONDITION-TEXTURE/ELASTICITY/TURGOR/HAIR GROWTH (B): normal, B/L EDEMA (C): absent, B/L PIGMENTATION: normal, B/L X-Rays - IMAGING REPORT Findings: normal b one and soft tissue density consistent for patients age and sex, navicular/cuneiform plantar subluxation with anterior cyma line, positive infra-calcaneal exostosis Fracture: Negative fractures i dentified Views: 3 views of Foot, LAT , LO, MO, RIGHT, Are reviewed with the Pt Clinical Indication(s): Evaluate for Fra cture, Evaluate Biomechanical Deformity Heel Pain INSPECTION: Minimal Pain on Palpation to Plantar Fascia med. and central bands, intrinsic musc., infra-calcaneal bursa, and med calc tubercle , RIGHT foot, No pain: posterior/superior heel, achilles bursa/tendon, sinus tarsi, peroneals, or with lateral heel compression; no limited STJ ROM, calor, or ecchymosis
== END 2024-09-22 13:53 | disposition home or self-care (01) ==
LOC: HO.MAMMO 13:52
PROVIDERS: PCP Internal Medicine; Visit Provider Internal Medicine
DX: Z12.31 Encounter for screening mammogram for malignant neoplasm of breast (principal)
CPT/HCPCS: 77063; 77067

== ENCOUNTER → 2024-09-22 14:00 | Outpatient (BNV) | payer MEDICARE, MEDICAID, SELFPAY | PROVIDERS: PCP Internal Medicine; Visit Provider Internal Medicine | DX: Z12.31 Encounter for screening mammogram for malignant neoplasm of breast (principal) | CPT/HCPCS: 77063; 77067 ==

== ENCOUNTER 2024-10-07 08:12 | Outpatient (REF) | payer MEDICARE, MEDICAID, SELFPAY ==
[2024-10-07 08:35] LABS: MANUAL DIFF FLAG NO
[2024-10-07 09:02] LABS: Basophils Absolute Auto 0.1 X10*3/uL (0.0-0.2); Basophils Percent Auto 1.2 % (0-2); Eosinophils Absolute Auto 0.1 X10*3/uL (0.0-0.4); Eosinophils Percent Auto 1.7 % (0-4); Hematocrit 42.5 % (37.0-47.0); Hemoglobin 14.9 g/dl (12.0-16.0); Imm Gran Abs Auto 0.01 X10*3/uL (0.00-0.03); Imm Gran Pct Auto 0.2 % (0.0-0.4); Lymphocytes Absolute Auto 1.9 X10*3/uL (1.2-4.9); Lymphocytes Percent Auto 46.5 % (20-40); Mean Corpuscular HGB Conc 35.1 g/dl (31.0-35.0); Mean Corpuscular Hemoglobin 31.2 pg (27.0-33.0); Mean Corpuscular Volume 88.9 fL (80.0-98.0); Mean Platelet Volume 10.2 fL (9.4-12.3); Monocytes Absolute Auto 0.4 X10*3/uL (0.1-1.2); Monocytes Percent Auto 9.2 % (2-11); Neutrophils Absolute Auto 1.7 x10*3/uL (2.0-8.3); Neutrophils Percent Auto 41.2 % (45-73); Platelet Count 173 X10*3/uL (160-400); Red Blood Count 4.78 X10*6/uL (4.20-5.50); Red Cell Distribution Width 11.9 % (11.0-16.0)
[2024-10-07 09:05] LABS: Appearance Urine Clear; Color Urine Yellow; Glucose Urine UA Negative (Negative); Leukocyte Esterase Urine Small (1+) (Negative); Nitrite Urine Negative (Negative); PH 6.5 (5.0-9.0); UMIC TRIGGER UACC YES; Urine Blood Negative (Negative); Urine Ketones Negative (Negative); Urine Protein Negative (Neg-Trace)
[2024-10-07 09:20] LABS: Bacteria Urine None Seen (None Seen); Hyaline Casts Urine 0-2 /LPF (0-2); RBC Urine 0-2 /HPF (0-2); Squamous Epithelial Cell Urine 0-2 /HPF (0-2); UACC Culture Trigger YES; WBC Urine 0-5 /HPF (0-5)
[2024-10-07 09:40] LABS: Alanine Aminotransferase 18 U/L (0-31); Albumin Level 4.1 g/dL (3.5-5.0); Alkaline Phosphatase 75 U/L (39-117); Anion Gap 9 (12-20); Aspartate Amino Transferase 19 U/L (5-31); Bilirubin Total 1.7 mg/dL (0.0-1.0); Blood Urea Nitrogen 11 mg/dL (9-16); Calcium 9.6 mg/dL (8.4-10.2); Carbon Dioxide 27 mmol/L (22-29); Chloride 110 mmol/L (96-108); Cholesterol 142 mg/dL (<200); Estimated Glomerular Filt Rate > 60; Glucose Fasting 96 mg/dL (60-99); HDL Cholesterol 76 mg/dL (>40); LDL Cholesterol Calculated 49 mg/dL (<100); Potassium 3.9 mmol/L (3.3-5.1); Sodium 142 mmol/L (135-145); Total Protein 6.8 g/dL (6.5-8.0); Triglycerides 86 mg/dL (<150)
[2024-10-07 09:48] LABS: TSH reflex Free T4 2.25 uIU/mL (0.32-4.0)
== END 2024-10-07 08:13 | disposition home or self-care (01) ==
LOC: HO.LAB 08:12
PROVIDERS: PCP Internal Medicine; Visit Provider Internal Medicine
DX: D64.9 Anemia, unspecified (principal); E55.9 Vitamin D deficiency, unspecified; E78.00 Pure hypercholesterolemia, unspecified; R30.0 Dysuria
CPT/HCPCS: 36415; 80053; 80061; 81001; 82306; 84443; 85025; 87086

== ENCOUNTER 2024-10-12 10:58 | Outpatient (AMB) | payer MEDICARE, SELFPAY ==
[2024-10-12 11:05] VITALS: BP 136/82; PULSE 73; O2SAT 98; BMI 25.6
--- NOTE | 2024-10-12 11:05 | A.OFFPC_ITS ---
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 Hand Required: No Accompanied by: Self / Same As Patient Allergies codeine [CODEINE] Allergy (Unknown, Verified 10/12/24 11:22) JITTERY Sulfa (Sulfonamide Antibiotics) [SULFA (SULFONAMIDE ANTIBIOTICS)] Allergy (Unknown, Verified 10/12/24 11:22) RASH,HIVES, rash Medication List - Last Reconciled 10/12/24 by Rudy Buckley MD apixaban (Eliquis) 5 mg PO BID atorvastatin 10 mg PO DAILY calcium carbonate-vitamin D3 600 mg-5 mcg (200 unit) 1 tab PO DAILY 90 days docusate sodium (Colace) 100 mg PO .DAILY WITH FOOD 30 days metoprolol succinate ER 50 mg PO DAILY tizanidine 4 mg PO Q8H Tobacco use date assessed: 10/12/24 Fall risk assessment: No Falls in past year Last assessed Fall Risk: 10/12/24 Dental Screening Dental Screen Date: 10/12/24 Did you have a dental visit in the last 12 months?: No Did you have a dental problem in the last 6 months where you did not have access to dental care?: No Was dental information given to patient?: No HPI PAF, hyperlipidemia HPI Details Patient comes in today for her follow up visit States that she feels okay She denies any headaches or dizziness Denies any chest pains, no increased SOB States that she has not had any further episodes of palpitations since her cardiac ablation in early June 2024 States that she was also taken off Fleicanide by cardiology at her last follow up visit with them No nausea/vomiting, no abdominal pain No change in bowel habits noted Needs several of her Rx refilled She had her follow up labs done a few days ago - to discuss her results [facility] Medical History (Updated 10/12/24 @ 11:57 by Rudy Buckley MD) Constipation At high risk for breast cancer Family history of breast cancer 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 Normally functioning cardiac pacemaker present Overweight (BMI 25.0-29.9) Allergic rhinitis Impaired fasting glucose Benign essential hypertension Sick sinus syndrome Pure hypercholesterolemia PAF (paroxysmal atrial fibrillation) Surgical History (Updated 10/12/24 @ 11:51 by Rudy Buckley MD) History of cardiac ablation for atrial fibrillation H/O colonoscopy History of pacemaker History of tonsillectomy Family History Father Hypertension Diabetes Arthritis Colon cancer Iron deficiency Mother Hypertension Maternal Grandmother Arthritis Diabetes Blockage of coronary artery of heart Maternal Grandfather Arthritis Paternal Grandfather Arthritis Pancreatic cancer Social History Housing: House Alcohol intake: former Patient Tobacco Use Status: Former Tobacco user e-Cigarette/Vaping Use: Never Used Second Hand Smoke Exposure: Yes service: No Current occupational status: disabled Cognitive needs: No Hearing needs: Yes (Hearing aide) Vision needs: Yes (wear glasses) Questionnaire PHQ-9 Over the last 2 weeks, how often have you been bothered by any of the following problems? 1. Little interest or pleasure in doing things: not at all 2. Feeling down, depressed, or hopeless: not at all 3. Trouble falling or staying asleep, or sleeping too much: not at all 4. Feeling tired or having little energy: not at all 5. Poor appetite or overeating: not at all 6. Feeling bad about yourself - or that you are a failure or have let yourself or your family down: not at all 7. Trouble concentrating on things, such as reading the newspaper or watching television: not at all 8. Moving or speaking so slowly that other people could have noticed. Or the opposite - being so fidgety or restless that you have been moving around a lot more than usual: not at all 9. Thoughts that you would be better off or of hurting yourself in some way: not at all Total score: 0 Depression Screening Interpretation: Negative Depression Screening Done: Yes 32944 - PHQ-9 Billing: Yes Source: Developed by Drs. Fan Valerio, Anuradha Corado, Zan Vogt and colleagues, with an educational cecil from [employer]. Thrive Questionnaire Date Thrive assessed: 10/12/24 I am a: Patient What is your living situation today?: I have a steady place to live Within the past 12 months, did the food you bought not last and you didn't have the money to get more?: Never true Within the past 12 months, did you worry whether your food would run out before you got money to buy more?: Never true Do you have trouble paying for medicines?: No Do you have trouble getting transportation to medical appointments?: No Do you have trouble paying your heating and electricity bill?: No Do you have trouble taking care of your child, family member or friend?: No Do you have trouble with day-to-day activities such as bathing, preparing meals, shopping, managing finances, etc.?: No Are you currently unemployed and looking for a job?: No Are you interested in more education?: No Please select the resources that you would like help with: None Currently or been in a relationship where the following occur: No concerns reported THRIVE Score: 0 AUDIT C Alcohol Use Questionnaire (AUDIT-C) 1. How often do you have a drink containing alcohol?: Monthly or less 2. How many drinks containing alcohol do you have on a typical day when you are drinking?: 1 or 2 3. How often do you have six or more drinks on one occasion?: Never Total Score: 1 Score Reviewed/Action Taken: Yes AISHA-7 AMB Questionnaire AISHA-7 Date AISHA - 7 assessed: 10/12/24 Feeling nervous, anxious, or on edge: 0 = Not at all Not being able to stop or control worryin = Not at all Worrying too much about different things: 0 = Not at all Trouble relaxin = Not at all Being so restless that it is hard to sit still: 0 = Not at all Becoming easily annoyed or irritable: 0 = Not at all Feeling afraid as if something awful might happen: 0 = Not at all Total AISHA-7 score (0-4 normal; 5-9 mild; 10-14 moderate; 15-21 severe): 0 Source: Developed by Drs. Fan Valerio, Anuradha Corado, Zan Vogt and colleagues, with an educational cecil from [employer]. Review of Systems Const Denies chills, Denies fatigue, Denies fever(s) and Denies headache(s) ENT Denies dysphagia, Denies dizziness, Denies otalgia, Denies headache(s), Denies neck pain, Denies odynophagia and Denies sore throat Card Denies chest pain, Denies palpitations and Denies dyspnea Resp Denies chest congestion, Denies cough and Denies dyspnea GI Denies abdominal pain, Denies hematochezia, Denies constipation, Denies dysphagia, Denies heartburn, Denies diarrhea, Denies nausea, Denies odynophagia and Denies vomiting Denies difficulty voiding, Denies nocturia, Denies dysuria and Denies urinary urgency Musc Denies back pain and Denies neck pain Skin/Breast Denies rash Neuro Denies dizziness and Denies headache(s) Endo Denies fatigue and Denies palpitations Physical exam (Primary Care) Vital Signs: Last Vital Signs Pulse 73 10/12/24 11:05 BP 136/82 10/12/24 11:05 Pulse Ox 98 10/12/24 11:05 Oxygen Delivery Method Room Air 10/12/24 11:05 BMI result Body Mass Index 25.6 Tobacco/Smoking Status: Tobacco use Status Tobacco use date assessed 10/12/24 10/12/24 11:13 Patient Tobacco Use Status Former Tobacco user 10/12/24 11:13 e-Cigarette/Vaping Use Never Used 10/12/24 11:13 PHQ-9: PHQ-9 Score PHQ-9: Total score 0 10/12/24 11:13 Depression Screening Interpretation: Negative Thrive Assessment: Date of Thrive Assessment Date Thrive assessed 10/12/24 10/12/24 11:13 Currently or been in a relationship where the following occur: No concerns reported Const General: no acute distress and alert HENMT Ears: TM's normal bilaterally and EAC's normal Throat: Yes posterior oropharynx normal and Yes tonsils normal Neck Neck: Yes supple and No lymphadenopathy Thyroid: Thyroid normal Resp Auscultation: clear to auscultation bilaterally, no rales and no wheezes Cardio Rate: regular rate Rhythm: regular rhythm Heart sounds: no murmurs GI Palpation (GI): Soft to palpation and nontender Auscultation: normal bowel sounds General: Yes no CVA tenderness Back/Spine/Pelvis Back: no CVA tenderness Thoracic/Lumbar Spine: No lumbar spinal tenderness Skin Rashes: no rashes Extrem General: Yes no clubbing, cyanosis or edema Results Reviewed Results Reviewed: Laboratory Tests 10/07/24 10/07/24 08:21 08:31 WBC 4.0 L Hgb 14.9 Hct 42.5 Plt Count 173 Sodium 142 Potassium 3.9 Creatinine 0.71 Estimated GFR > 60 Fasting Glucose 96 Calcium 9.6 Total Bilirubin 1.7 H AST 19 ALT 18 Triglycerides 86 Cholesterol 142 LDL Cholesterol, Calc 49 25-OH Vitamin D Total 57.0 TSH 2.25 Ur Specific [place] 1.010 Urine Protein Negative Urine Glucose (UA) Negative Urine Blood Negative Urine Nitrite Negative Ur Leukocyte Esterase Small (1+) H Coding Level of Care Code Est Pt Level 4 (24645) Complex EM visit Add On G2211 Diagnoses PAF (paroxysmal atrial fibrillation) I48.0 Sick sinus syndrome I49.5 Pure hypercholesterolemia E78.00 Benign essential hypertension I10 Impaired fasting glucose R73.01 Allergic rhinitis, unspecified seasonality, unspecified trigger J30.9 Allergic rhinitis trigger: unspecified Allergic rhinitis seasonality: unspecified Primary osteoarthritis of left hand M19.042 Osteoarthritis type: primary Constipation, unspecified constipation type K59.00 Constipation type: unspecified constipation type Additional Codes PHQ-9 - 67874 - PHQ-9 Billing: Yes ([id number]) Assessment & Plan Assessment & Plan (1) PAF (paroxysmal atrial fibrillation): Code(s): I48.0 - Paroxysmal atrial fibrillation Category: Medical Plan: S/P cardiac ablation at [facility] on 06/22/2024, with no further recurrence of her arrhythmia Patient currently remains in sinus rhythm Continue Metoprolol ER 50 mg QD and Eliquis 5 mg BID for thromboembolism prophylaxis She was taken OFF Fleicanide by cardiology last month Follow up with cardiology as scheduled (2) Sick sinus syndrome: Code(s): I49.5 - Sick sinus syndrome Category: Medical Plan: Improved/resolved with pacemaker insertion (3) Pure hypercholesterolemia: Code(s): E78.00 - Pure hypercholesterolemia, unspecified Category: Medical Plan: Results of her labs done a few days ago reviewed and discussed with patient Reinforced low cholesterol diet Continue Atorvastatin 10 mg QD (Rx refilled) Will recheck her labs and fasting lipids in 4 months for follow up (4) Benign essential hypertension: Code(s): I10 - Essential (primary) hypertension Category: Medical Plan: Continue Metoprolol ER 50 mg QD Reinforced low sodium diet - goal is systolic BP of at least 130 mm or less (5) Impaired fasting glucose: Code(s): R73.01 - Impaired fasting glucose Category: Medical Plan: Her HgbA1c was again normal at 5.4% when last checked a few months ago; FBS was normal at 96 mg/dl on her recent labs Reinforced low calorie diet/exercise as tolerated (6) Allergic rhinitis: Code(s): J30.9 - Allergic rhinitis, unspecified Category: Medical Qualifiers: Allergic rhinitis trigger: unspecified Allergic rhinitis seasonality: unspecified Qualified Code(s): J30.9 - Allergic rhinitis, unspecified Plan: Continue Fluticasone nasal spray 50 mcg 1 spray into each nostril QD (7) Osteoarthritis of hand, left: Code(s): M19.042 - Primary osteoarthritis, left hand Category: Medical Qualifiers: Osteoarthritis type: primary Qualified Code(s): M19.042 - Primary osteoarthritis, left hand Plan: X-rays of the left hand done a couple of years ago revealed (+) OA changes in the left hand She is again instructed to continue with hand exercises that she can do regularly to help manage her hand pain / symptoms (8) Constipation: Code(s): K59.00 - Constipation, unspecified Category: Medical Qualifiers: Constipation type: unspecified constipation type Qualified Code(s): K59.00 - Constipation, unspecified Plan: Reinforced increased oral fluids and dietary fiber Continue Colace 100 mg QD PRN - Rx refilled Plan Follow up in 4 months Orders: Orders Comprehensive [place]. Panel Fast 4 Months E78.00 - Pure hypercholesterolemia, unspecified UA CC w/rflx Micro + Cult 4 Months R30.0 - Dysuria Hemoglobin A1c 4 Months E11.9 - Type 2 diabetes mellitus without complications Complete Blood Count Auto Diff 4 Months D64.9 - Anemia, unspecified Lipid Panel 4 Months E78.00 - Pure hypercholesterolemia, unspecified TSH reflex Free T4 4 Months E78.00 - Pure hypercholesterolemia, unspecified Vitamin D 25-OH Total 4 Months E55.9 - Vitamin D deficiency, unspecified Medications: Changed From docusate sodium (Colace) 100 mg PO .DAILY WITH FOOD 30 days 30 caps 6RF To docusate sodium (Colace) 100 mg PO DAILY 90 days PRN 90 caps 3RF constipation Refilled atorvastatin 10 mg PO DAILY 90 tabs 3RF calcium carbonate-vitamin D3 600 mg-5 mcg (200 unit) 1 tab PO DAILY 90 days 90 tabs 3RF metoprolol succinate ER 50 mg PO DAILY 90 tabs 3RF
== END 2024-10-12 11:37 | disposition home or self-care (01) ==
LOC: HO.HMCH 10:59
PROVIDERS: PCP Internal Medicine; Visit Provider Internal Medicine
DX: I48.0 Paroxysmal atrial fibrillation (principal); I49.5 Sick sinus syndrome; E78.00 Pure hypercholesterolemia, unspecified; I10 Essential (primary) hypertension; R73.01 Impaired fasting glucose; J30.9 Allergic rhinitis, unspecified; M19.042 Primary osteoarthritis, left hand; K59.00 Constipation, unspecified

== ENCOUNTER → 2024-10-12 10:58 | Outpatient (BNVA) | payer MEDICARE, SELFPAY | PROVIDERS: PCP Internal Medicine; Visit Provider Internal Medicine | DX: I48.0 Paroxysmal atrial fibrillation (principal); I49.5 Sick sinus syndrome; E78.00 Pure hypercholesterolemia, unspecified; I10 Essential (primary) hypertension; R73.01 Impaired fasting glucose; J30.9 Allergic rhinitis, unspecified; M19.042 Primary osteoarthritis, left hand; K59.00 Constipation, unspecified | CPT/HCPCS: 96127; 99212 ==

== ENCOUNTER → 2024-11-17 23:59 | Outpatient (BNV) | payer MEDICARE, SELFPAY ==
--- NOTE | 2024-11-26 20:52 | MHC.OFFVIS ---
Intake Visit Reasons: Remote Device Check- [employer] Allergies codeine [CODEINE] Allergy (Unknown, Verified 10/12/24 11:22) JITTERY Sulfa (Sulfonamide Antibiotics) [SULFA (SULFONAMIDE ANTIBIOTICS)] Allergy (Unknown, Verified 10/12/24 11:22) RASH,HIVES, rash PFSH Medical History (Updated 10/12/24 @ 11:57 by Rudy Buckley MD) Constipation At high risk for breast cancer Family history of breast cancer Current use of residential anticoagulation Normally functioning cardiac pacemaker present Overweight (BMI 25.0-29.9) Allergic rhinitis Impaired fasting glucose Benign essential hypertension Sick sinus syndrome Pure hypercholesterolemia PAF (paroxysmal atrial fibrillation) Surgical History (Updated 10/12/24 @ 11:51 by Rudy Buckley MD) History of cardiac ablation for atrial fibrillation H/O colonoscopy History of pacemaker History of tonsillectomy Family History Father Hypertension Diabetes Arthritis Colon cancer Iron deficiency Mother Hypertension Maternal Grandmother Arthritis Diabetes Blockage of coronary artery of heart Maternal Grandfather Arthritis Paternal Grandfather Arthritis Pancreatic cancer Social History Housing: House Alcohol intake: former Patient Tobacco Use Status: Former Tobacco user e-Cigarette/Vaping Use: Never Used Second Hand Smoke Exposure: Yes service: No Current occupational status: disabled Cognitive needs: No Hearing needs: Yes (Hearing aide) Vision needs: Yes (wear glasses) Office Procedures Cardiac Device Check Cardiac Device Check Details: Date of service- 11/17/2024 ; Battery life 3 years; normal lead parameters; AP 97%; 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 Overall normal device function. [id number] Cardiac Device Interrogation, pacemaker Procedure code (CPT) selection complete Assessment & Plan Assessment & Plan (1) Pacemaker: Code(s): Z95.0 - Presence of cardiac pacemaker Category: Medical (2) Sick sinus syndrome: Code(s): I49.5 - Sick sinus syndrome Category: Medical (3) PAF (paroxysmal atrial fibrillation): Code(s): I48.0 - Paroxysmal atrial fibrillation Category: Medical Plan X Coding Level of Care Code Procedure Only Diagnoses Pacemaker Z95.0 Sick sinus syndrome I49.5 PAF (paroxysmal atrial fibrillation) I48.0 CPT Codes Cardiac Device Check - Cardiac Device 12: [id number] Cardiac Device Interrogation, pacemaker ([id number])
== END ==
PROVIDERS: PCP Internal Medicine; Visit Provider Internal Medicine
DX: I49.5 Sick sinus syndrome (principal); Z95.0 Presence of cardiac pacemaker; I48.0 Paroxysmal atrial fibrillation
CPT/HCPCS: 93294

== ENCOUNTER 2025-02-06 07:13 | Outpatient (REF) | payer MEDICARE, SELFPAY ==
--- OUTSIDE RECORDS SUMMARY | 2025-02-06 07:16 | XMS_ITS | Clinical Summary ---
Author Organization [address] [place] [address] [place] [phone] Phone Care Team Providers Care Remote Sensing Advisor Name Role Phone Rudy Buckley MD Primary Care Provider + [phone] Allergies Active Allergy Reactions Criticality Noted Date [...] Noted Date Diagnosed Date PAF (paroxysmal atrial fibri llation) ([facility] V24, [facility] V28) 05/15/2024 Hypertension 05/15/2024 Hypercholesterolemia 05/15/2024 SSS (sick sinus syndrome) ([facility] V24, [facility] V28) 05/15/2024 Impaired fasting glucose 05/15/2024 Surgical History Surgery Date Site/Laterality Comments PACEMAKER IMPLANT TONSILLECTOMY ABLATION DONE ON 06/22/2024 AT [facility] SR INDICATIONS:Atrial Fibrillation Family History Medical [...] Cancer Screening: Colonoscopy 05/04/2024 Depression Screening 05/04/2024 Hepatitis C Screening 05/04/2024 Medicare Annual Wellness Visit 05/04/2024 Osteoporosis Screening (Bone Density Screening) 05/04/2024 Social Influencers of Health Screening 05/04/2024 COVID-19 Vaccine ( season) 2024 04/15/2024, 06/04/2023, 06/08/2022, Additional history exists Falls Risk Assessment 12/15/2024 Influenza Vaccine (#1) 2025 , 03/11/2023, 05/29/2022, Additional history exists Hypertension/CHF/CAD Annual BMP Blood Test 06/17/2025 06/17/2024 DTaP,Tdap,and Td Vaccines (2 - Td or Tdap) 08/08/2026 08/08/2016 Zoster Vaccines Completed 12/05/2020, 08/28/2020 RSV Immunization Adult Patients Completed 01/09/2024 Pneumococcal Vaccine: 50+ Years Completed 05/16/2024, 05/03/2017 HIB Vaccines Aged Out No longer eligi [...] age to complete this topic Meningococcal B Vaccine Aged Out No l onger eligible based on patient's age to complete this topic RSV Immunization Patients Under 20 months Aged Out No longer eligible based on patient's age to complete this topic Varicella Vaccines Aged Out No longer eligible based on patient's age to complete this topic Procedures Procedure Name Priority Date/Time Associated Diagnosis Comments BASIC METABOLIC PANEL Routine 06/17/2024 9:51 AM EST from Last 3 Months or Most Recently Relevant to Health Maintenance Results * (ABNORMAL) Basic metabolic panel (06/17/2024 9:51 [...] - 06/18/2024 1:06 AM EST Performed at: 01 - [facility] [place] [id number] Corporate Coordinator: Elaina Quiroz MD, Phone: [phone] Anjum Braswell MD LAB BLOOD ORDERABLES Final Result [facility] 1 from Last 3 Months or Most Recently Relevant to Health Maintenance Insurance [employer] MEDICARE Care Teams Remote Sensing Advisor Relationship Specialty Start Date End Date Rudy Buckley MD [address] [place] [address] [place] PCP - General Internal Medicine 07/23/24
[2025-02-06 07:33] LABS: MANUAL DIFF FLAG NO
[2025-02-06 08:17] LABS: Hematocrit 39.8 % (37.0-47.0); Hemoglobin 13.8 g/dl (12.0-16.0); Imm Gran Abs Auto 0.03 X10*3/uL (0.00-0.03); Imm Gran Pct Auto 0.8 % (0.0-0.4); Lymphocytes Absolute Auto 1.8 X10*3/uL (1.2-4.9); Mean Corpuscular HGB Conc 34.7 g/dl (31.0-35.0); Mean Corpuscular Hemoglobin 31.5 pg (27.0-33.0); Mean Corpuscular Volume 90.9 fL (80.0-98.0); NRBC Abs Auto 0.000 X10*3/uL (0.0-0.012); NRBC Pct Auto 0.0 /100WBC (0.0-0.2); Platelet Count 167 X10*3/uL (160-400); Red Blood Count 4.38 X10*6/uL (4.20-5.50); White Blood Count 3.7 X10*3/uL (4.8-10.8)
[2025-02-06 08:22] LABS: Hemoglobin A1C 134.4102 umol/L; Total Hemoglobin (HGBA1C) 3653.9277 umol/L
[2025-02-06 08:39] LABS: Appearance Urine Clear; Glucose Urine UA Negative (Negative); PH 7.5 (5.0-9.0); Specific Gravity - Urine 1.015 (1.005-1.025); UMIC TRIGGER UACC YES
[2025-02-06 08:52] LABS: UACC Culture Trigger YES
[2025-02-06 09:08] LABS: Alanine Aminotransferase 18 U/L (0-31); Albumin Level 4.3 g/dL (3.5-5.0); Alkaline Phosphatase 76 U/L (39-117); Anion Gap 11 (12-20); Aspartate Amino Transferase 22 U/L (5-31); Blood Urea Nitrogen 15 mg/dL (9-16); Calcium 9.3 mg/dL (8.4-10.2); Carbon Dioxide 26 mmol/L (22-29); Chloride 109 mmol/L (96-108); Cholesterol 138 mg/dL (<200); Estimated Glomerular Filt Rate > 60; HDL Cholesterol 70 mg/dL (>40); Potassium 4.1 mmol/L (3.3-5.1); Sodium 142 mmol/L (135-145); Total Protein 6.8 g/dL (6.5-8.0); Triglycerides 61 mg/dL (<150)
== END 2025-02-06 07:14 | disposition home or self-care (01) ==
LOC: HO.LAB 07:13
PROVIDERS: PCP Internal Medicine; Visit Provider Internal Medicine
DX: E78.00 Pure hypercholesterolemia, unspecified (principal); E11.9 Type 2 diabetes mellitus without complications; E55.9 Vitamin D deficiency, unspecified; D64.9 Anemia, unspecified; R30.0 Dysuria
CPT/HCPCS: 36415; 80053; 80061; 81001; 82306; 83036; 84443; 85025; 87086

== ENCOUNTER 2025-02-11 10:49 | Outpatient (AMB) | payer MEDICARE, SELFPAY ==
--- NOTE | 2025-02-11 10:52 | A.OFFPC_ITS ---
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 Accompanied by: Self / Same As Patient Allergies codeine (CODEINE) Allergy (Unknown, Verified 02/11/25 11:19) JITTERY Sulfa (Sulfonamide Antibiotics) (SULFA (SULFONAMIDE ANTIBIOTICS)) Allergy (Unknown, Verified 02/11/25 11:19) RASH,HIVES, rash Medication List - Last Reconciled 02/11/25 by Rudy Buckley MD apixaban (Eliquis) 5 mg PO BID atorvastatin 10 mg PO DAILY calcium carbonate-vitamin D3 600 mg-5 mcg (200 unit) 1 tab PO DAILY 90 days docusate sodium (Colace) 100 mg PO DAILY PRN 90 days metoprolol succinate ER 50 mg PO DAILY tizanidine 4 mg PO Q8H PRN Tobacco use date assessed: 02/11/25 Fall risk assessment: No Falls in past year Last assessed Fall Risk: 02/11/25 Dental Screening Dental Screen Date: 02/11/25 Did you have a dental visit in the last 12 months?: No Did you have a dental problem in the last 6 months where you did not have access to dental care?: No Was dental information given to patient?: No HPI hyperlipidemia, PAF - see comments HPI Details Patient comes in today for her follow up visit States that she feels okay She denies any headaches or dizziness Denies any chest pains or palpitations, no increased SOB No nausea/vomiting, no abdominal pain No change in bowel habits noted Needs her Calcium supplement Rx refilled She had her follow up labs done a few days ago - to discuss her results [facility] Medical History Constipation At high risk for breast cancer Family history of breast cancer Current use of snf anticoagulation Normally functioning cardiac pacemaker present Overweight (BMI 25.0-29.9) Allergic rhinitis Impaired fasting glucose Benign essential hypertension Sick sinus syndrome Pure hypercholesterolemia PAF (paroxysmal atrial fibrillation) Surgical History History of cardiac ablation for atrial fibrillation H/O colonoscopy History of pacemaker History of tonsillectomy Family History Father Hypertension Diabetes Arthritis Colon cancer Iron deficiency Mother Hypertension Maternal Grandmother Arthritis Diabetes Blockage of coronary artery of heart Maternal Grandfather Arthritis Paternal Grandfather Arthritis Pancreatic cancer Social History Housing: House Alcohol intake: former Patient Tobacco Use Status: Former Tobacco user e-Cigarette/Vaping Use: Never Used Second Hand Smoke Exposure: Yes service: No Current occupational status: disabled Cognitive needs: No Hearing needs: Yes (Hearing aide) Vision needs: Yes (wear glasses) Questionnaire PHQ-9 Over the last 2 weeks, how often have you been bothered by any of the following problems? 1. Little interest or pleasure in doing things: not at all 2. Feeling down, depressed, or hopeless: not at all 3. Trouble falling or staying asleep, or sleeping too much: not at all 4. Feeling tired or having little energy: not at all 5. Poor appetite or overeating: not at all 6. Feeling bad about yourself - or that you are a failure or have let yourself or your family down: not at all 7. Trouble concentrating on things, such as reading the newspaper or watching television: not at all 8. Moving or speaking so slowly that other people could have noticed. Or the opposite - being so fidgety or restless that you have been moving around a lot more than usual: not at all 9. Thoughts that you would be better off or of hurting yourself in some way: not at all Total score: 0 Depression Screening Interpretation: Negative Depression Screening Done: Yes 64100 - PHQ-9 Billing: Yes Source: Developed by Drs. Fan Valerio, Anuradha Corado, Zan Vogt and colleagues, with an educational cecil from [employer] Thrive Questionnaire Date Thrive assessed: 02/11/25 I am a: Patient What is your living situation today?: I have a steady place to live Within the past 12 months, did the food you bought not last and you didn't have the money to get more?: I choose not to answer this question Within the past 12 months, did you worry whether your food would run out before you got money to buy more?: I choose not to answer this question Do you have trouble paying for medicines?: Yes Do you have trouble getting transportation to medical appointments?: No Do you have trouble paying your heating and electricity bill?: No Do you have trouble taking care of your child, family member or friend?: No Do you have trouble with day-to-day activities such as bathing, preparing meals, shopping, managing finances, etc.?: No Are you currently unemployed and looking for a job?: No Are you interested in more education?: No Please select the resources that you would like help with: Paying for medicine Currently or been in a relationship where the following occur: I choose not to answer THRIVE Score: 0 AUDIT C Alcohol Use Questionnaire (AUDIT-C) 1. How often do you have a drink containing alcohol?: Never 3. How often do you have six or more drinks on one occasion?: Never Total Score: 0 Score Reviewed/Action Taken: Yes AISHA-7 AMB Questionnaire AISHA-7 Date AISHA - 7 assessed: 02/11/25 Feeling nervous, anxious, or on edge: 0 = Not at all Not being able to stop or control worryin = Not at all Worrying too much about different things: 0 = Not at all Trouble relaxin = Not at all Being so restless that it is hard to sit still: 0 = Not at all Becoming easily annoyed or irritable: 0 = Not at all Feeling afraid as if something awful might happen: 0 = Not at all Total AISHA-7 score (0-4 normal; 5-9 mild; 10-14 moderate; 15-21 severe): 0 Source: Developed by Drs. Fan Valerio, Anuradha Corado, Zan Vogt and colleagues, with an educational cecil from [employer] Review of Systems Const Denies chills, Denies fatigue, Denies fever(s) and Denies headache(s) ENT Denies dysphagia, Denies dizziness, Denies otalgia, Denies headache(s), Denies neck pain, Denies odynophagia and Denies sore throat Card Denies chest pain, Denies palpitations and Denies dyspnea Resp Denies chest congestion, Denies cough and Denies dyspnea GI Denies abdominal pain, Denies hematochezia, Denies constipation, Denies dysphagia, Denies heartburn, Denies diarrhea, Denies nausea, Denies odynophagia and Denies vomiting Denies difficulty voiding, Denies nocturia, Denies dysuria and Denies urinary urgency Musc Denies back pain and Denies neck pain Skin/Breast Denies rash Neuro Denies dizziness and Denies headache(s) Endo Denies fatigue and Denies palpitations Physical exam (Primary Care) Vital Signs: Last Vital Signs Pulse 86 02/11/25 10:54 BP 122/72 02/11/25 10:54 Pulse Ox 93 02/11/25 10:54 Oxygen Delivery Method Room Air 02/11/25 10:54 BMI result Body Mass Index 25.7 Tobacco/Smoking Status: Tobacco use Status Tobacco use date assessed 02/11/25 02/11/25 11:00 Patient Tobacco Use Status Former Tobacco user 02/11/25 11:00 e-Cigarette/Vaping Use Never Used 02/11/25 11:00 PHQ-9: PHQ-9 Score PHQ-9: Total score 0 02/11/25 11:00 Depression Screening Interpretation: Negative Thrive Assessment: Date of Thrive Assessment Date Thrive assessed 02/11/25 02/11/25 11:00 Currently or been in a relationship where the following occur: I choose not to answer Const General: no acute distress and alert HENMT Ears: TM's normal bilaterally and EAC's normal Throat: Yes posterior oropharynx normal and Yes tonsils normal Neck Neck: Yes supple and No lymphadenopathy Thyroid: Thyroid normal Resp Auscultation: clear to auscultation bilaterally, no rales and no wheezes Cardio Rate: regular rate Rhythm: regular rhythm Heart sounds: no murmurs GI Palpation (GI): Soft to palpation and nontender Auscultation: normal bowel sounds General: Yes no CVA tenderness Back/Spine/Pelvis Back: no CVA tenderness Thoracic/Lumbar Spine: No lumbar spinal tenderness Skin Rashes: no rashes Extrem General: Yes no clubbing, cyanosis or edema Results Reviewed Results Reviewed: Laboratory Tests 02/06/25 02/06/25 07:28 07:32 WBC 3.7 L Hgb 13.8 Hct 39.8 Plt Count 167 Sodium 142 Potassium 4.1 Creatinine 0.64 Estimated GFR > 60 Fasting Glucose 97 Hemoglobin A1c % 5.5 Calcium 9.3 AST 22 ALT 18 Triglycerides 61 Cholesterol 138 LDL Cholesterol, Calc 56 HDL Cholesterol 70 25-OH Vitamin D Total 60.1 TSH 3.18 Ur Specific Urania 1.015 Urine Protein Negative Urine Glucose (UA) Negative Urine Blood Negative Urine Nitrite Negative Ur Leukocyte Esterase Moderate (2+) H Coding Level of Care Code Est Pt Level 4 (62681) Diagnoses PAF (paroxysmal atrial fibrillation) I48.0 Sick sinus syndrome I49.5 Pure hypercholesterolemia E78.00 Benign essential hypertension I10 Impaired fasting glucose R73.01 Allergic rhinitis, unspecified seasonality, unspecified trigger J30.9 Allergic rhinitis trigger: unspecified Allergic rhinitis seasonality: unspecified Primary osteoarthritis of left hand M19.042 Osteoarthritis type: primary Constipation, unspecified constipation type K59.00 Constipation type: unspecified constipation type Additional Codes PHQ-9 - 39857 - PHQ-9 Billing: Yes ([id number]) Assessment & Plan Assessment & Plan (1) PAF (paroxysmal atrial fibrillation): Code(s): I48.0 - Paroxysmal atrial fibrillation Category: Medical Plan: S/P cardiac ablation at [facility] on 06/22/2024, with no further recurrence of her arrhythmia Patient currently remains in sinus rhythm Continue Metoprolol ER 50 mg QD and Eliquis 5 mg BID for thromboembolism prophylaxis Follow up with cardiology as scheduled (2) Sick sinus syndrome: Code(s): I49.5 - Sick sinus syndrome Category: Medical Plan: Improved/resolved with pacemaker insertion (3) Pure hypercholesterolemia: Code(s): E78.00 - Pure hypercholesterolemia, unspecified Category: Medical Plan: Results of her labs done a few days ago reviewed and discussed with patient Reinforced low cholesterol diet Continue Atorvastatin 10 mg QD Will recheck her labs and fasting lipids in 4 months for follow up (4) Benign essential hypertension: Code(s): I10 - Essential (primary) hypertension Category: Medical Plan: Reinforced low sodium diet - goal is systolic BP of at least 130 mm or less Continue Metoprolol ER 50 mg QD (5) Impaired fasting glucose: Code(s): R73.01 - Impaired fasting glucose Category: Medical Plan: Her HgbA1c was normal at 5.5% on her labs done a few days ago; FBS was also normal at 97 mg/dl on her recent labs Reinforced low calorie diet/exercise as tolerated (6) Allergic rhinitis: Code(s): J30.9 - Allergic rhinitis, unspecified Category: Medical Qualifiers: Allergic rhinitis trigger: unspecified Allergic rhinitis seasonality: unspecified Qualified Code(s): J30.9 - Allergic rhinitis, unspecified Plan: Continue Fluticasone nasal spray 50 mcg 1 spray into each nostril QD (7) Osteoarthritis of hand, left: Code(s): M19.042 - Primary osteoarthritis, left hand Category: Medical Qualifiers: Osteoarthritis type: primary Qualified Code(s): M19.042 - Primary osteoarthritis, left hand Plan: X-rays of the left hand done a couple of years ago revealed (+) OA changes in the left hand She is again instructed to continue with hand exercises that she can do regularly to help manage her hand pain / symptoms (8) Constipation: Code(s): K59.00 - Constipation, unspecified Category: Medical Qualifiers: Constipation type: unspecified constipation type Qualified Code(s): K59.00 - Constipation, unspecified Plan: Reinforced increased oral fluids and dietary fiber Continue Colace 100 mg QD PRN Plan To return as scheduled in May 2025 for her next annual physical examination Orders: Orders Complete Blood Count Auto Diff 05/22/25 D64.9 - Anemia, unspecified Comprehensive Spurger. Panel Fast 05/22/25 E78.00 - Pure hypercholesterolemia, unspecified UA CC w/rflx Micro + Cult 05/22/25 R30.0 - Dysuria Lipid Panel 05/22/25 E78.00 - Pure hypercholesterolemia, unspecified TSH reflex Free T4 05/22/25 E78.00 - Pure hypercholesterolemia, unspecified Vitamin B12 and Folate 05/22/25 E53.8 - Deficiency of other specified B group vitamins Vitamin D 25-OH Total 05/22/25 E55.9 - Vitamin D deficiency, unspecified Medications: Refilled calcium carbonate-vitamin D3 600 mg-5 mcg (200 unit) 1 tab PO DAILY 90 tabs 3RF 90 days
[2025-02-11 10:54] VITALS: BP 122/72; PULSE 86; O2SAT 93; BMI 25.7
--- OUTSIDE RECORDS SUMMARY | 2025-02-11 11:41 | XMS_ITS | Clinical Summary ---
Author Organization [address] [place] [address] [place] [phone] Phone Care Team Providers Care Energy Director Name Role Phone Rudy Buckley MD Primary Care Provider + [phone] Allergies Active Allergy Reactions Criticality Noted Date [...] Diagnosed Date PAF (paroxysmal atrial fibri llation) ([facility] V24, [facility] V28) 05/15/2024 Hypertension 05/15/2024 Hypercholesterolemia 05/15/2024 SSS (sick sinus syndrome) ([facility] V24, [facility] V28) 05/15/2024 Impaired fasting glucose 05/15/2024 Surgical History Surgery Date Site/Laterality Comments PACEMAKER IMPLANT TONSILLECTOMY ABLATION DONE ON 06/22/2024 AT [facility] [place] W SR INDICATIONS:Atrial Fibrillation Family History Medical [...] Panel) 05/04/2024 Colorectal Cancer Screening: Colonoscopy 05/04/2024 Hepatitis C Screening 05/04/2024 Medicare Annual Wellness Visit 05/04/2024 Osteoporosis Screening (Bone Density Screening) 05/04/2024 Social Influencers of Health Screening 05/04/2024 Depression Screening 07/22/2024 COVID-19 Vaccine ( season) 2024 04/15/2024, 06/04/2023, [...] AM EST Performed at: 01 - [facility] [place] [id number] [place]: Elaina Quiroz MD, Phone: [phone] Anjum Braswell MD LAB BLOOD ORDERABLES Final Result [facility] 1 from Last 3 Months or Most Recently Relevant to Health Maintenance Insurance [employer] MED[employer]ARE Care Teams Energy Director Relationship Specialty Start Date End Date Rudy Buckley MD [address] [place] [address] [place] PCP - General Internal Medicine 07/23/24
== END 2025-02-11 11:31 | disposition home or self-care (01) ==
LOC: HO.HMCH 10:50
PROVIDERS: PCP Internal Medicine; Visit Provider Internal Medicine
DX: I48.0 Paroxysmal atrial fibrillation (principal); I49.5 Sick sinus syndrome; E78.00 Pure hypercholesterolemia, unspecified; I10 Essential (primary) hypertension; R73.01 Impaired fasting glucose; J30.9 Allergic rhinitis, unspecified; M19.042 Primary osteoarthritis, left hand; K59.00 Constipation, unspecified

== ENCOUNTER → 2025-02-11 10:49 | Outpatient (BNVA) | payer MEDICARE, SELFPAY | PROVIDERS: PCP Internal Medicine; Visit Provider Internal Medicine | DX: I48.0 Paroxysmal atrial fibrillation (principal); I49.5 Sick sinus syndrome; I10 Essential (primary) hypertension; E78.00 Pure hypercholesterolemia, unspecified; R73.01 Impaired fasting glucose; J30.9 Allergic rhinitis, unspecified; M19.042 Primary osteoarthritis, left hand; K59.00 Constipation, unspecified | CPT/HCPCS: 96127; 99212 ==

== ENCOUNTER 2025-03-01 12:25 | Outpatient (AMB) | payer MEDICARE, SELFPAY ==
--- OUTSIDE RECORDS SUMMARY | 2025-03-01 12:34 | XMS_ITS | Clinical Summary ---
Author Organization [address] [place] [address] [place] [phone] Phone Care Team Providers Care Plaster Whittler Name Role Phone Rudy Buckley MD Primary Care Provider + [phone] Allergies Active Allergy Reactions Criticality Noted Date [...] Date PAF (paroxysmal atrial fibri llation) ([facility] V24, [facility] V28) 05/15/2024 Hypertension 05/15/2024 Hypercholesterolemia 05/15/2024 SSS (sick sinus syndrome) ([facility] V24, [facility] V28) 05/15/2024 Impaired fasting glucose 05/15/2024 Surgical [...] AM EST Performed at: 01 - [facility] [place] [id number] Wire Weaver Helper: Elaina Quiroz MD, Phone: [phone] Anjum Braswell MD LAB BLOOD ORDERABLES Final Result [facility] 1 from Last 3 Months or Most Recently Relevant to Health Maintenance Insurance [employer] Care Teams Plaster Whittler Relationship Specialty Start Date End Date Rudy Buckley MD [address] [place] [address] [place] PCP - General Internal Medicine 07/23/24
[2025-03-01 12:42] VITALS: BP 130/70; PULSE 64; BMI 26.0
--- NOTE | 2025-03-01 12:42 | MHC.OFFVIS ---
Vital Signs 03/01/25 12:42 Height 5 ft 2 in Weight 142 lb BMI 26.0 BP 130/70 Blood Pressure Location Lt brachial Position Sitting Pulse 64 Pulse Source Pulse Oximeter Intake Visit Reasons: 6m follow up w device ck Allergies codeine (CODEINE) Allergy (Unknown, Verified 02/11/25 11:19) JITTERY Sulfa (Sulfonamide Antibiotics) (SULFA (SULFONAMIDE ANTIBIOTICS)) Allergy (Unknown, Verified 02/11/25 11:19) RASH,HIVES, rash Medication List - Last Reconciled 03/01/25 by Paul Westbrook MD apixaban (Eliquis) 5 mg PO BID atorvastatin 10 mg PO DAILY calcium carbonate-vitamin D3 600 mg-5 mcg (200 unit) 1 tab PO DAILY 90 days docusate sodium (Colace) 100 mg PO DAILY PRN 90 days metoprolol succinate ER 50 mg PO DAILY tizanidine 4 mg PO Q8H PRN HPI Comments Details: Farhana returns for follow-up regarding paroxysmal atrial fibrillation and sick sinus syndrome/pacemaker. She was maintained on Flecainide, but was still having recurrent atrial fibrillation. This led to EP consultation/ablation. Since last seen, no new concerns. No cardiac symptoms whatsoever. 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 Normally functioning cardiac pacemaker present Overweight (BMI 25.0-29.9) Allergic rhinitis Impaired fasting glucose Benign essential hypertension Sick sinus syndrome Pure hypercholesterolemia PAF (paroxysmal atrial fibrillation) Surgical History History of cardiac ablation for atrial fibrillation H/O colonoscopy History of pacemaker History of tonsillectomy Family History Father Hypertension Diabetes Arthritis Colon cancer Iron deficiency Mother Hypertension Maternal Grandmother Arthritis Diabetes Blockage of coronary artery of heart Maternal Grandfather Arthritis Paternal Grandfather Arthritis Pancreatic cancer Social History Housing: House Alcohol intake: former Patient Tobacco Use Status: Former Tobacco user e-Cigarette/Vaping Use: Never Used Second Hand Smoke Exposure: Yes service: No Current occupational status: disabled Cognitive needs: No Hearing needs: Yes (Hearing aide) Vision needs: Yes (wear glasses) Review of Systems Const Denies weakness ENT Denies dizziness Card Denies chest pain, Denies chest pain with activity, Denies syncope, Denies rapid heart rate, Denies pedal edema, Denies edema, Denies leg edema, Denies lightheadedness, Denies palpitations, Denies dyspnea, Denies dyspnea on exertion and Denies orthopnea Resp Denies cough, Denies dyspnea and Denies dyspnea on exertion GI Denies hematochezia and Denies change in stool character Musc Denies abnormal gait, Denies muscle cramps, Denies muscle weakness, Denies numbness, Denies radiating pain into limb and Denies tingling Neuro Denies abnormal gait, Denies dizziness, Denies syncope, Denies numbness, Denies tingling and Denies weakness Endo Denies palpitations Physical Exam Vital Signs: Last Vital Signs Pulse 64 03/01/25 12:42 BP 130/70 03/01/25 12:42 BMI result Body Mass Index 26.0 Const General: comfortable and no acute distress Orientation/consciousness: patient oriented x3 HEENT Other: Unremarkable Head: Yes normal to inspection Neck Neck: Yes normal visual inspection Chest Chest palpation & inspection: normal inspection of the chest Resp Auscultation: clear to auscultation bilaterally Cardio Palpation: normal PMI Heart sounds: S1 normal heart sound present, S2 normal heart sound present, no gallops, Murmur heart sound present systolic I/ and at the right sternal border and no rubs GI Palpation (GI): Soft to palpation Back/Spine/Pelvis Other: unremarkable Skin General skin exam: no rashes or lesions noted Neuro General: patient oriented x3 Extrem General: Yes normal to inspection Psych Mental Status: mental status grossly normal Office Procedures Cardiac Device Check Cardiac Device Check Details: Pacemaker interrogated today. Programmed AAIR-DDDR mode. Battery status 2 years Presenting rhythm A paced/V sensed at 71/Min. No significant atrial fibrillation. Total atrial pacing 97%. Ventricular pacing minimal. Normal lead parameters. Overall, normal device function. [id number] Cardiac Device Check, pacemaker dual lead Procedure code (CPT) selection complete Assessment & Plan Assessment & Plan (1) PAF (paroxysmal atrial fibrillation): Code(s): I48.0 - Paroxysmal atrial fibrillation Category: Medical Plan: Status post atrial fibrillation isolation-06/2024. Off flecainide. Continue Eliquis. Myocardial perfusion imaging study from 2019 shows likely normal perfusion. Echocardiogram from 2022 with LVEF of 55-60% and no significant valvular issues. (2) Sick sinus syndrome: Code(s): I49.5 - Sick sinus syndrome Category: Medical Plan: Status post pacemaker. Followed remotely. Coding Level of Care Code Est Pt Level 3 (35980) Diagnoses PAF (paroxysmal atrial fibrillation) I48.0 Sick sinus syndrome I49.5 CPT Codes Cardiac Device Check - Cardiac Device 2: 40806-BH Cardiac Device Check, pacemaker dual lead ([id number])
== END 2025-03-01 13:05 | disposition home or self-care (01) ==
LOC: HO.HCS 12:25
PROVIDERS: PCP Internal Medicine; Visit Provider Internal Medicine
DX: I48.0 Paroxysmal atrial fibrillation (principal); I49.5 Sick sinus syndrome
CPT/HCPCS: 93280; 99213

== ENCOUNTER → 2025-03-01 12:25 | Outpatient (BNVA) | payer MEDICARE, SELFPAY | PROVIDERS: PCP Internal Medicine; Visit Provider Internal Medicine | DX: Z45.018 Encounter for adjustment and management of other part of cardiac pacemaker (principal); I48.0 Paroxysmal atrial fibrillation; I49.5 Sick sinus syndrome | CPT/HCPCS: 93280; 99212 ==

== ENCOUNTER 2025-04-07 10:38 | Outpatient (AMB) | payer MEDICARE, SELFPAY ==
--- NOTE | 2025-04-07 10:41 | MHC.OFFVIS ---
Vital Signs 04/07/25 10:48 Height 5 ft 2 in Weight 143 lb BMI 26.2 BP 134/85 Blood Pressure Location Rt brachial Position Sitting Pulse 92 Intake Visit Reasons: 1 year breast exam Intake Note: Patient here for yearly breast exam. ANIBAL: 04-09-2024 Patient c/o: no concerns. Denies breast lumps, tenderness, nipple discharge. Reports one episode of pressure on left side but it has not happened again. Imaging: MM~ 09-23-2023 [employer] Required: No Accompanied by: Self / Same As Patient Allergies codeine (CODEINE) Allergy (Unknown, Verified 04/07/25 10:47) JITTERY Sulfa (Sulfonamide Antibiotics) (SULFA (SULFONAMIDE ANTIBIOTICS)) Allergy (Unknown, Verified 04/07/25 10:47) RASH,HIVES, rash Medication List - Last Reconciled 04/07/25 by Benedict Kerns MD apixaban (Eliquis) 5 mg PO BID atorvastatin 10 mg PO DAILY calcium carbonate-vitamin D3 600 mg-5 mcg (200 unit) 1 tab PO DAILY 90 days docusate sodium (Colace) 100 mg PO DAILY PRN 90 days metoprolol succinate ER 50 mg PO DAILY tizanidine 4 mg PO Q8H PRN HPI HPI 1 year breast exam: Details: She is here for a follow-up breast exam. She is considered at high risk for breast cancer in view of a strong family history of breast. Her sister was diagnosed to have breast cancer in her 50s. Her father was diagnosed to have colon cancer in his 60s. She otherwise denies any palpable breast masses or any nipple or skin changes. She feels well overall. Her last mammogram on record last September, and this did not suggest any mammographic evidence of a malignancy. She says she is doing well overall. 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 Normally functioning cardiac pacemaker present Overweight (BMI 25.0-29.9) Allergic rhinitis Impaired fasting glucose Benign essential hypertension Sick sinus syndrome Pure hypercholesterolemia PAF (paroxysmal atrial fibrillation) Surgical History History of cardiac ablation for atrial fibrillation H/O colonoscopy History of pacemaker History of tonsillectomy Family History Father Hypertension Diabetes Arthritis Colon cancer Iron deficiency Mother Hypertension Maternal Grandmother Arthritis Diabetes Blockage of coronary artery of heart Maternal Grandfather Arthritis Paternal Grandfather Arthritis Pancreatic cancer Social History Housing: House Alcohol intake: former Patient Tobacco Use Status: Former Tobacco user e-Cigarette/Vaping Use: Never Used Second Hand Smoke Exposure: Yes service: No Current occupational status: disabled Cognitive needs: No Hearing needs: Yes (Hearing aide) Vision needs: Yes (wear glasses) Physical Exam Const General: comfortable and no acute distress Orientation/consciousness: patient oriented x3 Neck Neck: Yes no lymphadenopathy Chest Other: Large pendulous breasts, with no palpable breast masses. No axillary lymphadenopathy. Pacemaker on the left upper chest Resp Auscultation: clear to auscultation bilaterally Cardio Rhythm: regular rhythm GI Palpation (GI): Soft to palpation, nontender and no guarding Neuro General: patient oriented x3 Assessment & Plan Assessment & Plan (1) At high risk for breast cancer: Code(s): Z91.89 - Other specified personal risk factors, not elsewhere classified Category: Medical Plan: Her last mammogram was last 12/08/2024 and this was unremarkable. Current exam does not suggest any mass. I reminded with a continue with a regular screening mammograms. I will see her again in the office in 6 months to do another breast exam. Understands the plan above and is comfortable with this. Coding Level of Care Code Est Pt Level 3 (97370) Diagnoses At high risk for breast cancer Z91.89
[2025-04-07 10:48] VITALS: BP 134/85; PULSE 92; BMI 26.2
--- OUTSIDE RECORDS SUMMARY | 2025-04-07 13:09 | XMS_ITS | Clinical Summary ---
Author Organization [address] [place] [address] [place] [id number] Phone Care Team Providers Care Forest Economist Name Role Phone Rudy Buckley MD Primary Care Provider + [phone] Allergies Active Allergy Reactions Criticality Noted Date [...] Diagnosed Date PAF (paroxysmal atrial fibri llation) ([facility] V24, [facility] V28) 05/15/2024 Hypertension 05/15/2024 Hypercholesterolemia 05/15/2024 SSS (sick sinus syndrome) ([facility] V24, [facility] V28) 05/15/2024 Impaired fasting glucose 05/15/2024 Surgical History Surgery Date Site/Laterality Comments PACEMAKER IMPLANT TONSILLECTOMY ABLATION DONE ON 06/22/2024 AT [facility] [place] INDICATIONS:Atrial Fibrillation Family History Medical [...] of Health Screening 05/04/2024 Depression Screening 07/22/2024 Falls Risk Assessment 12/15/2024 COVID-19 Vaccine ( season) 2025 04/15/2024, 06/04/2023, 06/08/2022, Additional history exists Influenza Vaccine (#1) 2025 , 03/11/2023, 05/29/2022, [...] AM EST Performed at: 01 - [facility] [place] [id number] Seat Mender: Elaina Quiroz MD, Phone: [phone] Anjum Braswell MD LAB BLOOD ORDERABLES Final Result [facility] 1 from Last 3 Months or Most Recently Relevant to Health Maintenance Insurance [employer] MEDICARE Care Teams Forest Economist Relationship Specialty Start Date End Date Rudy Buckley MD [address] [place] [address] [place] PCP - General Internal Medicine 07/23/24
== END 2025-04-07 10:58 | disposition home or self-care (01) ==
LOC: HO.HGS 10:38
PROVIDERS: PCP Internal Medicine; Visit Provider Surgery
DX: Z91.89 Other specified personal risk factors, not elsewhere classified (principal)
CPT/HCPCS: 99213

== ENCOUNTER → 2025-04-07 10:38 | Outpatient (BNVA) | payer MEDICARE, SELFPAY | PROVIDERS: PCP Internal Medicine; Visit Provider Surgery | DX: Z71.2 Person consulting for explanation of examination or test findings (principal); Z80.3 Family history of malignant neoplasm of breast; Z91.89 Other specified personal risk factors, not elsewhere classified | CPT/HCPCS: 99212 ==

== ENCOUNTER → 2025-04-19 23:59 | Outpatient (BNV) | payer MEDICARE, SELFPAY ==
--- NOTE | 2025-04-22 13:46 | A.OFFVIS_ITS ---
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 Normally functioning cardiac pacemaker present Overweight (BMI 25.0-29.9) Allergic rhinitis Impaired fasting glucose Benign essential hypertension Sick sinus syndrome Pure hypercholesterolemia PAF (paroxysmal atrial fibrillation) Surgical History History of cardiac ablation for atrial fibrillation H/O colonoscopy History of pacemaker History of tonsillectomy Family History Father Hypertension Diabetes Arthritis Colon cancer Iron deficiency Mother Hypertension Maternal Grandmother Arthritis Diabetes Blockage of coronary artery of heart Maternal Grandfather Arthritis Paternal Grandfather Arthritis Pancreatic cancer Social History Housing: House Alcohol intake: former Patient Tobacco Use Status: Former Tobacco user e-Cigarette/Vaping Use: Never Used Second Hand Smoke Exposure: Yes service: No Current occupational status: disabled Cognitive needs: No Hearing needs: Yes (Hearing aide) Vision needs: Yes (wear glasses) Office Procedures Cardiac Device Check Cardiac Device Check Details: Date of service- 04/19/2025 ; Battery life 2.5 years; normal lead parameters; AP 98%; HYDROELECTRIC 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 Overall normal device function. [id number] Cardiac Device Interrogation, pacemaker Procedure code (CPT) selection complete Assessment & Plan Assessment & Plan (1) Pacemaker: Code(s): Z95.0 - Presence of cardiac pacemaker Category: Medical (2) Sick sinus syndrome: Code(s): I49.5 - Sick sinus syndrome Category: Medical Plan x Coding Level of Care Code Procedure Only Diagnoses Pacemaker Z95.0 Sick sinus syndrome I49.5 CPT Codes Cardiac Device Check - Cardiac Device 12: [id number] Cardiac Device Interrogation, pacemaker ([id number])
== END ==
PROVIDERS: PCP Internal Medicine; Visit Provider Internal Medicine
DX: I49.5 Sick sinus syndrome (principal); Z95.0 Presence of cardiac pacemaker
CPT/HCPCS: 93294

== ENCOUNTER 2025-05-27 09:33 | Outpatient (REF) | payer MEDICARE, SELFPAY ==
[2025-05-27 09:48] LABS: MANUAL DIFF FLAG NO
[2025-05-27 10:37] LABS: Hematocrit 41.0 % (37.0-47.0); Hemoglobin 14.2 g/dl (12.0-16.0); Imm Gran Abs Auto 0.00 X10*3/uL (0.00-0.03); Imm Gran Pct Auto 0.0 % (0.0-0.4); Lymphocytes Absolute Auto 1.8 X10*3/uL (1.2-4.9); Mean Corpuscular HGB Conc 34.6 g/dl (31.0-35.0); Mean Corpuscular Hemoglobin 31.5 pg (27.0-33.0); Mean Corpuscular Volume 90.9 fL (80.0-98.0); NRBC Abs Auto 0.000 X10*3/uL (0.0-0.012); NRBC Pct Auto 0.0 /100WBC (0.0-0.2); Platelet Count 179 X10*3/uL (160-400); Red Blood Count 4.51 X10*6/uL (4.20-5.50); White Blood Count 3.7 X10*3/uL (4.8-10.8)
--- OUTSIDE RECORDS SUMMARY | 2025-05-27 10:45 | XMS_ITS | Clinical Summary ---
Author Organization [address] [place] [address] [place] [id number] Phone Care Team Providers Care Fisher Eel Name Role Phone Rudy Buckley MD Primary Care Provider + [phone] Allergies Active Allergy Reactions Criticality Noted Date [...] Diagnosed Date PAF (paroxysmal atrial fibri llation) ([facility] V24, [facility] V28) 05/15/2024 Hypertension 05/15/2024 Hypercholesterolemia 05/15/2024 SSS (sick sinus syndrome) ([facility] V24, [facility] V28) 05/15/2024 Impaired fasting glucose 05/15/2024 Surgical History Surgery Date Site/Laterality Comments PACEMAKER IMPLANT TONSILLECTOMY ABLATION DONE ON 06/22/[address] [facility] [place] INDICATIONS:Atrial Fibrillation Family History Medical [...] Last Done Comments Breast Cancer Screening 1959 Colorectal Cancer Screening: Colonoscopy 1959 Cervical Cancer Screening: Pap Smear 12/15/1980 Cholesterol Screening (Lipid Panel) 05/04/2024 Hepatitis C Screening 05/04/2024 Medicare Annual [...] AM EST Performed at: 01 - [facility] [place] [id number] Gambling Floor Supervisor: Elaina Quiroz MD, Phone: [phone] us Anjum Braswell MD LAB BLOOD ORDERABLES Final Result [facility] 1 from Last 3 Months or Most Recently Relevant to Health Maintenance Insurance [employer] MEDICARE Care Teams Fisher Eel Relationship Specialty Start Date End Date Rudy Buckley MD [address] [place] [address] [place] PCP - General Internal Medicine 1/2/25
[2025-05-27 10:59] LABS: Appearance Urine Clear; Glucose Urine UA Negative (Negative); PH 7.5 (5.0-9.0); Specific Gravity - Urine 1.010 (1.005-1.025); UMIC TRIGGER UACC YES
[2025-05-27 11:14] LABS: UACC Culture Trigger YES
[2025-05-27 11:26] LABS: Alanine Aminotransferase 19 U/L (0-31); Albumin Level 4.3 g/dL (3.5-5.0); Alkaline Phosphatase 71 U/L (39-117); Anion Gap 11 (12-20); Aspartate Amino Transferase 23 U/L (5-31); Blood Urea Nitrogen 12 mg/dL (9-16); Calcium 9.3 mg/dL (8.4-10.2); Carbon Dioxide 27 mmol/L (22-29); Chloride 109 mmol/L (96-108); Cholesterol 163 mg/dL (<200); Estimated Glomerular Filt Rate > 60; HDL Cholesterol 77 mg/dL (>40); Potassium 3.9 mmol/L (3.3-5.1); Sodium 143 mmol/L (135-145); Total Protein 6.6 g/dL (6.5-8.0); Triglycerides 87 mg/dL (<150)
[2025-05-27 11:39] LABS: Folate 13.5 ng/mL (> or = 4.0); Vitamin B12 1151 pg/mL (200-900)
== END 2025-05-27 09:34 | disposition home or self-care (01) ==
LOC: HO.LAB 09:33
PROVIDERS: PCP Internal Medicine; Visit Provider Internal Medicine
DX: E53.8 Deficiency of other specified B group vitamins (principal); D64.9 Anemia, unspecified; E78.00 Pure hypercholesterolemia, unspecified; E55.9 Vitamin D deficiency, unspecified
CPT/HCPCS: 36415; 80053; 80061; 81001; 82306; 82607; 82746; 84443; 85025; 87086

== ENCOUNTER 2025-06-02 13:36 | Outpatient (AMB) | payer MEDICARE, SELFPAY ==
--- NOTE | 2025-06-02 13:44 | MHC.PC.OV ---
Vital Signs 06/02/25 13:47 Height 5 ft 2 in Weight 146 lb 6 oz BMI 26.8 BP 130/78 Blood Pressure Location Lt brachial Position Sitting Pulse 82 Pulse Source Pulse Oximeter Pulse Oximetry (%) 98 Oxygen Delivery Method Room Air Intake Visit Reasons: Annual PE - see comments Automated Access Systems Technician Required: No Accompanied by: Self / Same As Patient Allergies codeine (CODEINE) Allergy (Unknown, Verified 06/02/25 14:33) JITTERY Sulfa (Sulfonamide Antibiotics) (SULFA (SULFONAMIDE ANTIBIOTICS)) Allergy (Unknown, Verified 06/02/25 14:33) RASH,HIVES, rash Medication List - Last Reconciled 06/02/25 by Rudy Buckley MD apixaban (Eliquis) 5 mg PO BID atorvastatin 10 mg PO DAILY calcium carbonate-vitamin D3 600 mg-5 mcg (200 unit) 1 tab PO DAILY 90 days docusate sodium (Colace) 100 mg PO DAILY PRN 90 days metoprolol succinate ER 50 mg PO DAILY tizanidine 4 mg PO Q8H PRN Tobacco use date assessed: 06/02/25 Fall risk assessment: No Falls in past year Last assessed Fall Risk: 06/02/25 Dental Screening Dental Screen Date: 06/02/25 Did you have a dental visit in the last 12 months?: No Did you have a dental problem in the last 6 months where you did not have access to dental care?: No Was dental information given to patient?: No HPI Annual PE - see comments HPI Details Patient comes in today for her annual physical examination States that she feels well She denies any headaches or dizziness Denies any chest pains, no shortness of breath No nausea/vomiting, no abdominal pain No change in bowel habits noted She denies any acute urinary symptoms She had her follow up labs done last week - to discuss her results Her annual mammogram was last done on 09/22/24; her next one is scheduled on 09/24/2025 She had her screening colonoscopy done on 11/30/2014 and was recommended to get repeat colonoscopy in 5 to 7 years; her repeat colonoscopy was done back on 05/14/22 - this came out normal and she was recommended to get a repeat colonoscopy done in 10 years (2031) She had her pap smear and yearly gynecology exam done on 12/28/2020 and had her most recent one done with Dr. Knight last year on 02/12/2024; her next appointment is coming up in a couple of weeks on 06/15/2025 She's had no BMD done in the past [facility] Medical History Constipation At high risk for breast cancer Family history of breast cancer Current use of custodial anticoagulation Normally functioning cardiac pacemaker present Overweight (BMI 25.0-29.9) Allergic rhinitis Impaired fasting glucose Benign essential hypertension Sick sinus syndrome Pure hypercholesterolemia PAF (paroxysmal atrial fibrillation) Surgical History History of cardiac ablation for atrial fibrillation H/O colonoscopy History of pacemaker History of tonsillectomy Family History Father Hypertension Diabetes Arthritis Colon cancer Iron deficiency Mother Hypertension Maternal Grandmother Arthritis Diabetes Blockage of coronary artery of heart Maternal Grandfather Arthritis Paternal Grandfather Arthritis Pancreatic cancer Social History Housing: House Alcohol intake: former Patient Tobacco Use Status: Former Tobacco user e-Cigarette/Vaping Use: Never Used Second Hand Smoke Exposure: Yes service: No Current occupational status: disabled Cognitive needs: No Hearing needs: Yes (Hearing aide) Vision needs: Yes (wear glasses) Questionnaire PHQ-9 Over the last 2 weeks, how often have you been bothered by any of the following problems? 1. Little interest or pleasure in doing things: not at all 2. Feeling down, depressed, or hopeless: not at all 3. Trouble falling or staying asleep, or sleeping too much: not at all 4. Feeling tired or having little energy: not at all 5. Poor appetite or overeating: not at all 6. Feeling bad about yourself - or that you are a failure or have let yourself or your family down: not at all 7. Trouble concentrating on things, such as reading the newspaper or watching television: not at all 8. Moving or speaking so slowly that other people could have noticed. Or the opposite - being so fidgety or restless that you have been moving around a lot more than usual: not at all 9. Thoughts that you would be better off or of hurting yourself in some way: not at all Total score: 0 Depression Screening Interpretation: Negative Depression Screening Done: Yes 40068 - PHQ-9 Billing: Yes Source: Developed by Drs. Fan Valerio, Anuradha Corado, Zan Vogt and colleagues, with an educational cecil from [employer]. Thrive Questionnaire Date Thrive assessed: 06/02/25 I am a: Patient What is your living situation today?: I have a steady place to live Within the past 12 months, did the food you bought not last and you didn't have the money to get more?: I choose not to answer this question Within the past 12 months, did you worry whether your food would run out before you got money to buy more?: I choose not to answer this question Do you have trouble paying for medicines?: Yes Do you have trouble getting transportation to medical appointments?: No Do you have trouble paying your heating and electricity bill?: No Do you have trouble taking care of your child, family member or friend?: No Do you have trouble with day-to-day activities such as bathing, preparing meals, shopping, managing finances, etc.?: No Are you currently unemployed and looking for a job?: No Are you interested in more education?: No Please select the resources that you would like help with: Paying for medicine Currently or been in a relationship where the following occur: I choose not to answer THRIVE Score: 0 AUDIT C Alcohol Use Questionnaire (AUDIT-C) 1. How often do you have a drink containing alcohol?: Never 3. How often do you have six or more drinks on one occasion?: Never Total Score: 0 Score Reviewed/Action Taken: Yes AISHA-7 AMB Questionnaire AISHA-7 Date AISHA - 7 assessed: 06/02/25 Feeling nervous, anxious, or on edge: 0 = Not at all Not being able to stop or control worryin = Not at all Worrying too much about different things: 0 = Not at all Trouble relaxin = Not at all Being so restless that it is hard to sit still: 0 = Not at all Becoming easily annoyed or irritable: 0 = Not at all Feeling afraid as if something awful might happen: 0 = Not at all Total AISHA-7 score (0-4 normal; 5-9 mild; 10-14 moderate; 15-21 severe): 0 Source: Developed by Drs. Fan Valerio, Anuradha Corado, Zan Vogt and colleagues, with an educational cecil from [employer]. Review of Systems Const Denies chills, Denies fatigue, Denies fever(s), Denies headache(s) and Denies malaise Eyes Denies blurry vision, Denies change in vision, Denies irritation and Denies itchy eyes ENT Denies dysphagia, Denies dizziness, Denies otalgia, Denies headache(s), Denies nasal congestion, Denies neck pain, Denies odynophagia, Denies sinus pain and Denies sore throat Card Denies chest pain, Denies rapid heart rate, Denies irregular heart rhythm, Denies palpitations and Denies dyspnea Resp Denies chest congestion, Denies cough, Denies dyspnea and Denies wheezing GI Denies abdominal pain, Denies bloating, Denies constipation, Denies dysphagia, Denies heartburn, Denies diarrhea, Denies nausea, Denies odynophagia and Denies vomiting Denies hematuria, Denies urinary frequency, Denies dysuria, Denies urinary incontinence and Denies urinary urgency Musc Denies back pain, Denies arthralgias, Denies joint swelling, Denies muscle weakness and Denies neck pain Skin/Breast Denies breast pain, Denies breast mass, Denies change in pigmentation, Denies lesions, Denies rash and Denies unusual bruising Neuro Denies dizziness, Denies headache(s) and Denies paresthesias Psych Denies anxiety and Denies depression Endo Denies fatigue and Denies palpitations Dick/Lymph Denies easy bruising Aller/Immun Denies itchy eyes and Denies wheezing Physical exam (Primary Care) Vital Signs: Last Vital Signs Pulse 82 06/02/25 13:47 BP 130/78 06/02/25 13:47 Pulse Ox 98 06/02/25 13:47 Oxygen Delivery Method Room Air 06/02/25 13:47 BMI result Body Mass Index 26.8 Tobacco/Smoking Status: Tobacco use Status Tobacco use date assessed 06/02/25 06/02/25 13:48 Patient Tobacco Use Status Former Tobacco user 06/02/25 13:45 e-Cigarette/Vaping Use Never Used 06/02/25 13:45 PHQ-9: PHQ-9 Score PHQ-9: Total score 0 06/02/25 14:34 Depression Screening Interpretation: Negative Thrive Assessment: Date of Thrive Assessment Date Thrive assessed 06/02/25 06/02/25 13:48 Currently or been in a relationship where the following occur: I choose not to answer Const General: no acute distress, alert and awake Orientation/consciousness: patient oriented x3 HENMT Head: Yes normocephalic and Yes atraumatic Ears: external ears normal, TM's normal bilaterally and EAC's normal General nose exam: No nasal discharge present Face and sinus: Yes normal facial exam and Yes sinuses nontender Teeth and gingiva: dentition normal Throat: Yes posterior oropharynx normal and Yes tonsils normal (no TP congestion) Eyes Eyelids: Yes eyelids normal Conjunctivae: conjunctivae normal Pupils: Equal, round and reactive pupils present EOM: EOMs intact bilaterally Neck Neck: Yes no lymphadenopathy and Yes supple Thyroid: Thyroid normal Resp Auscultation: clear to auscultation bilaterally, no rales and no wheezes Cardio Rate: regular rate Rhythm: regular rhythm Heart sounds: no murmurs GI Palpation (GI): Soft to palpation, nontender and No hepatosplenomegaly present Auscultation: normal bowel sounds General: Yes no CVA tenderness Back/Spine/Pelvis Back: no CVA tenderness Thoracic/Lumbar Spine: thoracic and lumbar spine normal to inspection Skin Lesions: no lesions Rashes: no rashes Neuro General: patient oriented x3, moves all extremities, no focal motor deficits and CN's II-XI intact bilaterally Cranial nerves: Yes Equal, round and reactive pupils present Cognition (Neuro): normal cognition Gait exam (Neuro): Normal gait present Extrem General: Yes no clubbing, cyanosis or edema Results Reviewed Results Reviewed: Laboratory Tests 05/27/25 05/27/25 09:37 09:46 WBC 3.7 L Hgb 14.2 Hct 41.0 Plt Count 179 Sodium 143 Potassium 3.9 Creatinine 0.63 Estimated GFR > 60 Fasting Glucose 99 Calcium 9.3 AST 23 ALT 19 Triglycerides 87 Cholesterol 163 LDL Cholesterol, Calc 69 HDL Cholesterol 77 Vitamin B12 1151 H 25-OH Vitamin D Total 48.5 TSH 2.37 Ur Specific [place] 1.010 Urine Protein Negative Urine Glucose (UA) Negative Urine Blood Negative Urine Nitrite Negative Ur Leukocyte Esterase Small (1+) H Coding Level of Care Code Est Pt Prev Care >65y(06658) Diagnoses Annual physical exam Z00.00 PAF (paroxysmal atrial fibrillation) I48.0 Sick sinus syndrome I49.5 Pure hypercholesterolemia E78.00 Benign essential hypertension I10 Impaired fasting glucose R73.01 Allergic rhinitis, unspecified seasonality, unspecified trigger J30.9 Allergic rhinitis seasonality: unspecified Allergic rhinitis trigger: unspecified Elevated vitamin B12 level R74.8 Primary osteoarthritis of left hand M19.042 Osteoarthritis type: primary Constipation, unspecified constipation type K59.00 Constipation type: unspecified constipation type Osteoporosis screening Z13.820 Additional Codes PHQ-9 - 77014 - PHQ-9 Billing: Yes ([id number]) Assessment & Plan Assessment & Plan (1) Annual physical exam: Code(s): Z00.00 - Encounter for general adult medical examination without abnormal findings Category: Medical Plan: Results of her labs done last week reviewed and discussed with patient She is up-to-date with all of her cancer screenings - her annual mammogram was last done on 09/22/2024 and her next one is scheduled already on 09/24/2025 She had her screening colonoscopy done on 11/30/2014 and was recommended to get repeat colonoscopy in 5 to 7 years; her repeat colonoscopy was done back on 05/14/22 - this came out normal and she was recommended to get a repeat colonoscopy done in 10 years (2031) She had her pap smear and yearly gynecology exam done on 12/28/2020 and had her most recent one done with Dr. Knight last year on 02/12/2024; her next appointment is coming up in a couple of weeks on 06/15/2025 She's had no BMD done in the past (2) PAF (paroxysmal atrial fibrillation): Code(s): I48.0 - Paroxysmal atrial fibrillation Category: Medical Plan: S/P cardiac ablation at [facility] back on 06/22/2024, with no further recurrence of her arrhythmia Patient currently remains in sinus rhythm Continue Metoprolol ER 50 mg QD and Eliquis 5 mg BID for thromboembolism prophylaxis Follow up with cardiology as scheduled (3) Sick sinus syndrome: Code(s): I49.5 - Sick sinus syndrome Category: Medical Plan: Improved/resolved with pacemaker insertion (4) Pure hypercholesterolemia: Code(s): E78.00 - Pure hypercholesterolemia, unspecified Category: Medical Plan: Reinforced low cholesterol diet Continue Atorvastatin 10 mg QD Will recheck her labs and fasting lipids in 4 months for follow up (5) Benign essential hypertension: Code(s): I10 - Essential (primary) hypertension Category: Medical Plan: Reinforced low sodium diet - goal is systolic BP of at least 130 mm or less Continue Metoprolol ER 50 mg QD (6) Impaired fasting glucose: Code(s): R73.01 - Impaired fasting glucose Category: Medical Plan: Her HgbA1c was normal at 5.5% when last checked in January 2025; her FBS was normal at 99 mg/dl on her recent labs Reinforced low calorie diet/exercise as tolerated (7) Allergic rhinitis: Code(s): J30.9 - Allergic rhinitis, unspecified Category: Medical Qualifiers: Allergic rhinitis seasonality: unspecified Allergic rhinitis trigger: unspecified Qualified Code(s): J30.9 - Allergic rhinitis, unspecified Plan: Continue Fluticasone nasal spray 50 mcg 1 spray into each nostril QD (8) Elevated vitamin B12 level: Code(s): R74.8 - Abnormal levels of other serum enzymes Category: Medical Plan: Patient's vitamin B12 level was noted to be very high on her recent labs at >1100 pg/ml Patient states that she does not take any vitamin B12 supplements additionally Will recheck her vitamin B12 level in 4 months for follow-up (9) Osteoarthritis of hand, left: Code(s): M19.042 - Primary osteoarthritis, left hand Category: Medical Qualifiers: Osteoarthritis type: primary Qualified Code(s): M19.042 - Primary osteoarthritis, left hand Plan: X-rays of the left hand done a couple of years ago revealed (+) OA changes in the left hand She is again instructed to continue with hand exercises that she can do regularly to help manage her hand pain / symptoms (10) Constipation: Code(s): K59.00 - Constipation, unspecified Category: Medical Qualifiers: Constipation type: unspecified constipation type Qualified Code(s): K59.00 - Constipation, unspecified Plan: Reinforced increased oral fluids and dietary fiber Continue Colace 100 mg QD PRN (11) Osteoporosis screening: Code(s): Z13.820 - Encounter for screening for osteoporosis Category: Medical Plan: Will now send patient for BMD for osteoporosis screening - this will be her index screen Plan Follow up in 4 months Orders: Orders Lipid Panel 4 Months E78.00 - Pure hypercholesterolemia, unspecified Comprehensive [place]. Panel Fast 4 Months E78.00 - Pure hypercholesterolemia, unspecified TSH reflex Free T4 4 Months E78.00 - Pure hypercholesterolemia, unspecified UA CC w/rflx Micro + Cult 4 Months R30.0 - Dysuria Vitamin B12 and Folate 4 Months E53.8 - Deficiency of other specified B group vitamins XR DEXA axial skeleton 06/02/25 Z78.0 - Asymptomatic menopausal state Complete Blood Count Auto Diff 4 Months D64.9 - Anemia, unspecified Vitamin D 25-OH Total 4 Months E55.9 - Vitamin D deficiency, unspecified
[2025-06-02 13:47] VITALS: BP 130/78; PULSE 82; O2SAT 98; BMI 26.8
--- OUTSIDE RECORDS SUMMARY | 2025-06-02 16:31 | XMS_ITS | Clinical Summary ---
Author Organization [address] [place] [address] [place] [id number] Phone Care Team Providers Care Letter Of Credit Clerk Name Role Phone Rudy Buckley MD Primary Care Provider + [phone] Allergies Active Allergy Reactions Criticality Noted Date [...] Diagnosed Date PAF (paroxysmal atrial fibri llation) ([facility] V24, [facility] V28) 05/15/2024 Hypertension 05/15/2024 Hypercholesterolemia 05/15/2024 SSS (sick sinus syndrome) ([facility] V24, [facility] V28) 05/15/2024 Impaired fasting glucose 05/15/2024 Surgical History Surgery Date Site/Laterality Comments PACEMAKER IMPLANT TONSILLECTOMY ABLATION DONE ON 06/22/2024 AT [facility] W SR INDICATIONS:Atrial Fibrillation Family History Medical [...] Performed at: 01 - [facility] [place] [id number] Lathe Scalper Operator: Elaina Quiroz MD, Phone: [phone] us Anjum Braswell MD LAB BLOOD ORDERABLES Final Result [facility] 1 from Last 3 Months or Most Recently Relevant to Health Maintenance Insurance [employer] MEDICARE Care Teams Letter Of Credit Clerk Relationship Specialty Start Date End Date Rudy Buckley MD [address] [place] [address] [place] PCP - General Internal Medicine 1/2/25
== END 2025-06-02 14:49 | disposition home or self-care (01) ==
LOC: HO.HMCH 13:37
PROVIDERS: PCP Internal Medicine; Visit Provider Internal Medicine
DX: Z00.00 Encounter for general adult medical examination without abnormal findings (principal); I48.0 Paroxysmal atrial fibrillation; I49.5 Sick sinus syndrome; E78.00 Pure hypercholesterolemia, unspecified; I10 Essential (primary) hypertension; R73.01 Impaired fasting glucose; J30.9 Allergic rhinitis, unspecified; R74.8 Abnormal levels of other serum enzymes; M19.042 Primary osteoarthritis, left hand; K59.00 Constipation, unspecified; Z13.820 Encounter for screening for osteoporosis

== ENCOUNTER → 2025-06-02 13:36 | Outpatient (BNVA) | payer MEDICARE, SELFPAY | PROVIDERS: PCP Internal Medicine; Visit Provider Internal Medicine | DX: Z00.00 Encounter for general adult medical examination without abnormal findings (principal); I48.0 Paroxysmal atrial fibrillation; I49.5 Sick sinus syndrome; E78.00 Pure hypercholesterolemia, unspecified; I10 Essential (primary) hypertension; R73.01 Impaired fasting glucose; J30.9 Allergic rhinitis, unspecified; R74.8 Abnormal levels of other serum enzymes; M19.042 Primary osteoarthritis, left hand; K59.00 Constipation, unspecified; R30.0 Dysuria; E53.8 Deficiency of other specified B group vitamins; Z78.0 Asymptomatic menopausal state; D64.9 Anemia, unspecified; E55.9 Vitamin D deficiency, unspecified | CPT/HCPCS: 96127; 99397 ==

== ENCOUNTER 2025-06-15 14:10 | Outpatient (AMB) | payer MEDICARE, SELFPAY ==
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
[2025-06-15 14:43] VITALS: BP 130/76; BMI 26.7
--- OUTSIDE RECORDS SUMMARY | 2025-06-15 18:03 | XMS_ITS | Clinical Summary ---
Author Organization [address] [place] [address] [place] [id number] Phone Care Team Providers Care Fire Safety Director Name Role Phone Rudy Buckley MD Primary Care Provider + [phone] Allergies Active Allergy Reactions Criticality Noted Date [...] Diagnosed Date PAF (paroxysmal atrial fibri llation) ([facility] V24, [facility] V28) 05/15/2024 Hypertension 05/15/2024 Hypercholesterolemia 05/15/2024 SSS (sick sinus syndrome) ([facility] V24, [facility] V28) 05/15/2024 Impaired fasting glucose 05/15/2024 Surgical History Surgery Date Site/Laterality Comments PACEMAKER IMPLANT T[place]IL[place]OMY ABL[place] 06/22/2024 [place] [facility] [place] INDICATIONS:Atrial Fibrillation Family History [...] AM EST Performed at: 01 - [facility] [place] [id number] [employer] Professor: Elaina Quiroz MD, Phone: [phone] us Anjum Braswell MD LAB BLOOD ORDERABLES Final Result [facility] 1 from Last 3 Months or Most Recently Relevant to Health Maintenance Insurance [employer] MED[employer]ARE Care Teams Fire Safety Director Relationship Specialty Start Date End Date Rudy Buckley MD [address] [place] [address] [place] PCP - General Internal Medicine 1/2/25
== END 2025-06-15 15:00 | disposition home or self-care (01) ==
LOC: HO.HWSM 14:10
PROVIDERS: PCP Internal Medicine; Visit Provider Advanced Practice Midwife
DX: Z01.419 Encounter for gynecological examination (general) (routine) without abnormal findings (principal); Z12.39 Encounter for other screening for malignant neoplasm of breast
CPT/HCPCS: 99397; 99459

== ENCOUNTER → 2025-06-15 14:10 | Outpatient (BNVA) | payer MEDICARE, SELFPAY | PROVIDERS: PCP Internal Medicine; Visit Provider Advanced Practice Midwife | DX: Z01.419 Encounter for gynecological examination (general) (routine) without abnormal findings (principal); Z78.0 Asymptomatic menopausal state; Z91.89 Other specified personal risk factors, not elsewhere classified; Z80.3 Family history of malignant neoplasm of breast | CPT/HCPCS: 99397 ==